=== PATIENT | male | born 1970 | race Caucasian/White ===

== ENCOUNTER 2016-12-02 11:18 | Inpatient (IN) | payer BC, MEDICARE ==
[~2016-12-02] VITALS: Ht 172.7 cm; Wt 114.5 kg
[2016-12-02] VITALS (20 sets, daily range): BP systolic 118–218; BP diastolic 55–100; PULSE 72–95; RESP 1–24; TEMP 98.9–99.3; O2SAT 94–100
[2016-12-02] MEDS ORDERED: SUCCINYLCHOLINE CHLORIDE 200 MG/10 ML VIAL ONE (11:24)
[2016-12-02] MEDS ORDERED: ETOMIDATE 20 MG/10 ML VIAL ONE (11:24)
[2016-12-02] MEDS ORDERED: PROPOFOL 1000 MG/100 ML INJ 100 ML ONE (11:28)
[2016-12-02] MEDS ORDERED: MIDAZOLAM HCL 2 MG/2 ML VIAL IV PUSH ONE (11:45)
[2016-12-02] MEDS ORDERED: SODIUM CHLORIDE 0.9% FLUSH 10 ML FLUSH IVF PRN (11:45)
[2016-12-02] MEDS ORDERED: PROPOFOL 1000 MG/100 ML INJ 100 ML IV SCH (11:45)
[2016-12-02] MEDS ORDERED: MIDAZOLAM HCL 5 MG/ML VIAL (1 ML) ONE (11:47)
--- NOTE | 2016-12-02 11:48 | PD ---
HPI Chief Complaint: Code Blue Time Seen by Provider: 11:31 Travel History International Travel<30 days: No Contact w/Intl Traveler<30days: No History of Present Illness HPI Patient is a 46-year-old male with history of diabetes, neuropathy, Charcot foot to the left, hyperlipidemia, presents to emergency room after he had a witnessed cardiac arrest at home. As per EMS, patient's reports that patient complained of dizziness this morning. Reports that soon after, patient collapsed and went into cardiac arrest. EMS reports that they were at the house within 5 minutes of the call, that he was in asystole upon arrival. Patient was intubated using a combitube. ACLS protocol was initiated in the field. Patient was given 2 rounds of epi and had ROSC. EMS reported that patient was also coughing up blood Blood sugar was 110 upon arrival to ER. [facility] Past Medical History High Cholesterol: Yes Diabetes: Yes Musculoskeletal: Yes (Charcot's foot (left)) Neurologic: Yes ("Brain atrophy") Social History Tobacco Use: No Allergies-Medications (Allergen,Severity, Reaction): Coded Allergies: UNOBTAINABLE (Unverified , 12/02/16) Reported Meds & Prescriptions Reported Meds & Active Scripts Active Reported Aspirin 81 Mg Chew 81 Mg CHEW DAILY Simvastatin 20 Mg Tab 20 Mg PO DAILY Losartan (Losartan Potassium) 25 Mg Tab 25 Mg PO DAILY Prozac (Fluoxetine HCl) 40 Mg Cap 40 Mg PO DAILY Gabapentin 800 Mg Tab 800 Mg PO TID Novolog Inj (Insulin Aspart) 1,000 Unit/10 Ml Vial 0 SQ DIRECTED Sliding Scale as directed. Review of Systems ROS Limitations: Intubated, Altered Mental Status, Unresponsive Physical Exam Narrative GENERAL: moderate distress SKIN: Focused skin assessment warm/dry. HEAD: Atraumatic. Normocephalic. EYES: Pupils equal and round. No scleral icterus. No injection or drainage. ENT: No nasal bleeding or discharge. Mucous membranes pink and moist. comitube in place NECK: Trachea midline. No JVD. CARDIOVASCULAR: Regular rate and rhythm. No murmur appreciated. RESPIRATORY: No accessory muscle use. Clear to auscultation. Breath sounds equal bilaterally. GASTROINTESTINAL: Abdomen soft, non-tender, nondistended. Hepatic and splenic margins not palpable. MUSCULOSKELETAL: No obvious deformities. No clubbing. No cyanosis. No edema. Patient with boot to left ankle NEUROLOGICAL: patient with agonal breathing with combitube in place, unresponsive Data Data Last Documented VS Vital Signs Date Time Temp Pulse Resp B/P Pulse Ox O2 Delivery O2 Flow Rate FiO2 12/02/16 11:50 89 136/63 100 Ventilator 12/02/16 11:26 98.9 12/02/16 11:20 10 Orders Etomidate Inj (Amidate Inj) (12/02/16 11:24) Succinylcholine Inj (Quelicin Inj) (12/02/16 11:24) Propofol 1000 Mg/100 Ml Inj (Diprivan 10 (12/02/16 11:28) Chest, Single Ap (12/02/16 ) Ckmb (Isoenzyme) Profile (12/02/16 11:32) Complete Blood Count With Diff (12/02/16 11:32) Comprehensive Metabolic Panel (12/02/16 11:32) Prothrombin Time / Inr (Pt) (12/02/16 11:32) Act Partial Throm Time (Ptt) (12/02/16 11:32) Lipase (12/02/16 11:32) Ecg Monitoring (12/02/16 11:32) Iv Access Insert/Monitor (12/02/16 11:32) Oximetry (12/02/16 11:32) Sodium Chloride 0.9% Flush (Ns Flush) (12/02/16 11:45) Ct Pulmonary Angiogram (12/02/16 11:32) Ct Brain W/O Iv Contrast(Rout) (12/02/16 11:32) Insert Ng Tube (12/02/16 11:33) Insert Temp Sensing Porter Cath (12/02/16 11:33) Bedside Glucose EMMANUEL.AC&HS (12/02/16 11:33) Drug Screen, Random Urine (12/02/16 11:34) Alcohol (Ethanol) (12/02/16 11:34) Salicylates (Aspirin) (12/02/16 11:34) Tylenol (Acetaminophen) (12/02/16 11:34) Propofol 1000 Mg/100 Ml Inj (Diprivan 10 (12/02/16 11:45) B-Type Natriuretic Peptide (12/02/16 11:39) Magnesium (Mg) (12/02/16 11:39) Troponin I (12/02/16 11:39) Ct Cerv Spine W/O Contrast (12/02/16 11:40) Type And Screen (12/02/16 11:43) Arterial Blood Gas (Abg) (12/02/16 ) Midazolam Inj (Versed Inj) (12/02/16 11:45) Midazolam Inj (Versed Inj) (12/02/16 11:47) Vecuronium 10 Mg Inj (Norcuron 10 Mg Inj (12/02/16 12:00) Vecuronium 10 Mg Inj (Norcuron 10 Mg Inj (12/02/16 11:53) Admit Order (Ed Use Only) (12/02/16 12:10) CKMB (12/02/16 11:40) CKMB% (12/02/16 11:40) Labs Laboratory Tests Test 12/02/16 12/02/16 11:40 11:42 White Blood Count 11.9 TH/MM3 Red Blood Count 4.55 MIL/MM3 Hemoglobin 12.9 GM/DL Hematocrit 41.1 % Mean Corpuscular Volume 90.4 FL Mean Corpuscular Hemoglobin 28.4 PG Mean Corpuscular Hemoglobin 31.4 % Concent Red Cell Distribution Width 13.8 % Platelet Count 252 TH/MM3 Mean Platelet Volume 8.4 FL Neutrophils (%) (Auto) 41.8 % Lymphocytes (%) (Auto) 48.6 % Monocytes (%) (Auto) 8.2 % Eosinophils (%) (Auto) 0.9 % Basophils (%) (Auto) 0.5 % Neutrophils # (Auto) 5.0 TH/MM3 Lymphocytes # (Auto) 5.8 TH/MM3 Monocytes # (Auto) 1.0 TH/MM3 Eosinophils # (Auto) 0.1 TH/MM3 Basophils # (Auto) 0.1 TH/MM3 CBC Comment AUTO DIFF Differential Total Cells 100 Counted Neutrophils % (Manual) 41 % Lymphocytes % 45 % Monocytes % 11 % Eosinophils % 1 % Neutrophils # (Manual) 5.1 TH/MM3 Metamyelocytes 1 % Myelocytes 1 % Differential Comment FINAL DIFF MANUAL Prothrombin Time 10.5 SEC Prothromb Time International 1.0 RATIO Ratio Activated Partial 22.6 SEC Thromboplast Time Sodium Level 145 MEQ/L Potassium Level 4.8 MEQ/L Chloride Level 108 MEQ/L Carbon Dioxide Level 20.7 MEQ/L Anion Gap 16 MEQ/L Blood Urea Nitrogen 21 MG/DL Creatinine 1.49 MG/DL Estimat Glomerular Filtration 50 ML/MIN Rate Random Glucose 116 MG/DL Calcium Level 8.6 MG/DL Magnesium Level 2.5 MG/DL Total Bilirubin 0.5 MG/DL Aspartate Amino Transf 44 U/L (AST/SGOT) Alanine Aminotransferase 40 U/L (ALT/SGPT) Alkaline Phosphatase 114 U/L Total Creatine Kinase 358 U/L Creatine Kinase MB 2.7 NG/ML Creatine Kinase MB % 0.8 % Troponin I 0.02 NG/ML B-Type Natriuretic Peptide 32 PG/ML Total Protein 6.2 GM/DL Albumin 3.3 GM/DL Lipase 136 U/L Salicylates Level LESS THAN 1.7 MG/DL Acetaminophen Level LESS THAN 2.0 MCG/ML Ethyl Alcohol Level LESS THAN 3 MG/DL Urine Opiates Screen NEG Urine Barbiturates Screen NEG Urine Amphetamines Screen NEG Urine Benzodiazepines Screen NEG Urine Cocaine Screen NEG Urine Cannabinoids Screen NEG MDM Medical Decision Making Medical Screen Exam Complete: Yes Emergency Medical Condition: Yes Interpretation(s) EKG at 1124: NSR at 93bpm, qt/qtc: 329/380, no acute st or t wave changes Vital Signs Date Time Temp Pulse Resp B/P Pulse Ox O2 Delivery O2 Flow Rate FiO2 12/02/16 11:26 93 118/56 100 12/02/16 11:26 98.9 12/02/16 11:20 95 10 126/55 Differential Diagnosis Differential includes CVA, intracranial hemorrhage, ACS, PE, DVT, arrhythmia, electrolyte abnormality, aortic dissection, seizure Narrative Course Patient is a 46-year-old male who was brought to the ER s/p cardiac arrest. EMS arrived on scene 5 minutes after call was placed by pt's . Patient was in asystole upon their arrival. ACLS protocol was initiated immediately upon their arrival. Patient had 2 rounds of epi and had ROSC. Patient is brought to the emergency room with a Combitube in place. Combitube was removed, patient was intubated using a 8.0 ETT and using RSI EKG: NSR at 93bpm, qt/qtc: 329/380, no acute st or t wave changes Patient was placed on a propofol drip for sedation. CT of the head ordered to r/o ich, PE study ordered to rule out pe - as per ems , reported that patient was coughing up blood, he does have a boot to his left ankle - there is concern for possible PE. OG tube, Porter catheter placed EMS reports that patient's now reports possible seizure activity Dr. Mitchell at bedside, request emergent EEG - order placed - tech called Critical Care Narrative Aggregate critical care time was 60 minutes. Time to perform other separately billable procedures was not included in the critical care time. My time did not include minutes spent treating any other patients simultaneously or on activities that did not directly contribute to the patient's treatment. The services I provided to this patient were to treat and/or prevent clinically significant deterioration that could result in: , decompensation, deterioration I provided critical care services requiring my management, as noted below: Chart data review, documentation time, medication orders and management, vital sign assessments/reviewing monitor data, ordering and reviewing lab tests, ordering and interpreting/reviewing x-rays and diagnostic studies, care of the patient and discussion of the patient with the admitting physicians. Procedures Procedure Narrative Combitube removed, emergent consent implied INTUBATION: The patient was put in optimal position for the procedure. Rapid sequence intubation was initiated by me using 20 milligrams of etomidate IV and 100 milligrams of succincholine IV. The patient was intubated with a 8.0 cuffed endotracheal tube. Tube placement was confirmed by visualization of the tube and balloon passing through the cords, capnometry and subsequent chest x-ray. Breath sounds were equal and well aerated bilaterally postintubation. No breath sounds over stomach. Patient tolerated procedure well. Physician Communication Physician Communication case reviewed with Dr. Hannah who accepts pt to service Diagnosis Primary Impression: Cardiac arrest Additional Impression: Ventilator dependence Admitting Information Admitting Physician Requests: Admit Gretel Hutchinson DO Dec 02, 2016 11:48 Gretel Hutchinson DO Dec 02, 2016 11:48
[2016-12-02] MEDS ORDERED: VECURONIUM BROMIDE 10 MG VIAL ONE (11:53)
--- NOTE | 2016-12-02 11:59 | RADRPT ---
EXAM DATE/TIME: 12/02/2016 11:27 [facility] COMPARISON: No previous studies available for comparison. INDICATIONS : Post-intubation. MEDICAL HISTORY : Unobtainable. SURGICAL HISTORY : Unobtainable. ENCOUNTER: Initial ACUITY: 1 day PAIN SCORE: Non-responsive. LOCATION: Bilateral chest FINDINGS: Endotracheal tube is noted and well-positioned just above the marquita. The lungs are free of significant congestion or acute airspace disease. Heart and mediastinal structures are unremarkable. CONCLUSION: Satisfactory position of endotracheal tube. No evidence of acute cardiopulmonary process. Stepan Guadalupe MD on December 02, 2016 at 11:57 Board Certified Radiologist. This report was verified electronically.
[2016-12-02] MEDS ORDERED: VECURONIUM BROMIDE 10 MG VIAL IV PUSH ONE (12:00)
[2016-12-02] MEDS ORDERED: SODIUM CHLOR 0.9% 1000 ML INJ 1,000 ML IV SCH (12:06)
[2016-12-02 12:12] LABS: BASOPHIL # 0.1 TH/MM3 (0-0.2); BASOPHIL % 0.5 % (0.0-2.0); EOSINOPHIL # 0.1 TH/MM3 (0-0.4); EOSINOPHIL % 0.9 % (0.0-4.0); HEMATOCRIT 41.1 % (39.0-51.0); LYMPH % 48.6 % (9.0-44.0); LYMPHOCYTE # 5.8 TH/MM3 (1.0-4.8); MEAN CELL VOLUME 90.4 FL (80.0-100.0); MEAN CORPUSCULAR HEMOGLOBIN 28.4 PG (27.0-34.0); MEAN CORPUSCULAR HGB CONC 31.4 % (32.0-36.0); MONO % 8.2 % (0.0-8.0); NEUT % 41.8 % (16.0-70.0); PLATELET COUNT 252 TH/MM3 (150-450); RED BLOOD COUNT 4.55 MIL/MM3 (4.50-5.90); RED CELL DISTRIBUTION WIDTH 13.8 % (11.6-17.2); WHITE BLOOD COUNT 11.9 TH/MM3 (4.0-11.0)
[2016-12-02] MEDS ORDERED: CHLORHEXIDINE GLUCONATE 2 % 1 PACK (2 CLOTHS) TOP PRN (12:15)
[2016-12-02] MEDS ORDERED: MISCELLANEOUS NURSING INFORMATION XX SCH (12:15)
[2016-12-02] MEDS ORDERED: SODIUM CHLORIDE 0.9% FLUSH 10 ML FLUSH IV FLUSH PRN (12:15)
[2016-12-02 12:16] LABS: HEMO FLAGS AUTO DIFF
[2016-12-02 12:21] LABS: APTT (PATIENT) 22.6 SEC (24.3-30.1); PROTHROMBIN TIME - PATIENT 10.5 SEC (9.8-11.6)
[2016-12-02 12:22] LABS: ALT (GPT) 40 U/L (12-78); ANION GAP 16 MEQ/L (5-15); AST (GOT) 44 U/L (15-37); BICARBONATE 20.7 MEQ/L (21.0-32.0); BLOOD UREA NITROGEN 21 MG/DL (7-18); CHLORIDE 108 MEQ/L (98-107); GLOMERULAR FILTRATION RATE 50 ML/MIN (>89); POTASSIUM 4.8 MEQ/L (3.5-5.1); SODIUM (NA) 145 MEQ/L (136-145)
[2016-12-02 12:22] LABS: AMPHETAMINE, URINE NEG (NEG); BARBITURATES, URINE NEG (NEG); COCAINE, URINE NEG (NEG)
[2016-12-02 12:24] LABS: MAGNESIUM 2.5 MG/DL (1.5-2.5)
[2016-12-02 12:25] LABS: ALKALINE PHOSPHATASE 114 U/L (45-117); CREATINE KINASE 358 U/L (39-308); TOTAL BILIRUBIN ADULT 0.5 MG/DL (0.2-1.0)
--- NOTE | 2016-12-02 12:32 | RADRPT ---
EXAM DATE/TIME: 12/02/2016 12:09 [facility] COMPARISON: No previous studies available for comparison. INDICATIONS : Post cardiac arrest. RADIATION DOSE: 34.56 CTDIvol (mGy) MEDICAL HISTORY : Non-responsive. SURGICAL HISTORY : Non-responsive. ENCOUNTER: Initial ACUITY: 1 day PAIN SCALE: Non-responsive LOCATION: cranial TECHNIQUE: Multiple contiguous axial images were obtained of the head. Using automated exposure control and adj ustment of the mA and/or kV according to patient size, radiation dose was kept as low as reasonably a chievable to obtain optimal diagnostic quality images. DICOM format image data is available electro nically for review and comparison. FINDINGS: CEREBRUM: The ventricles are normal for age. No evidence of midline shift, mass lesion, hemorrhage or acute in farction. No extra-axial fluid collections are seen. POSTERIOR FOSSA: The cerebellum and brainstem are intact. The 4th ventricle is midline. The cerebellopontine angle i s unremarkable. EXTRACRANIAL: The visualized portion of the orbits is intact. SKULL: The calvaria is intact. No evidence of skull fracture. CONCLUSION: No acute disease. No evidence of acute infarct, hemorrhage, mass or edema. Stepan Guadalupe MD on December 02, 2016 at 12:28 Board Certified Radiologist. This report was verified electronically.
[2016-12-02] MEDS ORDERED: IOHEXOL 350 MG/ML 10 ML VIAL (for RAD DIAG) IV ONE (12:33)
[2016-12-02 12:38] LABS: ACETAMINOPHEN LESS THAN 2.0 MCG/ML (10.0-30.0)
[2016-12-02 12:40] LABS: EOSINOPHILS 1 % (0-4); METAMYELOCYTES 1 % (0-1); MYELOCYTES 1 % (0-0); NEUTROPHIL # MANUAL DIFF 5.1 TH/MM3 (1.8-7.7); POLYS (SEG NEUTROPHILS) 41 % (16-70); SCAN/DIFF FINAL DIFF MANUAL; WBC DIFF SAMPLE 100
[2016-12-02 12:41] LABS: CKMB 2.7 NG/ML (0.5-3.6)
--- NOTE | 2016-12-02 12:41 | RADRPT ---
EXAM DATE/TIME: 12/02/2016 12:09 [facility] COMPARISON: No previous studies available for comparison. INDICATIONS : Post cardiac arrest. RADIATION DOSE: 23.37 CTDIvol (mGy) MEDICAL HISTORY : Non-responsive. SURGICAL HISTORY : Non-responsive. ENCOUNTER: Initial ACUITY: 1 day PAIN SCALE: Non-responsive LOCATION: neck TECHNIQUE: Volumetric scanning of the cervical spine was performed. Multiplanar reconstructions in the sagittal, coronal and oblique axial planes were performed. Using automated exposure control and adjustment o f the mA and/or kV according to patient size, radiation dose was kept as low as reasonably achievable to obtain optimal diagnostic quality images. DICOM format image data is available electronically f or review and comparison. FINDINGS: VERTEBRAE: Normal vertebral body height. ALIGNMENT: No evidence of subluxation. C2-C3: The bony spinal canal is normal in size. No evidence of disc bulge or herniation. The neural forami na are bilaterally patent. C3-C4: The bony spinal canal is normal in size. No evidence of disc bulge or herniation. The neural forami na are bilaterally patent. C4-C5: The bony spinal canal is normal in size. No evidence of disc bulge or herniation. The neural forami na are bilaterally patent. C5-C6: The bony spinal canal is normal in size. No evidence of disc bulge or herniation. The neural forami na are bilaterally patent. C6-C7: The bony spinal canal is normal in size. No evidence of disc bulge or herniation. The neural forami na are bilaterally patent. C7-T1: The bony spinal canal is normal in size. No evidence of disc bulge or herniation. The neural forami na are bilaterally patent. CONCLUSION: No acute disease. Stepan Guadalupe MD on December 02, 2016 at 12:37 Board Certified Radiologist. This report was verified electronically.
--- NOTE | 2016-12-02 12:44 | RADRPT ---
EXAM DATE/TIME: 12/02/2016 12:09 [facility] COMPARISON: No previous studies available for comparison. INDICATIONS : Post cardiac arrest. IV CONTRAST: 75 cc Omnipaque 350 (iohexol) IV RADIATION DOSE: 6.89 CTDIvol (mGy) MEDICAL HISTORY : Non-responsive. SURGICAL HISTORY : Non-responsive. ENCOUNTER: Initial ACUITY: 1 day PAIN SCALE: Non-responsive LOCATION: chest TECHNIQUE: Volumetric scanning of the chest was performed using a pulmonary embolism protocol MIP images were re constructed. Using automated exposure control and adjustment of the mA and/or kV according to patien t size, radiation dose was kept as low as reasonably achievable to obtain optimal diagnostic quality images. DICOM format image data is available electronically for review and comparison. Follow-up recommendations for incidentally detected pulmonary nodules are based at a minimum on nodul e size and patient risk factors according to Fleischner Society Guidelines. FINDINGS: PULMONARY ARTERIES: No filling defects are seen in the pulmonary arteries through the segmental level. LUNGS: Subsegmental airspace disease is identified in both lower lobes along the posterior pleural margins. There are no suspicious nodular densities. PLEURAE: There is no pleural thickening or pleural effusion. MEDIASTINUM: There is good visualization of the great vessels of the middle mediastinum. No evidence of mediastin al or hilar adenopathy/mass. MUSCULOSKELETAL: Within normal limits for patient age. MISCELLANEOUS: The visualized upper abdominal organs demonstrate no acute abnormality. CONCLUSION: 1. No evidence of acute pulmonary embolism. 2. Posterior bibasilar airspace disease. 3. No evidence of suspicious mass or lymphadenopathy. Stepan Guadalupe MD on December 02, 2016 at 12:39 Board Certified Radiologist. This report was verified electronically.
[2016-12-02] MEDS ORDERED: GABA800T PO (13:07)
[2016-12-02] MEDS ORDERED: NOVOLOGP2 SQ (13:07)
[2016-12-02] MEDS ORDERED: PROZ40CA PO (13:08)
[2016-12-02] MEDS ORDERED: LOSA25TA PO (13:23)
[2016-12-02] MEDS ORDERED: SIMV20TA PO (13:24)
[2016-12-02] MEDS ORDERED: ASPI81CH CHEW (13:24)
[2016-12-02 13:58] LABS: BLOOD GAS BASE EXCESS 0.9 mmol/L (-2-2); BLOOD GAS CARBOXYHEMOGLOBIN 1.3 % (0-4); BLOOD GAS HCO3 25 mmol/L (22-26); BLOOD GAS METHEMOGLOBIN 1.3 % (0-2); BLOOD GAS O2 HGB SATURATION 97 % (90-100); BLOOD GAS OXYGEN CONTENT 18.3 Vol % (12.0-20.0); BLOOD GAS PCO2 42 mmHg (38-42); BLOOD GAS PO2 150 mmHg (61-120); BLOOD GAS TOTAL HGB 13.3 G/DL (12.0-16.0); CRITICAL VALUE NO; OXYGEN DEVICE VENTILATOR; TEMP CORR TO 98.6
[2016-12-02 13:59] LABS: DRAW SITE LT RADIAL; FIO2 50 %; NUMBER OF ARTERIAL PUNCTURES 1; STAT YES; ULNAR PULSE PRESENT
[2016-12-02] MEDS ORDERED: BUPR150T3 PO (14:04)
--- NOTE | 2016-12-02 14:36 | HHI.HP ---
HPI Service Critical Care Medicine Primary Care Physician Admission Diagnosis S/p Cardiac Arrest Diagnosis: (1) Cardiac arrest Diagnosis: Principal (2) Asystole Diagnosis: Principal (3) Acute respiratory failure Diagnosis: Principal (4) Anoxic brain injury Diagnosis: Principal (5) Seizures vs myoclonus Diagnosis: Principal (6) Hypoglycemia Diagnosis: Principal Chief Complaint: Cardiac arrest Travel History International Travel<30 Days: No Contact w/Intl Traveler <30 Da: No Traveled to Known Affected Are: No History of Present Illness Patient is a 46-year-old male with history of diabetes, neuropathy, Charcot foot to the left, hyperlipidemia, presents to emergency room after he had a witnessed cardiac arrest at home. Per patient's he complained of dizziness this morning. He went to the garage to get something and then walked back into the kitchen. Shortly afterwards the was heard a loud thud. She rushed to the kitchen and found the patient collapsed on the floor, with seizure -like activity of the upper extremities. EMS was called immediately and the got to the house within 5-10 minutes of the call, patient was in asystole upon arrival. ACLS protocol was initiated in the field. Patient was intubated using a combitube. Patient was given 2 rounds of epi and had ROSC. EMS reported that patient was also coughing up blood. Blood sugar at the scene was 63, for which he got dextrose. In the emergency department Combitube was removed, patient was intubated using a 8.0 ETT. EKG: No acute changes. Initial neuro exam was very poor per Dr. Hutchinson. No spontaneous movements noted, patient had a gag reflex. Also he was biting on the teeth otherwise no purposeful movements noted. To facilitate imaging studies patient received 10 mg of vecuronium as he was biting down the ET tube. CT of the head and CT pulmonary angiogram was negative for any acute findings. I evaluated the patient in the emergency department approximately 30 minutes after vecuronium was given. Patient still was neuromuscularly paralyzed. The history of probable witnessed seizures was conformed with the . I asked for a stat EEG. Once in the ICU Stat EEG was done which showed severe encephalopathy. Given the EEG findings and for neuro exam by the ER physician, I discussed with regarding induced hypothermia protocol for neuro protection. Patient was still within the window for induced hypothermia and was agreeable. I proceeded with placing the heat exchange catheter in the right groin. Towards completion of the procedure patient started having tonic clonic movements of the bilateral lower extremity. 4 mg IV push of Ativan was given emergently following which he stopped seizure -like activity. Patient will be loaded with Cerebyx, and continued on Dilantin. CT of the head was negative for any acute findings Review of Systems ROS Limitations: Intubated, Unresponsive Past Family Social History Allergies: Coded Allergies: UNOBTAINABLE (Unverified , 12/02/16) Past Medical History Diabetes Neuropathy Charcot foot to the left Hyperlipidemia, Past Surgical History No major surgeries Reported Medications Aspirin 81 Mg Chew 81 Mg CHEW DAILY Simvastatin 20 Mg Tab 20 Mg PO DAILY Losartan (Losartan Potassium) 25 Mg Tab 25 Mg PO DAILY Prozac (Fluoxetine HCl) 40 Mg Cap 40 Mg PO DAILY Gabapentin 800 Mg Tab 800 Mg PO TID Novolog Inj (Insulin Aspart) 1,000 Unit/10 Ml Vial 0 SQ DIRECTED NovoLog insulin pump Active Ordered Medications Reviewed Family History Unable to obtain as the patient is unresponsive Social History Unable to obtain as the patient is unresponsive Physical Exam Vital Signs Vital Signs Date Time Temp Pulse Resp B/P Pulse Ox O2 Delivery O2 Flow Rate FiO2 12/02/16 14:00 90 12/02/16 14:00 99.3 90 24 199/94 100 12/02/16 13:43 99 100 12/02/16 12:59 90 20 173/86 99 Ventilator 12/02/16 12:47 100 50 12/02/16 12:35 100 100 12/02/16 12:31 100 100 12/02/16 11:50 89 136/63 100 Ventilator 12/02/16 11:45 90 140/67 12/02/16 11:30 100 12/02/16 11:26 93 118/56 100 12/02/16 11:26 98.9 12/02/16 11:20 100 12/02/16 11:20 95 10 126/55 Physical Exam GENERAL: Intubated not on any sedation, unresponsive SKIN: Warm and dry HEAD: Atraumatic. Normocephalic. EYES: Pupils equal and round, nonreactive. No scleral icterus. No injection or drainage. ENT: No nasal bleeding or discharge. Endotracheally intubated NECK: Trachea midline. No JVD. CARDIOVASCULAR: Regular rate and rhythm. No murmur appreciated. RESPIRATORY: Clear to auscultation. Breath sounds equal bilaterally. GASTROINTESTINAL: Abdomen soft, non-tender, nondistended. Hepatic and splenic margins not palpable. MUSCULOSKELETAL: Boot to left foot for Charcot foot NEUROLOGICAL: Patient is intubated not on any sedation. No pupillary reaction. Positive gag. Intermittently breathing above the ventilator. No spontaneous movements noted. GCS 3T (While doing the Heat exchange catheter, patient developed tonic clonic sz like activity of LE) Laboratory Laboratory Tests Test 12/02/16 12/02/16 12/02/16 12/02/16 11:40 11:42 12:50 13:48 White Blood Count 11.9 Red Blood Count 4.55 Hemoglobin 12.9 Hematocrit 41.1 Mean Corpuscular Volume 90.4 Mean Corpuscular Hemoglobin 28.4 Mean Corpuscular Hemoglobin 31.4 Concent Red Cell Distribution Width 13.8 Platelet Count 252 Mean Platelet Volume 8.4 Neutrophils (%) (Auto) 41.8 Lymphocytes (%) (Auto) 48.6 Monocytes (%) (Auto) 8.2 Eosinophils (%) (Auto) 0.9 Basophils (%) (Auto) 0.5 Neutrophils # (Auto) 5.0 Lymphocytes # (Auto) 5.8 Monocytes # (Auto) 1.0 Eosinophils # (Auto) 0.1 Basophils # (Auto) 0.1 CBC Comment AUTO DIFF Differential Total Cells 100 Counted Neutrophils % (Manual) 41 Lymphocytes % 45 Monocytes % 11 Eosinophils % 1 Neutrophils # (Manual) 5.1 Metamyelocytes 1 Myelocytes 1 Differential Comment FINAL DIFF MANUAL Prothrombin Time 10.5 Prothromb Time International 1.0 Ratio Activated Partial 22.6 Thromboplast Time Sodium Level 145 Potassium Level 4.8 Chloride Level 108 Carbon Dioxide Level 20.7 Anion Gap 16 Blood Urea Nitrogen 21 Creatinine 1.49 Estimat Glomerular Filtration 50 Rate Random Glucose 116 Calcium Level 8.6 Magnesium Level 2.5 Total Bilirubin 0.5 Aspartate Amino Transf 44 (AST/SGOT) Alanine Aminotransferase 40 (ALT/SGPT) Alkaline Phosphatase 114 Total Creatine Kinase 358 Creatine Kinase MB 2.7 Creatine Kinase MB % 0.8 Troponin I 0.02 B-Type Natriuretic Peptide 32 Total Protein 6.2 Albumin 3.3 Lipase 136 Salicylates Level LESS THAN 1.7 Acetaminophen Level LESS THAN 2.0 Ethyl Alcohol Level LESS THAN 3 Urine Opiates Screen NEG Urine Barbiturates Screen NEG Urine Amphetamines Screen NEG Urine Benzodiazepines Screen NEG Urine Cocaine Screen NEG Urine Cannabinoids Screen NEG Blood Type O POSITIVE Antibody Screen NEGATIVE Blood Bank Comment Blood Gas Puncture Site LT RADIAL Blood Gas Patient Temperature 98.6 Blood Gas HCO3 25 Blood Gas Base Excess 0.9 Blood Gas Oxygen Saturation 97 Arterial Blood pH 7.40 Arterial Blood Partial 42 Pressure CO2 Arterial Blood Partial 150 Pressure O2 Arterial Blood Oxygen Content 18.3 Arterial Blood 1.3 Carboxyhemoglobin Arterial Blood Methemoglobin 1.3 Blood Gas Hemoglobin 13.3 Oxygen Delivery Device VENTILATOR Blood Gas Ventilator Setting AC,16,550,PEEP7,50% Blood Gas Inspired Oxygen 50 Result Diagram: 12/02/16 1140 12/02/[address] of the head negative for acute findings Assessment and Plan Assessment and Plan NEURO: Anoxic brain injury secondary to cardiac arrest Seizure versus myoclonus - Initiate induced hypothermia, per protocol for neuro protection - Propofol and fentanyl for sedation and ventilator synchrony, Nimbex infusion for shivering and ventilator synchrony - Stat EEG report pending - Loaded with Cerebyx and continued dose of Dilantin check level in a.m. RESP: Acute respiratory failure - Assist-control mechanical ventilation - Ventilator bundle, DuoNeb every 6 hours and when necessary - Sputum culture CV: Asystole - Etiology of cardiac arrest remains unclear at this time, check serial cardiac enzymes - 2-D echo is pending at this time, CT pulmonary angiogram was negative for acute PE - Use Levophed if needed to keep map above 65 - No indication for cardiology consult at this time Normal saline IV fluids, await 2d echo, cardiology consult, repeat troponin GI: - Nothing by mouth except meds. IV Protonix for GI prophylaxis : Acute kidney injury - Monitor renal function closely. Porter catheter. - IV hydration as above ID: - Monitor closely for infection, send blood and urine culture and sputum culture ENDO: Hypoglycemia Type 2 diabetes - Discontinue insulin pump. Initiate-hypoglycemia protocol - Defined normal saline at 125 mL per hour PROPH: - Bilateral lower extremity SCDs. Continue Lovenox, Protonix - Continue reports to the left lower extremity LINES: - R femoral heat exchange catheter in place CC time 92 min Code Status Full Discussed Condition With Dr. Hutchinson Problem Qualifiers (1) Acute respiratory failure: Qualified Code: J96.00 - Acute respiratory failure, unspecified whether with hypoxia or hypercapnia Genesis Mitchell MD Dec 02, 2016 14:36
[2016-12-02] MEDS ORDERED: MAGNESIUM SULFATE INJ 2 GM in SODIUM CHLORIDE 0.9% INJ 96 ML IV PRN (14:45)
[2016-12-02] MEDS ORDERED: POTASSIUM CHLOR 20 MEQ PREMIX 100 ML IV PRN (14:45)
[2016-12-02] MEDS ORDERED: MAGNESIUM SULFATE INJ 4 GM in SODIUM CHLORIDE 0.9% INJ 92 ML IV PRN (14:45)
[2016-12-02] MEDS ORDERED: LORazepam 2 MG/ML VIAL IV PRN (14:45)
[2016-12-02] MEDS ORDERED: POTASSIUM PHOSPHATE INJ 30 MMOL in SODIUM CHLOR 0.9% 250 ML INJ 250 ML IV PRN (14:45)
[2016-12-02] MEDS ORDERED: POTASSIUM PHOSPHATE MONOBASIC 500 MG TAB PO/TUBE PRN (14:45)
[2016-12-02] MEDS ORDERED: MAGNESIUM OXIDE 400 MG TAB PO PRN (14:45)
[2016-12-02] MEDS ORDERED: ARTIFICIAL TEARS OPTH OINT 3.5 APPLIC/3.5 GM TUBO EACH EYE PRN (14:45)
[2016-12-02] MEDS ORDERED: POTASSIUM CHLOR 40 MEQ PREMIX 100 ML IV PRN ×2 (14:45)
[2016-12-02] MEDS ORDERED: POTASSIUM PHOSPHATE MONOBASIC 500 MG TAB PO PRN (14:45)
[2016-12-02] MEDS ORDERED: POTASSIUM CHLORIDE 25 MEQ EFFERVESCENT TAB PO PRN (14:45)
[2016-12-02 15:14] LABS: BLOOD, URINE SMALL (NEG); GLUCOSE,URINE NEG (NEG); KETONE, URINE NEG (NEG); MUCUS URINE FEW /lpf (OCC); NITRITE,URINE NEG (NEG); PH, URINE 5.5 (5.0-8.5); URINE COLOR YELLOW (YELLW/STRAW)
[2016-12-02] MEDS ORDERED: ROCURONIUM INJ 50 MG/5 ML VIAL ONE (15:25)
[2016-12-02] MEDS: fentaNYL DRIP 250 ML IV SCH (15:53)
[2016-12-02] MEDS: RESP: ALBUTEROL 2.5 MG/IPRATROPIUM 0.5 MG NEB (SCH) INH ×2 (15:58→19:49)
[2016-12-02] MEDS ORDERED: SODIUM CHLOR 0.9% 1000 ML INJ 1,000 ML IV ONE (16:00)
--- NOTE | 2016-12-02 16:01 | PD.PROCEDR ---
Central Line Procedure REASON FOR PROCEDURE Central venous access PROCEDURE PERFORMED Central line placement: R femoral heat exchange catheter CONSENT Informed consent for procedure was obtained from and time out performed. The risks and benefits of the procedure were discussed to include but limited to bleeding, clot formation, infection, and even . ANESTHESIA Local injection of 1% Lidocaine DESCRIPTION OF THE PROCEDURE The patient was placed in supine, mild Trendelenburg position. The area was exposed and cleansed with ChloraPrep, times two. Large sterile drape was used to cover the patient, with the site exposed, under sterile conditions including cap, face mask, sterile gown, and sterile gloves. On single attempt, the introducer needle was inserted with negative pressure in syringe and venous flash was obtained. The guide wire was then advanced without any restriction and the needle was removed. The dilator was used without any complications. Using Seldinger technique the 45 Heat exchange catheter was advanced over the guide wire to a depth of 41 centimeters. The guide wire was removed. All ports were aspirated with dark venous blood return and flushed easily with sterile saline. All ports were capped. Antibiotic disc was placed around central line at puncture site. The central line was secured to the skin with two interrupted 2.0 silk sutures. The area was bandaged with sterile see- through central line bandage. COMPLICATIONS: No apparent complications ESTIMATED BLOOD LOSS: Less than 1 cc. Genesis Mitchell MD Dec 02, 2016 16:01
[2016-12-02] MEDS: PROPOFOL 1000 MG/100 ML INJ 100 ML IV SCH (16:29)
[2016-12-02] MEDS: D5-NS + KCL 20 MEQ INJ 1,000 ML IV SCH (16:50)
[2016-12-02] MEDS ORDERED: FOSPHENYTOIN INJ 1,000 MGPE in SODIUM CHLORIDE 0.9% INJ 50 ML IV ONE (17:00)
[2016-12-02 17:50] LABS: CKMB 3.8 NG/ML (0.5-3.6)
--- NOTE | 2016-12-02 22:01 | MG ---
cc: JESSICA VANESSA M.D. Lab No: Date: 12/02/2016 Age: Sex: M Race: ELECTROENCEPHALOGRAM NUMBER [id number] INTRODUCTION A 46-year-old man. Intubated. Cardiac arrest. MEDICATIONS Propofol. DESCRIPTION A diffuse low amplitude rhythm is noted. A lot of muscle artifact is seen. I do not see any definite brain activity until towards the end of the recording he had a very high sensitivity recording. A 13 Hz bilateral posterior rhythm is seen. No hemisphere asymmetries are noted. No epileptiform or seizure activity is seen. Photic stimulation was performed without significant posterior driving. IMPRESSION A very low amplitude background but appears to be normal probably medication effect. No focal abnormalities noted. No seizure activity seen. MD JASMINA Corral/KK /9:46 PM /9:56 PM
[2016-12-02] MEDS ORDERED: MISC INFORMATION OTHER ONE (22:15)
[2016-12-02] MEDS ORDERED: DEXTROSE 50% IN WATER 50 ML VIAL(D50) IV PUSH PRN (22:15)
[2016-12-02] MEDS: INSULIN REGULAR 100 UNITS/100 ML NS ALGORITHM 2 IV SCH ×2 (22:27)
[2016-12-03] VITALS (46 sets, daily range): BP systolic 100–161; BP diastolic 58–86; PULSE 51–68; RESP 11–17; TEMP 91.6–91.9; O2SAT 99–100
[2016-12-03] MEDS: PROPOFOL 1000 MG/100 ML INJ 100 ML IV SCH ×3 (00:47→19:47)
[2016-12-03] MEDS: PHENYTOIN INJ 100 MG/2 ML VIAL IV SCH ×4 (00:47→23:49)
[2016-12-03] MEDS: D5-NS + KCL 20 MEQ INJ 1,000 ML IV SCH (00:47)
[2016-12-03 02:04] LABS: CKMB 5.6 NG/ML (0.5-3.6)
[2016-12-03] MEDS: RESP: ALBUTEROL 2.5 MG/IPRATROPIUM 0.5 MG NEB (SCH) INH ×4 (03:32→19:37)
[2016-12-03 05:49] LABS: AUTOMATED NEUTROPHIL # 7.4 TH/MM3 (1.8-7.7); BASOPHIL % 0.1 % (0.0-2.0); EOSINOPHIL % 0.1 % (0.0-4.0); HEMATOCRIT 40.5 % (39.0-51.0); HEMO FLAGS DIFF FINAL; LYMPH % 7.5 % (9.0-44.0); LYMPHOCYTE # 0.7 TH/MM3 (1.0-4.8); MEAN CELL VOLUME 86.4 FL (80.0-100.0); MEAN CORPUSCULAR HEMOGLOBIN 28.4 PG (27.0-34.0); MEAN CORPUSCULAR HGB CONC 32.9 % (32.0-36.0); MONO % 7.3 % (0.0-8.0); PLATELET COUNT 163 TH/MM3 (150-450); RED BLOOD COUNT 4.68 MIL/MM3 (4.50-5.90); RED CELL DISTRIBUTION WIDTH 13.7 % (11.6-17.2); WHITE BLOOD COUNT 8.7 TH/MM3 (4.0-11.0)
--- NOTE | 2016-12-03 06:06 | RADRPT ---
EXAM DATE/TIME: 12/03/2016 04:53 [facility] COMPARISON: CHEST SINGLE AP, December 02, 2016, 11:27. INDICATIONS : Shortness of breath. MEDICAL HISTORY : None. SURGICAL HISTORY : None. ENCOUNTER: Subsequent ACUITY: 2 days PAIN SCORE: 0/10 LOCATION: Bilateral chest FINDINGS: The endotracheal tube and NG tube appear to be in good position. There is a new infiltrate in the lef t lung base. Otherwise, the rest of the lungs are grossly clear. There is no evidence of pneumothorax . The bony structures are stable. CONCLUSION: There is a new infiltrate in the left lower lung. Douglas Walker MD on December 03, 2016 at 6:04 Board Certified Radiologist. This report was verified electronically.
[2016-12-03 06:24] LABS: ALKALINE PHOSPHATASE 112 U/L (45-117); ALT (GPT) 38 U/L (12-78); ANION GAP 7 MEQ/L (5-15); AST (GOT) 35 U/L (15-37); BICARBONATE 25.5 MEQ/L (21.0-32.0); BLOOD UREA NITROGEN 19 MG/DL (7-18); CHLORIDE 108 MEQ/L (98-107); GLOMERULAR FILTRATION RATE 86 ML/MIN (>89); MAGNESIUM 2.3 MG/DL (1.5-2.5); POTASSIUM 4.6 MEQ/L (3.5-5.1); SODIUM (NA) 140 MEQ/L (136-145)
[2016-12-03] MEDS ORDERED: FOSPHENYTOIN SODIUM 500 MG PE/10 ML VIAL IV ONE (08:00)
--- NOTE | 2016-12-03 08:06 | HHI.CCPN ---
Subjective Remarks/Hospital Course Patient is a 46-year-old male with history of diabetes, neuropathy, Charcot foot to the left, hyperlipidemia, presents to emergency room after he had a witnessed cardiac arrest at home. Per patient's he complained of dizziness this morning. He went to the garage to get something and then walked back into the kitchen. Shortly afterwards the was heard a loud thud. She rushed to the kitchen and found the patient collapsed on the floor, with seizure -like activity of the upper extremities. EMS was called immediately and the got to the house within 5-10 minutes of the call, patient was in asystole upon arrival. ACLS protocol was initiated in the field. Patient was intubated using a combitube. Patient was given 2 rounds of epi and had ROSC. EMS reported that patient was also coughing up blood. Blood sugar at the scene was 63, for which he got dextrose. In the emergency department Combitube was removed, patient was intubated using a 8.0 ETT. EKG: No acute changes. Initial neuro exam was very poor per Dr. Hutchinson. No spontaneous movements noted, patient had a gag reflex. Also he was biting on the teeth otherwise no purposeful movements noted. To facilitate imaging studies patient received 10 mg of vecuronium as he was biting down the ET tube. CT of the head and CT pulmonary angiogram was negative for any acute findings. I evaluated the patient in the emergency department approximately 30 minutes after vecuronium was given. Patient still was neuromuscularly paralyzed. The history of probable witnessed seizures was conformed with the . I asked for a stat EEG. Once in the ICU Stat EEG was done which showed severe encephalopathy. Given the EEG findings and for neuro exam by the ER physician, I discussed with regarding induced hypothermia protocol for neuro protection. Patient was still within the window for induced hypothermia and was agreeable. I proceeded with placing the heat exchange catheter in the right groin. Towards completion of the procedure patient started having tonic clonic movements of the bilateral lower extremity. 4 mg IV push of Ativan was given emergently following which he stopped seizure -like activity. Patient will be loaded with Cerebyx, and continued on Dilantin. CT of the head was negative for any acute findings SUBJ 12/03/16: Achieved target temperature 8 PM yesterday. Currently sedated intubated and neuromuscularly paralyzed. EEG yesterday -no seizure activity, very low amplitude background but appears normal per Dr. Christensen Objective Vital Signs Date Time Temp Pulse Resp B/P Pulse Ox O2 Delivery O2 Flow Rate FiO2 12/03/16 07:50 100 35 12/03/16 06:00 91.8 57 16 136/70 12/02/16 12:59 Ventilator Intake and Output 12/02/16 12/02/16 12/02/16 07:59 15:59 23:59 Intake Total 828 ml Output Total 265 ml 1350 ml Balance -265 ml -522 ml Result Diagram: 12/03/16 0530 12/03/16 0530 Other Results Laboratory Tests Test 12/02/16 13:48 Blood Gas Puncture Site LT RADIAL Blood Gas Patient Temperature 98.6 Blood Gas HCO3 25 mmol/L (22-26) Blood Gas Base Excess 0.9 mmol/L (-2-2) Blood Gas Oxygen Saturation 97 % (90-100) Arterial Blood pH 7.40 (7.380-7.420) Arterial Blood Partial 42 mmHg (38-42) Pressure CO2 Arterial Blood Partial 150 mmHg Pressure O2 (61-120) Arterial Blood Oxygen Content 18.3 Vol % (12.0-20.0) Arterial Blood 1.3 % (0-4) Carboxyhemoglobin Arterial Blood Methemoglobin 1.3 % (0-2) Blood Gas Hemoglobin 13.3 G/DL (12.0-16.0) Oxygen Delivery Device VENTILATOR Blood Gas Ventilator Setting AC,16,550,PEEP7,50% Blood Gas Inspired Oxygen 50 % Imaging CT of the head negative for acute findings Objective Remarks GENERAL: Intubated on propofol fentanyl and Nimbex infusion SKIN: Warm and dry HEAD: Atraumatic. Normocephalic. EYES: Pupils equal and round 3 mm, nonreactive. No scleral icterus. No injection or drainage. ENT: No nasal bleeding or discharge. Endotracheally intubated NECK: Trachea midline. No JVD. CARDIOVASCULAR: Regular rate and rhythm. No murmur appreciated. RESPIRATORY: Clear to auscultation. Breath sounds equal bilaterally. GASTROINTESTINAL: Abdomen soft, non-tender, nondistended. Hepatic and splenic margins not palpable. MUSCULOSKELETAL: Boot to left foot for Charcot foot NEUROLOGICAL: Patient is intubated not on any sedation. No pupillary reaction. Neuromuscular blockade limits exam. A/P Assessment and Plan NEURO: Probable Anoxic brain injury secondary to cardiac arrest Seizure versus myoclonus - Initiated induced hypothermia, per protocol for neuro protection, currently at target temp - EEG 12/02 -no seizure activity, very low amplitude background but appears normal per Dr. Christensen - Propofol and fentanyl for sedation and ventilator synchrony, Nimbex infusion - Loaded with Cerebyx and continued dose of Dilantin. Level 6.4 subtherapeutic. Give additional 500 mg Loading dose RESP: Acute respiratory failure - Assist-control mechanical ventilation - Ventilator bundle, DuoNeb every 6 hours and when necessary - F/U Sputum culture CV: Asystole - Etiology of cardiac arrest remains unclear at this time, check serial cardiac enzymes - Very mild troponin elevation secondary to cardiac arrest. I will hold of cardiology consult until hypothermia protocol is completed, and a proper neuro exam can be done - 2-D echo is pending at this time, CT pulmonary angiogram was negative for acute PE - Use Levophed if needed to keep map above 65 - Normal saline IV fluids GI: - Nothing by mouth except meds. IV Protonix for GI prophylaxis : Acute kidney injury - Monitor renal function closely. Porter catheter. - IV hydration as above ID: - Monitor closely for infection, f/u blood and urine culture and sputum culture ENDO: Hypoglycemia Type 2 diabetes - Discontinued insulin pump. Hypoglycemia protocol - D5 normal saline at 125 mL per hour-change to NS - Accucheck with SSI if needed as patient is now hypoglycemic PROPH: - Bilateral lower extremity SCDs. Continue Lovenox, Protonix - Continue reports to the left lower extremity LINES: - R femoral heat exchange catheter in place CC time 40 min Patient remains critically ill currently undergoing hypothermia protocol for neuro protection. Neuro exam and myoclonus indicate poor neurological prognosis. Genesis Mitchell MD Dec 03, 2016 08:06
[2016-12-03] MEDS: SODIUM CHLORIDE 0.9% FLUSH 10 ML FLUSH IV FLUSH SCH ×2 (08:22→19:47)
[2016-12-03] MEDS: CHLORHEXIDINE 0.12% (ORAL KIT) 15 ML CUP MT SCH ×2 (08:22→19:48)
[2016-12-03] MEDS: ASPIRIN 325 MG TAB PO SCH (08:22)
[2016-12-03] MEDS: PANTOPRAZOLE SODIUM 40 MG VIAL IV SCH (08:23)
[2016-12-03] MEDS: SODIUM CHLOR 0.9% 1000 ML INJ 1,000 ML IV SCH ×3 (08:59→23:49)
[2016-12-03] MEDS: INSULIN REGULAR 100 UNITS/100 ML NS ALGORITHM 2 IV SCH ×2 (09:45)
[2016-12-03] MEDS ORDERED: FOSPHENYTOIN INJ 500 MGPE in SODIUM CHLORIDE 0.9% INJ 50 ML IV ONE (10:00)
[2016-12-03] MEDS: CISATRACURIUM INJ 100 MG in SODIUM CHLOR 0.9% 250 ML INJ 240 ML IV SCH ×2 (13:35→21:02)
[2016-12-03] MEDS: fentaNYL DRIP 250 ML IV SCH (13:35)
[2016-12-03] MEDS: ENOXAPARIN SODIUM 40 MG/0.4 ML SYRINGE SQ SCH (13:35)
[2016-12-03] MEDS ORDERED: SODIUM CHLOR 0.9% 1000 ML INJ 1,000 ML IV ONE (14:00)
[2016-12-03 15:34] LABS: CKMB 5.7 NG/ML (0.5-3.6)
--- NOTE | 2016-12-03 19:24 | EKG ---
Date Performed: 12/02/2016 Time Performed: 11:24:18 PTAGE: 46 years EKG: Sinus rhythm NORMAL ECG NO PREVIOUS TRACING DOCTOR: Og Madden Interpretating Date/Time 12/03/2016 19:23:06
[2016-12-03] MEDS: ARTIFICIAL TEARS OPTH SOLN 15 ML BTL EACH EYE SCH (19:47)
--- NOTE | 2016-12-03 22:18 | ECHRPT ---
Indication: cardiac arrest CONCLUSIONS Normal left ventricular size. Mild concentric left ventricular hypertrophy. The left ventricular systolic function is low normal with an estimated ejection fraction in the rang e of 50- 55%. No regional wall motion abnormalities are present. Mild mitral valve regurgitation. No mitral valve stenosis. Anterior mitral valve leaflet prolapse mild Trace aortic valve regurgitation. No aortic valve stenosis. There is mild tricuspid valve regurgitation. Normal estimated pulmonary pressures. BP: 136 / 70 HR: 57 Rhythm: MEASUREMENTS (Male / Female) Normal Values Technical Quality:Good 2D ECHO LV Diastolic Diameter PLAX 4.6 cm 4.2 - 5.9 / 3.9 - 5.3 cm LV Systolic Diameter PLAX 3.5 cm IVS Diastolic Thickness 1.5 cm 0.6 - 1.0 / 0.6 - 0.9 cm LVPW Diastolic Thickness 1.2 cm 0.6 - 1.0 / 0.6 - 0.9 cm LV Relative Wall Thickness 0.6 RV Internal Dim ED PLAX 3.2 cm M-MODE Aortic Root Diameter MM 2.9 cm LA Systolic Diameter MM 3.3 cm LA Ao Ratio MM 1.1 AV Cusp Separation MM 2.5 cm DOPPLER Mitral E Point Velocity 70.6 cm/s Mitral A Point Velocity 54.3 cm/s Mitral E to A Ratio 1.3 LV E' Lateral Velocity 13.9 cm/s Mitral E to LV E' Lateral Ratio 5.1 LV E' Septal Velocity 10.7 cm/s Mitral E to LV E' Septal Ratio 6.6 TR Peak Velocity 227.0 cm/s TR Peak Gradient 20.6 mmHg FINDINGS LEFT VENTRICLE Normal left ventricular size. Mild concentric left ventricular hypertrophy. The left ventricular systolic function is low normal with an estimated ejection fraction in the rang e of 50- 55%. No regional wall motion abnormalities are present. Left ventricular diastolic function parameters are normal. RIGHT VENTRICLE Normal right ventricular size and systolic function. LEFT ATRIUM The left atrial size is normal. RIGHT ATRIUM The right atrial size is normal. ATRIAL SEPTUM Normal atrial septal thickness without atrial level shunting by limited color doppler interrogation. AORTA The aortic root and proximal ascending aorta are normal in size on limited imaging. MITRAL VALVE Structurally normal mitral valve. Mild mitral valve regurgitation. No mitral valve stenosis. Anterior mitral valve leaflet prolapse mild AORTIC VALVE Trileaflet aortic valve. Trace aortic valve regurgitation. No aortic valve stenosis. TRICUSPID VALVE Structurally normal tricuspid valve. There is mild tricuspid valve regurgitation. Normal estimated pulmonary pressures. PULMONARY VALVE The pulmonary valve is not well visualized. VESSELS The inferior vena cava is normal in size. PERICARDIUM No pericardial effusion. Jonatan Cowan MD, FACC (Electronically Signed) Final Date:03 December 2016 22:17
[2016-12-04] VITALS (28 sets, daily range): BP systolic 112–158; BP diastolic 53–79; PULSE 59–100; RESP 5–30; TEMP 92.7–100.9; O2SAT 91–100
[2016-12-04] MEDS: RESP: ALBUTEROL 2.5 MG/IPRATROPIUM 0.5 MG NEB (SCH) INH ×4 (03:23→19:32)
[2016-12-04] MEDS: CHLORHEXIDINE GLUCONATE 2 % 1 PACK (2 CLOTHS) TOP SCH (04:00)
[2016-12-04 05:42] LABS: BASOPHIL % 0.2 % (0.0-2.0); EOSINOPHIL # 0.1 TH/MM3 (0-0.4); EOSINOPHIL % 0.8 % (0.0-4.0); HEMATOCRIT 35.6 % (39.0-51.0); HEMO FLAGS DIFF FINAL; LYMPH % 8.4 % (9.0-44.0); LYMPHOCYTE # 0.6 TH/MM3 (1.0-4.8); MEAN CELL VOLUME 86.1 FL (80.0-100.0); MEAN CORPUSCULAR HEMOGLOBIN 29.2 PG (27.0-34.0); MEAN CORPUSCULAR HGB CONC 33.9 % (32.0-36.0); MONO % 6.4 % (0.0-8.0); NEUT % 84.2 % (16.0-70.0); PLATELET COUNT 128 TH/MM3 (150-450); RED BLOOD COUNT 4.13 MIL/MM3 (4.50-5.90); RED CELL DISTRIBUTION WIDTH 13.9 % (11.6-17.2); WHITE BLOOD COUNT 7.2 TH/MM3 (4.0-11.0)
[2016-12-04] MEDS: CISATRACURIUM INJ 100 MG in SODIUM CHLOR 0.9% 250 ML INJ 240 ML IV SCH (06:03)
[2016-12-04 06:08] LABS: ANION GAP 7 MEQ/L (5-15); BICARBONATE 22.7 MEQ/L (21.0-32.0); BLOOD UREA NITROGEN 15 MG/DL (7-18); CHLORIDE 112 MEQ/L (98-107); GLOMERULAR FILTRATION RATE 138 ML/MIN (>89); POTASSIUM 4.5 MEQ/L (3.5-5.1); SODIUM (NA) 142 MEQ/L (136-145)
[2016-12-04 06:24] LABS: ALKALINE PHOSPHATASE 94 U/L (45-117); ALT (GPT) 28 U/L (12-78); AST (GOT) 20 U/L (15-37); TOTAL BILIRUBIN ADULT 0.7 MG/DL (0.2-1.0)
--- NOTE | 2016-12-04 06:37 | RADRPT ---
EXAM DATE/TIME: 12/04/2016 05:04 [facility] COMPARISON: CHEST SINGLE AP, December 03, 2016, 4:53. INDICATIONS : Respiratory distress. MEDICAL HISTORY : None. SURGICAL HISTORY : None. ENCOUNTER: Subsequent ACUITY: 3 days PAIN SCORE: Non-responsive. LOCATION: Bilateral chest FINDINGS: The support devices remain in place. There continues to be some consolidation in the left lung base. The right lung remains grossly clear. No definite new infiltrates are seen. No evidence of pneumothor ax. Heart size is stable. CONCLUSION: There continues to be consolidation in the left lower lung. The right lung remains grossly clear. Douglas Walker MD on December 04, 2016 at 6:35 Board Certified Radiologist. This report was verified electronically.
[2016-12-04] MEDS: PROPOFOL 1000 MG/100 ML INJ 100 ML IV SCH ×3 (06:48→21:26)
[2016-12-04] MEDS: PANTOPRAZOLE SODIUM 40 MG VIAL IV SCH (07:47)
[2016-12-04] MEDS: PHENYTOIN INJ 100 MG/2 ML VIAL IV SCH ×3 (07:48→23:11)
[2016-12-04] MEDS: ASPIRIN 325 MG TAB PO SCH (07:48)
[2016-12-04] MEDS: SODIUM CHLORIDE 0.9% FLUSH 10 ML FLUSH IV FLUSH SCH ×2 (07:48→20:51)
[2016-12-04] MEDS: ARTIFICIAL TEARS OPTH SOLN 15 ML BTL EACH EYE SCH ×2 (07:49→20:51)
[2016-12-04] MEDS: CHLORHEXIDINE 0.12% (ORAL KIT) 15 ML CUP MT SCH ×2 (07:49→21:26)
[2016-12-04] MEDS: SODIUM CHLOR 0.9% 1000 ML INJ 1,000 ML IV SCH ×2 (07:50→15:44)
[2016-12-04] MEDS: MEPERIDINE HCL 25 MG/ML VIAL IVP PRN ×3 (10:25→23:11)
[2016-12-04] MEDS ORDERED: levETIRAcetam 1000 MG INJ 100 ML IV ONE (10:45)
[2016-12-04] MEDS ORDERED: LORazepam 2 MG/ML VIAL IV PUSH ONE (10:45)
--- NOTE | 2016-12-04 10:51 | HHI.CCPN ---
Subjective Remarks/Hospital Course Patient is a 46-year-old male with history of diabetes, neuropathy, Charcot foot to the left, hyperlipidemia, presents to emergency room after he had a witnessed cardiac arrest at home. Per patient's he complained of dizziness this morning. He went to the garage to get something and then walked back into the kitchen. Shortly afterwards the was heard a loud thud. She rushed to the kitchen and found the patient collapsed on the floor, with seizure -like activity of the upper extremities. EMS was called immediately and the got to the house within 5-10 minutes of the call, patient was in asystole upon arrival. ACLS protocol was initiated in the field. Patient was intubated using a combitube. Patient was given 2 rounds of epi and had ROSC. EMS reported that patient was also coughing up blood. Blood sugar at the scene was 63, for which he got dextrose. In the emergency department Combitube was removed, patient was intubated using a 8.0 ETT. EKG: No acute changes. Initial neuro exam was very poor per Dr. Hutchinson. No spontaneous movements noted, patient had a gag reflex. Also he was biting on the teeth otherwise no purposeful movements noted. To facilitate imaging studies patient received 10 mg of vecuronium as he was biting down the ET tube. CT of the head and CT pulmonary angiogram was negative for any acute findings. I evaluated the patient in the emergency department approximately 30 minutes after vecuronium was given. Patient still was neuromuscularly paralyzed. The history of probable witnessed seizures was conformed with the . I asked for a stat EEG. Once in the ICU Stat EEG was done which showed severe encephalopathy. Given the EEG findings and for neuro exam by the ER physician, I discussed with regarding induced hypothermia protocol for neuro protection. Patient was still within the window for induced hypothermia and was agreeable. I proceeded with placing the heat exchange catheter in the right groin. Towards completion of the procedure patient started having tonic clonic movements of the bilateral lower extremity. 4 mg IV push of Ativan was given emergently following which he stopped seizure -like activity. Patient will be loaded with Cerebyx, and continued on Dilantin. CT of the head was negative for any acute findings SUBJ 12/03/16: Achieved target temperature 8 PM yesterday. Currently sedated intubated and neuromuscularly paralyzed. EEG yesterday -no seizure activity, very low amplitude background but appears normal per Dr. Christensen 12/04: Patient is currently in rewarming phase. Nimbex was DCd at 0900 and while sedation was being weaned off, patient developed tonic-clonic activity probable seizures vs myoclonus. Receiving propofol, get stat EEG, stat MRI and neurology consult. Will give additional 1 g Cerebyx Bolus, also mammogram Keppra bolus and 1 g Every 12 hours will be started Objective Vital Signs Date Time Temp Pulse Resp B/P Pulse Ox O2 Delivery O2 Flow Rate FiO2 12/04/16 10:00 97.5 90 30 140/78 93 12/04/16 08:00 35 12/02/16 12:59 Ventilator Intake and Output 12/03/16 12/03/16 12/03/16 07:59 15:59 23:59 Intake Total 1462 ml 2617 ml 1657 ml Output Total 800 ml 400 ml 215 ml Balance 662 ml 2217 ml 1442 ml Result Diagram: 12/04/16 0454 12/04/[address] of the head negative for acute findings Objective Remarks GENERAL: Intubated on propofol fentanyl SKIN: Warm and dry HEAD: Atraumatic. Normocephalic. EYES: Pupils equal and round 3 mm, nonreactive. No scleral icterus. No injection or drainage. ENT: No nasal bleeding or discharge. Endotracheally intubated NECK: Trachea midline. No JVD. CARDIOVASCULAR: Regular rate and rhythm. No murmur appreciated. RESPIRATORY: Clear to auscultation. Breath sounds equal bilaterally. GASTROINTESTINAL: Abdomen soft, non-tender, nondistended. Hepatic and splenic margins not palpable. MUSCULOSKELETAL: Boot to left foot for Charcot foot NEUROLOGICAL: Patient is intubated sedated with propofol and fentanyl, off Nimbex. No pupillary reaction. No withdrawal to pain A/P Assessment and Plan NEURO: Anoxic brain injury secondary to cardiac arrest Seizure versus myoclonus - At the rewarming phase of induced hypothermia, developed tonic-clonic activity - Stat EEG, stat MRI, neurology consult - Additional 1 g loading dose of Cerebyx, 1 g loading dose of Keppra and continue Keppra 1gm every 12 - EEG 12/02 -no seizure activity, very low amplitude background but appears normal per Dr. Christensen - Propofol and fentanyl for sedation and ventilator synchrony, DC Nimbex infusion - Dilantin. Level 6.4 subtherapeutic 12/03. RESP: Acute respiratory failure - Assist-control mechanical ventilation - Ventilator bundle, DuoNeb every 6 hours and when necessary - F/U Sputum culture - No SBT untile mental status improves CV: Asystole, unclear etiology - Etiology of cardiac arrest remains unclear at this time, serial cardiac enzymes showed only minor elevation - Very mild troponin elevation secondary to cardiac arrest. Hold of cardiology consult due to possibility of severe anoxic brain injury - 2-D echo normal EF, mild anterior MVP, CT pulmonary angiogram was negative for acute PE - Normal saline IV fluids GI: - Start tube feeds today with Glucerna. IV Protonix for GI prophylaxis : Acute kidney injury - Monitor renal function closely. Porter catheter. - IV hydration as above ID: - Monitor closely for infection, f/u blood and urine culture and sputum culture ENDO: Hypoglycemia Type 2 diabetes - Discontinued insulin pump. Hypoglycemia protocol - On NS - Accucheck with SSI if needed as patient is now hypoglycemic PROPH: - Bilateral lower extremity SCDs. Continue Lovenox, Protonix - Continue reports to the left lower extremity LINES: - R femoral heat exchange catheter in place CC time 40 min Patient remains critically ill currently undergoing hypothermia protocol for neuro protection. Neuro exam and myoclonus indicate poor neurological prognosis. Genesis Mitchell MD Dec 04, 2016 10:51
[2016-12-04] MEDS ORDERED: ROCURONIUM INJ 50 MG/5 ML VIAL ONE (11:23)
[2016-12-04] MEDS ORDERED: FOSPHENYTOIN INJ 1,000 MGPE in SODIUM CHLORIDE 0.9% INJ 50 ML IV ONE (12:00)
[2016-12-04] MEDS ORDERED: ROCURONIUM INJ 50 MG/5 ML VIAL IV PUSH ONE (12:15)
[2016-12-04] MEDS: ENOXAPARIN SODIUM 40 MG/0.4 ML SYRINGE SQ SCH (13:08)
[2016-12-04] MEDS: BENEPROTEIN POWDER 1 PACK G-TUBE SCH ×2 (13:09→17:31)
[2016-12-04] MEDS: fentaNYL DRIP 250 ML IV SCH (15:43)
--- NOTE | 2016-12-04 16:27 | MG ---
cc: ATIYA KO MD Lab No: Date: 12/04/2016 Age: Sex: M Race: DATE OF [address] Mitchell Medical condition, status post cardiac arrest that is his story upon arrival. PAST MEDICAL HISTORY 1. History of hypercholesteremia. 2. Hypertension. 3. Charcot's foot. 4. Diabetes. 5. And neuropathy. MEDICATIONS 1. Ativan. 2. Diprivan. 3. Fentanyl. 4. Dilantin. 5. Aspirin. 6. Protonix. 7. Demerol. DESCRIPTION: At the beginning of the recording there was excessive electrode artifact and the EEG tracing was not readable until epoch 40. There is a background slowing of polymorphic delta and theta rhythm generalized throughout the recording. Occasional intermittent sharp activity are mainly seen at the right frontal region. There are intermittent episodes of burst suppression-like pattern lasting 1-2 seconds. No electrographic seizures were noted. Photic stimulation did not elicit a driving response. INTERPRETATION On the readable portion of the EEG, there were intermittent episodes of burst suppression pattern with intermittent sharp wave activity mainly in the right frontal region. There was no ictal activity seen but these findings may indicate epileptogenicity, with associated moderate encephalopathic pattern. Clinical correlation is recommended. Atiya Ko MD RGO/KK /4:09 PM /4:15 PM [facility]
--- NOTE | 2016-12-04 16:55 | PD.CONS ---
History of Present Illness Service Neurology Consult Requested By [facility] Reason for Consult possible seizure Primary Care Physician Xiang Chamorro M.D. History of Present Illness 46-year-old male with history of diabetes, neuropathy, hyperlipidemia, presents to emergency room after he had a witnessed cardiac arrest at home, asystole noted. estimates it was for minutes. she saw him blue and called evac. he was successfully resuscitated and is now in the icu. was given iv ativan for possible sz activity. underwent cooling post-arrest. nimbex titrated off and pt noted to have convulsive type of activity. on sedative gtt's. ct brain naicp. no known hx of sz's. no hx of tia/stroke. hx of dm polyneuropathy. Review of Systems ROS Limitations: Intubated, Unresponsive Past Family Social History Allergies: Coded Allergies: UNOBTAINABLE (Unverified , 12/02/16) Past Medical History Diabetes Neuropathy Charcot foot to the left Hyperlipidemia, Past Surgical History No major surgeries Reported Medications Aspirin 81 Mg Chew 81 Mg CHEW DAILY Simvastatin 20 Mg Tab 20 Mg PO DAILY Losartan (Losartan Potassium) 25 Mg Tab 25 Mg PO DAILY Prozac (Fluoxetine HCl) 40 Mg Cap 40 Mg PO DAILY Gabapentin 800 Mg Tab 800 Mg PO TID Novolog Inj (Insulin Aspart) 1,000 Unit/10 Ml Vial 0 SQ DIRECTED NovoLog insulin pump Active Ordered Medications Reviewed Family History Unable to obtain as the patient is unresponsive Social History 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 spouse; 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; 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 Review of Systems All other ROS: ROS reviewed as documented in chart Past Family Social History Allergies: Coded Allergies: UNOBTAINABLE (Unverified , 12/02/16) Active Ordered Medications Current Medications Medications (Trade) Dose Ordered Sig/Jacklyn Route Start Time Stop Time Status Last Admin (NS Flush) 2 ml UNSCH PRN IV FLUSH 12/02/16 12:15 (NS Flush) 2 ml BID IV FLUSH 12/02/16 21:00 12/04/16 07:48 (Peridex 0.12% Liq) 15 ml BID@08,20 MT 12/02/16 20:00 12/04/16 07:49 (Protonix Inj) 40 mg DAILY IV 12/03/16 09:00 12/04/16 07:47 (Lovenox Inj) 40 mg Q24H SQ 12/02/16 14:00 12/04/16 13:08 Miscellaneous Information 1 Q361D XX 12/02/16 12:15 (Chlorhexidine 2% Cloth) 3 pack Taper DAILY@04 TOP 12/03/16 04:00 11/29/17 03:59 Chlorhexidine Gluconate 3 pack 3 pack UNSCH PRN TOP 12/02/16 12:15 Propofol 100 ml @ 0 mls/hr TITRATE IV 12/02/16 12:15 12/04/16 15:43 (fentaNYL DRIP) 250 ml @ 0 mls/hr TITRATE IV 12/02/16 12:15 12/04/16 15:43 (Ativan Inj) 1 mg Q1H PRN IV 12/02/16 14:45 Meperidine HCl 25 mg 25 mg Q2H PRN IVP 12/02/16 14:45 12/04/16 13:08 (Nimbex Inj/NS 250 ml Inj) 250 ml @ 0 mls/hr TITRATE IV 12/02/16 16:00 12/04/16 06:03 Artificial Tears 1 applic 1 applic Q4H PRN EACH EYE 12/02/16 14:45 Miscellaneous Information 0 ml @ 0 mls/hr UNSCH IV 12/02/16 14:45 Potassium Chloride 100 ml @ 50 mls/hr Q2H PRN IV 12/02/16 14:45 (KCl 20 Meq Premix Inj) 100 ml @ 50 mls/hr Q2H PRN IV 12/02/16 14:45 Potassium Bicarb/ Potassium Chloride 50 meq 50 meq UNSCH PRN PO 12/02/16 14:45 Potassium Chloride 100 ml @ 25 mls/hr UNSCH PRN IV 12/02/16 14:45 Potassium Chloride 100 ml @ 50 mls/hr Q2H PRN IV 12/02/16 14:45 (Magnesium Sulfate Inj/NS Inj) 100 ml @ 50 mls/hr UNSCH PRN IV 12/02/16 14:45 Magnesium Oxide 800 mg 800 mg UNSCH PRN PO 12/02/16 14:45 (Magnesium Sulfate Inj/NS Inj) 100 ml @ 50 mls/hr UNSCH PRN IV 12/02/16 14:45 Potassium Phosphate 2000 mg 2,000 mg Q4H PRN PO 12/02/16 14:45 (Sodium Phosphate Inj/NS 250 ml Inj) 250 ml @ 42 mls/hr UNSCH PRN IV 12/02/16 14:45 Potassium Phosphate 2000 mg 2,000 mg UNSCH PRN PO/TUBE 12/02/16 14:45 (Potassium Phosphate Inj/NS 250 ml Inj) 260 ml @ 42 mls/hr UNSCH PRN IV 12/02/16 14:45 (Dilantin Inj) 100 mg Q8H IV 12/03/16 00:00 12/04/16 15:43 Aspirin 325 mg 325 mg DAILY PO 12/02/16 18:30 12/04/16 07:48 (NovoLIN R (IV INFUSION)/NS Inj) 100 ml @ 0 mls/hr TITRATE IV 12/02/16 22:15 12/03/16 09:45 Dextrose 25 ml 25 ml UNSCH PRN IV PUSH 12/02/16 22:15 (NS 1000 ml Inj) 1,000 ml @ 125 mls/hr Q8H IV 12/03/16 09:00 12/04/16 15:44 Artificial Tears 2 drop 2 drop BID EACH EYE 12/03/16 21:00 12/04/16 07:49 (Keppra 1000 Mg Inj) 100 ml @ 400 mls/hr Q12HR IV 12/04/16 21:00 (Beneprotein Powder) 1 pack TID G-TUBE 12/04/16 13:00 12/04/16 13:09 (Bumex Inj) 1 mg ONCE ONCE IV PUSH 12/04/16 17:00 12/04/16 17:01 Exam I&O / VS 12/03/16 12/03/16 12/04/16 15:00 23:00 07:00 Intake Total 2617 ml 1657 ml 1398 ml Output Total 400 ml 215 ml 235 ml Balance 2217 ml 1442 ml 1163 ml IV Total 2617 ml 1657 ml 1398 ml Output Urine Total 400 ml 215 ml 235 ml Vital Signs Date Time Temp Pulse Resp B/P Pulse Ox O2 Delivery O2 Flow Rate FiO2 12/04/16 15:56 95 50 12/04/16 14:08 28 12/04/16 14:00 89 12/04/16 14:00 97.5 87 22 121/57 94 12/04/16 14:00 97.5 89 23 118/60 95 12/04/16 13:00 97.5 87 22 121/57 94 7/18/17 12:00 91 18/17 12:00 96.9 91 5 120/57 92 718/17 12:00 50 18/17 11:41 92 35 718/17 11:00 97.1 93 28 138/60 91 718/17 10:00 97.5 90 30 140/78 93 718/17 10:00 92 1817 09:00 96.6 79 16 143/67 94 1817 08:00 96.1 79 16 158/75 96 18/17 08:00 79 1817 08:00 35 18/17 07:35 96 35 12/04/16 07:00 95.7 76 16 150/73 100 1817 06:00 95.4 72 16 142/70 100 1817 06:00 72 17 05:00 94.8 69 16 144/70 100 18/17 04:00 35 1817 04:00 94.5 66 16 134/69 100 18/17 04:00 66 18/17 03:20 98 35 18/17 03:00 93.9 63 16 134/72 100 18/17 02:00 93.6 61 16 134/73 100 18/17 02:00 61 18/17 01:26 97 35 18/17 01:00 93.0 59 16 127/70 100 18/17 00:00 92.7 60 16 148/79 100 1817 00:00 60 1817 00:00 35 17 23:00 91.9 57 16 151/79 100 17 22:20 100 35 17/17 22:00 91.8 54 16 144/77 100 17 22:00 55 17 21:00 91.6 55 16 142/82 100 17 20:00 91.8 55 16 151/86 100 17 20:00 35 17/17 20:00 54 1717 19:28 100 35 12/03/17 19:00 91.8 55 16 135/77 100 7/17/17 18:30 91.8 54 11 135/74 100 12/03/16 18:30 54 12/03/16 18:00 55 12/03/16 18:00 91.8 55 16 145/80 100 12/03/16 17:30 55 12/03/16 17:30 91.8 55 15 136/81 100 12/03/16 17:00 91.8 55 16 130/71 100 12/03/16 17:00 55 Exam Comments intubated, on fentanyl/propofol gtt's. coma state, non-verbal, non-responsive. ou mild corectopia, minimally reactive, +mild generalized shivering type tremor , low amplitude, high frequency, no withdrawal to tactile, planterflexor, no clonus Review/Management Diagnosis/Plan: (1) Anoxic brain injury Plan: asystole recs f/u mri brain follow serial exams off sedation prognosis too early to tell d/w pt's spouse/mother, ccm (2) Convulsions/seizures Plan: reviewed recent eeg report which suggests rt hemispheric focus possible cortical hypoxic injury-related seizures; in addition appears to have shivering/tremors that are non-epileptic dilantin level corrected 14.4 based on dil 8.4, alb 2.4 recs continue keppra/dilantin follow levels, exam and serial eeg's as needed (3) Asystole (4) Acute respiratory failure Plan: intubated followed by ccm (5) DM polyneuropathy Problem Qualifiers (1) Convulsions/seizures: Qualified Code: R56.9 - Convulsions, unspecified convulsion type (2) Acute respiratory failure: Qualified Code: J96.00 - Acute respiratory failure, unspecified whether with hypoxia or hypercapnia (3) DM polyneuropathy: Qualified Code: E13.42 - Diabetic polyneuropathy associated with other specified diabetes mellitus Martinez Garland MD Dec 04, 2016 16:55
[2016-12-04] MEDS ORDERED: BUMETANIDE INJ 1 MG/4 ML VIAL IV PUSH ONE (17:00)
--- NOTE | 2016-12-04 18:39 | RADRPT ---
EXAM DATE/TIME: 12/04/2016 18:12 [place] COMPARISON: CT BRAIN W/O CONTRAST, December 02, 2016, 12:09. INDICATIONS : Evaluate anoxic brain injury. MEDICAL HISTORY : Diabetes. Neuropathy. Hyperlipidemia. SURGICAL HISTORY : Insulin pump placement. ENCOUNTER: Subsequent ACUITY: 1 day PAIN SCORE: Nonresponsive. LOCATION: cranial TECHNIQUE: Multiplanar, multisequence MRI of the brain was performed without contrast. FINDINGS: No evidence for acute infarction on diffusion weighted imaging. There are air-fluid levels in the max illary sinuses, sphenoid sinuses and ethmoid air cells. Signal intensity of the brain is normal for a ge. There are no signs of hemorrhage or mass. CONCLUSION: 1. Sinusitis. 2. No evidence for anoxic brain injury. Simba Guan MD on December 04, 2016 at 18:36 Board Certified Radiologist. This report was verified electronically.
--- NOTE | 2016-12-04 20:22 | HHI.CCPN ---
Subjective Remarks/Hospital Course Patient is a 46-year-old male with history of diabetes, neuropathy, Charcot foot to the left, hyperlipidemia, presents to emergency room after he had a witnessed cardiac arrest at home. Per patient's he complained of dizziness this morning. He went to the garage to get something and then walked back into the kitchen. Shortly afterwards the was heard a loud thud. She rushed to the kitchen and found the patient collapsed on the floor, with seizure -like activity of the upper extremities. EMS was called immediately and the got to the house within 5-10 minutes of the call, patient was in asystole upon arrival. ACLS protocol was initiated in the field. Patient was intubated using a combitube. Patient was given 2 rounds of epi and had ROSC. EMS reported that patient was also coughing up blood. Blood sugar at the scene was 63, for which he got dextrose. In the emergency department Combitube was removed, patient was intubated using a 8.0 ETT. EKG: No acute changes. Initial neuro exam was very poor per Dr. Hutchinson. No spontaneous movements noted, patient had a gag reflex. Also he was biting on the teeth otherwise no purposeful movements noted. To facilitate imaging studies patient received 10 mg of vecuronium as he was biting down the ET tube. CT of the head and CT pulmonary angiogram was negative for any acute findings. I evaluated the patient in the emergency department approximately 30 minutes after vecuronium was given. Patient still was neuromuscularly paralyzed. The history of probable witnessed seizures was conformed with the . I asked for a stat EEG. Once in the ICU Stat EEG was done which showed severe encephalopathy. Given the EEG findings and for neuro exam by the ER physician, I discussed with regarding induced hypothermia protocol for neuro protection. Patient was still within the window for induced hypothermia and was agreeable. I proceeded with placing the heat exchange catheter in the right groin. Towards completion of the procedure patient started having tonic clonic movements of the bilateral lower extremity. 4 mg IV push of Ativan was given emergently following which he stopped seizure -like activity. Patient will be loaded with Cerebyx, and continued on Dilantin. CT of the head was negative for any acute findings SUBJ 12/03/16: Achieved target temperature 8 PM yesterday. Currently sedated intubated and neuromuscularly paralyzed. EEG yesterday -no seizure activity, very low amplitude background but appears normal per Dr. Christensen 12/04: Patient is currently in rewarming phase. Nimbex was DCd at 0900 and while sedation was being weaned off, patient developed tonic-clonic activity probable seizures vs myoclonus. Receiving propofol, get stat EEG, stat MRI and neurology consult. Will give additional 1 g Cerebyx Bolus, also mammogram Keppra bolus and 1 g Every 12 hours will be started 12/04 20:12 Called to patient's bedside because family would like to discuss DNR and goals of care. Multiple family members were at bedside when I arrived to the room however patient's Elvia requested that they leave and that she and patient's mother, Debra, be present alone with me. Reviewed patient's living will which allows for withholding or removing life support, life prolonging treatment, artificially administered food and water in the event of terminal condition, end-stage condition, persistent vegetative state. states that patient would not want compressions, shock, or ACLS drugs in the event of cardiac arrest. She is also refusing tube feeding at this time because she says he told her he would never want that. I discussed that tube feeds could be administered as part of supportive care and that they could be withheld later if it appears his condition is terminal/end stage/ vegetative state. However, it is too early for physicians to make that determination at this time. Nonetheless she is adamant that tube feeds be withheld. I am changing code status to "ALTERNATIVE CODE -INTUBATION ONLY". Objective Vital Signs Date Time Temp Pulse Resp B/P Pulse Ox O2 Delivery O2 Flow Rate FiO2 12/04/16 19:32 98 50 12/04/16 18:00 100.9 97 115/58 12/04/16 17:00 16 12/02/16 12:59 Ventilator Intake and Output 12/03/16 12/03/16 12/04/16 08:00 16:00 00:00 Intake Total 1462 ml 2617 ml 1657 ml Output Total 575 ml 400 ml 240 ml Balance 887 ml 2217 ml 1417 ml Result Diagram: 12/04/16 0454 12/04/[address] of the head negative for acute findings Objective Remarks GENERAL: Intubated on propofol fentanyl SKIN: Warm and dry HEAD: Atraumatic. Normocephalic. EYES: Pupils equal and round 3 mm, nonreactive. No scleral icterus. No injection or drainage. ENT: No nasal bleeding or discharge. Endotracheally intubated NECK: Trachea midline. No JVD. CARDIOVASCULAR: Regular rate and rhythm. No murmur appreciated. RESPIRATORY: Clear to auscultation. Breath sounds equal bilaterally. GASTROINTESTINAL: Abdomen soft, non-tender, nondistended. Hepatic and splenic margins not palpable. MUSCULOSKELETAL: Boot to left foot for Charcot foot NEUROLOGICAL: Patient is intubated sedated with propofol and fentanyl, off Nimbex. No pupillary reaction. No withdrawal to pain A/P Assessment and Plan NEURO: Anoxic brain injury secondary to cardiac arrest Seizure versus myoclonus - At the rewarming phase of induced hypothermia, developed tonic-clonic activity - Stat EEG, stat MRI, neurology consult (Dr. Garland). - Additional 1 g loading dose of Cerebyx, 1 g loading dose of Keppra and continue Keppra 1gm every 12 - EEG 12/02 -no seizure activity, very low amplitude background but appears normal per Dr. Christensen - Propofol and fentanyl for sedation and ventilator synchrony, DC Nimbex infusion - Dilantin. Level 6.4 subtherapeutic 12/03. RESP: Acute respiratory failure - Assist-control mechanical ventilation - Ventilator bundle, DuoNeb every 6 hours and when necessary - F/U Sputum culture - No SBT untile mental status improves CV: Asystole, unclear etiology - Etiology of cardiac arrest remains unclear at this time, serial cardiac enzymes showed only minor elevation - Very mild troponin elevation secondary to cardiac arrest. Hold of cardiology consult due to possibility of severe anoxic brain injury - 2-D echo normal EF, mild anterior MVP, CT pulmonary angiogram was negative for acute PE - Normal saline IV fluids GI: - Start tube feeds today with Glucerna. IV Protonix for GI prophylaxis : Acute kidney injury - Monitor renal function closely. Porter catheter. - IV hydration as above ID: - Monitor closely for infection, f/u blood and urine culture and sputum culture ENDO: Hypoglycemia Type 2 diabetes - Discontinued insulin pump. Hypoglycemia protocol - On NS - Accucheck with SSI if needed as patient is now hypoglycemic PROPH: - Bilateral lower extremity SCDs. Continue Lovenox, Protonix LINES: - R femoral heat exchange catheter in place Additional critical care time 15 minutes exclusive of separately billable procedures. Fariha Benoit MD Dec 04, 2016 20:22
[2016-12-04] MEDS: levETIRAcetam 1000 MG INJ 100 ML IV SCH (20:51)
[2016-12-05] VITALS (18 sets, daily range): BP systolic 99–139; BP diastolic 54–64; PULSE 89–111; RESP 16–26; TEMP 99.9–102.2; O2SAT 96–100
[2016-12-05] MEDS: MEPERIDINE HCL 25 MG/ML VIAL IVP PRN ×2 (01:08→03:10)
[2016-12-05] MEDS: SODIUM CHLOR 0.9% 1000 ML INJ 1,000 ML IV SCH ×2 (01:09→09:46)
[2016-12-05] MEDS: RESP: ALBUTEROL 2.5 MG/IPRATROPIUM 0.5 MG NEB (SCH) INH ×4 (03:29→21:49)
[2016-12-05] MEDS: CHLORHEXIDINE GLUCONATE 2 % 1 PACK (2 CLOTHS) TOP SCH (04:00)
[2016-12-05] MEDS: PROPOFOL 1000 MG/100 ML INJ 100 ML IV SCH (04:23)
[2016-12-05] MEDS: ACETAMINOPHEN 650 MG/20.3 ML UDC OG-TUBE PRN ×3 (04:28→18:45)
[2016-12-05] MEDS: LORazepam 2 MG/ML VIAL IV PUSH PRN ×3 (04:37→08:29)
[2016-12-05] MEDS: PANTOPRAZOLE SODIUM 40 MG VIAL IV SCH (08:29)
[2016-12-05] MEDS: PHENYTOIN INJ 100 MG/2 ML VIAL IV SCH ×2 (08:29→16:15)
[2016-12-05] MEDS: levETIRAcetam 1000 MG INJ 100 ML IV SCH ×2 (08:30→20:51)
[2016-12-05] MEDS: ASPIRIN 325 MG TAB PO SCH (08:30)
[2016-12-05] MEDS: SODIUM CHLORIDE 0.9% FLUSH 10 ML FLUSH IV FLUSH SCH ×2 (08:30→20:52)
[2016-12-05] MEDS: ARTIFICIAL TEARS OPTH SOLN 15 ML BTL EACH EYE SCH ×2 (08:30→20:50)
[2016-12-05] MEDS: CHLORHEXIDINE 0.12% (ORAL KIT) 15 ML CUP MT SCH ×2 (08:31→20:51)
[2016-12-05] MEDS: BENEPROTEIN POWDER 1 PACK G-TUBE SCH ×3 (09:00→16:15)
[2016-12-05] MEDS: INSULIN REGULAR 100 UNITS/100 ML NS ALGORITHM 2 IV SCH ×2 (09:46)
[2016-12-05] MEDS ORDERED: cefTRIAXone INJ 2,000 MG in SODIUM CHLORIDE 0.9% INJ 100 ML IV STA (12:23)
--- NOTE | 2016-12-05 12:32 | HHI.CCPN ---
Subjective Remarks/Hospital Course Patient is a 46-year-old male with history of diabetes, neuropathy, Charcot foot to the left, hyperlipidemia, presents to emergency room after he had a witnessed cardiac arrest at home. Per patient's he complained of dizziness this morning. He went to the garage to get something and then walked back into the kitchen. Shortly afterwards the was heard a loud thud. She rushed to the kitchen and found the patient collapsed on the floor, with seizure -like activity of the upper extremities. EMS was called immediately and the got to the house within 5-10 minutes of the call, patient was in asystole upon arrival. ACLS protocol was initiated in the field. Patient was intubated using a combitube. Patient was given 2 rounds of epi and had ROSC. EMS reported that patient was also coughing up blood. Blood sugar at the scene was 63, for which he got dextrose. In the emergency department Combitube was removed, patient was intubated using a 8.0 ETT. EKG: No acute changes. Initial neuro exam was very poor per Dr. Hutchinson. No spontaneous movements noted, patient had a gag reflex. Also he was biting on the teeth otherwise no purposeful movements noted. To facilitate imaging studies patient received 10 mg of vecuronium as he was biting down the ET tube. CT of the head and CT pulmonary angiogram was negative for any acute findings. I evaluated the patient in the emergency department approximately 30 minutes after vecuronium was given. Patient still was neuromuscularly paralyzed. The history of probable witnessed seizures was conformed with the . I asked for a stat EEG. Once in the ICU Stat EEG was done which showed severe encephalopathy. Given the EEG findings and for neuro exam by the ER physician, I discussed with regarding induced hypothermia protocol for neuro protection. Patient was still within the window for induced hypothermia and was agreeable. I proceeded with placing the heat exchange catheter in the right groin. Towards completion of the procedure patient started having tonic clonic movements of the bilateral lower extremity. 4 mg IV push of Ativan was given emergently following which he stopped seizure -like activity. Patient will be loaded with Cerebyx, and continued on Dilantin. CT of the head was negative for any acute findings SUBJ 12/03/16: Achieved target temperature 8 PM yesterday. Currently sedated intubated and neuromuscularly paralyzed. EEG yesterday -no seizure activity, very low amplitude background but appears normal per Dr. Christensen 12/04: Patient is currently in rewarming phase. Nimbex was DCd at 0900 and while sedation was being weaned off, patient developed tonic-clonic activity probable seizures vs myoclonus. Receiving propofol, get stat EEG, stat MRI and neurology consult. Will give additional 1 g Cerebyx Bolus, also mammogram Keppra bolus and 1 g Every 12 hours will be started 12/04 20:12 Called to patient's bedside because family would like to discuss DNR and goals of care. Multiple family members were at bedside when I arrived to the room however patient's Elvia requested that they leave and that she and patient's mother, Debra, be present alone with me. Reviewed patient's living will which allows for withholding or removing life support, life prolonging treatment, artificially administered food and water in the event of terminal condition, end-stage condition, persistent vegetative state. states that patient would not want compressions, shock, or ACLS drugs in the event of cardiac arrest. She is also refusing tube feeding at this time because she says he told her he would never want that. I discussed that tube feeds could be administered as part of supportive care and that they could be withheld later if it appears his condition is terminal/end stage/ vegetative state. However, it is too early for physicians to make that determination at this time. Nonetheless she is adamant that tube feeds be withheld. I am changing code status to "ALTERNATIVE CODE -INTUBATION ONLY". 12/05: Currently off all sedation. MRI of the brain done yesterday was normal without evidence of anoxic injury. Patient showing neurological improvement. Opens eyes to verbal command appears to track. at bedside updated Objective Vital Signs Date Time Temp Pulse Resp B/P Pulse Ox O2 Delivery O2 Flow Rate FiO2 12/05/16 12:05 100 45 12/05/16 06:00 90 12/05/16 04:00 100.2 16 108/54 12/02/16 12:59 Ventilator Intake and Output 12/04/16 12/04/16 12/05/16 08:00 16:00 00:00 Intake Total 1398 ml 1518 ml 359 ml Output Total 247 ml 199 ml 376 ml Balance 1151 ml 1319 ml -17 ml Result Diagram: 12/04/16 0454 12/04/[address] of the head negative for acute findings Objective Remarks GENERAL: Intubated, off all sedation SKIN: Warm and dry HEAD: Atraumatic. Normocephalic. EYES: Pupils equal and round 3 mm, nonreactive. No scleral icterus. No injection or drainage. ENT: No nasal bleeding or discharge. Endotracheally intubated NECK: Trachea midline. No JVD. CARDIOVASCULAR: Regular rate and rhythm. No murmur appreciated. RESPIRATORY: Clear to auscultation. Breath sounds equal bilaterally. GASTROINTESTINAL: Abdomen soft, non-tender, nondistended. Hepatic and splenic margins not palpable. MUSCULOSKELETAL: Boot to left foot for Charcot foot NEUROLOGICAL: Patient is intubated off all sedation. Opens eyes to verbal commands, tracks. Not moving extremities yet A/P Assessment and Plan NEURO: Possible anoxic brain injury Seizure - Compelled induced hypothermia, improving neuro exam. MRI negative for anoxic brain injury - Neurology consult Dr. Garland - Continue Dilantin and Keppra - EEG 12/02 -no seizure activity, very low amplitude background but appears normal per Dr. Christensen - EEG 12/04 -Intermittent episodes of burst suppression pattern with intermittent sharp wave activity mainly in the right frontal region, findings may indicate epileptogenicity, mod encephalopathy - Discontinue all continuos sedation. Dilantin level therapeutic RESP: Acute respiratory failure MSSA pneumonia - Assist-control mechanical ventilation - Ventilator bundle, DuoNeb every 6 hours and when necessary - F/U Sputum culture-MSSA. Placed on Rocephin - Start SBT CV: Asystole, unclear etiology - Etiology of cardiac arrest remains unclear at this time, serial cardiac enzymes showed only minor elevation - Very mild troponin elevation secondary to cardiac arrest. Cardiology consult if good neuro recovery - 2-D echo normal EF, mild anterior MVP, CT pulmonary angiogram was negative for acute PE - Normal saline IV fluids-DC today GI: - refusing tube feeds. IV Protonix for GI prophylaxis : Acute kidney injury - Monitor renal function closely. Porter catheter. - IV Bumex 1mg given 12/04 ID: MSSA pneumonia - Start Rocephin 2 g IV every 24 hours - Monitor closely, f/u blood and urine culture ENDO: Hypoglycemia Type 2 diabetes - Discontinued insulin pump. Hypoglycemia protocol - Accucheck with SSI if needed as patient is now hypoglycemic PROPH: - Bilateral lower extremity SCDs. Continue Lovenox, Protonix LINES: - R femoral heat exchange catheter in place-Remove today 12/05/16 CCT 35 MIN Genesis Mitchell MD Dec 05, 2016 12:32
[2016-12-05] MEDS: ENOXAPARIN SODIUM 40 MG/0.4 ML SYRINGE SQ SCH (13:40)
[2016-12-05 13:48] LABS: ANION GAP 7 MEQ/L (5-15); AST (GOT) 19 U/L (15-37); BICARBONATE 23.4 MEQ/L (21.0-32.0); BLOOD UREA NITROGEN 24 MG/DL (7-18); CHLORIDE 112 MEQ/L (98-107); GLOMERULAR FILTRATION RATE 61 ML/MIN (>89); MAGNESIUM 1.7 MG/DL (1.5-2.5); POTASSIUM 4.3 MEQ/L (3.5-5.1); SODIUM (NA) 142 MEQ/L (136-145)
[2016-12-05 13:51] LABS: ALKALINE PHOSPHATASE 92 U/L (45-117); ALT (GPT) 21 U/L (12-78); TOTAL BILIRUBIN ADULT 0.7 MG/DL (0.2-1.0)
--- NOTE | 2016-12-05 15:39 | MG ---
cc: ATIYA KO MD, SINOJ K. MD Lab No: Date: 12/05/2016 : 1970 Sex: M REFERRING PHYSICIAN Dr. Mitchell MEDICAL HISTORY Hypercholesteremia, hypertension, Charcot-Tooth diabetic neuropathy, comatose, status post cardiac arrest, intubated. MEDICATIONS Ativan, Keppra, Dilantin, incision human, aspirin, Demerol. DESCRIPTION There is generalized diffuse slowing of the EEG with background slowing with polymorphic delta and theta rhythm. Photic stimulation did not elicit a driving response. Hyperventilation was not performed. There were no electrographic seizures or epileptiform discharges noted. INTERPRETATION The generalized slowing and background slowing in the EEG tracing may indicate global encephalopathy that may be secondary to medications or anoxic/hypoxic effect. Absence of electrographic seizures or epileptiform discharges does not rule out the diagnosis of epilepsy. Clinical correlation is recommended. Atiya Ko MD [facility]/BT /3:19 PM /3:33 PM MTDGeoff
[2016-12-05] MEDS ORDERED: DEXMEDETOMIDINE INJ 200 MCG in SODIUM CHLORIDE 0.9% INJ 50 ML IV SCH (22:30)
[2016-12-05] MEDS: DEXMEDETOMIDINE INJ 1,000 MCG in SODIUM CHLOR 0.9% 250 ML INJ 240 ML IV SCH (23:40)
[2016-12-06] VITALS (50 sets, daily range): BP systolic 108–185; BP diastolic 56–87; PULSE 75–121; RESP 1–43; TEMP 97.9–100; O2SAT 88–100
[2016-12-06] MEDS: PHENYTOIN INJ 100 MG/2 ML VIAL IV SCH ×3 (02:42→16:41)
[2016-12-06] MEDS: RESP: ALBUTEROL 2.5 MG/IPRATROPIUM 0.5 MG NEB (SCH) INH ×4 (03:27→21:09)
[2016-12-06] MEDS: CHLORHEXIDINE GLUCONATE 2 % 1 PACK (2 CLOTHS) TOP SCH (04:00)
--- NOTE | 2016-12-06 05:13 | RADRPT ---
EXAM DATE/TIME: 12/06/2016 03:31 [place] COMPARISON: CHEST SINGLE AP, December 04, 2016, 5:04. INDICATIONS : Respiratory distress. MEDICAL HISTORY : Diabetes. Neuropathy. Hyperlipidemia. SURGICAL HISTORY : None. ENCOUNTER: Subsequent ACUITY: 4 - 6 days PAIN SCORE: Non-responsive. LOCATION: Bilateral chest FINDINGS: The support devices remain in place. There is no pneumothorax. There is increasing infiltrate through out the left lung. There is an increasing infiltrate in the right infrahilar area. The heart size is stable. No significant pleural effusions. The bony structures are stable. CONCLUSION: Increasing infiltrate bilaterally, left greater than right. Douglas Walker MD on December 06, 2016 at 5:11 Board Certified Radiologist. This report was verified electronically.
[2016-12-06 06:06] LABS: AUTOMATED NEUTROPHIL # 9.3 TH/MM3 (1.8-7.7); BASOPHIL % 0.2 % (0.0-2.0); EOSINOPHIL # 0.1 TH/MM3 (0-0.4); EOSINOPHIL % 0.5 % (0.0-4.0); HEMATOCRIT 31.4 % (39.0-51.0); MEAN CELL VOLUME 87.7 FL (80.0-100.0); MEAN CORPUSCULAR HEMOGLOBIN 28.5 PG (27.0-34.0); MEAN CORPUSCULAR HGB CONC 32.5 % (32.0-36.0); MONO % 8.6 % (0.0-8.0); NEUT % 81.7 % (16.0-70.0); PLATELET COUNT 149 TH/MM3 (150-450); RED BLOOD COUNT 3.58 MIL/MM3 (4.50-5.90); RED CELL DISTRIBUTION WIDTH 14.5 % (11.6-17.2); WHITE BLOOD COUNT 11.4 TH/MM3 (4.0-11.0)
[2016-12-06 06:20] LABS: HEMO FLAGS AUTO DIFF
[2016-12-06 06:27] LABS: ALT (GPT) 24 U/L (12-78); ANION GAP 8 MEQ/L (5-15); CHLORIDE 111 MEQ/L (98-107); GLOMERULAR FILTRATION RATE 85 ML/MIN (>89); MAGNESIUM 1.9 MG/DL (1.5-2.5); POTASSIUM 5.1 MEQ/L (3.5-5.1); SODIUM (NA) 141 MEQ/L (136-145)
[2016-12-06 06:29] LABS: ALKALINE PHOSPHATASE 110 U/L (45-117); AST (GOT) 22 U/L (15-37); TOTAL BILIRUBIN ADULT 0.5 MG/DL (0.2-1.0)
[2016-12-06 06:45] LABS: BLOOD UREA NITROGEN 19 MG/DL (7-18)
[2016-12-06] MEDS: CHLORHEXIDINE 0.12% (ORAL KIT) 15 ML CUP MT SCH ×2 (08:15→20:40)
[2016-12-06] MEDS: ARTIFICIAL TEARS OPTH SOLN 15 ML BTL EACH EYE SCH ×2 (08:16→20:40)
[2016-12-06] MEDS: levETIRAcetam 1000 MG INJ 100 ML IV SCH ×2 (08:16→20:39)
[2016-12-06] MEDS: BENEPROTEIN POWDER 1 PACK G-TUBE SCH ×3 (08:16→17:26)
[2016-12-06] MEDS: PANTOPRAZOLE SODIUM 40 MG VIAL IV SCH (08:16)
[2016-12-06] MEDS: ASPIRIN 325 MG TAB PO SCH (08:17)
[2016-12-06] MEDS: SODIUM CHLORIDE 0.9% FLUSH 10 ML FLUSH IV FLUSH SCH ×2 (08:17→20:40)
[2016-12-06 08:37] LABS: BANDS 16 % (0-6); NEUTROPHIL # MANUAL DIFF 9.9 TH/MM3 (1.8-7.7); POLYS (SEG NEUTROPHILS) 71 % (16-70); WBC DIFF SAMPLE 100
[2016-12-06 08:38] LABS: PLATELET ESTIMATE SMEAR LOW (NORMAL); PLATELET MORPHOLOGY NORMAL (NORMAL); SCAN/DIFF FINAL DIFF MANUAL
--- NOTE | 2016-12-06 09:06 | HHI.PR ---
Review/Management Diagnosis/Plan: (1) Acute respiratory failure Plan: intubated cxr- increasing infiltrates followed by ccm (2) Anoxic brain injury Plan: asystole more alert yesterday and don repeat eeg- no sz activity mri brain- no acute lesion, no sign of cortical anoxic injury recs may need formal cardio eval once stabilized follow serial exams off sedation could give clonazepam 0.5mg tid for jerks if needed d/w pt's spouse/mother (3) Convulsions/seizures Plan: reviewed recent eeg report which suggests rt hemispheric focus possible cortical hypoxic injury-related seizures; in addition appears to have shivering/tremors that are non-epileptic dilantin level 14 recs continue keppra/dilantin (4) Asystole (5) DM polyneuropathy Subjective Subjective Comments No acute events reported Active Medications Current Medications Medications (Trade) Dose Ordered Sig/Jacklyn Route Start Time Stop Time Status Last Admin (NS Flush) 2 ml UNSCH PRN IV FLUSH 12/02/16 12:15 (NS Flush) 2 ml BID IV FLUSH 12/02/16 21:00 12/06/16 08:17 (Peridex 0.12% Liq) 15 ml BID@08,20 MT 12/02/16 20:00 12/06/16 08:15 (Protonix Inj) 40 mg DAILY IV 12/03/16 09:00 12/06/16 08:16 (Lovenox Inj) 40 mg Q24H SQ 12/02/16 14:00 12/05/16 13:40 Miscellaneous Information 1 Q361D XX 12/02/16 12:15 (Chlorhexidine 2% Cloth) 3 pack Taper DAILY@04 TOP 12/03/16 04:00 11/29/17 03:59 12/06/16 04:00 (Chlorhexidine 2% Cloth) 3 pack UNSCH PRN TOP 12/02/16 12:15 (Ativan Inj) 1 mg Q1H PRN IV 12/02/16 14:45 12/06/16 05:53 (Demerol Inj) 25 mg Q2H PRN IVP 12/02/16 14:45 12/05/16 03:10 Artificial Tears 1 applic 1 applic Q4H PRN EACH EYE 12/02/16 14:45 Miscellaneous Information 0 ml @ 0 mls/hr UNSCH IV 12/02/16 14:45 Potassium Chloride 100 ml @ 50 mls/hr Q2H PRN IV 12/02/16 14:45 (KCl 20 Meq Premix Inj) 100 ml @ 50 mls/hr Q2H PRN IV 12/02/16 14:45 Potassium Bicarb/ Potassium Chloride 50 meq 50 meq UNSCH PRN PO 12/02/16 14:45 Potassium Chloride 100 ml @ 25 mls/hr UNSCH PRN IV 12/02/16 14:45 Potassium Chloride 100 ml @ 50 mls/hr Q2H PRN IV 12/02/16 14:45 (Magnesium Sulfate Inj/NS Inj) 100 ml @ 50 mls/hr UNSCH PRN IV 12/02/16 14:45 Magnesium Oxide 800 mg 800 mg UNSCH PRN PO 12/02/16 14:45 (Magnesium Sulfate Inj/NS Inj) 100 ml @ 50 mls/hr UNSCH PRN IV 12/02/16 14:45 Potassium Phosphate 2000 mg 2,000 mg Q4H PRN PO 12/02/16 14:45 (Sodium Phosphate Inj/NS 250 ml Inj) 250 ml @ 42 mls/hr UNSCH PRN IV 12/02/16 14:45 Potassium Phosphate 2000 mg 2,000 mg UNSCH PRN PO/TUBE 12/02/16 14:45 (Potassium Phosphate Inj/NS 250 ml Inj) 260 ml @ 42 mls/hr UNSCH PRN IV 12/02/16 14:45 (Dilantin Inj) 100 mg Q8H IV 12/03/16 00:00 12/06/16 08:16 Aspirin 325 mg 325 mg DAILY PO 12/02/16 18:30 12/06/16 08:17 (NovoLIN R (IV INFUSION)/NS Inj) 100 ml @ 0 mls/hr TITRATE IV 12/02/16 22:15 12/05/16 09:46 (D50w (Vial) Inj) 25 ml UNSCH PRN IV PUSH 12/02/16 22:15 Artificial Tears 2 drop 2 drop BID EACH EYE 12/03/16 21:00 12/06/16 08:16 (Keppra 1000 Mg Inj) 100 ml @ 400 mls/hr Q12HR IV 12/04/16 21:00 12/06/16 08:16 (Beneprotein Powder) 1 pack TID G-TUBE 12/04/16 13:00 12/04/16 17:31 Acetaminophen 650 mg 650 mg Q4H PRN OG-TUBE 12/05/16 03:45 12/05/16 18:45 Ceftriaxone Sodium 2000 mg/ Sodium Chloride 100 ml @ 200 mls/hr Q24H IV 12/06/16 12:00 (Precedex Inj/NS 250 ml Inj) 250 ml @ 0 mls/hr TITRATE IV 12/05/16 23:00 12/05/16 23:40 Allergies Allergies Coded Allergies UNOBTAINABLE (Unverified12/02/16) Review of Systems All other ROS: ROS reviewed as documented in chart Exam I&O / VS 12/05/16 12/05/16 12/06/16 14:59 22:59 06:59 Intake Total 891 ml 325 ml Output Total 25 ml 320 ml 1100 ml Balance -25 ml 571 ml -775 ml IV Total 876 ml 325 ml Other 15 ml Output Urine Total 25 ml 320 ml 1100 ml Vital Signs Date Time Temp Pulse Resp B/P Pulse Ox O2 Delivery O2 Flow Rate FiO2 12/06/16 07:18 98 40 12/06/16 06:00 93 12/06/16 04:02 99 40 12/06/16 04:00 97.9 76 16 113/72 97 12/06/16 04:00 76 12/06/16 04:00 40 12/06/16 02:00 75 12/06/16 01:01 98 40 12/06/16 00:00 83 12/06/16 00:00 40 12/06/16 00:00 100.0 84 16 113/63 97 12/05/16 22:00 111 12/05/16 21:54 98 40 12/05/16 20:00 102.2 102 19 139/64 96 12/05/16 20:00 40 12/05/16 20:00 102 12/05/16 18:00 102 12/05/16 16:00 45 12/05/16 16:00 101.1 104 21 131/62 97 12/05/16 16:00 104 12/05/16 15:35 100 45 12/05/16 14:00 101 12/05/16 12:05 100 45 12/05/16 12:00 104 12/05/16 12:00 100.4 96 26 122/56 96 12/05/16 12:00 45 12/05/16 10:00 104 Exam Comments intubated, on precedex gtt, coma state, non-verbal, non-responsive. ou mild corectopia, minimally reactive, +no tremor, no withdrawal to tactile, planterflexor, no clonus Objective Micro and Labs Laboratory Tests Test 12/05/16 12/06/16 13:05 05:41 Sodium Level 142 141 Potassium Level 4.3 5.1 Chloride Level 112 111 Carbon Dioxide Level 23.4 22.0 Anion Gap 7 8 Blood Urea Nitrogen 24 19 Creatinine 1.27 0.95 Estimat Glomerular Filtration 61 85 Rate Random Glucose 170 164 Calcium Level 8.0 8.4 Magnesium Level 1.7 1.9 Total Bilirubin 0.7 0.5 Aspartate Amino Transf 19 22 (AST/SGOT) Alanine Aminotransferase 21 24 (ALT/SGPT) Alkaline Phosphatase 92 110 Total Protein 5.1 6.0 Albumin 2.0 2.0 White Blood Count 11.4 Red Blood Count 3.58 Hemoglobin 10.2 Hematocrit 31.4 Mean Corpuscular Volume 87.7 Mean Corpuscular Hemoglobin 28.5 Mean Corpuscular Hemoglobin 32.5 Concent Red Cell Distribution Width 14.5 Platelet Count 149 Mean Platelet Volume 8.2 Neutrophils (%) (Auto) 81.7 Lymphocytes (%) (Auto) 9.0 Monocytes (%) (Auto) 8.6 Eosinophils (%) (Auto) 0.5 Basophils (%) (Auto) 0.2 Neutrophils # (Auto) 9.3 Lymphocytes # (Auto) 1.0 Monocytes # (Auto) 1.0 Eosinophils # (Auto) 0.1 Basophils # (Auto) 0.0 CBC Comment AUTO DIFF Differential Total Cells 100 Counted Neutrophils % (Manual) 71 Band Neutrophils % 16 Lymphocytes % 4 Monocytes % 9 Neutrophils # (Manual) 9.9 Differential Comment FINAL DIFF MANUAL Platelet Estimate LOW Platelet Morphology Comment NORMAL Red Cell Morphology Comment NORMAL Date/Time Procedure Status Source Growth 12/02/16 18:00 Gram Stain - Final Resulted Sputum Endotracheal 12/02/16 18:00 Sputum Culture - Preliminary Resulted Staphylococcus Aureus 12/02/16 16:52 Aerobic Blood Culture - Preliminary Resulted Blood Peripheral NO GROWTH IN 3 DAYS 12/02/16 16:52 Anaerobic Blood Culture - Preliminary Resulted Blood Peripheral NO GROWTH IN 3 DAYS Problem Qualifiers (1) Acute respiratory failure: Qualified Code: J96.00 - Acute respiratory failure, unspecified whether with hypoxia or hypercapnia (2) Convulsions/seizures: Qualified Code: R56.9 - Convulsions, unspecified convulsion type (3) DM polyneuropathy: Qualified Code: E13.42 - Diabetic polyneuropathy associated with other specified diabetes mellitus Martinez Garland MD Dec 06, 2016 09:06
[2016-12-06] MEDS: INSULIN REGULAR 100 UNITS/100 ML NS ALGORITHM 2 IV SCH ×2 (09:31)
[2016-12-06] MEDS ORDERED: BUMETANIDE INJ 1 MG/4 ML VIAL IV PUSH ONE ×2 (10:15→11:00)
--- NOTE | 2016-12-06 10:19 | HHI.CCPN ---
Subjective Remarks/Hospital Course Patient is a 46-year-old male with history of diabetes, neuropathy, Charcot foot to the left, hyperlipidemia, presents to emergency room after he had a witnessed cardiac arrest at home. Per patient's he complained of dizziness this morning. He went to the garage to get something and then walked back into the kitchen. Shortly afterwards the was heard a loud thud. She rushed to the kitchen and found the patient collapsed on the floor, with seizure -like activity of the upper extremities. EMS was called immediately and the got to the house within 5-10 minutes of the call, patient was in asystole upon arrival. ACLS protocol was initiated in the field. Patient was intubated using a combitube. Patient was given 2 rounds of epi and had ROSC. EMS reported that patient was also coughing up blood. Blood sugar at the scene was 63, for which he got dextrose. In the emergency department Combitube was removed, patient was intubated using a 8.0 ETT. EKG: No acute changes. Initial neuro exam was very poor per Dr. Hutchinson. No spontaneous movements noted, patient had a gag reflex. Also he was biting on the teeth otherwise no purposeful movements noted. To facilitate imaging studies patient received 10 mg of vecuronium as he was biting down the ET tube. CT of the head and CT pulmonary angiogram was negative for any acute findings. I evaluated the patient in the emergency department approximately 30 minutes after vecuronium was given. Patient still was neuromuscularly paralyzed. The history of probable witnessed seizures was conformed with the . I asked for a stat EEG. Once in the ICU Stat EEG was done which showed severe encephalopathy. Given the EEG findings and for neuro exam by the ER physician, I discussed with regarding induced hypothermia protocol for neuro protection. Patient was still within the window for induced hypothermia and was agreeable. I proceeded with placing the heat exchange catheter in the right groin. Towards completion of the procedure patient started having tonic clonic movements of the bilateral lower extremity. 4 mg IV push of Ativan was given emergently following which he stopped seizure -like activity. Patient will be loaded with Cerebyx, and continued on Dilantin. CT of the head was negative for any acute findings SUBJ 12/03/16: Achieved target temperature 8 PM yesterday. Currently sedated intubated and neuromuscularly paralyzed. EEG yesterday -no seizure activity, very low amplitude background but appears normal per Dr. Christensen 12/04: Patient is currently in rewarming phase. Nimbex was DCd at 0900 and while sedation was being weaned off, patient developed tonic-clonic activity probable seizures vs myoclonus. Receiving propofol, get stat EEG, stat MRI and neurology consult. Will give additional 1 g Cerebyx Bolus, also mammogram Keppra bolus and 1 g Every 12 hours will be started 12/04 20:12 Called to patient's bedside because family would like to discuss DNR and goals of care. Multiple family members were at bedside when I arrived to the room however patient's Elvia requested that they leave and that she and patient's mother, Debra, be present alone with me. Reviewed patient's living will which allows for withholding or removing life support, life prolonging treatment, artificially administered food and water in the event of terminal condition, end-stage condition, persistent vegetative state. states that patient would not want compressions, shock, or ACLS drugs in the event of cardiac arrest. She is also refusing tube feeding at this time because she says he told her he would never want that. I discussed that tube feeds could be administered as part of supportive care and that they could be withheld later if it appears his condition is terminal/end stage/ vegetative state. However, it is too early for physicians to make that determination at this time. Nonetheless she is adamant that tube feeds be withheld. I am changing code status to "ALTERNATIVE CODE -INTUBATION ONLY". 12/05: Currently off all sedation. MRI of the brain done yesterday was normal without evidence of anoxic injury. Patient showing neurological improvement. Opens eyes to verbal command appears to track. at bedside updated 12/06: Neurological Exam slowly improving. Opens eyes to command tracks. Purposefully moving upper extremities. Chest x-ray shows increasing bilateral infiltrates left more than right. On Rocephin for MSSA pneumonia Objective Vital Signs Date Time Temp Pulse Resp B/P Pulse Ox O2 Delivery O2 Flow Rate FiO2 12/06/16 09:51 99 40 12/06/16 06:00 93 12/06/16 04:00 97.9 16 113/72 12/02/16 12:59 Ventilator Intake and Output 12/05/16 12/05/16 12/05/16 07:59 15:59 23:59 Intake Total 1220 ml 876 ml 15 ml Output Total 245 ml 320 ml Balance 975 ml 556 ml 15 ml Result Diagram: 12/06/1641 12/06/[address] of the head negative for acute findings Objective Remarks GENERAL: Intubated, Precedex held SKIN: Warm and dry HEAD: Atraumatic. Normocephalic. EYES: Pupils equal and round 3 mm, nonreactive. No scleral icterus. No injection or drainage. ENT: No nasal bleeding or discharge. Endotracheally intubated NECK: Trachea midline. No JVD. CARDIOVASCULAR: Regular rate and rhythm. No murmur appreciated. RESPIRATORY: Clear to auscultation. Breath sounds equal bilaterally. GASTROINTESTINAL: Abdomen soft, non-tender, nondistended. Hepatic and splenic margins not palpable. MUSCULOSKELETAL: Boot to left foot for Charcot foot NEUROLOGICAL: Patient is intubated Precedex haven't. Opens eyes to verbal commands, tracks. Not moving extremities yet A/P Assessment and Plan NEURO: Possible anoxic brain injury Seizure - Completed induced hypothermia, improving neuro exam. MRI negative for anoxic brain injury - Neurology consult Dr. Garland - Continue Dilantin and Keppra - EEG 12/02 -no seizure activity, very low amplitude background but appears normal per Dr. Christensen - EEG 12/04 -Intermittent episodes of burst suppression pattern with intermittent sharp wave activity mainly in the right frontal region, may indicate epileptogenicity, mod encephalopathy - Discontinue all continuos sedation. Precedex started overnight for agitation and purposeful movement reaching for the tube - Dilantin level therapeutic RESP: Acute respiratory failure MSSA pneumonia - Assist-control mechanical ventilation - Ventilator bundle, DuoNeb every 6 hours and when necessary - F/U Sputum culture-MSSA. Continue Rocephin - Daily SBT - Chest x-ray appears worse-start diuresis CV: Asystole, unclear etiology Fluid overload/pulmonary edema - Etiology of cardiac arrest remains unclear at this time, serial cardiac enzymes showed only minor elevation - Very mild troponin elevation secondary to cardiac arrest. Cardiology consult if good neuro recovery - 2-D echo normal EF, mild anterior MVP, CT pulmonary angiogram was negative for acute PE - Normal saline IV fluids-DC today - Bumex 2 mg x1 and 1 mg q12 x 3days GI: - refusing tube feeds. IV Protonix for GI prophylaxis : Acute kidney injury-resolved - Monitor renal function closely. Porter catheter. - IV Bumex as above ID: MSSA pneumonia - Start Rocephin 2 g IV every 24 hours - Monitor closely, f/u blood and urine culture ENDO: Hypoglycemia Type 2 diabetes - Discontinued insulin pump. Hypoglycemia protocol - Accucheck with SSI if needed - DC IV Insulin PROPH: - Bilateral lower extremity SCDs. Continue Lovenox, Protonix LINES: - R femoral heat exchange catheter in place-Remove today 12/05/16 CCT 35 MIN Genesis Mitchell MD Dec 06, 2016 10:19
[2016-12-06] MEDS: INSULIN ASPART SUPPLEMENTAL SCALE SQ SCH ×3 (11:00→20:49)
[2016-12-06 11:04] LABS: BLOOD GAS CARBOXYHEMOGLOBIN 1.8 % (0-4); BLOOD GAS HCO3 20 mmol/L (22-26); BLOOD GAS METHEMOGLOBIN 1.1 % (0-2); BLOOD GAS O2 HGB SATURATION 93 % (90-100); BLOOD GAS OXYGEN CONTENT 13.4 Vol % (12.0-20.0); BLOOD GAS PCO2 37 mmHg (38-42); BLOOD GAS PO2 75 mmHg (61-120); BLOOD GAS TOTAL HGB 10.2 G/DL (12.0-16.0); CRITICAL VALUE NO; DRAW SITE RT RADIAL; FIO2 40 %; NUMBER OF ARTERIAL PUNCTURES 2; OXYGEN DEVICE VENTILATOR; STAT NO; TEMP CORR TO 98.6; ULNAR PULSE PRESENT; VENT SETTINGS CPAP+5/PS10
[2016-12-06] MEDS: cefTRIAXone INJ 2,000 MG in SODIUM CHLORIDE 0.9% INJ 100 ML IV SCH (11:06)
[2016-12-06] MEDS: ENOXAPARIN SODIUM 40 MG/0.4 ML SYRINGE SQ SCH (13:26)
[2016-12-06] MEDS: DEXMEDETOMIDINE INJ 1,000 MCG in SODIUM CHLOR 0.9% 250 ML INJ 240 ML IV SCH ×2 (14:06→19:18)
[2016-12-06] MEDS: ACETAMINOPHEN 650 MG/20.3 ML UDC OG-TUBE PRN ×2 (14:53→20:39)
[2016-12-06] MEDS ORDERED: LORazepam 2 MG/ML VIAL IV PUSH ONE (15:15)
[2016-12-06] MEDS: BUMETANIDE INJ 1 MG/4 ML VIAL IV PUSH SCH (17:27)
[2016-12-07] VITALS (23 sets, daily range): BP systolic 138–156; BP diastolic 65–92; PULSE 87–104; RESP 19–33; O2SAT 95–100
[2016-12-07] MEDS: PHENYTOIN INJ 100 MG/2 ML VIAL IV SCH ×4 (00:12→22:56)
[2016-12-07] MEDS: LORazepam 2 MG/ML VIAL IV PRN ×2 (00:49→11:25)
[2016-12-07] MEDS: DEXMEDETOMIDINE INJ 1,000 MCG in SODIUM CHLOR 0.9% 250 ML INJ 240 ML IV SCH ×3 (02:17→22:51)
[2016-12-07] MEDS: RESP: ALBUTEROL 2.5 MG/IPRATROPIUM 0.5 MG NEB (SCH) INH ×4 (03:32→20:55)
[2016-12-07] MEDS: CHLORHEXIDINE GLUCONATE 2 % 1 PACK (2 CLOTHS) TOP SCH (04:00)
[2016-12-07] MEDS: ACETAMINOPHEN 650 MG/20.3 ML UDC OG-TUBE PRN ×3 (04:54→18:18)
[2016-12-07 05:27] LABS: AUTOMATED NEUTROPHIL # 9.4 TH/MM3 (1.8-7.7); BASOPHIL % 0.3 % (0.0-2.0); HEMATOCRIT 32.6 % (39.0-51.0); LYMPH % 10.7 % (9.0-44.0); LYMPHOCYTE # 1.3 TH/MM3 (1.0-4.8); MEAN CELL VOLUME 88.7 FL (80.0-100.0); MEAN CORPUSCULAR HEMOGLOBIN 29.3 PG (27.0-34.0); MEAN CORPUSCULAR HGB CONC 33.1 % (32.0-36.0); MONO % 8.6 % (0.0-8.0); NEUT % 80.4 % (16.0-70.0); PLATELET COUNT 191 TH/MM3 (150-450); RED BLOOD COUNT 3.67 MIL/MM3 (4.50-5.90); RED CELL DISTRIBUTION WIDTH 14.5 % (11.6-17.2); WHITE BLOOD COUNT 11.7 TH/MM3 (4.0-11.0)
[2016-12-07 05:44] LABS: HEMO FLAGS AUTO DIFF
[2016-12-07 05:58] LABS: ALKALINE PHOSPHATASE 132 U/L (45-117); ALT (GPT) 24 U/L (12-78); ANION GAP 18 MEQ/L (5-15); AST (GOT) 21 U/L (15-37); BICARBONATE 17.5 MEQ/L (21.0-32.0); BLOOD UREA NITROGEN 27 MG/DL (7-18); CHLORIDE 104 MEQ/L (98-107); GLOMERULAR FILTRATION RATE 53 ML/MIN (>89); MAGNESIUM 1.8 MG/DL (1.5-2.5); POTASSIUM 4.2 MEQ/L (3.5-5.1); SODIUM (NA) 139 MEQ/L (136-145); TOTAL BILIRUBIN ADULT 0.8 MG/DL (0.2-1.0)
[2016-12-07] MEDS: INSULIN ASPART SUPPLEMENTAL SCALE SQ SCH (06:12)
--- NOTE | 2016-12-07 06:28 | RADRPT ---
EXAM DATE/TIME: 12/07/2016 03:43 [place] COMPARISON: CHEST SINGLE AP, December 06, 2016, 3:31. INDICATIONS : Respiratory failure- post cardiac arrest. MEDICAL HISTORY : Diabetes mellitus type II. Nueropathy SURGICAL HISTORY : None. ENCOUNTER: Subsequent ACUITY: 4 - 6 days PAIN SCORE: Non-responsive. LOCATION: Bilateral chest FINDINGS: The cardiac silhouette is enlarged in transverse diameter. Support lines and tubes are in satisfactor y position. There is patchy alveolar disease bilaterally compatible with edema or pneumonia. There kilpatrick s been no significant change when compared to the prior exam. No pleural effusions are identified. CONCLUSION: 1. Patchy alveolar disease characteristic of edema or pneumonia. There has been no significant krishna e when compared to the prior exam. Simone Pacheco MD on December 07, 2016 at 6:26 Board Certified Radiologist. This report was verified electronically.
[2016-12-07 07:06] LABS: BANDS 16 % (0-6); BASOPHILS 1 % (0-2); NEUTROPHIL # MANUAL DIFF 9.2 TH/MM3 (1.8-7.7); POLYS (SEG NEUTROPHILS) 63 % (16-70); SCAN/DIFF FINAL DIFF MANUAL; WBC DIFF SAMPLE 100
[2016-12-07 07:07] LABS: PLATELET ESTIMATE SMEAR NORMAL (NORMAL); PLATELET MORPHOLOGY NORMAL (NORMAL)
--- NOTE | 2016-12-07 08:00 | HHI.PR ---
Review/Management Diagnosis/Plan: (1) Acute respiratory failure Plan: intubated cxr- infiltrates pneumonia followed by ccm (2) Anoxic brain injury Plan: asystole repeat eeg- no sz activity mri brain- no acute lesion, no sign of cortical anoxic injury recs sedation as needed to control resp synchrony will re-eval next week d/w pt's spouse/mother; d/w potential for trach (3) Convulsions/seizures Plan: reviewed recent eeg report which suggests rt hemispheric focus possible cortical hypoxic injury-related seizures; in addition appears to have shivering/tremors that are non-epileptic dilantin level 11.8 recs continue keppra/dilantin (4) Asystole (5) DM polyneuropathy Subjective Subjective Comments No acute events reported required repeat ativan/fentanyl for agitation/tachypnea Active Medications Current Medications Medications (Trade) Dose Ordered Sig/Jacklyn Route Start Time Stop Time Status Last Admin (NS Flush) 2 ml UNSCH PRN IV FLUSH 12/02/16 12:15 (NS Flush) 2 ml BID IV FLUSH 12/02/16 21:00 12/06/16 20:40 (Peridex 0.12% Liq) 15 ml BID@08,20 MT 12/02/16 20:00 12/06/16 20:40 (Protonix Inj) 40 mg DAILY IV 12/03/16 09:00 12/06/16 08:16 (Lovenox Inj) 40 mg Q24H SQ 12/02/16 14:00 12/06/16 13:26 Miscellaneous Information 1 Q361D XX 12/02/16 12:15 (Chlorhexidine 2% Cloth) 3 pack Taper DAILY@04 TOP 12/03/16 04:00 11/29/17 03:59 12/07/16 04:00 (Chlorhexidine 2% Cloth) 3 pack UNSCH PRN TOP 12/02/16 12:15 Artificial Tears 1 applic 1 applic Q4H PRN EACH EYE 12/02/16 14:45 Miscellaneous Information 0 ml @ 0 mls/hr UNSCH IV 12/02/16 14:45 Potassium Chloride 100 ml @ 50 mls/hr Q2H PRN IV 12/02/16 14:45 (KCl 20 Meq Premix Inj) 100 ml @ 50 mls/hr Q2H PRN IV 12/02/16 14:45 Potassium Bicarb/ Potassium Chloride 50 meq 50 meq UNSCH PRN PO 12/02/16 14:45 Potassium Chloride 100 ml @ 25 mls/hr UNSCH PRN IV 12/02/16 14:45 Potassium Chloride 100 ml @ 50 mls/hr Q2H PRN IV 12/02/16 14:45 (Magnesium Sulfate Inj/NS Inj) 100 ml @ 50 mls/hr UNSCH PRN IV 12/02/16 14:45 Magnesium Oxide 800 mg 800 mg UNSCH PRN PO 12/02/16 14:45 (Magnesium Sulfate Inj/NS Inj) 100 ml @ 50 mls/hr UNSCH PRN IV 12/02/16 14:45 Potassium Phosphate 2000 mg 2,000 mg Q4H PRN PO 12/02/16 14:45 (Sodium Phosphate Inj/NS 250 ml Inj) 250 ml @ 42 mls/hr UNSCH PRN IV 12/02/16 14:45 Potassium Phosphate 2000 mg 2,000 mg UNSCH PRN PO/TUBE 12/02/16 14:45 (Potassium Phosphate Inj/NS 250 ml Inj) 260 ml @ 42 mls/hr UNSCH PRN IV 12/02/16 14:45 (Dilantin Inj) 100 mg Q8H IV 12/03/16 00:00 12/07/16 00:12 (Aspirin) 325 mg DAILY PO 12/02/16 18:30 12/06/16 08:17 Artificial Tears 2 drop 2 drop BID EACH EYE 12/03/16 21:00 12/06/16 20:40 (Keppra 1000 Mg Inj) 100 ml @ 400 mls/hr Q12HR IV 12/04/16 21:00 12/06/16 20:39 (Beneprotein Powder) 1 pack TID G-TUBE 12/04/16 13:00 12/04/16 17:31 Acetaminophen 650 mg 650 mg Q4H PRN OG-TUBE 12/05/16 03:45 12/07/16 04:54 Ceftriaxone Sodium 2000 mg/ Sodium Chloride 100 ml @ 200 mls/hr Q24H IV 12/06/16 12:00 12/06/16 11:06 (Precedex Inj/NS 250 ml Inj) 250 ml @ 0 mls/hr TITRATE IV 12/05/16 23:00 12/07/16 02:17 (Bumex Inj) 1 mg BID@09,18 IV PUSH 12/06/16 18:00 12/09/16 17:59 12/06/16 17:27 (Ativan Inj) 0.5 mg Q4H PRN IV 12/06/16 14:45 12/07/16 00:49 (fentaNYL INJ) 50 mcg ONCE PRN IV PUSH 12/07/16 04:00 12/07/16 12:00 Allergies Allergies Coded Allergies UNOBTAINABLE (Unverified12/02/16) Review of Systems All other ROS: ROS reviewed as documented in chart Exam I&O / VS 12/06/16 12/06/16 12/07/16 15:00 23:00 07:00 Intake Total 2033 ml 410 ml Output Total 3650 ml 950 ml Balance -1617 ml -540 ml IV Total 1973 ml 350 ml Other 60 ml 60 ml Output Urine Total 3650 ml 950 ml Vital Signs Date Time Temp Pulse Resp B/P Pulse Ox O2 Delivery O2 Flow Rate FiO2 12/07/16 07:48 100 40 12/07/16 07:37 99 40 12/07/16 07:37 40 12/07/16 06:00 104 12/07/16 04:00 40 12/07/16 04:00 103 12/07/16 04:00 102.2 103 31 138/92 95 12/07/16 03:33 96 40 12/07/16 02:00 101 12/07/16 00:32 96 40 12/07/16 00:00 100 12/07/16 00:00 102.0 100 31 150/73 99 12/07/16 00:00 40 12/06/16 22:00 97 12/06/16 20:00 96 12/06/16 20:00 101.8 96 20 123/56 98 12/06/16 20:00 40 12/06/16 19:53 98 40 12/06/16 19:53 98 Ventilator 40 12/06/16 18:00 103 12/06/16 17:00 102.9 105 32 141/65 97 12/06/16 16:53 96 40 12/06/16 16:00 40 12/06/16 16:00 103.3 104 26 143/67 95 12/06/16 16:00 104 12/06/16 15:01 103.1 106 36 156/71 97 12/06/16 15:00 103.1 106 31 94 12/06/16 14:00 102.4 121 43 185/87 97 12/06/16 14:00 121 12/06/16 13:00 101.5 107 33 140/73 94 12/06/16 12:51 97 40 12/06/16 12:00 100.6 97 40 137/75 94 12/06/16 12:00 40 12/06/16 12:00 97 12/06/16 11:45 100.2 91 20 130/67 98 12/06/16 11:30 100.2 86 20 124/67 98 12/06/16 11:15 100.2 86 26 121/66 98 12/06/16 11:00 100.0 90 9 129/70 98 12/06/16 10:45 99.9 90 13 137/66 97 12/06/16 10:30 99.7 88 18 135/63 100 12/06/16 10:15 99.5 86 27 108/57 96 12/06/16 10:00 84 12/06/16 10:00 99.5 84 29 113/65 97 12/06/16 09:51 99 40 12/06/16 09:45 99.5 79 18 110/62 99 12/06/16 09:30 99.5 79 16 110/62 99 12/06/16 09:30 40 12/06/16 09:30 99 40 12/06/16 09:15 99.5 80 17 112/63 99 12/06/16 09:00 99.5 80 16 117/62 100 12/06/16 08:15 99.3 83 16 128/66 100 12/06/16 08:00 99.7 84 16 125/67 99 12/06/16 08:00 84 12/06/16 08:00 40 Exam Comments intubated, on precedex gtt, stupor, opens eyes, moves head side to side, tachypnea, not following,. od mild corectopia oblong, minimally reactive, +no tremor, no withdrawal to tactile, planterflexor, no clonus Objective Micro and Labs Laboratory Tests Test 12/06/16 12/07/16 10:55 04:20 Blood Gas Puncture Site RT RADIAL Blood Gas Patient Temperature 98.6 Blood Gas HCO3 20 Blood Gas Base Excess -4.0 Blood Gas Oxygen Saturation 93 Arterial Blood pH 7.37 Arterial Blood Partial 37 Pressure CO2 Arterial Blood Partial 75 Pressure O2 Arterial Blood Oxygen Content 13.4 Arterial Blood 1.8 Carboxyhemoglobin Arterial Blood Methemoglobin 1.1 Blood Gas Hemoglobin 10.2 Oxygen Delivery Device VENTILATOR Blood Gas Ventilator Setting CPAP+5/PS10 Blood Gas Inspired Oxygen 40 White Blood Count 11.7 Red Blood Count 3.67 Hemoglobin 10.8 Hematocrit 32.6 Mean Corpuscular Volume 88.7 Mean Corpuscular Hemoglobin 29.3 Mean Corpuscular Hemoglobin 33.1 Concent Red Cell Distribution Width 14.5 Platelet Count 191 Mean Platelet Volume 8.1 Neutrophils (%) (Auto) 80.4 Lymphocytes (%) (Auto) 10.7 Monocytes (%) (Auto) 8.6 Eosinophils (%) (Auto) 0.0 Basophils (%) (Auto) 0.3 Neutrophils # (Auto) 9.4 Lymphocytes # (Auto) 1.3 Monocytes # (Auto) 1.0 Eosinophils # (Auto) 0.0 Basophils # (Auto) 0.0 CBC Comment AUTO DIFF Differential Total Cells 100 Counted Neutrophils % (Manual) 63 Band Neutrophils % 16 Lymphocytes % 11 Monocytes % 9 Basophils % 1 Neutrophils # (Manual) 9.2 Differential Comment FINAL DIFF MANUAL Platelet Estimate NORMAL Platelet Morphology Comment NORMAL Red Cell Morphology Comment NORMAL Sodium Level 139 Potassium Level 4.2 Chloride Level 104 Carbon Dioxide Level 17.5 Anion Gap 18 Blood Urea Nitrogen 27 Creatinine 1.42 Estimat Glomerular Filtration 53 Rate Random Glucose 393 Calcium Level 9.0 Magnesium Level 1.8 Total Bilirubin 0.8 Aspartate Amino Transf 21 (AST/SGOT) Alanine Aminotransferase 24 (ALT/SGPT) Alkaline Phosphatase 132 Total Protein 6.3 Albumin 2.1 Phenytoin (Dilantin) Level 11.8 Date/Time Procedure Status Source Growth 12/02/16 18:00 Gram Stain - Final Complete Sputum Endotracheal 12/02/16 18:00 Sputum Culture - Final Complete Staphylococcus Aureus 12/02/16 16:52 Aerobic Blood Culture - Preliminary Resulted Blood Peripheral NO GROWTH IN 4 DAYS 12/02/16 16:52 Anaerobic Blood Culture - Preliminary Resulted Blood Peripheral NO GROWTH IN 4 DAYS Problem Qualifiers (1) Acute respiratory failure: Qualified Code: J96.00 - Acute respiratory failure, unspecified whether with hypoxia or hypercapnia (2) Convulsions/seizures: Qualified Code: R56.9 - Convulsions, unspecified convulsion type (3) DM polyneuropathy: Qualified Code: E13.42 - Diabetic polyneuropathy associated with other specified diabetes mellitus Martinez Garland MD Dec 07, 2016 08:00
[2016-12-07] MEDS: PANTOPRAZOLE SODIUM 40 MG VIAL IV SCH (08:56)
[2016-12-07] MEDS: BUMETANIDE INJ 1 MG/4 ML VIAL IV PUSH SCH (08:56)
[2016-12-07] MEDS: levETIRAcetam 1000 MG INJ 100 ML IV SCH ×2 (08:56→20:35)
[2016-12-07] MEDS: ASPIRIN 325 MG TAB PO SCH (08:57)
[2016-12-07] MEDS: SODIUM CHLORIDE 0.9% FLUSH 10 ML FLUSH IV FLUSH SCH ×2 (09:02→20:35)
[2016-12-07] MEDS: ARTIFICIAL TEARS OPTH SOLN 15 ML BTL EACH EYE SCH ×2 (09:03→20:36)
[2016-12-07] MEDS: CHLORHEXIDINE 0.12% (ORAL KIT) 15 ML CUP MT SCH ×2 (09:03→20:35)
--- NOTE | 2016-12-07 09:07 | HHI.CCPN ---
Subjective Remarks/Hospital Course Patient is a 46-year-old male with history of diabetes, neuropathy, Charcot foot to the left, hyperlipidemia, presents to emergency room after he had a witnessed cardiac arrest at home. Per patient's he complained of dizziness this morning. He went to the garage to get something and then walked back into the kitchen. Shortly afterwards the was heard a loud thud. She rushed to the kitchen and found the patient collapsed on the floor, with seizure -like activity of the upper extremities. EMS was called immediately and the got to the house within 5-10 minutes of the call, patient was in asystole upon arrival. ACLS protocol was initiated in the field. Patient was intubated using a combitube. Patient was given 2 rounds of epi and had ROSC. EMS reported that patient was also coughing up blood. Blood sugar at the scene was 63, for which he got dextrose. In the emergency department Combitube was removed, patient was intubated using a 8.0 ETT. EKG: No acute changes. Initial neuro exam was very poor per Dr. Hutchinson. No spontaneous movements noted, patient had a gag reflex. Also he was biting on the teeth otherwise no purposeful movements noted. To facilitate imaging studies patient received 10 mg of vecuronium as he was biting down the ET tube. CT of the head and CT pulmonary angiogram was negative for any acute findings. I evaluated the patient in the emergency department approximately 30 minutes after vecuronium was given. Patient still was neuromuscularly paralyzed. The history of probable witnessed seizures was conformed with the . I asked for a stat EEG. Once in the ICU Stat EEG was done which showed severe encephalopathy. Given the EEG findings and for neuro exam by the ER physician, I discussed with regarding induced hypothermia protocol for neuro protection. Patient was still within the window for induced hypothermia and was agreeable. I proceeded with placing the heat exchange catheter in the right groin. Towards completion of the procedure patient started having tonic clonic movements of the bilateral lower extremity. 4 mg IV push of Ativan was given emergently following which he stopped seizure -like activity. Patient will be loaded with Cerebyx, and continued on Dilantin. CT of the head was negative for any acute findings SUBJ 12/03/16: Achieved target temperature 8 PM yesterday. Currently sedated intubated and neuromuscularly paralyzed. EEG yesterday -no seizure activity, very low amplitude background but appears normal per Dr. Christensen 12/04: Patient is currently in rewarming phase. Nimbex was DCd at 0900 and while sedation was being weaned off, patient developed tonic-clonic activity probable seizures vs myoclonus. Receiving propofol, get stat EEG, stat MRI and neurology consult. Will give additional 1 g Cerebyx Bolus, also mammogram Keppra bolus and 1 g Every 12 hours will be started 12/04 20:12 Called to patient's bedside because family would like to discuss DNR and goals of care. Multiple family members were at bedside when I arrived to the room however patient's Elvia requested that they leave and that she and patient's mother, Debra, be present alone with me. Reviewed patient's living will which allows for withholding or removing life support, life prolonging treatment, artificially administered food and water in the event of terminal condition, end-stage condition, persistent vegetative state. states that patient would not want compressions, shock, or ACLS drugs in the event of cardiac arrest. She is also refusing tube feeding at this time because she says he told her he would never want that. I discussed that tube feeds could be administered as part of supportive care and that they could be withheld later if it appears his condition is terminal/end stage/ vegetative state. However, it is too early for physicians to make that determination at this time. Nonetheless she is adamant that tube feeds be withheld. I am changing code status to "ALTERNATIVE CODE -INTUBATION ONLY". 12/05: Currently off all sedation. MRI of the brain done yesterday was normal without evidence of anoxic injury. Patient showing neurological improvement. Opens eyes to verbal command appears to track. at bedside updated 12/06: Neurological Exam slowly improving. Opens eyes to command tracks. Purposefully moving upper extremities. Chest x-ray shows increasing bilateral infiltrates left more than right. On Rocephin for MSSA pneumonia 12/07 Patient remains intubated and on Precedex drip for sedation. T;102.2 Objective Vital Signs Date Time Temp Pulse Resp B/P Pulse Ox O2 Delivery O2 Flow Rate FiO2 12/07/16 07:48 100 40 12/07/16 06:00 104 12/07/16 04:00 102.2 31 138/92 12/06/16 19:53 Ventilator Intake and Output 12/06/16 12/06/16 12/07/16 08:00 16:00 00:00 Intake Total 325 ml 1538 ml 495 ml Output Total 1100 ml 1550 ml 2100 ml Balance -775 ml -12 ml -1605 ml Result Diagram: 12/07/16 0420 12/07/16 0420 Other Results Laboratory Tests Test 12/06/16 12/07/16 10:55 04:20 Blood Gas Puncture Site RT RADIAL Blood Gas Patient Temperature 98.6 Blood Gas HCO3 20 mmol/L Blood Gas Base Excess -4.0 mmol/L Blood Gas Oxygen Saturation 93 % Arterial Blood pH 7.37 Arterial Blood Partial 37 mmHg Pressure CO2 Arterial Blood Partial 75 mmHg Pressure O2 Arterial Blood Oxygen Content 13.4 Vol % Arterial Blood 1.8 % Carboxyhemoglobin Arterial Blood Methemoglobin 1.1 % Blood Gas Hemoglobin 10.2 G/DL Oxygen Delivery Device VENTILATOR Blood Gas Ventilator Setting CPAP+5/PS10 Blood Gas Inspired Oxygen 40 % White Blood Count 11.7 TH/MM3 Red Blood Count 3.67 MIL/MM3 Hemoglobin 10.8 GM/DL Hematocrit 32.6 % Mean Corpuscular Volume 88.7 FL Mean Corpuscular Hemoglobin 29.3 PG Mean Corpuscular Hemoglobin 33.1 % Concent Red Cell Distribution Width 14.5 % Platelet Count 191 TH/MM3 Mean Platelet Volume 8.1 FL Neutrophils (%) (Auto) 80.4 % Lymphocytes (%) (Auto) 10.7 % Monocytes (%) (Auto) 8.6 % Eosinophils (%) (Auto) 0.0 % Basophils (%) (Auto) 0.3 % Neutrophils # (Auto) 9.4 TH/MM3 Lymphocytes # (Auto) 1.3 TH/MM3 Monocytes # (Auto) 1.0 TH/MM3 Eosinophils # (Auto) 0.0 TH/MM3 Basophils # (Auto) 0.0 TH/MM3 CBC Comment AUTO DIFF Differential Total Cells 100 Counted Neutrophils % (Manual) 63 % Band Neutrophils % 16 % Lymphocytes % 11 % Monocytes % 9 % Basophils % 1 % Neutrophils # (Manual) 9.2 TH/MM3 Differential Comment FINAL DIFF MANUAL Platelet Estimate NORMAL Platelet Morphology Comment NORMAL Red Cell Morphology Comment NORMAL Sodium Level 139 MEQ/L Potassium Level 4.2 MEQ/L Chloride Level 104 MEQ/L Carbon Dioxide Level 17.5 MEQ/L Anion Gap 18 MEQ/L Blood Urea Nitrogen 27 MG/DL Creatinine 1.42 MG/DL Estimat Glomerular Filtration 53 ML/MIN Rate Random Glucose 393 MG/DL Calcium Level 9.0 MG/DL Magnesium Level 1.8 MG/DL Total Bilirubin 0.8 MG/DL Aspartate Amino Transf 21 U/L (AST/SGOT) Alanine Aminotransferase 24 U/L (ALT/SGPT) Alkaline Phosphatase 132 U/L Total Protein 6.3 GM/DL Albumin 2.1 GM/DL Phenytoin (Dilantin) Level 11.8 MCG/ML Imaging Last Impressions Chest X-Ray 12/07/16 0600 Signed Impressions: Service Date/Time: Wednesday, December 07, 2016 03:43 - CONCLUSION: 1. Patchy alveolar disease characteristic of edema or pneumonia. There has been no significant change when compared to the prior exam. Simone Pacheco MD Brain MRI 12/04/16 0000 Signed Impressions: Service Date/Time: Sunday, December 04, 2016 18:12 - CONCLUSION: 1. Sinusitis. 2. No evidence for anoxic brain injury. Simba Guan MD Cervical Spine CT 12/02/16 1140 Signed Impressions: Service Date/Time: Friday, December 02, 2016 12:09 - CONCLUSION: No acute disease. Stepan Guadalupe MD Head CT 12/02/16 1132 Signed Impressions: Service Date/Time: Friday, December 02, 2016 12:09 - CONCLUSION: No acute disease. No evidence of acute infarct, hemorrhage, mass or edema. Stepan Guadalupe MD CT Angiography 12/02/16 1132 Signed Impressions: Service Date/Time: Friday, December 02, 2016 12:09 - CONCLUSION: 1. No evidence of acute pulmonary embolism. 2. Posterior bibasilar airspace disease. 3. No evidence of suspicious mass or lymphadenopathy. Stepan Guadalupe MD Objective Remarks GENERAL: Intubated, SKIN: Warm and dry HEAD: Atraumatic. Normocephalic. EYES: Pupils equal and round 3 mm, nonreactive. No scleral icterus. No injection or drainage. ENT: No nasal bleeding or discharge. Endotracheally intubated NECK: Trachea midline. No JVD. CARDIOVASCULAR: Regular rate and rhythm. No murmur appreciated. RESPIRATORY: Clear to auscultation. Breath sounds equal bilaterally. GASTROINTESTINAL: Abdomen soft, non-tender, nondistended. Hepatic and splenic margins not palpable. MUSCULOSKELETAL: Boot to left foot for Charcot foot NEUROLOGICAL: Patient is intubated. Not moving extremities A/P Assessment and Plan NEURO: Encephalopathy ? Hypoxic injury related Seizure -On Precedex drip- wean off and monitor neuro status - Completed induced hypothermia,. MRI negative for anoxic brain injury - Neurology is following Dr. Garland - Continue Keppra, Dilantin 100mg Q8, Dilantin level 11.8 - EEG 12/02 -no seizure activity, very low amplitude background but appears normal per Dr. Christensen - EEG 12/04 -Intermittent episodes of burst suppression pattern with intermittent sharp wave activity mainly in the right frontal region, may indicate epileptogenicity, mod encephalopathy RESP: Acute respiratory failure MSSA pneumonia - Continue with vent support keep sat >92% - Ventilator bundle, DuoNeb every 6 hours and when necessary - F/U Sputum culture-MSSA. Continue Rocephin - Daily SBT CV: Asystole, unclear etiology Fluid overload/pulmonary edema _Monitor HR and BP keep MAP>65mmHg, place on Lopressor 25mg Q12 - Etiology of cardiac arrest remains unclear at this time, serial cardiac enzymes showed only minor elevation - Very mild troponin elevation secondary to cardiac arrest. - 2-D echo normal EF, mild anterior MVP, CT pulmonary angiogram was negative for acute PE GI: - refusing tube feeds. IV Protonix for GI prophylaxis : Acute kidney injury-resolved - Monitor renal function, I/O's, Cr increased 1.42 from 0.95, UOP: 4600ml in 24 hrs -D/c Bumex ID: MSSA pneumonia -Continue abx- Rocephin 2 g IV every 24 hours - Monitor for signs of infections ( Fever, WBC) will panculture today ( Blood, sputum, UA) Sputum cx 12/02 staph Aures sensitive to Rocephin ENDO: Hypoglycemia Type 2 diabetes - Accucheck with SSI PROPH: - Bilateral lower extremity SCDs. Continue Lovenox, Protonix Level 3 Pippa Jerez MD Dec 07, 2016 09:07 Pippa Jerez MD Dec 07, 2016 09:07
[2016-12-07] MEDS ORDERED: DEXTROSE 50% IN WATER 50 ML VIAL(D50) IV PRN (09:30)
[2016-12-07] MEDS ORDERED: GLUCAGON 1 MG/ML VIAL OTHER PRN (09:30)
[2016-12-07] MEDS: INSULIN NovoLIN REGULAR SUPPLEMENTAL SCALE SQ SCH ×3 (10:00→20:39)
[2016-12-07] MEDS: cefTRIAXone INJ 2,000 MG in SODIUM CHLORIDE 0.9% INJ 100 ML IV SCH (11:24)
[2016-12-07] MEDS: METOPROLOL TARTRATE 25 MG TAB PO SCH ×2 (11:37→20:35)
[2016-12-07] MEDS ORDERED: INSULIN ASPART SUPPLEMENTAL SCALE SQ SCH (13:00)
[2016-12-07 13:11] LABS: BACTERIA, URINE RARE /hpf; BLOOD, URINE SMALL (NEG); GLUCOSE,URINE 1000 mg/dL (NEG); HYALINE CAST, URINE 5 /lpf (RARE); KETONE, URINE 80 mg/dL (NEG); MUCUS URINE FEW /lpf (OCC); NITRITE,URINE NEG (NEG); URINE COLOR LIGHT-YELLOW (YELLW/STRAW)
[2016-12-07 13:14] LABS: COMMENT (UR) CATH-CULTURE IND; CULTURE IF INDICATED CATH CULTURE IND
[2016-12-07] MEDS: ENOXAPARIN SODIUM 40 MG/0.4 ML SYRINGE SQ SCH (14:00)
[2016-12-07] MEDS: BENEPROTEIN POWDER 1 PACK G-TUBE SCH (18:00)
[2016-12-08] VITALS (20 sets, daily range): BP systolic 126–153; BP diastolic 63–74; PULSE 96–113; RESP 16–32; TEMP 98.1–103.7; O2SAT 96–100
[2016-12-08] MEDS: ACETAMINOPHEN 650 MG/20.3 ML UDC OG-TUBE PRN ×2 (00:32→05:03)
[2016-12-08] MEDS: LORazepam 2 MG/ML VIAL IV PRN ×2 (00:32→05:03)
[2016-12-08] MEDS: RESP: ALBUTEROL 2.5 MG/IPRATROPIUM 0.5 MG NEB (SCH) INH ×4 (03:03→20:36)
[2016-12-08] MEDS: CHLORHEXIDINE GLUCONATE 2 % 1 PACK (2 CLOTHS) TOP SCH (05:03)
[2016-12-08] MEDS: INSULIN NovoLIN REGULAR SUPPLEMENTAL SCALE SQ SCH ×4 (05:03→22:00)
--- NOTE | 2016-12-08 07:12 | HHI.CCPN ---
Subjective Remarks/Hospital Course Patient is a 46-year-old male with history of diabetes, neuropathy, Charcot foot to the left, hyperlipidemia, presents to emergency room after he had a witnessed cardiac arrest at home. Per patient's he complained of dizziness this morning. He went to the garage to get something and then walked back into the kitchen. Shortly afterwards the was heard a loud thud. She rushed to the kitchen and found the patient collapsed on the floor, with seizure -like activity of the upper extremities. EMS was called immediately and the got to the house within 5-10 minutes of the call, patient was in asystole upon arrival. ACLS protocol was initiated in the field. Patient was intubated using a combitube. Patient was given 2 rounds of epi and had ROSC. EMS reported that patient was also coughing up blood. Blood sugar at the scene was 63, for which he got dextrose. In the emergency department Combitube was removed, patient was intubated using a 8.0 ETT. EKG: No acute changes. Initial neuro exam was very poor per Dr. Hutchinson. No spontaneous movements noted, patient had a gag reflex. Also he was biting on the teeth otherwise no purposeful movements noted. To facilitate imaging studies patient received 10 mg of vecuronium as he was biting down the ET tube. CT of the head and CT pulmonary angiogram was negative for any acute findings. I evaluated the patient in the emergency department approximately 30 minutes after vecuronium was given. Patient still was neuromuscularly paralyzed. The history of probable witnessed seizures was conformed with the . I asked for a stat EEG. Once in the ICU Stat EEG was done which showed severe encephalopathy. Given the EEG findings and for neuro exam by the ER physician, I discussed with regarding induced hypothermia protocol for neuro protection. Patient was still within the window for induced hypothermia and was agreeable. I proceeded with placing the heat exchange catheter in the right groin. Towards completion of the procedure patient started having tonic clonic movements of the bilateral lower extremity. 4 mg IV push of Ativan was given emergently following which he stopped seizure -like activity. Patient will be loaded with Cerebyx, and continued on Dilantin. CT of the head was negative for any acute findings SUBJ 12/03/16: Achieved target temperature 8 PM yesterday. Currently sedated intubated and neuromuscularly paralyzed. EEG yesterday -no seizure activity, very low amplitude background but appears normal per Dr. Christensen 12/04: Patient is currently in rewarming phase. Nimbex was DCd at 0900 and while sedation was being weaned off, patient developed tonic-clonic activity probable seizures vs myoclonus. Receiving propofol, get stat EEG, stat MRI and neurology consult. Will give additional 1 g Cerebyx Bolus, also mammogram Keppra bolus and 1 g Every 12 hours will be started 12/04 20:12 Called to patient's bedside because family would like to discuss DNR and goals of care. Multiple family members were at bedside when I arrived to the room however patient's Elvia requested that they leave and that she and patient's mother, Debra, be present alone with me. Reviewed patient's living will which allows for withholding or removing life support, life prolonging treatment, artificially administered food and water in the event of terminal condition, end-stage condition, persistent vegetative state. states that patient would not want compressions, shock, or ACLS drugs in the event of cardiac arrest. She is also refusing tube feeding at this time because she says he told her he would never want that. I discussed that tube feeds could be administered as part of supportive care and that they could be withheld later if it appears his condition is terminal/end stage/ vegetative state. However, it is too early for physicians to make that determination at this time. Nonetheless she is adamant that tube feeds be withheld. I am changing code status to "ALTERNATIVE CODE -INTUBATION ONLY". 12/05: Currently off all sedation. MRI of the brain done yesterday was normal without evidence of anoxic injury. Patient showing neurological improvement. Opens eyes to verbal command appears to track. at bedside updated 12/06: Neurological Exam slowly improving. Opens eyes to command tracks. Purposefully moving upper extremities. Chest x-ray shows increasing bilateral infiltrates left more than right. On Rocephin for MSSA pneumonia 12/07 Patient remains intubated and on Precedex drip for sedation. T;102.2 12/08 No events overnight. Remains intubated and on Precedex drip. Did not tolerate CPAP trials yesterday. T:101.8 Objective Vital Signs Date Time Temp Pulse Resp B/P Pulse Ox O2 Delivery O2 Flow Rate FiO2 12/08/16 06:00 113 12/08/16 04:11 100 40 12/08/16 04:00 101.8 25 134/63 12/06/16 19:53 Ventilator Intake and Output 12/07/16 12/07/16 12/08/16 08:00 16:00 00:00 Intake Total 410 ml 735 ml 675 ml Output Total 950 ml 1600 ml 1550 ml Balance -540 ml -865 ml -875 ml Result Diagram: 12/07/16 0420 12/07/16 0420 Other Results Laboratory Tests Test 12/07/16 11:30 Urine Color LIGHT-YELLOW Urine Turbidity CLEAR Urine pH 5.0 Urine Specific [place] 1.016 Urine Protein TRACE mg/dL Urine Glucose (UA) 1000 mg/dL Urine Ketones 80 mg/dL Urine Occult Blood SMALL Urine Nitrite NEG Urine Bilirubin NEG Urine Urobilinogen LESS THAN 2.0 MG/DL Urine Leukocyte Esterase NEG Urine RBC LESS THAN 1 /hpf Urine Bacteria RARE /hpf Urine Hyaline Casts 5 /lpf Urine Mucus FEW /lpf Microscopic Urinalysis Comment CATH-CULTURE IND Imaging Last Impressions Chest X-Ray 12/07/16 0600 Signed Impressions: Service Date/Time: Wednesday, December 07, 2016 03:43 - CONCLUSION: 1. Patchy alveolar disease characteristic of edema or pneumonia. There has been no significant change when compared to the prior exam. Simone Pacheco MD Brain MRI 12/04/16 0000 Signed Impressions: Service Date/Time: Sunday, December 04, 2016 18:12 - CONCLUSION: 1. Sinusitis. 2. No evidence for anoxic brain injury. Simba Guan MD Cervical Spine CT 12/02/16 1140 Signed Impressions: Service Date/Time: Friday, December 02, 2016 12:09 - CONCLUSION: No acute disease. Stepan Guadalupe MD Head CT 12/02/16 1132 Signed Impressions: Service Date/Time: Friday, December 02, 2016 12:09 - CONCLUSION: No acute disease. No evidence of acute infarct, hemorrhage, mass or edema. Stepan Guadalupe MD CT Angiography 12/02/16 1132 Signed Impressions: Service Date/Time: Friday, December 02, 2016 12:09 - CONCLUSION: 1. No evidence of acute pulmonary embolism. 2. Posterior bibasilar airspace disease. 3. No evidence of suspicious mass or lymphadenopathy. Stepan Guadalupe MD Objective Remarks GENERAL: Intubated, SKIN: Warm and dry HEAD: Atraumatic. Normocephalic. EYES: Pupils equal and round 3 mm, nonreactive. No scleral icterus. No injection or drainage. ENT: No nasal bleeding or discharge. Endotracheally intubated NECK: Trachea midline. No JVD. CARDIOVASCULAR: Regular rate and rhythm. No murmur appreciated. RESPIRATORY: Clear to auscultation. Breath sounds equal bilaterally. GASTROINTESTINAL: Abdomen soft, non-tender, nondistended. Hepatic and splenic margins not palpable. MUSCULOSKELETAL: Boot to left foot for Charcot foot NEUROLOGICAL: Patient is intubated. Not moving extremities A/P Assessment and Plan NEURO: Encephalopathy ? Hypoxic injury related Seizure -On Precedex drip- wean off and monitor neuro status - Completed induced hypothermia,. MRI negative for anoxic brain injury - Neurology is following Dr. Garland. Repeat EEG today - Continue Keppra, Dilantin 100mg Q8, Dilantin level 11.8 on 12/07. Will check with neuro for possible d/c Dilantin as could be cause for fevers. - EEG 12/02 -no seizure activity, very low amplitude background but appears normal per Dr. Christensen - EEG 12/04 -Intermittent episodes of burst suppression pattern with intermittent sharp wave activity mainly in the right frontal region, may indicate epileptogenicity, mod encephalopathy RESP: Acute respiratory failure MSSA pneumonia - Continue with vent support keep sat >92% - Ventilator bundle, DuoNeb every 6 hours and when necessary - F/U Sputum culture-MSSA. Continue Rocephin - Daily SBT CV: Asystole, unclear etiology Fluid overload/pulmonary edema _Monitor HR and BP keep MAP>65mmHg, Increase Lopressor 50 mg Q12 - Etiology of cardiac arrest remains unclear at this time, serial cardiac enzymes showed only minor elevation - Very mild troponin elevation secondary to cardiac arrest. - 2-D echo normal EF, mild anterior MVP, CT pulmonary angiogram was negative for acute PE GI: - IV Protonix for GI prophylaxis -Continue with tube feeds On Glucerna 1.5 currently @30ml/hr : Acute kidney injury-resolved - Monitor renal function, I/O's, follow up BMP today -UOP: 3600ml in 24 hrs ID: MSSA pneumonia Persistent fevers..infectious vs meds vs Neuro -Continue abx- Rocephin 2 g IV every 24 hours, Add Zyvox 600mg Q12 - Monitor for signs of infections ( Fever, WBC) Pancultured 12/07 ( Blood, sputum , UA) ID eval. Sputum cx 12/02 staph Aures sensitive to Rocephin ENDO: Hypoglycemia Type 2 diabetes - Accucheck with SSI( medium scale) add Levemir 10units BID for glycemic control PROPH: - Bilateral lower extremity SCDs. Continue Lovenox, Protonix Level 3 Pippa Jerez MD Dec 08, 2016 07:12 Pippa Jerez MD Dec 08, 2016 07:12
[2016-12-08] MEDS: ASPIRIN 325 MG TAB PO SCH (08:12)
[2016-12-08] MEDS: LINEZOLID 600 MG TAB PO SCH ×2 (08:12→20:26)
[2016-12-08] MEDS: levETIRAcetam 1000 MG INJ 100 ML IV SCH ×2 (08:13→20:25)
[2016-12-08] MEDS: METOPROLOL TARTRATE 25 MG TAB PO SCH ×2 (08:15→20:26)
[2016-12-08] MEDS: PANTOPRAZOLE SODIUM 40 MG VIAL IV SCH (08:15)
[2016-12-08] MEDS: PHENYTOIN INJ 100 MG/2 ML VIAL IV SCH ×2 (08:15→15:49)
[2016-12-08] MEDS: SODIUM CHLORIDE 0.9% FLUSH 10 ML FLUSH IV FLUSH SCH ×2 (08:16→20:25)
[2016-12-08] MEDS: CHLORHEXIDINE 0.12% (ORAL KIT) 15 ML CUP MT SCH ×2 (08:18→20:00)
[2016-12-08] MEDS: BENEPROTEIN POWDER 1 PACK G-TUBE SCH ×3 (08:18→18:00)
[2016-12-08] MEDS: ARTIFICIAL TEARS OPTH SOLN 15 ML BTL EACH EYE SCH ×2 (08:18→20:24)
[2016-12-08 08:47] LABS: AUTOMATED NEUTROPHIL # 10.2 TH/MM3 (1.8-7.7); BASOPHIL % 0.2 % (0.0-2.0); EOSINOPHIL % 0.1 % (0.0-4.0); HEMATOCRIT 31.8 % (39.0-51.0); LYMPH % 6.4 % (9.0-44.0); LYMPHOCYTE # 0.8 TH/MM3 (1.0-4.8); MEAN CELL VOLUME 88.7 FL (80.0-100.0); MEAN CORPUSCULAR HEMOGLOBIN 27.9 PG (27.0-34.0); MEAN CORPUSCULAR HGB CONC 31.5 % (32.0-36.0); MONO % 9.2 % (0.0-8.0); NEUT % 84.1 % (16.0-70.0); PLATELET COUNT 197 TH/MM3 (150-450); RED BLOOD COUNT 3.58 MIL/MM3 (4.50-5.90); RED CELL DISTRIBUTION WIDTH 14.8 % (11.6-17.2); WHITE BLOOD COUNT 12.2 TH/MM3 (4.0-11.0)
[2016-12-08 08:49] LABS: HEMO FLAGS AUTO DIFF
[2016-12-08 09:06] LABS: BICARBONATE 15.5 MEQ/L (21.0-32.0); POTASSIUM 3.9 MEQ/L (3.5-5.1)
[2016-12-08 09:40] LABS: BANDS 16 % (0-6); MYELOCYTES 2 % (0-0); NEUTROPHIL # MANUAL DIFF 10.1 TH/MM3 (1.8-7.7); PLATELET ESTIMATE SMEAR NORMAL (NORMAL); PLATELET MORPHOLOGY NORMAL (NORMAL); POLYS (SEG NEUTROPHILS) 65 % (16-70); SCAN/DIFF FINAL DIFF MANUAL; WBC DIFF SAMPLE 100
--- NOTE | 2016-12-08 09:50 | PD.CONS ---
History of Present Illness Service Infectious disease Consult Requested By Dr Farhad Jerez Reason for Consult Evaluate patient with persistent fevers Primary Care Physician Xiang Chamorro M.D. Diagnoses: History of Present Illness Patient seen and examined. Records reviewed. Patient is a 46-year-old male, admitted to the hospital after he had a witnessed cardiac arrest at home. The patient was in his usual state of health the day prior to admission, as well as when he woke up this the morning of admission. He apparently went to a [employer] early that morning. He was not complaining of any problem. When he was at home he apparently went to the garage to get something and then walked back into the kitchen. Shortly afterwards the was heard a loud thud. She rushed to the kitchen and found the patient collapsed on the floor, with seizure-like activity of the upper extremities. EMS was called immediately and the got to the house within 5-10 minutes of the call, patient was in asystole upon arrival. ACLS protocol was initiated in the field. Patient was intubated. He was successfully resuscitated , and was brought into the hospital. Patient was put on hypothermic protocol. He has had some other episodes of generalized seizure. Neurology evaluated the patient. A shunt is on anticonvulsant agents. MRI of the brain did not show any abnormality. Patient has had some fever since December 04. It got better on December 06, but it started up again late December 06, and patient has had fever since. His hemodynamics are okay. Patient had MSSA in his sputum, and has been on appropriate antibiotics. He does not have any central line. He has a Porter catheter in place. He remains sedated on the respirator. No cultures were obtained. There is been no report of any diarrhea. Patient is on Rocephin, and Zyvox. Infectious disease consultation has been requested to evaluate the patient with persistent fevers Review of Systems ROS Limitations: Clinical Condition Past Family Social History Allergies: Coded Allergies: UNOBTAINABLE (Unverified , 12/02/16) Past Medical History Diabetes Neuropathy Charcot foot to the left Hyperlipidemia, Past Surgical History None Active Ordered Medications Tylenol Albuterol ASA Rocephin Precedex Lovenox Fentanyl INsulin Levetiracetam Zyvox Ativan Magnesium Lopressor Protonix Dilantin Potassium Family History Not known Social History Lives with spouse No smoking No ETOH abuse No known illicit drus 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 Exam Vital Signs Vital Signs Date Time Temp Pulse Resp B/P Pulse Ox O2 Delivery O2 Flow Rate FiO2 12/08/16 08:50 100 40 12/08/16 06:00 113 12/08/16 04:11 100 40 12/08/16 04:00 100 12/08/16 04:00 101.8 100 25 134/63 99 12/08/16 04:00 40 12/08/16 02:00 97 12/08/16 01:23 100 40 12/08/16 00:00 101.5 102 21 145/66 98 12/08/16 00:00 102 12/08/16 00:00 40 12/07/16 22:00 95 12/07/16 20:56 99 40 12/07/16 20:00 87 12/07/16 20:00 40 12/07/16 20:00 100.9 87 21 145/69 98 12/07/16 16:08 99 40 12/07/16 16:00 40 12/07/16 16:00 101.1 87 24 144/69 98 12/07/16 15:00 101.1 87 19 150/74 98 12/07/16 14:00 101.3 90 22 148/69 98 12/07/16 13:00 101.5 93 24 153/70 98 12/07/16 12:36 101.7 96 32 156/82 100 12/07/16 12:00 40 12/07/16 12:00 101.5 97 25 147/68 97 12/07/16 11:10 40 12/07/16 11:10 98 40 12/07/16 11:00 101.5 98 30 150/72 98 12/07/16 10:00 101.7 95 23 144/68 97 Physical Exam GENERAL: Patient is a well-nourished, well-developed CM, sedated, on the vent , not in respiratory distress. SKIN: Warm and dry. No generalized rash, no ecchymoses and no evidence of embolic lesions. HEAD: Atraumatic. Normocephalic. No temporal wasting, or tenderness. EYES: [place] conjunctiva. No petechia or hemorrhage. Pupils equal, round and reactive to light. No scleral icterus. No injection or drainage. EARS, NOSE AND THROAT: Nose without bleeding or purulent nasal discharge. He is orally intubated. NECK: Trachea midline. Supple and not tender, no meningeal signs CARDIOVASCULAR: Regular rate and rhythm. No murmurs, rubs or gallops heard RESPIRATORY: Coarse breath sounds. Breath sounds equal bilaterally. No rales , wheezing or rhonchi ABDOMEN: Soft, no reaction to palpation, no guarding, nondistended. Bowel sounds present and normoactive. No organomegaly. EXTREMITIES: No clubbing, cyanosis, or edema. No joint effusion, has good ROM. Cool feet, no mottling. He has Charcot deformity on his L foot and has a callus at mid foot on plantar aspect of that foot. NEUROLOGICAL: Sedated, no Babinski, no ankle clonus PSYCHIATRIC: Unable to asses LINE: PIV with no evidence of infection : Porter in place, urine looks clear Laboratory Laboratory Tests Test 12/07/16 12/08/16 11:30 08:15 Urine Color LIGHT-YELLOW Urine Turbidity CLEAR Urine pH 5.0 Urine Specific [place] 1.016 Urine Protein TRACE Urine Glucose (UA) 1000 Urine Ketones 80 Urine Occult Blood SMALL Urine Nitrite NEG Urine Bilirubin NEG Urine Urobilinogen LESS THAN 2.0 Urine Leukocyte Esterase NEG Urine RBC LESS THAN 1 Urine Bacteria RARE Urine Hyaline Casts 5 Urine Mucus FEW Microscopic Urinalysis Comment CATH-CULTURE IND White Blood Count 12.2 Red Blood Count 3.58 Hemoglobin 10.0 Hematocrit 31.8 Mean Corpuscular Volume 88.7 Mean Corpuscular Hemoglobin 27.9 Mean Corpuscular Hemoglobin 31.5 Concent Red Cell Distribution Width 14.8 Platelet Count 197 Mean Platelet Volume 7.6 Neutrophils (%) (Auto) 84.1 Lymphocytes (%) (Auto) 6.4 Monocytes (%) (Auto) 9.2 Eosinophils (%) (Auto) 0.1 Basophils (%) (Auto) 0.2 Neutrophils # (Auto) 10.2 Lymphocytes # (Auto) 0.8 Monocytes # (Auto) 1.1 Eosinophils # (Auto) 0.0 Basophils # (Auto) 0.0 CBC Comment AUTO DIFF Differential Total Cells 100 Counted Neutrophils % (Manual) 65 Band Neutrophils % 16 Lymphocytes % 10 Monocytes % 7 Neutrophils # (Manual) 10.1 Myelocytes 2 Differential Comment FINAL DIFF MANUAL Platelet Estimate NORMAL Platelet Morphology Comment NORMAL Sodium Level 144 Potassium Level 3.9 Chloride Level 109 Carbon Dioxide Level 15.5 Anion Gap 20 Blood Urea Nitrogen 25 Creatinine 1.30 Estimat Glomerular Filtration 59 Rate Random Glucose 383 Calcium Level 9.3 Phosphorus Level 2.4 Magnesium Level 2.0 Date/Time Procedure Status Source Growth 12/07/16 11:30 Urine Culture Received Urine Catheterized Urine Pending 12/07/16 11:30 Gram Stain - Final Resulted Sputum Endotracheal 12/07/16 11:30 Sputum Culture Resulted Sputum Endotracheal Pending 12/07/16 10:22 Aerobic Blood Culture Received Blood Peripheral Pending 12/07/16 10:22 Anaerobic Blood Culture Received Blood Peripheral Pending Result Diagram: 12/08/16 0815 12/08/16 0815 Imaging RADIOLOGY STUDIES/FILMS REVIEWED Chest X-Ray 12/07/16 0600 Signed Impressions: Service Date/Time: Wednesday, December 07, 2016 03:43 - CONCLUSION: 1. Patchy alveolar disease characteristic of edema or pneumonia. There has been no significant change when compared to the prior exam. Simone Pacheco MD Brain MRI 12/04/16 0000 Signed Impressions: Service Date/Time: Sunday, December 04, 2016 18:12 - CONCLUSION: 1. Sinusitis. 2. No evidence for anoxic brain injury. Simba Guan MD Cervical Spine CT 12/02/16 1140 Signed Impressions: Service Date/Time: Friday, December 02, 2016 12:09 - CONCLUSION: No acute disease. Stepan Guadalupe MD Head CT 12/02/16 1132 Signed Impressions: Service Date/Time: Friday, December 02, 2016 12:09 - CONCLUSION: No acute disease. No evidence of acute infarct, hemorrhage, mass or edema. Stepan Guadalupe MD CT Angiography 12/02/16 1132 Signed Impressions: Service Date/Time: Friday, December 02, 2016 12:09 - CONCLUSION: 1. No evidence of acute pulmonary embolism. 2. Posterior bibasilar airspace disease. 3. No evidence of suspicious mass or lymphadenopathy. Stepan Guadalupe MD Assessment and Plan Assessment and Plan IMPRESSION Persistent fevers, S/P witnessed carrdiac arrest - has MSSA PNA, on appropriate Abx - ?New VAP - UA ok, no lines, LFT only with elevated alk phos - ?central fever - ?drug fever (anti-seizure, B-lactam) S/P cardiac arrest Seizure possibly due to anoxic encephalopathy Known DM RECOMMENDATION Continue Zyvox Change Rocephin to Azactam Repeat LFT, if still elev alk phos, check liver US Follow C/S If no new (+) C/S, will consuder drug fever (anti-SZ meds) or central fever Monitor progress I will follow along with you Thank you for this consultation Discussed Condition With D/W Aye Salcedo MD Dec 08, 2016 09:50
[2016-12-08] MEDS: INSULIN DETEMIR 100 UNITS/ML VIAL SQ SCH ×2 (10:00→20:26)
[2016-12-08] MEDS ORDERED: ACETAMINOPHEN 1000 MG/100 ML VIAL IV ONE (10:00)
[2016-12-08] MEDS: AZTREONAM INJ 2,000 MG in SODIUM CHLORIDE 0.9% INJ 100 ML IV SCH ×2 (12:19→18:11)
[2016-12-08] MEDS: DEXMEDETOMIDINE INJ 1,000 MCG in SODIUM CHLOR 0.9% 250 ML INJ 240 ML IV SCH (12:19)
[2016-12-08] MEDS: fentaNYL DRIP 250 ML IV SCH (12:19)
[2016-12-08] MEDS: ENOXAPARIN SODIUM 40 MG/0.4 ML SYRINGE SQ SCH (14:15)
[2016-12-08] MEDS: SODIUM PHOSPHATE INJ 30 MMOL in SODIUM CHLOR 0.9% 250 ML INJ 240 ML IV PRN (14:15)
[2016-12-09] VITALS (16 sets, daily range): BP systolic 143–162; BP diastolic 69–88; PULSE 101–116; RESP 16–28; TEMP 99.3–101.2; O2SAT 94–100
[2016-12-09] MEDS: PHENYTOIN INJ 100 MG/2 ML VIAL IV SCH ×2 (00:01→07:44)
[2016-12-09] MEDS: DEXMEDETOMIDINE INJ 1,000 MCG in SODIUM CHLOR 0.9% 250 ML INJ 240 ML IV SCH ×2 (01:27→17:27)
[2016-12-09] MEDS: RESP: ALBUTEROL 2.5 MG/IPRATROPIUM 0.5 MG NEB (SCH) INH ×4 (02:42→21:59)
[2016-12-09] MEDS: CHLORHEXIDINE GLUCONATE 2 % 1 PACK (2 CLOTHS) TOP SCH (03:27)
[2016-12-09] MEDS: INSULIN NovoLIN REGULAR SUPPLEMENTAL SCALE SQ SCH ×4 (03:36→20:00)
[2016-12-09] MEDS: AZTREONAM INJ 2,000 MG in SODIUM CHLORIDE 0.9% INJ 100 ML IV SCH ×3 (03:38→19:09)
[2016-12-09] MEDS: fentaNYL DRIP 250 ML IV SCH ×2 (03:59→17:28)
[2016-12-09 04:34] LABS: AUTOMATED NEUTROPHIL # 11.7 TH/MM3 (1.8-7.7); BASOPHIL % 0.1 % (0.0-2.0); EOSINOPHIL # 0.2 TH/MM3 (0-0.4); EOSINOPHIL % 1.1 % (0.0-4.0); HEMATOCRIT 33.4 % (39.0-51.0); HEMO FLAGS DIFF FINAL; LYMPH % 6.9 % (9.0-44.0); MEAN CELL VOLUME 88.2 FL (80.0-100.0); MEAN CORPUSCULAR HEMOGLOBIN 28.7 PG (27.0-34.0); MEAN CORPUSCULAR HGB CONC 32.5 % (32.0-36.0); MONO % 9.3 % (0.0-8.0); NEUT % 82.6 % (16.0-70.0); PLATELET COUNT 202 TH/MM3 (150-450); RED BLOOD COUNT 3.79 MIL/MM3 (4.50-5.90); RED CELL DISTRIBUTION WIDTH 15.4 % (11.6-17.2); WHITE BLOOD COUNT 14.1 TH/MM3 (4.0-11.0)
[2016-12-09 05:08] LABS: BICARBONATE 23.6 MEQ/L (21.0-32.0); INDIRECT BILIRUBIN 0.3 MG/DL (0.0-0.8); MAGNESIUM 2.2 MG/DL (1.5-2.5); POTASSIUM 4.5 MEQ/L (3.5-5.1); TOTAL BILIRUBIN ADULT 0.4 MG/DL (0.2-1.0)
--- NOTE | 2016-12-09 05:40 | MG ---
cc: ATIYA KO MD Sex: M DATE OF : [address] Jerez MEDICAL CONDITION: History of hypercholesteremia, hypertension, Charcot foot, diabetic neuropathy, status post cardiac arrest, down time 10 minutes, collapse, asystole. MEDICATIONS 1. Acetaminophen 2. Albuterol 3. Lopressor 4. Linezolid 5. Insulin. 6. Ativan. 7. Tylenol. 8. Keppra. 9. Protonix 10. Dilantin 11. Aspirin 12. Lovenox. DESCRIPTION There is background and generalized slowing of the EEG recording in the delta rhythm with low voltage. The EEG recording is contaminated by excessive artifact. Photic stimulation did not elicit driving response. Hyperventilation was not performed. There were no electrographic seizures or epileptiform discharges noted during the recording. INTERPRETATION Generalized slowing low voltage delta may indicate moderate to severe global encephalopathy that may be secondary to medication, anoxic/hypoxic effect or medication effect. No ictal activity, no electrographic seizures or epileptiform discharges are noted. Clinical correlation is recommended. Atiya Ko MD RGO/ALLY /12:05 AM /5:34 AM [email or web address]
[2016-12-09] MEDS: CHLORHEXIDINE 0.12% (ORAL KIT) 15 ML CUP MT SCH ×2 (07:44→20:02)
[2016-12-09] MEDS ORDERED: GLUCAGON 1 MG/ML VIAL OTHER PRN (08:00)
[2016-12-09] MEDS ORDERED: DEXTROSE 50% IN WATER 50 ML VIAL(D50) IV PRN (08:00)
--- NOTE | 2016-12-09 08:04 | HHI.CCPN ---
Subjective Remarks/Hospital Course Patient is a 46-year-old male with history of diabetes, neuropathy, Charcot foot to the left, hyperlipidemia, presents to emergency room after he had a witnessed cardiac arrest at home. Per patient's he complained of dizziness this morning. He went to the garage to get something and then walked back into the kitchen. Shortly afterwards the was heard a loud thud. She rushed to the kitchen and found the patient collapsed on the floor, with seizure -like activity of the upper extremities. EMS was called immediately and the got to the house within 5-10 minutes of the call, patient was in asystole upon arrival. ACLS protocol was initiated in the field. Patient was intubated using a combitube. Patient was given 2 rounds of epi and had ROSC. EMS reported that patient was also coughing up blood. Blood sugar at the scene was 63, for which he got dextrose. In the emergency department Combitube was removed, patient was intubated using a 8.0 ETT. EKG: No acute changes. Initial neuro exam was very poor per Dr. Hutchinson. No spontaneous movements noted, patient had a gag reflex. Also he was biting on the teeth otherwise no purposeful movements noted. To facilitate imaging studies patient received 10 mg of vecuronium as he was biting down the ET tube. CT of the head and CT pulmonary angiogram was negative for any acute findings. I evaluated the patient in the emergency department approximately 30 minutes after vecuronium was given. Patient still was neuromuscularly paralyzed. The history of probable witnessed seizures was conformed with the . I asked for a stat EEG. Once in the ICU Stat EEG was done which showed severe encephalopathy. Given the EEG findings and for neuro exam by the ER physician, I discussed with regarding induced hypothermia protocol for neuro protection. Patient was still within the window for induced hypothermia and was agreeable. I proceeded with placing the heat exchange catheter in the right groin. Towards completion of the procedure patient started having tonic clonic movements of the bilateral lower extremity. 4 mg IV push of Ativan was given emergently following which he stopped seizure -like activity. Patient will be loaded with Cerebyx, and continued on Dilantin. CT of the head was negative for any acute findings SUBJ 12/03/16: Achieved target temperature 8 PM yesterday. Currently sedated intubated and neuromuscularly paralyzed. EEG yesterday -no seizure activity, very low amplitude background but appears normal per Dr. Christensen 12/04: Patient is currently in rewarming phase. Nimbex was DCd at 0900 and while sedation was being weaned off, patient developed tonic-clonic activity probable seizures vs myoclonus. Receiving propofol, get stat EEG, stat MRI and neurology consult. Will give additional 1 g Cerebyx Bolus, also mammogram Keppra bolus and 1 g Every 12 hours will be started 12/04 20:12 Called to patient's bedside because family would like to discuss DNR and goals of care. Multiple family members were at bedside when I arrived to the room however patient's Elvia requested that they leave and that she and patient's mother, Debra, be present alone with me. Reviewed patient's living will which allows for withholding or removing life support, life prolonging treatment, artificially administered food and water in the event of terminal condition, end-stage condition, persistent vegetative state. states that patient would not want compressions, shock, or ACLS drugs in the event of cardiac arrest. She is also refusing tube feeding at this time because she says he told her he would never want that. I discussed that tube feeds could be administered as part of supportive care and that they could be withheld later if it appears his condition is terminal/end stage/ vegetative state. However, it is too early for physicians to make that determination at this time. Nonetheless she is adamant that tube feeds be withheld. I am changing code status to "ALTERNATIVE CODE -INTUBATION ONLY". 12/05: Currently off all sedation. MRI of the brain done yesterday was normal without evidence of anoxic injury. Patient showing neurological improvement. Opens eyes to verbal command appears to track. at bedside updated 12/06: Neurological Exam slowly improving. Opens eyes to command tracks. Purposefully moving upper extremities. Chest x-ray shows increasing bilateral infiltrates left more than right. On Rocephin for MSSA pneumonia 12/07 Patient remains intubated and on Precedex drip for sedation. T;102.2 12/08 No events overnight. Remains intubated and on Precedex drip. Did not tolerate CPAP trials yesterday. T:101.8 12/09 Patient remains intubated and on Precedex and Fentanyl drip for sedation. Still with persistent fevers with Tmax 103.7. Repeat EEG yesterday showed encephalopathy, no ictal activity. Objective Vital Signs Date Time Temp Pulse Resp B/P Pulse Ox O2 Delivery O2 Flow Rate FiO2 12/09/16 07:35 94 40 12/09/16 06:00 112 12/09/16 04:00 99.5 16 162/74 12/06/16 19:53 Ventilator Intake and Output 12/08/16 12/08/16 12/09/16 08:00 16:00 00:00 Intake Total 535 ml 675 ml 897 ml Output Total 450 ml 875 ml 675 ml Balance 85 ml -200 ml 222 ml Result Diagram: 12/09/16 0412 12/09/16 0412 Other Results Laboratory Tests Test 12/08/16 12/09/16 08:15 04:12 White Blood Count 12.2 TH/MM3 14.1 TH/MM3 Red Blood Count 3.58 MIL/MM3 3.79 MIL/MM3 Hemoglobin 10.0 GM/DL 10.9 GM/DL Hematocrit 31.8 % 33.4 % Mean Corpuscular Volume 88.7 FL 88.2 FL Mean Corpuscular Hemoglobin 27.9 PG 28.7 PG Mean Corpuscular Hemoglobin 31.5 % 32.5 % Concent Red Cell Distribution Width 14.8 % 15.4 % Platelet Count 197 TH/MM3 202 TH/MM3 Mean Platelet Volume 7.6 FL 8.1 FL Neutrophils (%) (Auto) 84.1 % 82.6 % Lymphocytes (%) (Auto) 6.4 % 6.9 % Monocytes (%) (Auto) 9.2 % 9.3 % Eosinophils (%) (Auto) 0.1 % 1.1 % Basophils (%) (Auto) 0.2 % 0.1 % Neutrophils # (Auto) 10.2 TH/MM3 11.7 TH/MM3 Lymphocytes # (Auto) 0.8 TH/MM3 1.0 TH/MM3 Monocytes # (Auto) 1.1 TH/MM3 1.3 TH/MM3 Eosinophils # (Auto) 0.0 TH/MM3 0.2 TH/MM3 Basophils # (Auto) 0.0 TH/MM3 0.0 TH/MM3 CBC Comment AUTO DIFF DIFF FINAL Differential Total Cells 100 Counted Neutrophils % (Manual) 65 % Band Neutrophils % 16 % Lymphocytes % 10 % Monocytes % 7 % Neutrophils # (Manual) 10.1 TH/MM3 Myelocytes 2 % Differential Comment FINAL DIFF MANUAL Platelet Estimate NORMAL Platelet Morphology Comment NORMAL Sodium Level 144 MEQ/L 148 MEQ/L Potassium Level 3.9 MEQ/L 4.5 MEQ/L Chloride Level 109 MEQ/L 113 MEQ/L Carbon Dioxide Level 15.5 MEQ/L 23.6 MEQ/L Anion Gap 20 MEQ/L 11 MEQ/L Blood Urea Nitrogen 25 MG/DL 29 MG/DL Creatinine 1.30 MG/DL 1.34 MG/DL Estimat Glomerular Filtration 59 ML/MIN 57 ML/MIN Rate Random Glucose 383 MG/DL 366 MG/DL Calcium Level 9.3 MG/DL 9.4 MG/DL Phosphorus Level 2.4 MG/DL 3.1 MG/DL Magnesium Level 2.0 MG/DL 2.2 MG/DL Total Bilirubin 0.4 MG/DL Direct Bilirubin 0.1 MG/DL Indirect Bilirubin 0.3 MG/DL Aspartate Amino Transf 13 U/L (AST/SGOT) Alanine Aminotransferase 25 U/L (ALT/SGPT) Alkaline Phosphatase 122 U/L Total Protein 6.5 GM/DL Albumin 1.8 GM/DL Phenytoin (Dilantin) Level 9.4 MCG/ML Imaging Last Impressions Chest X-Ray 12/07/16 0600 Signed Impressions: Service Date/Time: Wednesday, December 07, 2016 03:43 - CONCLUSION: 1. Patchy alveolar disease characteristic of edema or pneumonia. There has been no significant change when compared to the prior exam. Simone Pacheco MD Brain MRI 12/04/16 0000 Signed Impressions: Service Date/Time: Sunday, December 04, 2016 18:12 - CONCLUSION: 1. Sinusitis. 2. No evidence for anoxic brain injury. Simba Guan MD Cervical Spine CT 12/02/16 1140 Signed Impressions: Service Date/Time: Friday, December 02, 2016 12:09 - CONCLUSION: No acute disease. Stepan Guadalupe MD Head CT 12/02/16 1132 Signed Impressions: Service Date/Time: Friday, December 02, 2016 12:09 - CONCLUSION: No acute disease. No evidence of acute infarct, hemorrhage, mass or edema. Stepan Guadalupe MD CT Angiography 12/02/16 1132 Signed Impressions: Service Date/Time: Friday, December 02, 2016 12:09 - CONCLUSION: 1. No evidence of acute pulmonary embolism. 2. Posterior bibasilar airspace disease. 3. No evidence of suspicious mass or lymphadenopathy. Stepan Guadalupe MD Objective Remarks GENERAL: Intubated, SKIN: Warm and dry HEAD: Atraumatic. Normocephalic. EYES: Pupils equal and round 3 mm, nonreactive. No scleral icterus. No injection or drainage. ENT: No nasal bleeding or discharge. Endotracheally intubated NECK: Trachea midline. No JVD. CARDIOVASCULAR: Regular rate and rhythm. No murmur appreciated. RESPIRATORY: Clear to auscultation. Breath sounds equal bilaterally. GASTROINTESTINAL: Abdomen soft, non-tender, nondistended. Hepatic and splenic margins not palpable. MUSCULOSKELETAL: Boot to left foot for Charcot foot NEUROLOGICAL: Patient is intubated. Not moving extremities A/P Assessment and Plan NEURO: Encephalopathy ? Hypoxic injury related Seizure -On Fentanyl and Precedex drip for sedation and vent synchrony- Daily sedation vacation, monitor neuro status - Completed induced hypothermia,. MRI negative for anoxic brain injury - Neurology is following Dr. Garland. Repeat EEG 12/09: Slowing with no ictal activity. - Continue Keppra, Dilantin 100mg Q8, Dilantin level 11.8 on 12/07. Hold Dilantin - EEG 12/02 -no seizure activity, very low amplitude background but appears normal per Dr. Christensen - EEG 12/04 -Intermittent episodes of burst suppression pattern with intermittent sharp wave activity mainly in the right frontal region, may indicate epileptogenicity, mod encephalopathy RESP: Acute respiratory failure MSSA pneumonia - Continue with vent support keep sat >92% - Ventilator bundle, DuoNeb every 6 hours and when necessary - F/U Sputum culture-MSSA. Continue Rocephin - Daily SBT CV: Asystole, unclear etiology Fluid overload/pulmonary edema _Monitor HR and BP keep MAP>65mmHg, Change Lopressor 50 mg Q8 - Etiology of cardiac arrest remains unclear at this time, serial cardiac enzymes showed only minor elevation - Very mild troponin elevation secondary to cardiac arrest. - 2-D echo normal EF, mild anterior MVP, CT pulmonary angiogram was negative for acute PE GI: - IV Protonix for GI prophylaxis -Continue with tube feeds On Glucerna 1.5 currently @40ml/hr : Acute kidney injury-resolved - Monitor renal function, I/O's, electrolytes replacement per protocol. -Cr: 1.34,UOP: 2100ml in 24 hrs -Place on 1/2NS@84ml/hr, Free water 250ml Q12 monitor sodium level. ID: MSSA pneumonia Persistent fevers..infectious vs meds vs Neuro -Continue abx per ID- Aztreonam, Zyvox, - Monitor for signs of infections ( Fever, WBC) Pancultured 12/07 ( Blood, sputum , UA)- NGTD Sputum cx 12/02 staph Aures sensitive to Rocephin ENDO: Hyperglycemia Type 2 diabetes - Change SSI(High scale) increase Levemir 14units BID for glycemic control PROPH: - Bilateral lower extremity SCDs. Continue Lovenox, Protonix Level 3 Pippa Jerez MD Dec 09, 2016 08:04
[2016-12-09] MEDS: SODIUM CHLOR 0.45% 1000 ML INJ 1,000 ML IV SCH ×2 (08:17→19:55)
[2016-12-09] MEDS: levETIRAcetam 1000 MG INJ 100 ML IV SCH ×2 (08:18→20:54)
[2016-12-09] MEDS: INSULIN DETEMIR 100 UNITS/ML VIAL SQ SCH ×2 (08:18→20:51)
[2016-12-09] MEDS: PANTOPRAZOLE SODIUM 40 MG VIAL IV SCH (08:18)
[2016-12-09] MEDS: SODIUM CHLORIDE 0.9% FLUSH 10 ML FLUSH IV FLUSH SCH ×2 (08:19→20:54)
[2016-12-09] MEDS: ASPIRIN 325 MG TAB PO SCH (08:19)
[2016-12-09] MEDS: ARTIFICIAL TEARS OPTH SOLN 15 ML BTL EACH EYE SCH ×2 (08:19→20:53)
[2016-12-09] MEDS: BENEPROTEIN POWDER 1 PACK G-TUBE SCH ×3 (08:19→17:27)
[2016-12-09] MEDS: LINEZOLID 600 MG TAB PO SCH ×2 (08:19→20:54)
[2016-12-09] MEDS: METOPROLOL TARTRATE 25 MG TAB PO SCH ×2 (08:19→20:54)
[2016-12-09] MEDS: FREE WATER G-TUBE SCH ×2 (08:19→20:54)
[2016-12-09] MEDS: ENOXAPARIN SODIUM 40 MG/0.4 ML SYRINGE SQ SCH (13:17)
[2016-12-09] MEDS: ACETAMINOPHEN 650 MG/20.3 ML UDC OG-TUBE PRN (13:18)
--- NOTE | 2016-12-09 13:23 | HHI.IDPN ---
Subjective Subjective Remarks Patient is a 46-year-old male, admitted to the hospital after he had a witnessed cardiac arrest at home. The patient was in his usual state of health the day prior to admission, as well as when he woke up this the morning of admission. He apparently went to a [employer] early that morning. He was not complaining of any problem. When he was at home he apparently went to the garage to get something and then walked back into the kitchen. Shortly afterwards the was heard a loud thud. She rushed to the kitchen and found the patient collapsed on the floor, with seizure-like activity of the upper extremities. EMS was called immediately and the got to the house within 5-10 minutes of the call, patient was in asystole upon arrival. ACLS protocol was initiated in the field. Patient was intubated. He was successfully resuscitated , and was brought into the hospital. Patient was put on hypothermic protocol. He has had some other episodes of generalized seizure. Neurology evaluated the patient. A shunt is on anticonvulsant agents. MRI of the brain did not show any abnormality. Patient has had some fever since December 04. It got better on December 06, but it started up again late December 06, and patient has had fever since. His hemodynamics are okay. Patient had MSSA in his sputum, and has been on appropriate antibiotics. He does not have any central line. He has a Porter catheter in place. He remains sedated on the respirator. Notes reviewed D/W RN Continues to have fevers, though had some breaks of lower temperature yesterday Nothing new on C/S WBC slightly higher Alk phosphatase elevated Off sedation, opens eyes Has been on CPAP most of the day MICH ok, not on pressors Antibiotics Azactam Zyvox Past Medical History Diabetes Neuropathy Charcot foot to the left Hyperlipidemia, Allergies: Coded Allergies: UNOBTAINABLE (Unverified , 12/02/16) Objective . Vital Signs Date Time Temp Pulse Resp B/P Pulse Ox O2 Delivery O2 Flow Rate FiO2 12/09/16 12:00 108 12/09/16 12:00 101.0 108 24 153/73 98 12/09/16 12:00 40 12/09/16 11:24 98 40 12/09/16 10:00 108 12/09/16 08:00 40 12/09/16 08:00 108 12/09/16 08:00 101.2 108 21 158/72 96 12/09/16 07:35 94 40 12/09/16 06:00 112 12/09/16 04:00 99.5 111 16 162/74 98 12/09/16 04:00 111 12/09/16 04:00 40 12/09/16 02:45 97 40 12/09/16 02:00 106 12/09/16 00:00 99.9 101 16 146/69 98 12/09/16 00:00 40 12/09/16 00:00 101 12/08/16 23:47 99 40 12/08/16 22:00 104 12/08/16 20:36 100 40 12/08/16 20:00 102 12/08/16 20:00 98.1 102 16 138/74 99 12/08/16 20:00 40 12/08/16 18:00 101 12/08/16 17:00 99.1 100 16 126/71 99 12/08/16 16:00 40 12/08/16 16:00 100 12/08/16 16:00 101.3 100 16 127/65 99 12/08/16 15:21 100 40 12/08/16 14:00 99 12/08/16 12/08/16 12/09/16 15:00 23:00 07:00 Intake Total 675 ml 897 ml 752 ml Output Total 875 ml 675 ml 550 ml Balance -200 ml 222 ml 202 ml IV Total 344 ml 647 ml 530 ml Tube Feeding 231 ml 250 ml 222 ml Tube Irrigant 100 ml Output Urine Total 875 ml 675 ml 550 ml # Bowel Movements 0 0 0 . Laboratory Tests Test 12/08/16 12/09/16 08:15 04:12 White Blood Count 12.2 TH/MM3 14.1 TH/MM3 Red Blood Count 3.58 MIL/MM3 3.79 MIL/MM3 Hemoglobin 10.0 GM/DL 10.9 GM/DL Hematocrit 31.8 % 33.4 % Mean Corpuscular Volume 88.7 FL 88.2 FL Mean Corpuscular Hemoglobin 27.9 PG 28.7 PG Mean Corpuscular Hemoglobin 31.5 % 32.5 % Concent Red Cell Distribution Width 14.8 % 15.4 % Platelet Count 197 TH/MM3 202 TH/MM3 Mean Platelet Volume 7.6 FL 8.1 FL Neutrophils (%) (Auto) 84.1 % 82.6 % Lymphocytes (%) (Auto) 6.4 % 6.9 % Monocytes (%) (Auto) 9.2 % 9.3 % Eosinophils (%) (Auto) 0.1 % 1.1 % Basophils (%) (Auto) 0.2 % 0.1 % Neutrophils # (Auto) 10.2 TH/MM3 11.7 TH/MM3 Lymphocytes # (Auto) 0.8 TH/MM3 1.0 TH/MM3 Monocytes # (Auto) 1.1 TH/MM3 1.3 TH/MM3 Eosinophils # (Auto) 0.0 TH/MM3 0.2 TH/MM3 Basophils # (Auto) 0.0 TH/MM3 0.0 TH/MM3 CBC Comment AUTO DIFF DIFF FINAL Differential Total Cells 100 Counted Neutrophils % (Manual) 65 % Band Neutrophils % 16 % Lymphocytes % 10 % Monocytes % 7 % Neutrophils # (Manual) 10.1 TH/MM3 Myelocytes 2 % Differential Comment FINAL DIFF MANUAL Platelet Estimate NORMAL Platelet Morphology Comment NORMAL Laboratory Tests Test 12/08/16 12/09/16 08:15 04:12 Sodium Level 144 MEQ/L 148 MEQ/L Potassium Level 3.9 MEQ/L 4.5 MEQ/L Chloride Level 109 MEQ/L 113 MEQ/L Carbon Dioxide Level 15.5 MEQ/L 23.6 MEQ/L Anion Gap 20 MEQ/L 11 MEQ/L Blood Urea Nitrogen 25 MG/DL 29 MG/DL Creatinine 1.30 MG/DL 1.34 MG/DL Estimat Glomerular Filtration 59 ML/MIN 57 ML/MIN Rate Random Glucose 383 MG/DL 366 MG/DL Calcium Level 9.3 MG/DL 9.4 MG/DL Phosphorus Level 2.4 MG/DL 3.1 MG/DL Magnesium Level 2.0 MG/DL 2.2 MG/DL Total Bilirubin 0.4 MG/DL Direct Bilirubin 0.1 MG/DL Indirect Bilirubin 0.3 MG/DL Aspartate Amino Transf 13 U/L (AST/SGOT) Alanine Aminotransferase 25 U/L (ALT/SGPT) Alkaline Phosphatase 122 U/L Total Protein 6.5 GM/DL Albumin 1.8 GM/DL Microbiology Date/Time Procedure Status Source Growth 12/07/16 10:15 Aerobic Blood Culture - Preliminary Resulted Blood Peripheral NO GROWTH IN 2 DAYS 12/07/16 10:15 Anaerobic Blood Culture - Preliminary Resulted Blood Peripheral NO GROWTH IN 2 DAYS 12/07/16 10:22 Aerobic Blood Culture - Preliminary Resulted Blood Peripheral NO GROWTH IN 2 DAYS 12/07/16 10:22 Anaerobic Blood Culture - Preliminary Resulted Blood Peripheral NO GROWTH IN 2 DAYS 12/07/16 11:30 Gram Stain - Final Complete Sputum Endotracheal 12/07/16 11:30 Sputum Culture - Final Complete Sputum Endotracheal HEAVY GROWTH NORMAL RESPIRATORY SATNAM... 12/07/16 11:30 Urine Culture - Final Complete Urine Catheterized Urine NO GROWTH IN 48 HOURS. Imaging Chest X-Ray 12/07/16 0600 Signed Impressions: Service Date/Time: Wednesday, December 07, 2016 03:43 - CONCLUSION: 1. Patchy alveolar disease characteristic of edema or pneumonia. There has been no significant change when compared to the prior exam. Simone Pacheco MD Brain MRI 12/04/16 0000 Signed Impressions: Service Date/Time: Sunday, December 04, 2016 18:12 - CONCLUSION: 1. Sinusitis. 2. No evidence for anoxic brain injury. Simba Guan MD Cervical Spine CT 12/02/16 1140 Signed Impressions: Service Date/Time: Friday, December 02, 2016 12:09 - CONCLUSION: No acute disease. Stepan Guadalupe MD Head CT 12/02/16 1132 Signed Impressions: Service Date/Time: Friday, December 02, 2016 12:09 - CONCLUSION: No acute disease. No evidence of acute infarct, hemorrhage, mass or edema. Stepan Guadalupe MD CT Angiography 12/02/16 1132 Signed Impressions: Service Date/Time: Friday, December 02, 2016 12:09 - CONCLUSION: 1. No evidence of acute pulmonary embolism. 2. Posterior bibasilar airspace disease. 3. No evidence of suspicious mass or lymphadenopathy. Stepan Guadalupe MD Physical Exam GENERAL: Patient is a well-nourished, well-developed CM, awake, not following, on CPAP, not in respiratory distress. SKIN: Warm and dry. No generalized rash, no ecchymoses and no evidence of embolic lesions. HEAD: Atraumatic. Normocephalic. No temporal wasting, or tenderness. EYES: [place] conjunctiva. No petechia or hemorrhage. Pupils equal, round and reactive to light. No scleral icterus. No injection or drainage. EARS, NOSE AND THROAT: Nose without bleeding or purulent nasal discharge. He is orally intubated. NECK: Trachea midline. Supple and not tender, no meningeal signs CARDIOVASCULAR: Regular rate and rhythm. No murmurs, rubs or gallops heard RESPIRATORY: Has diffuse rhonchi ABDOMEN: Soft, not tender, no guarding, nondistended. Bowel sounds present and normoactive. No organomegaly. EXTREMITIES: No clubbing, cyanosis, or edema. No joint effusion, has good ROM. Cool feet, no mottling. He has Charcot deformity on his L foot and has a callus at mid foot on plantar aspect of that foot. NEUROLOGICAL: Awake, not following PSYCHIATRIC: Unable to asses LINE: PIV with no evidence of infection : Porter in place, urine looks clear Assessment & Plan Remarks IMPRESSION Persistent fevers, S/P witnessed carrdiac arrest - has MSSA PNA, on appropriate Abx - ?New VAP - UA ok, no lines, LFT only with elevated alk phos - ?central fever - ?drug fever (anti-seizure, B-lactam) S/P cardiac arrest Seizure possibly due to anoxic encephalopathy Known DM RECOMMENDATION Continue Zyvox Continue Azactam Repeat LFT Follow C/S and adjust Abx If no new (+) C/S, will consider drug fever (anti-SZ meds) or central fever Monitor progress may need change in SZ meds, if temps continues and nothing new shows up on C/S D/W RN Spoke with family Aye Houser MD Dec 09, 2016 13:22
[2016-12-10] VITALS (29 sets, daily range): BP systolic 102–161; BP diastolic 65–87; PULSE 97–181; RESP 3–38; TEMP 99.5–100.9; O2SAT 87–100
[2016-12-10] MEDS: INSULIN NovoLIN REGULAR SUPPLEMENTAL SCALE SQ SCH ×4 (01:55→20:00)
[2016-12-10] MEDS: AZTREONAM INJ 2,000 MG in SODIUM CHLORIDE 0.9% INJ 100 ML IV SCH ×3 (03:14→19:42)
[2016-12-10] MEDS: CHLORHEXIDINE GLUCONATE 2 % 1 PACK (2 CLOTHS) TOP SCH (03:14)
[2016-12-10] MEDS: RESP: ALBUTEROL 2.5 MG/IPRATROPIUM 0.5 MG NEB (SCH) INH ×2 (04:48→09:17)
[2016-12-10 05:13] LABS: BICARBONATE 21.5 MEQ/L (21.0-32.0); MAGNESIUM 2.2 MG/DL (1.5-2.5); POTASSIUM 5.5 MEQ/L (3.5-5.1)
[2016-12-10] MEDS: DEXMEDETOMIDINE INJ 1,000 MCG in SODIUM CHLOR 0.9% 250 ML INJ 240 ML IV SCH ×2 (05:49→17:33)
[2016-12-10] MEDS: fentaNYL DRIP 250 ML IV SCH ×2 (05:49→16:20)
--- NOTE | 2016-12-10 06:13 | RADRPT ---
EXAM DATE/TIME: 12/10/2016 05:14 [facility] COMPARISON: CHEST SINGLE AP, December 07, 2016, 3:43. INDICATIONS : Shortness of breath. MEDICAL HISTORY : Diabetes mellitus type II. Nueropathy SURGICAL HISTORY : None. ENCOUNTER: Subsequent ACUITY: 1 week PAIN SCORE: 0/10 LOCATION: Bilateral chest FINDINGS: Portable AP view of the chest demonstrates a normal-sized cardiac silhouette. ETT and NG tube remain present. A there is diffuse left lung air space consolidation with patchy consolidation in the right lower lung zone. No pneumothorax or pleural effusion is visualized. Multiple lines overlie the patien t. CONCLUSION: Stable bilateral airspace consolidation, left greater than right. Stephen Andersen MD on December 10, 2016 at 6:10 Board Certified Radiologist. This report was verified electronically.
[2016-12-10] MEDS: SODIUM CHLOR 0.45% 1000 ML INJ 1,000 ML IV SCH (06:27)
[2016-12-10] MEDS: PANTOPRAZOLE SODIUM 40 MG VIAL IV SCH (08:50)
[2016-12-10] MEDS: LINEZOLID 600 MG TAB PO SCH (08:50)
[2016-12-10] MEDS: levETIRAcetam 1000 MG INJ 100 ML IV SCH ×2 (08:51→23:19)
[2016-12-10] MEDS: ASPIRIN 325 MG TAB PO SCH (08:51)
[2016-12-10] MEDS: METOPROLOL TARTRATE 25 MG TAB PO SCH (08:51)
[2016-12-10] MEDS: CHLORHEXIDINE 0.12% (ORAL KIT) 15 ML CUP MT SCH ×2 (08:52→23:17)
[2016-12-10] MEDS: BENEPROTEIN POWDER 1 PACK G-TUBE SCH ×3 (09:00→17:13)
[2016-12-10] MEDS: INSULIN DETEMIR 100 UNITS/ML VIAL SQ SCH ×2 (09:00→21:00)
[2016-12-10] MEDS: SODIUM CHLORIDE 0.9% FLUSH 10 ML FLUSH IV FLUSH SCH ×2 (09:00→23:26)
--- NOTE | 2016-12-10 09:23 | HHI.PR ---
Review/Management Diagnosis/Plan: (1) Anoxic brain injury Plan: asystole repeat eeg- no sz activity 12/04 mri brain- no acute lesion, no sign of cortical anoxic injury recs repeat mri brain/cspine dilantin on hold 2/2 fevers seroquel being considered for agitation d/w pt's spouse/mother/rn/ccm; d/w potential for trach (2) Acute respiratory failure Plan: intubated cxr- infiltrates pneumonia followed by ccm (3) Convulsions/seizures Plan: reviewed recent eeg report which suggests rt hemispheric focus possible cortical hypoxic injury-related seizures; in addition appears to have shivering/tremors that are non-epileptic recs continue keppra (4) Asystole (5) DM polyneuropathy Subjective Subjective Comments No acute events reported Active Medications Current Medications Medications (Trade) Dose Ordered Sig/Jacklyn Route Start Time Stop Time Status Last Admin (NS Flush) 2 ml UNSCH PRN IV FLUSH 12/02/16 12:15 (NS Flush) 2 ml BID IV FLUSH 12/02/16 21:00 12/10/16 09:00 (Peridex 0.12% Liq) 15 ml BID@08,20 MT 12/02/16 20:00 12/10/16 08:52 (Protonix Inj) 40 mg DAILY IV 12/03/16 09:00 12/10/16 08:50 (Lovenox Inj) 40 mg Q24H SQ 12/02/16 14:00 12/09/16 13:17 Miscellaneous Information 1 Q361D XX 12/02/16 12:15 (Chlorhexidine 2% Cloth) Taper DAILY@04 TOP 12/03/16 04:00 11/29/17 03:59 12/08/16 05:03 (Chlorhexidine 2% Cloth) 3 pack UNSCH PRN TOP 12/02/16 12:15 Artificial Tears 1 applic 1 applic Q4H PRN EACH EYE 12/02/16 14:45 Miscellaneous Information 0 ml @ 0 mls/hr UNSCH IV 12/02/16 14:45 Potassium Chloride 100 ml @ 50 mls/hr Q2H PRN IV 12/02/16 14:45 (KCl 20 Meq Premix Inj) 100 ml @ 50 mls/hr Q2H PRN IV 12/02/16 14:45 Potassium Bicarb/ Potassium Chloride 50 meq 50 meq UNSCH PRN PO 12/02/16 14:45 Potassium Chloride 100 ml @ 25 mls/hr UNSCH PRN IV 12/02/16 14:45 Potassium Chloride 100 ml @ 50 mls/hr Q2H PRN IV 12/02/16 14:45 (Magnesium Sulfate Inj/NS Inj) 100 ml @ 50 mls/hr UNSCH PRN IV 12/02/16 14:45 Magnesium Oxide 800 mg 800 mg UNSCH PRN PO 12/02/16 14:45 (Magnesium Sulfate Inj/NS Inj) 100 ml @ 50 mls/hr UNSCH PRN IV 12/02/16 14:45 Potassium Phosphate 2000 mg 2,000 mg Q4H PRN PO 12/02/16 14:45 (Sodium Phosphate Inj/NS 250 ml Inj) 250 ml @ 42 mls/hr UNSCH PRN IV 12/02/16 14:45 12/08/16 14:15 Potassium Phosphate 2000 mg 2,000 mg UNSCH PRN PO/TUBE 12/02/16 14:45 (Potassium Phosphate Inj/NS 250 ml Inj) 260 ml @ 42 mls/hr UNSCH PRN IV 12/02/16 14:45 (Dilantin Inj) 100 mg Q8H IV 12/03/16 00:00 Hold 12/09/16 07:44 (Aspirin) 325 mg DAILY PO 12/02/16 18:30 12/10/16 08:51 Artificial Tears 2 drop 2 drop BID EACH EYE 12/03/16 21:00 12/09/16 20:53 (Keppra 1000 Mg Inj) 100 ml @ 400 mls/hr Q12HR IV 12/04/16 21:00 12/10/16 08:51 (Beneprotein Powder) 1 pack TID G-TUBE 12/04/16 13:00 12/09/16 17:27 Acetaminophen 650 mg 650 mg Q4H PRN OG-TUBE 12/05/16 03:45 12/09/16 13:18 (Precedex Inj/NS 250 ml Inj) 250 ml @ 0 mls/hr TITRATE IV 12/05/16 23:00 12/10/16 05:49 (Ativan Inj) 0.5 mg Q4H PRN IV 12/06/16 14:45 12/08/16 05:03 (D50w (Vial) Inj) 50 ml UNSCH PRN IV 12/07/16 09:30 (Glucagon Inj) 1 mg UNSCH PRN OTHER 12/07/16 09:30 (Lopressor) 50 mg Q12HR PO 12/08/16 09:00 12/10/16 08:51 Linezolid 600 mg 600 mg Q12HR PO 12/08/16 09:00 12/10/16 08:50 Fentanyl Citrate 250 ml @ 0 mls/hr TITRATE IV 12/08/16 07:15 12/10/16 05:49 (Azactam Inj/NS Inj) 100 ml @ 200 mls/hr Q8H IV 12/08/16 11:00 12/10/16 03:14 Insulin Detemir 14 units 14 units Q12HR SQ 12/09/16 09:00 12/10/16 09:00 (1/2 NS 1000 ml Inj) 1,000 ml @ 84 mls/hr [id number] IV 12/09/16 08:00 12/10/16 06:27 (Free Water) 250 ml Q12HR G-TUBE 12/09/16 09:00 12/09/16 20:54 (D50w (Vial) Inj) 50 ml UNSCH PRN IV 12/09/16 08:00 (Glucagon Inj) 1 mg UNSCH PRN OTHER 12/09/16 08:00 (NovoLIN R SUPPLEMENTAL SCALE) 1 Q6H SQ 12/09/16 08:00 12/10/16 01:55 Allergies Allergies Coded Allergies UNOBTAINABLE (Unverified12/02/16) Review of Systems All other ROS: ROS reviewed as documented in chart Exam I&O / VS 12/09/16 12/09/16 12/10/16 15:00 23:00 07:00 Intake Total 1421 ml 1608 ml 1308 ml Output Total 400 ml 400 ml 400 ml Balance 1021 ml 1208 ml 908 ml IV Total 774 ml 1003 ml 1086 ml Tube Feeding 337 ml 355 ml 222 ml Tube Irrigant 60 ml Other 250 ml 250 ml Output Urine Total 400 ml 400 ml 400 ml # Bowel Movements 0 1 0 Vital Signs Date Time Temp Pulse Resp B/P Pulse Ox O2 Delivery O2 Flow Rate FiO2 12/10/16 06:00 121 12/10/16 04:49 93 40 12/10/16 04:00 99.8 113 16 130/75 98 12/10/16 04:00 113 12/10/16 04:00 40 12/10/16 02:00 114 12/10/16 01:45 100 40 12/10/16 00:00 99.5 110 16 126/81 95 12/10/16 00:00 110 12/10/16 00:00 40 12/09/16 22:00 110 12/09/16 22:00 97 40 12/09/16 20:00 40 12/09/16 20:00 100.3 113 16 143/84 100 12/09/16 20:00 113 12/09/16 18:00 113 12/09/16 16:00 40 12/09/16 16:00 116 12/09/16 16:00 99.3 116 28 148/88 98 12/09/16 14:27 100 40 12/09/16 14:00 114 12/09/16 12:00 108 12/09/16 12:00 101.0 108 24 153/73 98 12/09/16 12:00 40 12/09/16 11:24 98 40 12/09/16 10:00 108 Exam Comments intubated, on precedex,fentanyl gtt, more alert, no blink to threat, moves head side to side, tachypnea, not following, ou 2.5mm sluggish, minimally reactive, no withdrawal to tactile, extension on tactile, planterflexor, no clonus Objective Micro and Labs Laboratory Tests Test 12/10/16 03:52 Sodium Level 147 Potassium Level 5.5 Chloride Level 117 Carbon Dioxide Level 21.5 Anion Gap 9 Blood Urea Nitrogen 29 Creatinine 0.80 Estimat Glomerular Filtration 103 Rate Random Glucose 167 Calcium Level 9.0 Phosphorus Level 2.0 Magnesium Level 2.2 Date/Time Procedure Status Source Growth 12/07/16 11:30 Urine Culture - Final Complete Urine Catheterized Urine NO GROWTH IN 48 HOURS. 12/07/16 11:30 Gram Stain - Final Complete Sputum Endotracheal 12/07/16 11:30 Sputum Culture - Final Complete Sputum Endotracheal HEAVY GROWTH NORMAL RESPIRATORY SATNAM... 12/07/16 10:22 Aerobic Blood Culture - Preliminary Resulted Blood Peripheral NO GROWTH IN 2 DAYS 12/07/16 10:22 Anaerobic Blood Culture - Preliminary Resulted Blood Peripheral NO GROWTH IN 2 DAYS Problem Qualifiers (1) Acute respiratory failure: Qualified Code: J96.00 - Acute respiratory failure, unspecified whether with hypoxia or hypercapnia (2) Convulsions/seizures: Qualified Code: R56.9 - Convulsions, unspecified convulsion type (3) DM polyneuropathy: Qualified Code: E13.42 - Diabetic polyneuropathy associated with other specified diabetes mellitus Martinez Garland MD Dec 10, 2016 09:23
--- NOTE | 2016-12-10 09:29 | HHI.CCPN ---
Subjective Remarks/Hospital Course Patient is a 46-year-old male with history of diabetes, neuropathy, Charcot foot to the left, hyperlipidemia, presents to emergency room after he had a witnessed cardiac arrest at home. Per patient's he complained of dizziness this morning. He went to the garage to get something and then walked back into the kitchen. Shortly afterwards the was heard a loud thud. She rushed to the kitchen and found the patient collapsed on the floor, with seizure -like activity of the upper extremities. EMS was called immediately and the got to the house within 5-10 minutes of the call, patient was in asystole upon arrival. ACLS protocol was initiated in the field. Patient was intubated using a combitube. Patient was given 2 rounds of epi and had ROSC. EMS reported that patient was also coughing up blood. Blood sugar at the scene was 63, for which he got dextrose. In the emergency department Combitube was removed, patient was intubated using a 8.0 ETT. EKG: No acute changes. Initial neuro exam was very poor per Dr. Hutchinson. No spontaneous movements noted, patient had a gag reflex. Also he was biting on the teeth otherwise no purposeful movements noted. To facilitate imaging studies patient received 10 mg of vecuronium as he was biting down the ET tube. CT of the head and CT pulmonary angiogram was negative for any acute findings. I evaluated the patient in the emergency department approximately 30 minutes after vecuronium was given. Patient still was neuromuscularly paralyzed. The history of probable witnessed seizures was conformed with the . I asked for a stat EEG. Once in the ICU Stat EEG was done which showed severe encephalopathy. Given the EEG findings and for neuro exam by the ER physician, I discussed with regarding induced hypothermia protocol for neuro protection. Patient was still within the window for induced hypothermia and was agreeable. I proceeded with placing the heat exchange catheter in the right groin. Towards completion of the procedure patient started having tonic clonic movements of the bilateral lower extremity. 4 mg IV push of Ativan was given emergently following which he stopped seizure -like activity. Patient will be loaded with Cerebyx, and continued on Dilantin. CT of the head was negative for any acute findings SUBJ 12/03/16: Achieved target temperature 8 PM yesterday. Currently sedated intubated and neuromuscularly paralyzed. EEG yesterday -no seizure activity, very low amplitude background but appears normal per Dr. Christensen 12/04: Patient is currently in rewarming phase. Nimbex was DCd at 0900 and while sedation was being weaned off, patient developed tonic-clonic activity probable seizures vs myoclonus. Receiving propofol, get stat EEG, stat MRI and neurology consult. Will give additional 1 g Cerebyx Bolus, also mammogram Keppra bolus and 1 g Every 12 hours will be started 12/04 20:12 Called to patient's bedside because family would like to discuss DNR and goals of care. Multiple family members were at bedside when I arrived to the room however patient's Elvia requested that they leave and that she and patient's mother, Debra, be present alone with me. Reviewed patient's living will which allows for withholding or removing life support, life prolonging treatment, artificially administered food and water in the event of terminal condition, end-stage condition, persistent vegetative state. states that patient would not want compressions, shock, or ACLS drugs in the event of cardiac arrest. She is also refusing tube feeding at this time because she says he told her he would never want that. I discussed that tube feeds could be administered as part of supportive care and that they could be withheld later if it appears his condition is terminal/end stage/ vegetative state. However, it is too early for physicians to make that determination at this time. Nonetheless she is adamant that tube feeds be withheld. I am changing code status to "ALTERNATIVE CODE -INTUBATION ONLY". 12/05: Currently off all sedation. MRI of the brain done yesterday was normal without evidence of anoxic injury. Patient showing neurological improvement. Opens eyes to verbal command appears to track. at bedside updated 12/06: Neurological Exam slowly improving. Opens eyes to command tracks. Purposefully moving upper extremities. Chest x-ray shows increasing bilateral infiltrates left more than right. On Rocephin for MSSA pneumonia 12/07 Patient remains intubated and on Precedex drip for sedation. T;102.2 12/08 No events overnight. Remains intubated and on Precedex drip. Did not tolerate CPAP trials yesterday. T:101.8 12/09 Patient remains intubated and on Precedex and Fentanyl drip for sedation. Still with persistent fevers with Tmax 103.7. Repeat EEG yesterday showed encephalopathy, no ictal activity. 12/10 Patient is sedated with Fentanyl and Precedex , intubated. T:99.8. Did not tolerate CPAP trials yesterday. In Afib with RVR Objective Vital Signs Date Time Temp Pulse Resp B/P Pulse Ox O2 Delivery O2 Flow Rate FiO2 12/10/16 06:00 121 12/10/16 04:49 93 40 12/10/16 04:00 99.8 16 130/75 12/06/16 19:53 Ventilator Intake and Output 12/09/16 12/09/16 12/10/16 08:00 16:00 00:00 Intake Total 752 ml 1421 ml 1608 ml Output Total 550 ml 400 ml 400 ml Balance 202 ml 1021 ml 1208 ml Result Diagram: 12/09/16 0412 12/10/16 0352 Other Results Laboratory Tests Test 12/10/16 03:52 Sodium Level 147 MEQ/L Potassium Level 5.5 MEQ/L Chloride Level 117 MEQ/L Carbon Dioxide Level 21.5 MEQ/L Anion Gap 9 MEQ/L Blood Urea Nitrogen 29 MG/DL Creatinine 0.80 MG/DL Estimat Glomerular Filtration 103 ML/MIN Rate Random Glucose 167 MG/DL Calcium Level 9.0 MG/DL Phosphorus Level 2.0 MG/DL Magnesium Level 2.2 MG/DL Imaging Last Impressions Chest X-Ray 12/10/16 0600 Signed Impressions: Service Date/Time: Saturday, December 10, 2016 05:14 - CONCLUSION: Stable bilateral airspace consolidation, left greater than right. Stephen Andersen MD Brain MRI 12/04/16 0000 Signed Impressions: Service Date/Time: Sunday, December 04, 2016 18:12 - CONCLUSION: 1. Sinusitis. 2. No evidence for anoxic brain injury. Simba Guan MD Cervical Spine CT 12/02/16 1140 Signed Impressions: Service Date/Time: Friday, December 02, 2016 12:09 - CONCLUSION: No acute disease. Stepan Guadalupe MD Head CT 12/02/16 1132 Signed Impressions: Service Date/Time: Friday, December 02, 2016 12:09 - CONCLUSION: No acute disease. No evidence of acute infarct, hemorrhage, mass or edema. Stepan Guadalupe MD CT Angiography 12/02/16 1132 Signed Impressions: Service Date/Time: Friday, December 02, 2016 12:09 - CONCLUSION: 1. No evidence of acute pulmonary embolism. 2. Posterior bibasilar airspace disease. 3. No evidence of suspicious mass or lymphadenopathy. Stepan Guadalupe MD Objective Remarks GENERAL: Intubated, SKIN: Warm and dry HEAD: Atraumatic. Normocephalic. EYES: Pupils equal and round 3 mm, nonreactive. No scleral icterus. No injection or drainage. ENT: No nasal bleeding or discharge. Endotracheally intubated NECK: Trachea midline. No JVD. CARDIOVASCULAR: Regular rate and rhythm. No murmur appreciated. RESPIRATORY: Clear to auscultation. Breath sounds equal bilaterally. GASTROINTESTINAL: Abdomen soft, non-tender, nondistended. Hepatic and splenic margins not palpable. MUSCULOSKELETAL: Boot to left foot for Charcot foot NEUROLOGICAL: Patient is intubated. Not moving extremities A/P Assessment and Plan NEURO: Encephalopathy ? Hypoxic injury related Seizure -On Fentanyl and Precedex drip for sedation and vent synchrony- Daily sedation vacation, monitor neuro status - Completed induced hypothermia,. MRI negative for anoxic brain injury - Neurology is following Dr. Garland. Repeat EEG 12/09: Slowing with no ictal activity. - Continue Keppra,discussed with Dr. Engle will repeat MRI brain -Place on Seroquel 25mg BID - EEG 12/02 -no seizure activity, very low amplitude background but appears normal per Dr. Christensen - EEG 12/04 -Intermittent episodes of burst suppression pattern with intermittent sharp wave activity mainly in the right frontal region, may indicate epileptogenicity, mod encephalopathy RESP: Acute respiratory failure MSSA pneumonia - Continue with vent support keep sat >92% - Ventilator bundle, DuoNeb every 6 hours and when necessary - F/U Sputum culture-MSSA. Continue Rocephin - Daily SBT CV: Asystole, unclear etiology Fluid overload/pulmonary edema Afib with RVR _Monitor HR and BP keep MAP>65mmHg, Increase Lopressor 100 mg Q12 -Start Heparin drip for Afib if repeat MRI brain is negative - Etiology of cardiac arrest remains unclear at this time, serial cardiac enzymes showed only minor elevation - Very mild troponin elevation secondary to cardiac arrest. - 2-D echo normal EF, mild anterior MVP, CT pulmonary angiogram was negative for acute PE GI: - IV Protonix for GI prophylaxis -Continue with tube feeds On Glucerna 1.5 currently @40ml/hr : Acute kidney injury-resolved - Monitor renal function, I/O's, electrolytes replacement per protocol. -,Change Free water 250ml Q8, monitor sodium level. d/c IVF ID: MSSA pneumonia Persistent fevers..infectious vs meds vs Neuro -Continue abx per ID- Aztreonam, Zyvox, - Monitor for signs of infections ( Fever, WBC) Pancultured 12/07 ( Blood, sputum , UA)- NGTD Sputum cx 12/02 staph Aures sensitive to Rocephin ENDO: Hyperglycemia Type 2 diabetes - Change SSI(High scale) increase Levemir 14units BID for glycemic control PROPH: - Bilateral lower extremity SCDs. Continue Lovenox, Protonix Level 3 Pippa Jerez MD Dec 10, 2016 09:29
[2016-12-10] MEDS: ARTIFICIAL TEARS OPTH SOLN 15 ML BTL EACH EYE SCH ×2 (09:31→23:18)
[2016-12-10] MEDS ORDERED: BUMETANIDE INJ 1 MG/4 ML VIAL IV PUSH ONE (10:00)
[2016-12-10] MEDS ORDERED: SODIUM POLYSTYRENE SULFONATE SUSP 15 GM/60 ML CUP PO ONE (10:00)
--- NOTE | 2016-12-10 10:16 | EKG ---
Date Performed: 12/10/2016 Time Performed: 09:51:21 PTAGE: 46 years EKG: ATRIAL FIBRILLATION WITH RAPID VENTRICULAR RESPONSE POSSIBLE RIGHT VENTRICULAR CONDUCTION D ELAY ABNORMAL RHYTHM ECG PREVIOUS TRACING : 12/02/2016 11.24 Compared to previous tracing, atrial fibrillation has repla magali Sinus rhythm . DOCTOR: Oneil Reynolds Interpretating Date/Time 12/10/2016 10:14:42
[2016-12-10] MEDS: QUEtiapine FUMARATE 25 MG TAB PO SCH ×2 (10:32→23:18)
--- NOTE | 2016-12-10 13:18 | HHI.IDPN ---
Subjective Subjective Remarks Patient is a 46-year-old male, admitted to the hospital after he had a witnessed cardiac arrest at home. The patient was in his usual state of health the day prior to admission, as well as when he woke up this the morning of admission. He apparently went to a [employer] early that morning. He was not complaining of any problem. When he was at home he apparently went to the garage to get something and then walked back into the kitchen. Shortly afterwards the was heard a loud thud. She rushed to the kitchen and found the patient collapsed on the floor, with seizure-like activity of the upper extremities. EMS was called immediately and the got to the house within 5-10 minutes of the call, patient was in asystole upon arrival. ACLS protocol was initiated in the field. Patient was intubated. He was successfully resuscitated , and was brought into the hospital. Patient was put on hypothermic protocol. He has had some other episodes of generalized seizure. Neurology evaluated the patient. A shunt is on anticonvulsant agents. MRI of the brain did not show any abnormality. Patient has had some fever since December 04. It got better on December 06, but it started up again late December 06, and patient has had fever since. His hemodynamics are okay. Patient had MSSA in his sputum, and has been on appropriate antibiotics. He does not have any central line. He has a Porter catheter in place. He remains sedated on the respirator. Notes reviewed D/W RN Temps not as frequent, but he is on cooling blanket Sputum with normal resp austyn BC negative Alk phosphatase same BP ok, not on pressors Dilantin on hold Antibiotics Azactam Zyvox Past Medical History Diabetes Neuropathy Charcot foot to the left Hyperlipidemia, Allergies: Coded Allergies: UNOBTAINABLE (Unverified , 12/02/16) Objective . Vital Signs Date Time Temp Pulse Resp B/P Pulse Ox O2 Delivery O2 Flow Rate FiO2 12/10/16 12:08 97 40 12/10/16 12:00 99.9 103 3 120/75 96 12/10/16 11:00 99.1 97 17 123/78 95 12/10/16 10:00 100.2 100 19 115/65 97 12/10/16 09:18 93 40 12/10/16 09:00 100.2 129 26 161/86 93 12/10/16 08:00 99.6 12/10/16 08:00 100.2 121 25 141/82 97 12/10/16 08:00 40 12/10/16 06:00 121 12/10/16 04:49 93 40 12/10/16 04:00 99.8 113 16 130/75 98 12/10/16 04:00 113 12/10/16 04:00 40 12/10/16 02:00 114 12/10/16 01:45 100 40 12/10/16 00:00 99.5 110 16 126/81 95 12/10/16 00:00 110 12/10/16 00:00 40 12/09/16 22:00 110 12/09/16 22:00 97 40 12/09/16 20:00 40 12/09/16 20:00 100.3 113 16 143/84 100 12/09/16 20:00 113 12/09/16 18:00 113 12/09/16 16:00 40 12/09/16 16:00 116 12/09/16 16:00 99.3 116 28 148/88 98 12/09/16 14:27 100 40 12/09/16 14:00 114 12/09/16 12/09/16 12/10/16 15:00 23:00 07:00 Intake Total 1421 ml 1608 ml 1308 ml Output Total 400 ml 400 ml 400 ml Balance 1021 ml 1208 ml 908 ml IV Total 774 ml 1003 ml 1086 ml Tube Feeding 337 ml 355 ml 222 ml Tube Irrigant 60 ml Other 250 ml 250 ml Output Urine Total 400 ml 400 ml 400 ml # Bowel Movements 0 1 0 . Laboratory Tests Test 12/09/16 04:12 White Blood Count 14.1 TH/MM3 Red Blood Count 3.79 MIL/MM3 Hemoglobin 10.9 GM/DL Hematocrit 33.4 % Mean Corpuscular Volume 88.2 FL Mean Corpuscular Hemoglobin 28.7 PG Mean Corpuscular Hemoglobin 32.5 % Concent Red Cell Distribution Width 15.4 % Platelet Count 202 TH/MM3 Mean Platelet Volume 8.1 FL Neutrophils (%) (Auto) 82.6 % Lymphocytes (%) (Auto) 6.9 % Monocytes (%) (Auto) 9.3 % Eosinophils (%) (Auto) 1.1 % Basophils (%) (Auto) 0.1 % Neutrophils # (Auto) 11.7 TH/MM3 Lymphocytes # (Auto) 1.0 TH/MM3 Monocytes # (Auto) 1.3 TH/MM3 Eosinophils # (Auto) 0.2 TH/MM3 Basophils # (Auto) 0.0 TH/MM3 CBC Comment DIFF FINAL Differential Comment Laboratory Tests Test 12/09/16 12/10/16 04:12 03:52 Sodium Level 148 MEQ/L 147 MEQ/L Potassium Level 4.5 MEQ/L 5.5 MEQ/L Chloride Level 113 MEQ/L 117 MEQ/L Carbon Dioxide Level 23.6 MEQ/L 21.5 MEQ/L Anion Gap 11 MEQ/L 9 MEQ/L Blood Urea Nitrogen 29 MG/DL 29 MG/DL Creatinine 1.34 MG/DL 0.80 MG/DL Estimat Glomerular Filtration 57 ML/MIN 103 ML/MIN Rate Random Glucose 366 MG/DL 167 MG/DL Calcium Level 9.4 MG/DL 9.0 MG/DL Phosphorus Level 3.1 MG/DL 2.0 MG/DL Magnesium Level 2.2 MG/DL 2.2 MG/DL Total Bilirubin 0.4 MG/DL Direct Bilirubin 0.1 MG/DL Indirect Bilirubin 0.3 MG/DL Aspartate Amino Transf 13 U/L (AST/SGOT) Alanine Aminotransferase 25 U/L (ALT/SGPT) Alkaline Phosphatase 122 U/L Total Protein 6.5 GM/DL Albumin 1.8 GM/DL Imaging Chest X-Ray 12/07/16 0600 Signed Impressions: Service Date/Time: Wednesday, December 07, 2016 03:43 - CONCLUSION: 1. Patchy alveolar disease characteristic of edema or pneumonia. There has been no significant change when compared to the prior exam. Simone Pacheco MD Brain MRI 12/04/16 0000 Signed Impressions: Service Date/Time: Sunday, December 04, 2016 18:12 - CONCLUSION: 1. Sinusitis. 2. No evidence for anoxic brain injury. Simba Guan MD Cervical Spine CT 12/02/16 1140 Signed Impressions: Service Date/Time: Friday, December 02, 2016 12:09 - CONCLUSION: No acute disease. Stepan Guadalupe MD Head CT 12/02/16 1132 Signed Impressions: Service Date/Time: Friday, December 02, 2016 12:09 - CONCLUSION: No acute disease. No evidence of acute infarct, hemorrhage, mass or edema. Stepan Guadalupe MD CT Angiography 12/02/16 1132 Signed Impressions: Service Date/Time: Friday, December 02, 2016 12:09 - CONCLUSION: 1. No evidence of acute pulmonary embolism. 2. Posterior bibasilar airspace disease. 3. No evidence of suspicious mass or lymphadenopathy. Stepan Guadalupe MD Physical Exam GENERAL: On the vent, not in respiratory distress. SKIN: Warm and dry. No generalized rash, no ecchymoses and no evidence of embolic lesions. HEAD: Atraumatic. Normocephalic. No temporal wasting, or tenderness. EYES: [place] conjunctiva. No petechia or hemorrhage. Pupils equal, round and reactive to light. No scleral icterus. No injection or drainage. EARS, NOSE AND THROAT: Nose without bleeding or purulent nasal discharge. He is orally intubated. NECK: Trachea midline. Supple and not tender, no meningeal signs CARDIOVASCULAR: Regular rate and rhythm. No murmurs, rubs or gallops heard RESPIRATORY: Has diffuse rhonchi ABDOMEN: Soft, not tender, no guarding, nondistended. Bowel sounds present and normoactive. No organomegaly. EXTREMITIES: No clubbing, cyanosis, or edema. No joint effusion, has good ROM. He has Charcot deformity on his L foot and has a callus at mid foot on plantar aspect of that foot. NEUROLOGICAL: Awake, not following PSYCHIATRIC: Unable to asses LINE: PIV with no evidence of infection : Porter in place, urine looks clear Assessment & Plan Remarks IMPRESSION Persistent fevers, S/P witnessed carrdiac arrest - has MSSA PNA, on appropriate Abx - ?New VAP - UA ok, no lines, LFT only with elevated alk phos - ?central fever - ?drug fever (anti-seizure, B-lactam) S/P cardiac arrest Seizure possibly due to anoxic encephalopathy Known DM RECOMMENDATION Change Zyvox to Clindamycin Continue Azactam Repeat LFT Monitor temps Monitor progress D/W Aye Salcedo MD Dec 10, 2016 13:18
[2016-12-10] MEDS: ENOXAPARIN SODIUM 40 MG/0.4 ML SYRINGE SQ SCH (13:34)
[2016-12-10] MEDS ORDERED: METOPROLOL TARTRATE 5 MG/5 ML VIAL IV PUSH ONE (14:00)
[2016-12-10] MEDS: FREE WATER G-TUBE SCH ×2 (14:00→22:00)
[2016-12-10] MEDS: CLINDAMYCIN 150 MG CAP PO SCH ×2 (14:32→23:17)
[2016-12-10] MEDS: SODIUM PHOSPHATE INJ 30 MMOL in SODIUM CHLOR 0.9% 250 ML INJ 240 ML IV PRN (16:20)
[2016-12-10 17:51] LABS: BASOPHIL % 0.2 % (0.0-2.0); EOSINOPHIL # 0.2 TH/MM3 (0-0.4); EOSINOPHIL % 1.1 % (0.0-4.0); HEMATOCRIT 37.8 % (39.0-51.0); HEMO FLAGS DIFF FINAL; LYMPH % 7.2 % (9.0-44.0); LYMPHOCYTE # 1.4 TH/MM3 (1.0-4.8); MEAN CELL VOLUME 88.5 FL (80.0-100.0); MEAN CORPUSCULAR HEMOGLOBIN 28.8 PG (27.0-34.0); MEAN CORPUSCULAR HGB CONC 32.6 % (32.0-36.0); MONO % 3.6 % (0.0-8.0); NEUT % 87.9 % (16.0-70.0); PLATELET COUNT 272 TH/MM3 (150-450); RED BLOOD COUNT 4.27 MIL/MM3 (4.50-5.90); RED CELL DISTRIBUTION WIDTH 15.6 % (11.6-17.2); WHITE BLOOD COUNT 19.3 TH/MM3 (4.0-11.0)
--- NOTE | 2016-12-10 18:39 | RADRPT ---
EXAM DATE/TIME: 12/10/2016 18:11 [facility] COMPARISON: MRI BRAIN W/O CONTRAST, December 04, 2016, 18:12. INDICATIONS : Anoxic brain injury from cardiac arrest. MEDICAL HISTORY : Diabetes mellitus type 2. Hypercholesterolemia. SURGICAL HISTORY : Insulin pump placement. ENCOUNTER: Subsequent ACUITY: 1 week PAIN SCORE: Nonresponsive. LOCATION: cranial TECHNIQUE: Multiplanar, multisequence MRI of the brain was performed without contrast. FINDINGS: CEREBRUM: The ventricles are normal for age. Cerebral atrophy. No evidence of midline shift, mass lesion, hemor rhage or acute infarction. No extraaxial fluid collections are seen. The pituitary gland and supras ellar cistern are normal in configuration. WHITE MATTER: No significant signal abnormalities are seen in the white matter. POSTERIOR FOSSA: The cerebellum and brainstem are intact. The 4th ventricle is midline. The cerebellopontine angle is unremarkable. The cerebellar tonsils are normal in position. DIFFUSION IMAGING: No focal areas of restricted diffusion are seen. No evidence of acute infarction. EXTRACRANIAL: The visualized portions of the orbits and paranasal sinuses are unremarkable. CONCLUSION: 1. Cerebral atrophy and chronic ischemic small vessel vasculopathy. 2. No ischemic changes. Hesham Lemus MD on December 10, 2016 at 18:36 Board Certified Radiologist. This report was verified electronically.
--- NOTE | 2016-12-10 19:28 | RADRPT ---
EXAM DATE/TIME: 12/10/2016 18:11 [facility] COMPARISON: No previous studies available for comparison. INDICATIONS : Anoxic brain injury post cardiac arrest. MEDICAL HISTORY : Diabetes mellitus type 2. Hypercholesterolemia. SURGICAL HISTORY : Insulin pump placement. ENCOUNTER: Subsequent ACUITY: 1 week PAIN SCORE: Nonresponsive. LOCATION: neck TECHNIQUE: Multiplanar, multisequence MRI examination of the cervical spine was performed. FINDINGS: VERTEBRAE: Normal vertebral body height. Homogeneous marrow signal. ALIGNMENT: No evidence of subluxation. CORD: Normal configuration and signal. POST FOSSA: The cerebellar tonsils are normal in position. C2-C3: The thecal sac has a normal configuration. There is no evidence of disc herniation or spinal canal s tenosis. The neural foramina are patent bilaterally. C3-C4: Tiny central protrusion without spinal canal stenosis. The neural foramina are patent bilaterally. C4-C5: Minimal broad-based protrusion without spinal canal stenosis. The neural foramina are patent bilater ally. C5-C6: The thecal sac has a normal configuration. There is no evidence of disc herniation or spinal canal s tenosis. The neural foramina are patent bilaterally. C6-C7: The thecal sac has a normal configuration. There is no evidence of disc herniation or spinal canal s tenosis. The neural foramina are patent bilaterally. C7-T1: The thecal sac has a normal configuration. There is no evidence of disc herniation or spinal canal s tenosis. The neural foramina are patent bilaterally. CONCLUSION: 1. Tiny central protrusion at C3-4 and minimal broad-based protrusion at C4-5 without canal stenosis. 2. MR cervical spine is otherwise unremarkable. Hesham Lemus MD on December 10, 2016 at 19:25 Board Certified Radiologist. This report was verified electronically.
[2016-12-10] MEDS: METOPROLOL TARTRATE 100 MG TAB PO SCH (23:18)
[2016-12-10] MEDS: ACETAMINOPHEN 650 MG/20.3 ML UDC OG-TUBE PRN (23:33)
[2016-12-11] VITALS (27 sets, daily range): BP systolic 105–137; BP diastolic 57–83; PULSE 106–118; RESP 0–35; TEMP 99.4–101.6; O2SAT 88–100
[2016-12-11] MEDS: INSULIN NovoLIN REGULAR SUPPLEMENTAL SCALE SQ SCH ×4 (02:00→20:00)
[2016-12-11] MEDS: fentaNYL DRIP 250 ML IV SCH ×2 (02:07→11:28)
[2016-12-11] MEDS: CHLORHEXIDINE GLUCONATE 2 % 1 PACK (2 CLOTHS) TOP SCH (04:00)
[2016-12-11] MEDS: CLINDAMYCIN 150 MG CAP PO SCH ×4 (04:04→20:00)
[2016-12-11] MEDS: AZTREONAM INJ 2,000 MG in SODIUM CHLORIDE 0.9% INJ 100 ML IV SCH ×3 (04:04→18:24)
[2016-12-11] MEDS: DEXMEDETOMIDINE INJ 1,000 MCG in SODIUM CHLOR 0.9% 250 ML INJ 240 ML IV SCH ×3 (04:06→22:26)
[2016-12-11] MEDS: FREE WATER G-TUBE SCH ×4 (04:45→22:18)
[2016-12-11 07:36] LABS: BICARBONATE 25.1 MEQ/L (21.0-32.0); MAGNESIUM 2.1 MG/DL (1.5-2.5); POTASSIUM 5.9 MEQ/L (3.5-5.1)
--- NOTE | 2016-12-11 07:45 | HHI.CCPN ---
Subjective Remarks/Hospital Course Patient is a 46-year-old male with history of diabetes, neuropathy, Charcot foot to the left, hyperlipidemia, presents to emergency room after he had a witnessed cardiac arrest at home. Per patient's he complained of dizziness this morning. He went to the garage to get something and then walked back into the kitchen. Shortly afterwards the was heard a loud thud. She rushed to the kitchen and found the patient collapsed on the floor, with seizure -like activity of the upper extremities. EMS was called immediately and the got to the house within 5-10 minutes of the call, patient was in asystole upon arrival. ACLS protocol was initiated in the field. Patient was intubated using a combitube. Patient was given 2 rounds of epi and had ROSC. EMS reported that patient was also coughing up blood. Blood sugar at the scene was 63, for which he got dextrose. In the emergency department Combitube was removed, patient was intubated using a 8.0 ETT. EKG: No acute changes. Initial neuro exam was very poor per Dr. Hutchinson. No spontaneous movements noted, patient had a gag reflex. Also he was biting on the teeth otherwise no purposeful movements noted. To facilitate imaging studies patient received 10 mg of vecuronium as he was biting down the ET tube. CT of the head and CT pulmonary angiogram was negative for any acute findings. I evaluated the patient in the emergency department approximately 30 minutes after vecuronium was given. Patient still was neuromuscularly paralyzed. The history of probable witnessed seizures was conformed with the . I asked for a stat EEG. Once in the ICU Stat EEG was done which showed severe encephalopathy. Given the EEG findings and for neuro exam by the ER physician, I discussed with regarding induced hypothermia protocol for neuro protection. Patient was still within the window for induced hypothermia and was agreeable. I proceeded with placing the heat exchange catheter in the right groin. Towards completion of the procedure patient started having tonic clonic movements of the bilateral lower extremity. 4 mg IV push of Ativan was given emergently following which he stopped seizure -like activity. Patient will be loaded with Cerebyx, and continued on Dilantin. CT of the head was negative for any acute findings SUBJ 12/03/16: Achieved target temperature 8 PM yesterday. Currently sedated intubated and neuromuscularly paralyzed. EEG yesterday -no seizure activity, very low amplitude background but appears normal per Dr. Christensen 12/04: Patient is currently in rewarming phase. Nimbex was DCd at 0900 and while sedation was being weaned off, patient developed tonic-clonic activity probable seizures vs myoclonus. Receiving propofol, get stat EEG, stat MRI and neurology consult. Will give additional 1 g Cerebyx Bolus, also mammogram Keppra bolus and 1 g Every 12 hours will be started 12/04 20:12 Called to patient's bedside because family would like to discuss DNR and goals of care. Multiple family members were at bedside when I arrived to the room however patient's Elvia requested that they leave and that she and patient's mother, Debra, be present alone with me. Reviewed patient's living will which allows for withholding or removing life support, life prolonging treatment, artificially administered food and water in the event of terminal condition, end-stage condition, persistent vegetative state. states that patient would not want compressions, shock, or ACLS drugs in the event of cardiac arrest. She is also refusing tube feeding at this time because she says he told her he would never want that. I discussed that tube feeds could be administered as part of supportive care and that they could be withheld later if it appears his condition is terminal/end stage/ vegetative state. However, it is too early for physicians to make that determination at this time. Nonetheless she is adamant that tube feeds be withheld. I am changing code status to "ALTERNATIVE CODE -INTUBATION ONLY". 12/05: Currently off all sedation. MRI of the brain done yesterday was normal without evidence of anoxic injury. Patient showing neurological improvement. Opens eyes to verbal command appears to track. at bedside updated 12/06: Neurological Exam slowly improving. Opens eyes to command tracks. Purposefully moving upper extremities. Chest x-ray shows increasing bilateral infiltrates left more than right. On Rocephin for MSSA pneumonia 12/07 Patient remains intubated and on Precedex drip for sedation. T;102.2 12/08 No events overnight. Remains intubated and on Precedex drip. Did not tolerate CPAP trials yesterday. T:101.8 12/09 Patient remains intubated and on Precedex and Fentanyl drip for sedation. Still with persistent fevers with Tmax 103.7. Repeat EEG yesterday showed encephalopathy, no ictal activity. 12/10 Patient is sedated with Fentanyl and Precedex , intubated. T:99.8. Did not tolerate CPAP trials yesterday. In Afib with RVR 12/11 No events overnight. On Fentanyl and Precedex drip. T:100.0 at 6 am. MRI brain yesterday showed no ischemic changes. Objective Vital Signs Date Time Temp Pulse Resp B/P Pulse Ox O2 Delivery O2 Flow Rate FiO2 12/11/16 06:00 106 12/11/16 06:00 100.0 17 125/75 96 12/11/16 05:11 40 Intake and Output 12/10/16 12/10/16 12/11/16 08:00 16:00 00:00 Intake Total 1308 ml 419 ml 1165 ml Output Total 600.0 ml 750 ml 480 ml Balance 708.0 ml -331 ml 685 ml Result Diagram: 12/10/16 1657 12/10/16 1657 Other Results Laboratory Tests Test 12/10/16 16:57 White Blood Count 19.3 TH/MM3 Red Blood Count 4.27 MIL/MM3 Hemoglobin 12.3 GM/DL Hematocrit 37.8 % Mean Corpuscular Volume 88.5 FL Mean Corpuscular Hemoglobin 28.8 PG Mean Corpuscular Hemoglobin 32.6 % Concent Red Cell Distribution Width 15.6 % Platelet Count 272 TH/MM3 Mean Platelet Volume 7.7 FL Neutrophils (%) (Auto) 87.9 % Lymphocytes (%) (Auto) 7.2 % Monocytes (%) (Auto) 3.6 % Eosinophils (%) (Auto) 1.1 % Basophils (%) (Auto) 0.2 % Neutrophils # (Auto) 17.0 TH/MM3 Lymphocytes # (Auto) 1.4 TH/MM3 Monocytes # (Auto) 0.7 TH/MM3 Eosinophils # (Auto) 0.2 TH/MM3 Basophils # (Auto) 0.0 TH/MM3 CBC Comment DIFF FINAL Differential Comment Potassium Level 4.4 MEQ/L Imaging Last Impressions Chest X-Ray 12/10/16 0600 Signed Impressions: Service Date/Time: Saturday, December 10, 2016 05:14 - CONCLUSION: Stable bilateral airspace consolidation, left greater than right. Stephen Andersen MD Cervical Spine MRI 12/10/16 0000 Signed Impressions: Service Date/Time: Saturday, December 10, 2016 18:11 - CONCLUSION: 1. Tiny central protrusion at C3-4 and minimal broad-based protrusion at C4-5 without canal stenosis. 2. MR cervical spine is otherwise unremarkable. Hesham Lemus MD Brain MRI 12/10/16 0000 Signed Impressions: Service Date/Time: Saturday, December 10, 2016 18:11 - CONCLUSION: 1. Cerebral atrophy and chronic ischemic small vessel vasculopathy. 2. No ischemic changes. Hesham Lemus MD Cervical Spine CT 12/02/16 1140 Signed Impressions: Service Date/Time: Friday, December 02, 2016 12:09 - CONCLUSION: No acute disease. Stepan Guadalupe MD Head CT 12/02/16 1132 Signed Impressions: Service Date/Time: Friday, December 02, 2016 12:09 - CONCLUSION: No acute disease. No evidence of acute infarct, hemorrhage, mass or edema. Stepan Guadalupe MD CT Angiography 12/02/16 1132 Signed Impressions: Service Date/Time: Friday, December 02, 2016 12:09 - CONCLUSION: 1. No evidence of acute pulmonary embolism. 2. Posterior bibasilar airspace disease. 3. No evidence of suspicious mass or lymphadenopathy. Stepan Guadalupe MD Objective Remarks GENERAL: Intubated, SKIN: Warm and dry HEAD: Atraumatic. Normocephalic. EYES: Pupils equal and round 3 mm, nonreactive. No scleral icterus. No injection or drainage. ENT: No nasal bleeding or discharge. Endotracheally intubated NECK: Trachea midline. No JVD. CARDIOVASCULAR: Regular rate and rhythm. No murmur appreciated. RESPIRATORY: Clear to auscultation. Breath sounds equal bilaterally. GASTROINTESTINAL: Abdomen soft, non-tender, nondistended. Hepatic and splenic margins not palpable. MUSCULOSKELETAL: Boot to left foot for Charcot foot NEUROLOGICAL: Patient is intubated. Not moving extremities A/P Assessment and Plan NEURO: Encephalopathy ? Hypoxic injury related Seizure -On Fentanyl and Precedex drip for sedation and vent synchrony- Daily sedation vacation, monitor neuro status. On Seroquel 25mg BID - Completed induced hypothermia,. MRI negative for anoxic brain injury -MRI brain 12/10- No ischemic changes - Neurology is following Dr. Garland. Repeat EEG 12/09: Slowing with no ictal activity. - Continue Keppra,discussed with Dr. Engle will repeat MRI brain -Place on Seroquel 25mg BID - EEG 12/02 -no seizure activity, very low amplitude background but appears normal per Dr. Christensen - EEG 12/04 -Intermittent episodes of burst suppression pattern with intermittent sharp wave activity mainly in the right frontal region, may indicate epileptogenicity, mod encephalopathy RESP: Acute respiratory failure MSSA pneumonia - Continue with vent support keep sat >92% - Ventilator bundle, DuoNeb every 6 hours and when necessary - Daily SBT, discussed with patient's and his mother and possibility of trach and they are agreeable to that. CV: Asystole, unclear etiology Fluid overload/pulmonary edema Afib with RVR _Monitor HR and BP keep MAP>65mmHg,on Lopressor 100 mg Q12, add Cardizem 30mg QID -Start Heparin drip for Afib, MRI brain yesterday- no hemorrhage or ischemic changes - Etiology of cardiac arrest remains unclear at this time, serial cardiac enzymes showed only minor elevation - Very mild troponin elevation secondary to cardiac arrest. - 2-D echo normal EF, mild anterior MVP, CT pulmonary angiogram was negative for acute PE GI: - IV Protonix for GI prophylaxis -Continue with tube feeds On Glucerna 1.5 currently @40ml/hr : Acute kidney injury-resolved - Monitor renal function, I/O's, electrolytes replacement per protocol. -On Free water 250ml Q8, monitor sodium level. Follow up on [facility] ID: MSSA pneumonia Persistent fevers..infectious vs meds vs Neuro -Continue abx per ID- Aztreonam, Clindamycin. - Monitor for signs of infections ( Fever, WBC) Pancultured 12/07 ( Blood, sputum , UA)- NGTD, sputum cx 12/11- pending Sputum cx 12/02 staph Aures sensitive to Rocephin Check stool for C-diff ENDO: Hyperglycemia Type 2 diabetes - Change SSI(High scale) Levemir 14units BID for glycemic control PROPH: - Bilateral lower extremity SCDs. start heparin drip, Protonix Spoke to patient's family ( , Mother) and updated them on his condition. I also discussed possible need for trach and they are agreeable to that. Level 3 Solitario,Alaa MD Dec 11, 2016 07:44
[2016-12-11 07:47] LABS: BACTERIA, URINE RARE /hpf; BLOOD, URINE MOD (NEG); GLUCOSE,URINE TRACE mg/dL (NEG); HYALINE CAST, URINE 4 /lpf (RARE); KETONE, URINE TRACE mg/dL (NEG); MUCUS URINE FEW /lpf (OCC); NITRITE,URINE NEG (NEG); SQUAMOUS EPITHELIAL CELL URINE <1 /hpf (0-5); URINE COLOR YELLOW (YELLW/STRAW)
[2016-12-11 07:51] LABS: COMMENT (UR) CATH-CULTURE IND; CULTURE IF INDICATED CATH CULTURE IND
[2016-12-11] MEDS: RESP: ALBUTEROL 2.5 MG/IPRATROPIUM 0.5 MG NEB (PRN) INH (08:07)
[2016-12-11] MEDS: DILTIAZEM HCL 30 MG TAB PO SCH ×4 (08:28→22:16)
[2016-12-11] MEDS: METOPROLOL TARTRATE 100 MG TAB PO SCH ×2 (08:28→22:16)
[2016-12-11] MEDS: ASPIRIN 325 MG TAB PO SCH (08:29)
[2016-12-11] MEDS: levETIRAcetam 1000 MG INJ 100 ML IV SCH ×2 (08:29→22:16)
[2016-12-11] MEDS: BENEPROTEIN POWDER 1 PACK G-TUBE SCH ×3 (08:30→18:24)
[2016-12-11] MEDS: ARTIFICIAL TEARS OPTH SOLN 15 ML BTL EACH EYE SCH ×2 (08:30→22:15)
[2016-12-11] MEDS: CHLORHEXIDINE 0.12% (ORAL KIT) 15 ML CUP MT SCH (08:31)
[2016-12-11] MEDS: QUEtiapine FUMARATE 25 MG TAB PO SCH ×2 (08:31→22:16)
[2016-12-11] MEDS: PANTOPRAZOLE SODIUM 40 MG VIAL IV SCH (08:31)
[2016-12-11] MEDS: SODIUM CHLORIDE 0.9% FLUSH 10 ML FLUSH IV FLUSH SCH ×2 (08:35→21:00)
[2016-12-11] MEDS: INSULIN DETEMIR 100 UNITS/ML VIAL SQ SCH ×2 (08:39→21:00)
[2016-12-11] MEDS ORDERED: LACTULOSE SYRUP 20 GM/30 ML CUP PO ONE (09:00)
[2016-12-11] MEDS ORDERED: BUMETANIDE INJ 1 MG/4 ML VIAL IV PUSH ONE (09:00)
[2016-12-11 10:47] LABS: HEMATOCRIT 31.2 % (39.0-51.0); MEAN CELL VOLUME 88.1 FL (80.0-100.0); MEAN CORPUSCULAR HEMOGLOBIN 28.9 PG (27.0-34.0); MEAN CORPUSCULAR HGB CONC 32.8 % (32.0-36.0); PLATELET COUNT 284 TH/MM3 (150-450); RED BLOOD COUNT 3.54 MIL/MM3 (4.50-5.90); RED CELL DISTRIBUTION WIDTH 15.4 % (11.6-17.2); REVIEW FLAG FINAL; WHITE BLOOD COUNT 24.3 TH/MM3 (4.0-11.0)
[2016-12-11 10:51] LABS: APTT (PATIENT) 24.3 SEC (24.3-30.1); INTERNATIONAL NORMALIZED RATIO 1.1 RATIO; PROTHROMBIN TIME - PATIENT 11.9 SEC (9.8-11.6)
[2016-12-11] MEDS: HEPARIN-D5W INJ 250 ML IV SCH (11:45)
[2016-12-11 11:59] LABS: C. DIFF EPI 027 PRESUMPTIVE NEGATIVE (NEGATIVE); C. DIFF TOXIN PCR NEGATIVE (NEGATIVE)
--- NOTE | 2016-12-11 13:26 | HHI.IDPN ---
Subjective Subjective Remarks Patient is a 46-year-old male, admitted to the hospital after he had a witnessed cardiac arrest at home. The patient was in his usual state of health the day prior to admission, as well as when he woke up this the morning of admission. He apparently went to a [employer] early that morning. He was not complaining of any problem. When he was at home he apparently went to the garage to get something and then walked back into the kitchen. Shortly afterwards the was heard a loud thud. She rushed to the kitchen and found the patient collapsed on the floor, with seizure-like activity of the upper extremities. EMS was called immediately and the got to the house within 5-10 minutes of the call, patient was in asystole upon arrival. ACLS protocol was initiated in the field. Patient was intubated. He was successfully resuscitated , and was brought into the hospital. Patient was put on hypothermic protocol. He has had some other episodes of generalized seizure. Neurology evaluated the patient. A shunt is on anticonvulsant agents. MRI of the brain did not show any abnormality. Patient has had some fever since December 04. It got better on December 06, but it started up again late December 06, and patient has had fever since. His hemodynamics are okay. Patient had MSSA in his sputum, and has been on appropriate antibiotics. He does not have any central line. He has a Porter catheter in place. He remains sedated on the respirator. Notes reviewed D/W RN Temps not as frequent Sputum with normal resp austyn BC negative Alk phosphatase same BP ok, not on pressors Dilantin on hold Antibiotics Azactam Clindamycin Past Medical History Diabetes Neuropathy Charcot foot to the left Hyperlipidemia, Allergies: Coded Allergies: UNOBTAINABLE (Unverified , 12/02/16) Objective . Vital Signs Date Time Temp Pulse Resp B/P Pulse Ox O2 Delivery O2 Flow Rate FiO2 12/11/16 12:00 40 12/11/16 12:00 114 12/11/16 11:08 92 40 12/11/16 10:00 118 12/11/16 08:00 40 12/11/16 08:00 117 12/11/16 08:00 99.4 117 23 131/77 96 12/11/16 07:53 100 40 12/11/16 06:00 106 12/11/16 06:00 100.0 110 17 125/75 96 12/11/16 05:11 100 40 12/11/16 05:00 100.0 114 31 123/76 88 12/11/16 04:32 99.9 112 35 113/77 95 12/11/16 04:00 109 12/11/16 04:00 40 12/11/16 04:00 99.8 109 17 118/72 96 12/11/16 03:12 17 12/11/16 03:00 99.7 112 17 120/83 95 12/11/16 02:40 97 40 12/11/16 02:00 99.9 111 16 112/72 97 12/11/16 02:00 111 12/11/16 01:00 100.6 112 16 105/71 96 12/11/16 00:00 40 12/11/16 00:00 116 12/11/16 00:00 101.6 116 16 107/61 95 12/10/16 23:36 93 40 12/10/16 23:00 101.8 139 20 122/80 93 12/10/16 22:00 128 12/10/16 22:00 101.7 128 24 127/71 91 12/10/16 21:00 101.3 134 21 147/68 91 12/10/16 20:38 101.3 132 24 143/79 88 12/10/16 20:00 40 12/10/16 20:00 127 12/10/16 20:00 100.9 127 24 90 12/10/16 19:11 121 12/10/16 19:11 100.4 121 29 138/87 87 12/10/16 19:00 121 23 100 12/10/16 17:45 99.9 117 38 151/80 94 12/10/16 17:35 95 60 12/10/16 17:33 99.7 181 25 121/74 99 12/10/16 17:05 94 40 12/10/16 17:00 99.5 127 24 112/69 94 12/10/16 16:00 128 12/10/16 16:00 99.3 128 21 102/70 98 12/10/16 16:00 40 12/10/16 14:00 97 12/10/16 12/10/16 12/11/16 15:00 23:00 07:00 Intake Total 419 ml 2060 ml Output Total 950.0 ml 830 ml Balance -531.0 ml 1230 ml IV Total 300 ml 1345 ml Tube Feeding 119 ml 215 ml Other 500 ml Output Urine Total 750 ml 830 ml Tube Feeding Residual Discard 200.0 ml # Bowel Movements 1 3 . Laboratory Tests Test 12/10/16 12/11/16 16:57 09:50 White Blood Count 19.3 TH/MM3 24.3 TH/MM3 Red Blood Count 4.27 MIL/MM3 3.54 MIL/MM3 Hemoglobin 12.3 GM/DL 10.2 GM/DL Hematocrit 37.8 % 31.2 % Mean Corpuscular Volume 88.5 FL 88.1 FL Mean Corpuscular Hemoglobin 28.8 PG 28.9 PG Mean Corpuscular Hemoglobin 32.6 % 32.8 % Concent Red Cell Distribution Width 15.6 % 15.4 % Platelet Count 272 TH/MM3 284 TH/MM3 Mean Platelet Volume 7.7 FL 7.8 FL Neutrophils (%) (Auto) 87.9 % Lymphocytes (%) (Auto) 7.2 % Monocytes (%) (Auto) 3.6 % Eosinophils (%) (Auto) 1.1 % Basophils (%) (Auto) 0.2 % Neutrophils # (Auto) 17.0 TH/MM3 Lymphocytes # (Auto) 1.4 TH/MM3 Monocytes # (Auto) 0.7 TH/MM3 Eosinophils # (Auto) 0.2 TH/MM3 Basophils # (Auto) 0.0 TH/MM3 CBC Comment DIFF FINAL Differential Comment Laboratory Tests Test 12/10/16 12/10/16 12/11/16 03:52 16:57 05:12 Sodium Level 147 MEQ/L 148 MEQ/L Potassium Level 5.5 MEQ/L 4.4 MEQ/L 5.9 MEQ/L Chloride Level 117 MEQ/L 114 MEQ/L Carbon Dioxide Level 21.5 MEQ/L 25.1 MEQ/L Anion Gap 9 MEQ/L 9 MEQ/L Blood Urea Nitrogen 29 MG/DL 40 MG/DL Creatinine 0.80 MG/DL 0.86 MG/DL Estimat Glomerular Filtration 103 ML/MIN 95 ML/MIN Rate Random Glucose 167 MG/DL 203 MG/DL Calcium Level 9.0 MG/DL 7.6 MG/DL Phosphorus Level 2.0 MG/DL 4.1 MG/DL Magnesium Level 2.2 MG/DL 2.1 MG/DL Microbiology Date/Time Procedure Status Source Growth 12/11/16 01:30 Gram Stain - Final Resulted Sputum Endotracheal 12/11/16 01:30 Sputum Culture Resulted Sputum Endotracheal Pending 12/11/16 04:50 Urine Culture Received Urine Catheterized Urine Pending 12/11/16 09:30 Stool Occult Blood (KAYLEEN) - Final Complete Stool Stool HEMOCCULT NEGATIVE 12/11/16 09:50 Aerobic Blood Culture Received Blood Peripheral Pending 12/11/16 09:50 Anaerobic Blood Culture Received Blood Peripheral Pending 12/11/16 10:05 Aerobic Blood Culture Received Blood Peripheral Pending 12/11/16 10:05 Anaerobic Blood Culture Received Blood Peripheral Pending Imaging Chest X-Ray 12/07/16 0600 Signed Impressions: Service Date/Time: Wednesday, December 07, 2016 03:43 - CONCLUSION: 1. Patchy alveolar disease characteristic of edema or pneumonia. There has been no significant change when compared to the prior exam. Simone Pacheco MD Brain MRI 12/04/16 0000 Signed Impressions: Service Date/Time: Sunday, December 04, 2016 18:12 - CONCLUSION: 1. Sinusitis. 2. No evidence for anoxic brain injury. Simba Guan MD Cervical Spine CT 12/02/16 1140 Signed Impressions: Service Date/Time: Friday, December 02, 2016 12:09 - CONCLUSION: No acute disease. Stepan Guadalupe MD Head CT 12/02/16 1132 Signed Impressions: Service Date/Time: Friday, December 02, 2016 12:09 - CONCLUSION: No acute disease. No evidence of acute infarct, hemorrhage, mass or edema. Stepan Guadalupe MD CT Angiography 12/02/16 1132 Signed Impressions: Service Date/Time: Friday, December 02, 2016 12:09 - CONCLUSION: 1. No evidence of acute pulmonary embolism. 2. Posterior bibasilar airspace disease. 3. No evidence of suspicious mass or lymphadenopathy. Stepan Guadalupe MD Physical Exam GENERAL: On the vent, not in respiratory distress. SKIN: Warm and dry. No generalized rash, no ecchymoses and no evidence of embolic lesions. HEAD: Atraumatic. Normocephalic. No temporal wasting, or tenderness. EYES: [place] conjunctiva. No petechia or hemorrhage. Pupils equal, round and reactive to light. No scleral icterus. No injection or drainage. EARS, NOSE AND THROAT: Nose without bleeding or purulent nasal discharge. He is orally intubated. NECK: Trachea midline. Supple and not tender, no meningeal signs CARDIOVASCULAR: Regular rate and rhythm. No murmurs, rubs or gallops heard RESPIRATORY: Has diffuse rhonchi ABDOMEN: Soft, not tender, no guarding, nondistended. Bowel sounds present and normoactive. No organomegaly. EXTREMITIES: No clubbing, cyanosis, or edema. No joint effusion, has good ROM. He has Charcot deformity on his L foot and has a callus at mid foot on plantar aspect of that foot. NEUROLOGICAL: Awake, not following PSYCHIATRIC: Unable to asses LINE: PIV with no evidence of infection : Porter in place, urine looks clear Assessment & Plan Remarks IMPRESSION Persistent fevers, S/P witnessed carrdiac arrest - has MSSA PNA, on appropriate Abx - ?New VAP, C/S normal austyn - UA ok, no lines, LFT only with elevated alk phos - ?central fever - ?drug fever (anti-seizure, B-lactam) S/P cardiac arrest Seizure possibly due to anoxic encephalopathy Known DM RECOMMENDATION Continue Clindamycin Continue Azactam - if stable, will stop Monitor temps Monitor progress Weaning per CCM - but trach being discussed Aye Houser MD Dec 11, 2016 13:26
[2016-12-11] MEDS: ENOXAPARIN SODIUM 40 MG/0.4 ML SYRINGE SQ SCH (13:34)
[2016-12-11] MEDS: ACETAMINOPHEN 650 MG/20.3 ML UDC OG-TUBE PRN ×2 (14:05→22:15)
[2016-12-11 17:41] LABS: APTT (PATIENT) 33.3 SEC (24.3-30.1)
[2016-12-11 18:51] LABS: APTT (PATIENT) 25.4 SEC (24.3-30.1)
[2016-12-12] VITALS (27 sets, daily range): BP systolic 105–167; BP diastolic 66–86; PULSE 101–121; RESP 0–31; TEMP 99.8–101.1; O2SAT 85–100
[2016-12-12] MEDS: INSULIN NovoLIN REGULAR SUPPLEMENTAL SCALE SQ SCH ×4 (02:00→20:00)
[2016-12-12] MEDS: AZTREONAM INJ 2,000 MG in SODIUM CHLORIDE 0.9% INJ 100 ML IV SCH ×3 (02:45→18:22)
[2016-12-12] MEDS: CLINDAMYCIN 150 MG CAP PO SCH ×4 (02:45→21:01)
[2016-12-12] MEDS: FREE WATER G-TUBE SCH ×3 (02:45→18:23)
[2016-12-12] MEDS: CHLORHEXIDINE GLUCONATE 2 % 1 PACK (2 CLOTHS) TOP SCH (02:45)
[2016-12-12] MEDS: CHLORHEXIDINE 0.12% (ORAL KIT) 15 ML CUP MT SCH ×3 (02:51→21:07)
[2016-12-12 03:01] LABS: AUTOMATED NEUTROPHIL # 19.2 TH/MM3 (1.8-7.7); BASOPHIL # 0.1 TH/MM3 (0-0.2); BASOPHIL % 0.5 % (0.0-2.0); EOSINOPHIL # 0.2 TH/MM3 (0-0.4); EOSINOPHIL % 1.1 % (0.0-4.0); HEMATOCRIT 29.8 % (39.0-51.0); HEMO FLAGS DIFF FINAL; LYMPH % 6.3 % (9.0-44.0); LYMPHOCYTE # 1.4 TH/MM3 (1.0-4.8); MEAN CELL VOLUME 87.3 FL (80.0-100.0); MEAN CORPUSCULAR HEMOGLOBIN 29.2 PG (27.0-34.0); MEAN CORPUSCULAR HGB CONC 33.5 % (32.0-36.0); MONO % 3.5 % (0.0-8.0); NEUT % 88.6 % (16.0-70.0); PLATELET COUNT 287 TH/MM3 (150-450); RED BLOOD COUNT 3.42 MIL/MM3 (4.50-5.90); RED CELL DISTRIBUTION WIDTH 15.4 % (11.6-17.2); WHITE BLOOD COUNT 21.7 TH/MM3 (4.0-11.0)
[2016-12-12 03:11] LABS: APTT (PATIENT) 25.6 SEC (24.3-30.1)
[2016-12-12 03:44] LABS: BICARBONATE 30.7 MEQ/L (21.0-32.0); MAGNESIUM 2.5 MG/DL (1.5-2.5); POTASSIUM 3.9 MEQ/L (3.5-5.1)
[2016-12-12] MEDS: DEXMEDETOMIDINE INJ 1,000 MCG in SODIUM CHLOR 0.9% 250 ML INJ 240 ML IV SCH ×3 (05:27→18:22)
[2016-12-12] MEDS: METOPROLOL TARTRATE 100 MG TAB PO SCH ×2 (08:10→21:02)
[2016-12-12] MEDS: DILTIAZEM HCL 30 MG TAB PO SCH ×4 (08:10→21:02)
[2016-12-12] MEDS: QUEtiapine FUMARATE 25 MG TAB PO SCH ×2 (08:10→21:02)
[2016-12-12] MEDS: ASPIRIN 325 MG TAB PO SCH (08:10)
[2016-12-12] MEDS: levETIRAcetam 1000 MG INJ 100 ML IV SCH ×2 (08:11→21:02)
[2016-12-12] MEDS: PANTOPRAZOLE SODIUM 40 MG VIAL IV SCH (08:11)
[2016-12-12] MEDS: SODIUM CHLORIDE 0.9% FLUSH 10 ML FLUSH IV FLUSH SCH ×2 (08:11→21:02)
[2016-12-12] MEDS: ARTIFICIAL TEARS OPTH SOLN 15 ML BTL EACH EYE SCH ×2 (08:12→21:08)
[2016-12-12] MEDS: BENEPROTEIN POWDER 1 PACK G-TUBE SCH ×3 (08:12→18:23)
[2016-12-12] MEDS: INSULIN DETEMIR 100 UNITS/ML VIAL SQ SCH ×2 (08:13→21:00)
--- NOTE | 2016-12-12 10:51 | HHI.IDPN ---
Subjective Subjective Remarks Patient is a 46-year-old male, admitted to the hospital after he had a witnessed cardiac arrest at home. The patient was in his usual state of health the day prior to admission, as well as when he woke up this the morning of admission. He apparently went to a [employer] early that morning. He was not complaining of any problem. When he was at home he apparently went to the garage to get something and then walked back into the kitchen. Shortly afterwards the was heard a loud thud. She rushed to the kitchen and found the patient collapsed on the floor, with seizure-like activity of the upper extremities. EMS was called immediately and the got to the house within 5-10 minutes of the call, patient was in asystole upon arrival. ACLS protocol was initiated in the field. Patient was intubated. He was successfully resuscitated , and was brought into the hospital. Patient was put on hypothermic protocol. He has had some other episodes of generalized seizure. Neurology evaluated the patient. A shunt is on anticonvulsant agents. MRI of the brain did not show any abnormality. Patient has had some fever since December 04. It got better on December 06, but it started up again late December 06, and patient has had fever since. His hemodynamics are okay. Patient had MSSA in his sputum, and has been on appropriate antibiotics. He does not have any central line. He has a Porter catheter in place. He remains sedated on the respirator. Notes reviewed No change, has fevers On the vent New C/S done yesterday Previous C/S reviewed Last CXR 12/10, stable BP ok, not on pressors Dilantin on hold Antibiotics Azactam Clindamycin Lines PIV Past Medical History Diabetes Neuropathy Charcot foot to the left Hyperlipidemia, Allergies: Coded Allergies: UNOBTAINABLE (Unverified , 12/02/16) Objective . Vital Signs Date Time Temp Pulse Resp B/P Pulse Ox O2 Delivery O2 Flow Rate FiO2 12/12/16 08:33 100 40 12/12/16 06:00 113 11 146/80 95 12/12/16 06:00 113 12/12/16 05:00 115 20 143/80 89 12/12/16 04:00 109 12/12/16 04:00 99.9 109 20 162/82 100 12/12/16 04:00 40 12/12/16 03:44 93 40 12/12/16 03:00 104 16 112/71 94 12/12/16 02:00 101 0 105/69 96 12/12/16 02:00 101 12/12/16 01:00 103 0 106/70 96 12/12/16 00:14 93 40 12/12/16 00:06 11 12/12/16 00:00 100.2 105 6 106/66 94 12/12/16 00:00 105 12/12/16 00:00 40 12/11/16 23:00 107 3 106/57 94 12/11/16 22:00 115 0 137/80 94 12/11/16 22:00 115 12/11/16 21:00 112 17 134/75 95 12/11/16 20:00 113 12/11/16 20:00 40 12/11/16 20:00 100.8 113 12 127/80 93 12/11/16 19:41 94 40 12/11/16 19:00 108 8 123/69 93 12/11/16 18:00 110 12/11/16 18:00 110 12 113/68 96 12/11/16 17:00 109 13 105/60 96 12/11/16 16:21 95 40 12/11/16 16:00 100.2 108 17 106/59 95 12/11/16 16:00 40 12/11/16 16:00 108 12/11/16 14:04 92 40 12/11/16 14:00 112 12/11/16 12:00 40 12/11/16 12:00 114 12/11/16 12:00 101.2 114 17 107/60 92 12/11/16 11:08 92 40 12/11/16 12/11/16 12/12/16 14:59 22:59 06:59 Intake Total 2503 ml 1053 ml 1312 ml Output Total 950 ml 545 ml 600 ml Balance 1553 ml 508 ml 712 ml IV Total 1212 ml 443 ml 646 ml Tube Feeding 541 ml 360 ml 416 ml Other 750 ml 250 ml 250 ml Output Urine Total 950 ml 545 ml 600 ml # Bowel Movements 4 0 0 . Laboratory Tests Test 12/10/16 12/11/16 12/12/16 16:57 09:50 02:45 White Blood Count 19.3 TH/MM3 24.3 TH/MM3 21.7 TH/MM3 Red Blood Count 4.27 MIL/MM3 3.54 MIL/MM3 3.42 MIL/MM3 Hemoglobin 12.3 GM/DL 10.2 GM/DL 10.0 GM/DL Hematocrit 37.8 % 31.2 % 29.8 % Mean Corpuscular Volume 88.5 FL 88.1 FL 87.3 FL Mean Corpuscular Hemoglobin 28.8 PG 28.9 PG 29.2 PG Mean Corpuscular Hemoglobin 32.6 % 32.8 % 33.5 % Concent Red Cell Distribution Width 15.6 % 15.4 % 15.4 % Platelet Count 272 TH/MM3 284 TH/MM3 287 TH/MM3 Mean Platelet Volume 7.7 FL 7.8 FL 7.7 FL Neutrophils (%) (Auto) 87.9 % 88.6 % Lymphocytes (%) (Auto) 7.2 % 6.3 % Monocytes (%) (Auto) 3.6 % 3.5 % Eosinophils (%) (Auto) 1.1 % 1.1 % Basophils (%) (Auto) 0.2 % 0.5 % Neutrophils # (Auto) 17.0 TH/MM3 19.2 TH/MM3 Lymphocytes # (Auto) 1.4 TH/MM3 1.4 TH/MM3 Monocytes # (Auto) 0.7 TH/MM3 0.8 TH/MM3 Eosinophils # (Auto) 0.2 TH/MM3 0.2 TH/MM3 Basophils # (Auto) 0.0 TH/MM3 0.1 TH/MM3 CBC Comment DIFF FINAL DIFF FINAL Differential Comment Laboratory Tests Test 12/10/16 12/11/16 12/11/16 12/12/16 16:57 05:12 12:45 02:45 Potassium Level 4.4 MEQ/L 5.9 MEQ/L 3.6 MEQ/L 3.9 MEQ/L Sodium Level 148 MEQ/L 146 MEQ/L Chloride Level 114 MEQ/L 109 MEQ/L Carbon Dioxide Level 25.1 MEQ/L 30.7 MEQ/L Anion Gap 9 MEQ/L 6 MEQ/L Blood Urea Nitrogen 40 MG/DL 44 MG/DL Creatinine 0.86 MG/DL 0.97 MG/DL Estimat Glomerular Filtration 95 ML/MIN 83 ML/MIN Rate Random Glucose 203 MG/DL 271 MG/DL Calcium Level 7.6 MG/DL 8.8 MG/DL Phosphorus Level 4.1 MG/DL 3.1 MG/DL Magnesium Level 2.1 MG/DL 2.5 MG/DL Microbiology Date/Time Procedure Status Source Growth 12/11/16 01:30 Gram Stain - Final Resulted Sputum Endotracheal 12/11/16 01:30 Sputum Culture Resulted Sputum Endotracheal Pending 12/11/16 04:50 Urine Culture Received Urine Catheterized Urine Pending 12/11/16 09:30 Stool Occult Blood (KAYLEEN) - Final Complete Stool Stool HEMOCCULT NEGATIVE 12/11/16 09:50 Aerobic Blood Culture Resulted Blood Peripheral Pending 12/11/16 09:50 Anaerobic Blood Culture - Final Resulted Blood Peripheral QNS - SEE AEROBE REPORT 12/11/16 10:05 Aerobic Blood Culture Resulted Blood Peripheral Pending 12/11/16 10:05 Anaerobic Blood Culture - Final Resulted Blood Peripheral QNS - SEE AEROBE REPORT Imaging Chest X-Ray 12/10/16 0600 Signed Impressions: Service Date/Time: Saturday, December 10, 2016 05:14 - CONCLUSION: Stable bilateral airspace consolidation, left greater than right. Stephen Andersen MD Cervical Spine MRI 12/10/16 0000 Signed Impressions: Service Date/Time: Saturday, December 10, 2016 18:11 - CONCLUSION: 1. Tiny central protrusion at C3-4 and minimal broad-based protrusion at C4-5 without canal stenosis. 2. MR cervical spine is otherwise unremarkable. Hesham Lemus MD Brain MRI 12/10/16 0000 Signed Impressions: Service Date/Time: Saturday, December 10, 2016 18:11 - CONCLUSION: 1. Cerebral atrophy and chronic ischemic small vessel vasculopathy. 2. No ischemic changes. Hesham Lemus MD Chest X-Ray 12/07/16 0600 Signed Impressions: Service Date/Time: Wednesday, December 07, 2016 03:43 - CONCLUSION: 1. Patchy alveolar disease characteristic of edema or pneumonia. There has been no significant change when compared to the prior exam. Simone Pacheco MD Brain MRI 12/04/16 0000 Signed Impressions: Service Date/Time: Sunday, December 04, 2016 18:12 - CONCLUSION: 1. Sinusitis. 2. No evidence for anoxic brain injury. Simba Guan MD Cervical Spine CT 12/02/16 1140 Signed Impressions: Service Date/Time: Friday, December 02, 2016 12:09 - CONCLUSION: No acute disease. Stepan Guadalupe MD Head CT 12/02/16 1132 Signed Impressions: Service Date/Time: Friday, December 02, 2016 12:09 - CONCLUSION: No acute disease. No evidence of acute infarct, hemorrhage, mass or edema. Stepan Guadalupe MD CT Angiography 12/02/16 1132 Signed Impressions: Service Date/Time: Friday, December 02, 2016 12:09 - CONCLUSION: 1. No evidence of acute pulmonary embolism. 2. Posterior bibasilar airspace disease. 3. No evidence of suspicious mass or lymphadenopathy. Stepan Guadalupe MD Physical Exam GENERAL: On the vent, not in respiratory distress. SKIN: Warm and dry. No generalized rash, no ecchymoses and no evidence of embolic lesions. HEAD: Atraumatic. Normocephalic. No temporal wasting, or tenderness. EYES: [place] conjunctiva. No petechia or hemorrhage. Pupils equal, round and reactive to light. No scleral icterus. No injection or drainage. EARS, NOSE AND THROAT: Nose without bleeding or purulent nasal discharge. He is orally intubated. NECK: Trachea midline. Supple and not tender, no meningeal signs CARDIOVASCULAR: Regular rate and rhythm. No murmurs, rubs or gallops heard RESPIRATORY: Has diffuse rhonchi ABDOMEN: Soft, not tender, no guarding, nondistended. Bowel sounds present and normoactive. No organomegaly. EXTREMITIES: No clubbing, cyanosis, or edema. No joint effusion, has good ROM. He has Charcot deformity on his L foot and has a callus at mid foot on plantar aspect of that foot. No cellulitis NEUROLOGICAL: Sedated PSYCHIATRIC: Unable to asses LINE: PIV with no evidence of infection : Porter in place, urine looks clear Assessment & Plan Remarks IMPRESSION Persistent fevers, S/P witnessed carrdiac arrest - has MSSA PNA, on appropriate Abx - ?New VAP, C/S normal austyn - UA ok, no lines, LFT only with elevated alk phos - ?central fever - ?drug fever (anti-seizure, B-lactam) S/P cardiac arrest Seizure possibly due to anoxic encephalopathy Known DM RECOMMENDATION Continue Clindamycin Continue Azactam - if stable and no GNR on new C/S, will stop Monitor temps Monitor progress Weaning per CCM - but trach being discussed Spoke with family at bedside Aye Houser MD Dec 12, 2016 10:51
[2016-12-12 12:30] LABS: APTT (PATIENT) 21.2 SEC (24.3-30.1)
[2016-12-12] MEDS: fentaNYL DRIP 250 ML IV SCH (12:43)
[2016-12-12] MEDS: ENOXAPARIN SODIUM 40 MG/0.4 ML SYRINGE SQ SCH (12:44)
[2016-12-12] MEDS: HEPARIN-D5W INJ 250 ML IV SCH (12:55)
[2016-12-12] MEDS: RESP: ALBUTEROL 2.5 MG/IPRATROPIUM 0.5 MG NEB (PRN) INH (14:24)
--- NOTE | 2016-12-12 19:35 | HHI.CCPN ---
Subjective Remarks/Hospital Course Patient is a 46-year-old male with history of diabetes, neuropathy, Charcot foot to the left, hyperlipidemia, presents to emergency room after he had a witnessed cardiac arrest at home. Per patient's he complained of dizziness this morning. He went to the garage to get something and then walked back into the kitchen. Shortly afterwards the was heard a loud thud. She rushed to the kitchen and found the patient collapsed on the floor, with seizure -like activity of the upper extremities. EMS was called immediately and the got to the house within 5-10 minutes of the call, patient was in asystole upon arrival. ACLS protocol was initiated in the field. Patient was intubated using a combitube. Patient was given 2 rounds of epi and had ROSC. EMS reported that patient was also coughing up blood. Blood sugar at the scene was 63, for which he got dextrose. In the emergency department Combitube was removed, patient was intubated using a 8.0 ETT. EKG: No acute changes. Initial neuro exam was very poor per Dr. Hutchinson. No spontaneous movements noted, patient had a gag reflex. Also he was biting on the teeth otherwise no purposeful movements noted. To facilitate imaging studies patient received 10 mg of vecuronium as he was biting down the ET tube. CT of the head and CT pulmonary angiogram was negative for any acute findings. I evaluated the patient in the emergency department approximately 30 minutes after vecuronium was given. Patient still was neuromuscularly paralyzed. The history of probable witnessed seizures was conformed with the . I asked for a stat EEG. Once in the ICU Stat EEG was done which showed severe encephalopathy. Given the EEG findings and for neuro exam by the ER physician, I discussed with regarding induced hypothermia protocol for neuro protection. Patient was still within the window for induced hypothermia and was agreeable. I proceeded with placing the heat exchange catheter in the right groin. Towards completion of the procedure patient started having tonic clonic movements of the bilateral lower extremity. 4 mg IV push of Ativan was given emergently following which he stopped seizure -like activity. Patient will be loaded with Cerebyx, and continued on Dilantin. CT of the head was negative for any acute findings SUBJ 12/03/16: Achieved target temperature 8 PM yesterday. Currently sedated intubated and neuromuscularly paralyzed. EEG yesterday -no seizure activity, very low amplitude background but appears normal per Dr. Christensen 12/04: Patient is currently in rewarming phase. Nimbex was DCd at 0900 and while sedation was being weaned off, patient developed tonic-clonic activity probable seizures vs myoclonus. Receiving propofol, get stat EEG, stat MRI and neurology consult. Will give additional 1 g Cerebyx Bolus, also mammogram Keppra bolus and 1 g Every 12 hours will be started 12/04 20:12 Called to patient's bedside because family would like to discuss DNR and goals of care. Multiple family members were at bedside when I arrived to the room however patient's Elvia requested that they leave and that she and patient's mother, Debra, be present alone with me. Reviewed patient's living will which allows for withholding or removing life support, life prolonging treatment, artificially administered food and water in the event of terminal condition, end-stage condition, persistent vegetative state. states that patient would not want compressions, shock, or ACLS drugs in the event of cardiac arrest. She is also refusing tube feeding at this time because she says he told her he would never want that. I discussed that tube feeds could be administered as part of supportive care and that they could be withheld later if it appears his condition is terminal/end stage/ vegetative state. However, it is too early for physicians to make that determination at this time. Nonetheless she is adamant that tube feeds be withheld. I am changing code status to "ALTERNATIVE CODE -INTUBATION ONLY". 12/05: Currently off all sedation. MRI of the brain done yesterday was normal without evidence of anoxic injury. Patient showing neurological improvement. Opens eyes to verbal command appears to track. at bedside updated 12/06: Neurological Exam slowly improving. Opens eyes to command tracks. Purposefully moving upper extremities. Chest x-ray shows increasing bilateral infiltrates left more than right. On Rocephin for MSSA pneumonia 12/07 Patient remains intubated and on Precedex drip for sedation. T;102.2 12/08 No events overnight. Remains intubated and on Precedex drip. Did not tolerate CPAP trials yesterday. T:101.8 12/09 Patient remains intubated and on Precedex and Fentanyl drip for sedation. Still with persistent fevers with Tmax 103.7. Repeat EEG yesterday showed encephalopathy, no ictal activity. 12/10 Patient is sedated with Fentanyl and Precedex , intubated. T:99.8. Did not tolerate CPAP trials yesterday. In Afib with RVR 12/11 No events overnight. On Fentanyl and Precedex drip. T:100.0 at 6 am. MRI brain yesterday showed no ischemic changes. 12/12: continues to fail SBT for mental status and fatigue. no other changes. remains encephalopathic. discussed with plan for possible trach, and she is agreeable. Objective Vital Signs Date Time Temp Pulse Resp B/P Pulse Ox O2 Delivery O2 Flow Rate FiO2 12/12/16 18:00 112 12/12/16 16:00 40 12/12/16 16:00 99.8 20 135/79 90 Intake and Output 12/11/16 12/11/16 12/11/16 07:59 15:59 23:59 Intake Total 895 ml 1608 ml 1053 ml Output Total 350 ml 600 ml 545 ml Balance 545 ml 1008 ml 508 ml Result Diagram: 12/12/16 0245 12/12/16 0245 Other Results Microbiology Date/Time Procedure Status Source Growth 12/11/16 09:30 Stool Occult Blood (KAYLEEN) - Final Complete Stool Stool HEMOCCULT NEGATIVE Imaging Last Impressions Chest X-Ray 12/10/16 0600 Signed Impressions: Service Date/Time: Saturday, December 10, 2016 05:14 - CONCLUSION: Stable bilateral airspace consolidation, left greater than right. Stephen Andersen MD Cervical Spine MRI 12/10/16 0000 Signed Impressions: Service Date/Time: Saturday, December 10, 2016 18:11 - CONCLUSION: 1. Tiny central protrusion at C3-4 and minimal broad-based protrusion at C4-5 without canal stenosis. 2. MR cervical spine is otherwise unremarkable. Hesham Lemus MD Brain MRI 12/10/16 0000 Signed Impressions: Service Date/Time: Saturday, December 10, 2016 18:11 - CONCLUSION: 1. Cerebral atrophy and chronic ischemic small vessel vasculopathy. 2. No ischemic changes. Hesham Lemus MD Cervical Spine CT 12/02/16 1140 Signed Impressions: Service Date/Time: Friday, December 02, 2016 12:09 - CONCLUSION: No acute disease. Stepan Guadalupe MD Head CT 12/02/16 1132 Signed Impressions: Service Date/Time: Friday, December 02, 2016 12:09 - CONCLUSION: No acute disease. No evidence of acute infarct, hemorrhage, mass or edema. Stepan Guadalupe MD CT Angiography 12/02/16 1132 Signed Impressions: Service Date/Time: Friday, December 02, 2016 12:09 - CONCLUSION: 1. No evidence of acute pulmonary embolism. 2. Posterior bibasilar airspace disease. 3. No evidence of suspicious mass or lymphadenopathy. Stepan Guadalupe MD Objective Remarks GENERAL: Intubated, SKIN: Warm and dry HEAD: Atraumatic. Normocephalic. EYES: Pupils equal and round 3 mm, nonreactive. No scleral icterus. No injection or drainage. ENT: No nasal bleeding or discharge. Endotracheally intubated NECK: Trachea midline. No JVD. CARDIOVASCULAR: Regular rate and rhythm. RESPIRATORY: PRVC, 80% fio2, peep 5. GASTROINTESTINAL: Abdomen soft, non-tender, nondistended. MUSCULOSKELETAL: Boot to left foot for Charcot foot NEUROLOGICAL: Patient is intubated. intermittently moves extremities, does not follow commands. A/P Assessment and Plan Assessment: 46yM s/p cardiac arrest with severe encephalopathy. not improving on pathway. will need tracheostomy and LTAC for further improvements. NEURO: Encephalopathy ? Hypoxic injury related Seizure -On Fentanyl and Precedex drip for sedation and vent synchrony- Daily sedation vacation, monitor neuro status. On Seroquel 25mg BID - Completed induced hypothermia,. MRI negative for anoxic brain injury -MRI brain 12/10- No ischemic changes - Neurology is following Dr. Garland. Repeat EEG 12/09: Slowing with no ictal activity. - Continue Keppra,discussed with Dr. Engle will repeat MRI brain -Place on Seroquel 25mg BID - EEG 12/02 -no seizure activity, very low amplitude background but appears normal per Dr. Christensen - EEG 12/04 -Intermittent episodes of burst suppression pattern with intermittent sharp wave activity mainly in the right frontal region, may indicate epileptogenicity, mod encephalopathy RESP: Acute respiratory failure MSSA pneumonia - Continue with vent support keep sat >92% - Ventilator bundle, DuoNeb every 6 hours and when necessary - Daily SBT, discussed with patient's and his mother and possibility of trach and they are agreeable to that. CV: Asystole, unclear etiology Fluid overload/pulmonary edema- acute, worsening, 17kg up from admission Afib with RVR _Monitor HR and BP keep MAP>65mmHg,on Lopressor 100 mg Q12, add Cardizem 30mg QID -Heparin drip for Afib, MRI brain - no hemorrhage or ischemic changes - Etiology of cardiac arrest remains unclear at this time, serial cardiac enzymes showed only minor elevation - Very mild troponin elevation secondary to cardiac arrest. - 2-D echo normal EF, mild anterior MVP, CT pulmonary angiogram was negative for acute PE - start lasix 20mg iv q6h. goal -2L/24h. GI: - IV Protonix for GI prophylaxis -Continue with tube feeds On Glucerna 1.5 currently @40ml/hr : Acute kidney injury-resolved - Monitor renal function, I/O's, electrolytes replacement per protocol. -On Free water 250ml Q8, monitor sodium level. Follow up on BMP ID: MSSA pneumonia Persistent fevers..infectious vs meds vs Neuro -Continue abx per ID- Aztreonam, Clindamycin. - Monitor for signs of infections ( Fever, WBC) Pancultured 12/07 ( Blood, sputum , UA)- NGTD, sputum cx 12/11- pending Sputum cx 12/02 staph Aures sensitive to Rocephin Check stool for C-diff ENDO: Hyperglycemia Type 2 diabetes - SSI(High scale) Levemir 14units BID for glycemic control PROPH: - Bilateral lower extremity SCDs. start heparin drip, Protonix Spoke to patient's family ( , Mother) and updated them on his condition. I also discussed possible need for trach and they are agreeable to that. Uli Lee MD Dec 12, 2016 19:35
[2016-12-12] MEDS: FUROSEMIDE 40 MG/4 ML VIAL IV PUSH SCH (21:02)
[2016-12-13] VITALS (27 sets, daily range): BP systolic 97–140; BP diastolic 54–86; PULSE 99–117; RESP 1–24; TEMP 98.3–100.9; O2SAT 94–100
[2016-12-13] MEDS: DEXMEDETOMIDINE INJ 1,000 MCG in SODIUM CHLOR 0.9% 250 ML INJ 240 ML IV SCH ×3 (00:07→15:55)
[2016-12-13] MEDS: FUROSEMIDE 40 MG/4 ML VIAL IV PUSH SCH ×4 (00:08→21:05)
[2016-12-13] MEDS: CLINDAMYCIN 150 MG CAP PO SCH ×4 (00:08→22:04)
[2016-12-13] MEDS: INSULIN NovoLIN REGULAR SUPPLEMENTAL SCALE SQ SCH ×4 (02:00→21:07)
[2016-12-13] MEDS: FREE WATER G-TUBE SCH ×5 (02:23→23:15)
[2016-12-13] MEDS: CHLORHEXIDINE GLUCONATE 2 % 1 PACK (2 CLOTHS) TOP SCH (02:23)
[2016-12-13 02:30] LABS: APTT (PATIENT) 20.6 SEC (24.3-30.1)
[2016-12-13] MEDS: AZTREONAM INJ 2,000 MG in SODIUM CHLORIDE 0.9% INJ 100 ML IV SCH ×2 (03:00→12:36)
[2016-12-13 04:18] LABS: HEMATOCRIT 27.2 % (39.0-51.0); MEAN CELL VOLUME 87.7 FL (80.0-100.0); MEAN CORPUSCULAR HEMOGLOBIN 28.7 PG (27.0-34.0); MEAN CORPUSCULAR HGB CONC 32.7 % (32.0-36.0); PLATELET COUNT 321 TH/MM3 (150-450); RED CELL DISTRIBUTION WIDTH 15.1 % (11.6-17.2); WHITE BLOOD COUNT 21.7 TH/MM3 (4.0-11.0)
[2016-12-13 04:31] LABS: REVIEW FLAG FINAL
[2016-12-13 04:34] LABS: BICARBONATE 30.6 MEQ/L (21.0-32.0); POTASSIUM 3.7 MEQ/L (3.5-5.1)
[2016-12-13] MEDS: fentaNYL DRIP 250 ML IV SCH ×2 (05:48→18:46)
[2016-12-13] MEDS: HEPARIN-D5W INJ 250 ML IV SCH (05:50)
[2016-12-13] MEDS: CHLORHEXIDINE 0.12% (ORAL KIT) 15 ML CUP MT SCH ×2 (09:04→21:05)
[2016-12-13] MEDS: DILTIAZEM HCL 30 MG TAB PO SCH ×4 (09:05→21:04)
[2016-12-13] MEDS: ASPIRIN 325 MG TAB PO SCH (09:05)
[2016-12-13] MEDS: SODIUM CHLORIDE 0.9% FLUSH 10 ML FLUSH IV FLUSH SCH ×2 (09:05→21:04)
[2016-12-13] MEDS: PANTOPRAZOLE SODIUM 40 MG VIAL IV SCH (09:05)
[2016-12-13] MEDS: BENEPROTEIN POWDER 1 PACK G-TUBE SCH ×3 (09:05→18:00)
[2016-12-13] MEDS: ARTIFICIAL TEARS OPTH SOLN 15 ML BTL EACH EYE SCH ×2 (09:05→21:04)
[2016-12-13] MEDS: levETIRAcetam 1000 MG INJ 100 ML IV SCH ×2 (09:05→21:02)
[2016-12-13] MEDS: METOPROLOL TARTRATE 100 MG TAB PO SCH (09:06)
[2016-12-13] MEDS: QUEtiapine FUMARATE 25 MG TAB PO SCH ×2 (09:06→22:04)
[2016-12-13] MEDS: INSULIN DETEMIR 100 UNITS/ML VIAL SQ SCH ×2 (09:06→21:07)
[2016-12-13 09:40] LABS: APTT (PATIENT) 27.5 SEC (24.3-30.1)
[2016-12-13] MEDS ORDERED: ROCURONIUM INJ 50 MG/5 ML VIAL IV ONE (11:15)
[2016-12-13] MEDS ORDERED: MIDAZOLAM HCL 2 MG/2 ML VIAL IV PUSH ONE (11:15)
[2016-12-13] MEDS ORDERED: fentaNYL CITRATE 250 MCG/5 ML AMP IV PUSH ONE (11:15)
--- NOTE | 2016-12-13 13:12 | RADRPT ---
EXAM DATE/TIME: 12/13/2016 12:09 [facility] COMPARISON: CHEST SINGLE AP, December 10, 2016, 5:14. INDICATIONS : Post bronchscopy. MEDICAL HISTORY : Diabetes mellitus type 2. Hypercholesterolemia. SURGICAL HISTORY : Insulin pump placement. ENCOUNTER: Subsequent ACUITY: 1 week PAIN SCORE: Non-responsive. LOCATION: Bilateral chest FINDINGS: A single view of the chest demonstrates bilateral airspace disease, left greater than right. There ma y be slight improved aeration in the left upper lung. No associated effusion. Interval removal of the endotracheal and nasogastric tubes with placement of a tracheostomy tube. The tip is at the clavicul ar heads. No pneumothorax. Osseous structures are intact. CONCLUSION: 1. Persistent bilateral airspace disease, left greater than right. There may be slight interval impro marlo aeration in the left upper lung, however. 2. Interval removal of the endotracheal and nasogastric tubes with placement of a tracheostomy as abo ve. Anand Ni MD on December 13, 2016 at 13:06 Board Certified Radiologist. This report was verified electronically.
--- NOTE | 2016-12-13 13:17 | PD.PROCEDR ---
Procedure Note Procedure DX: Respiratory Failure (J96.00) OP: Therapeutic Bronchoscopy (35178) Procedure: Time out performed. Usual ICU monitoring in place. Mechanical ventilation, rate 16. Through an elbow in the vent circuit the bronchoscope was passed. The tracheobronchial tree was inspected. Copious inspissated secretions were suction from left and right basilar bronchial segments. Mucosa was normal. Anatomy normal. The orotracheal tube and scope were withdrawn together to the cricoid level. Insertion of the percutaneous tracheostomy tube was visualized and dictated separately. After insertion, position of the tracheostomy tube was confirmed by repeat bronchoscopy through the new tube. Conversion to trach tube ventilation ensued with full return volumes. Sats were maintained > 90% throughout the procedure. Jesus Dunbar MD Dec 13, 2016 13:17
--- NOTE | 2016-12-13 13:48 | RADRPT ---
EXAM DATE/TIME: 12/13/2016 13:01 [facility] COMPARISON: No previous studies available for comparison. INDICATIONS : Evaluate Dobbhoff placement MEDICAL HISTORY : Diabetes mellitus type 2. Hypercholesterolemia. SURGICAL HISTORY : Insulin pump placement. ENCOUNTER: Initial ACUITY: 1 week PAIN SCORE: Non-responsive. LOCATION: Abdomen FINDINGS: The Dobbhoff tube has its tip in the distal stomach. CONCLUSION: Dobbhoff tube has its tip in the distal stomach. Jose De Jesus Macdonald MD on December 13, 2016 at 13:42 Board Certified Radiologist. This report was verified electronically.
[2016-12-13] MEDS: ENOXAPARIN SODIUM 40 MG/0.4 ML SYRINGE SQ SCH (14:00)
--- NOTE | 2016-12-13 15:24 | HHI.IDPN ---
Subjective Subjective Remarks Patient is a 46-year-old male, admitted to the hospital after he had a witnessed cardiac arrest at home. The patient was in his usual state of health the day prior to admission, as well as when he woke up this the morning of admission. He apparently went to a [employer] early that morning. He was not complaining of any problem. When he was at home he apparently went to the garage to get something and then walked back into the kitchen. Shortly afterwards the was heard a loud thud. She rushed to the kitchen and found the patient collapsed on the floor, with seizure-like activity of the upper extremities. EMS was called immediately and the got to the house within 5-10 minutes of the call, patient was in asystole upon arrival. ACLS protocol was initiated in the field. Patient was intubated. He was successfully resuscitated , and was brought into the hospital. Patient was put on hypothermic protocol. He has had some other episodes of generalized seizure. Neurology evaluated the patient. A shunt is on anticonvulsant agents. MRI of the brain did not show any abnormality. Patient has had some fever since December 04. It got better on December 06, but it started up again late December 06, and patient has had fever since. His hemodynamics are okay. Patient had MSSA in his sputum, and has been on appropriate antibiotics. He does not have any central line. He has a Porter catheter in place. He remains sedated on the respirator. Notes reviewed D/W RN Had trach done today On the vent currently Did well on CPAP yesterday Noted to have rash yesterday BC negative Sputum with MSSA Antibiotics Azactam Clindamycin Lines PIV Past Medical History Diabetes Neuropathy Charcot foot to the left Hyperlipidemia, Allergies: Coded Allergies: UNOBTAINABLE (Unverified , 12/02/16) Objective . Vital Signs Date Time Temp Pulse Resp B/P Pulse Ox O2 Delivery O2 Flow Rate FiO2 12/13/16 13:00 107 23 126/69 95 12/13/16 12:16 100 100 12/13/16 12:14 100 50 12/13/16 12:00 55 12/13/16 12:00 100 12/13/16 12:00 98.3 103 17 101/57 100 12/13/16 11:00 101 16 108/70 97 12/13/16 10:06 98 55 12/13/16 10:00 104 12 105/63 96 12/13/16 10:00 100 12/13/16 09:00 107 18 123/86 99 12/13/16 08:00 55 12/13/16 08:00 100 12/13/16 08:00 98.5 102 12 109/75 94 12/13/16 07:00 103 16 120/79 96 12/13/16 06:00 101 16 120/81 95 12/13/16 06:00 101 12/13/16 05:00 100 16 114/76 96 12/13/16 04:36 99 55 12/13/16 04:00 55 12/13/16 04:00 98.8 102 16 110/68 95 12/13/16 04:00 102 12/13/16 03:00 107 16 107/59 95 12/13/16 02:00 107 12/13/16 02:00 107 16 114/72 96 12/13/16 02:00 94 55 12/13/16 01:00 103 18 124/75 98 12/13/16 00:00 55 12/13/16 00:00 99.4 102 16 113/73 95 12/13/16 00:00 102 12/12/16 23:15 100 55 12/12/16 23:00 101 14 118/76 98 12/12/16 22:00 102 16 124/82 99 12/12/16 22:00 102 12/12/16 21:24 99 65 12/12/16 21:00 105 16 125/86 99 12/12/16 20:00 65 12/12/16 20:00 100.5 110 7 138/70 97 12/12/16 20:00 110 12/12/16 19:00 110 24 163/85 97 12/12/16 18:14 118 28 167/80 86 12/12/16 18:00 121 31 85 12/12/16 18:00 112 12/12/16 17:00 114 25 148/83 90 12/12/16 16:00 40 12/12/16 16:00 108 12/12/16 16:00 99.8 108 20 135/79 90 12/12/16 12/12/16 12/13/16 15:00 23:00 07:00 Intake Total 1194 ml 1069 ml 1556 ml Output Total 600 ml 580 ml 2230 ml Balance 594 ml 489 ml -674 ml IV Total 604 ml 552 ml 888 ml Tube Feeding 340 ml 267 ml 418 ml Other 250 ml 250 ml 250 ml Output Urine Total 600 ml 580 ml 2230 ml # Bowel Movements 0 0 0 . Laboratory Tests Test 12/12/16 12/13/16 02:45 03:45 White Blood Count 21.7 TH/MM3 21.7 TH/MM3 Red Blood Count 3.42 MIL/MM3 3.10 MIL/MM3 Hemoglobin 10.0 GM/DL 8.9 GM/DL Hematocrit 29.8 % 27.2 % Mean Corpuscular Volume 87.3 FL 87.7 FL Mean Corpuscular Hemoglobin 29.2 PG 28.7 PG Mean Corpuscular Hemoglobin 33.5 % 32.7 % Concent Red Cell Distribution Width 15.4 % 15.1 % Platelet Count 287 TH/MM3 321 TH/MM3 Mean Platelet Volume 7.7 FL 8.0 FL Neutrophils (%) (Auto) 88.6 % Lymphocytes (%) (Auto) 6.3 % Monocytes (%) (Auto) 3.5 % Eosinophils (%) (Auto) 1.1 % Basophils (%) (Auto) 0.5 % Neutrophils # (Auto) 19.2 TH/MM3 Lymphocytes # (Auto) 1.4 TH/MM3 Monocytes # (Auto) 0.8 TH/MM3 Eosinophils # (Auto) 0.2 TH/MM3 Basophils # (Auto) 0.1 TH/MM3 CBC Comment DIFF FINAL Differential Comment Laboratory Tests Test 12/12/16 12/13/16 02:45 03:45 Sodium Level 146 MEQ/L 146 MEQ/L Potassium Level 3.9 MEQ/L 3.7 MEQ/L Chloride Level 109 MEQ/L 109 MEQ/L Carbon Dioxide Level 30.7 MEQ/L 30.6 MEQ/L Anion Gap 6 MEQ/L 6 MEQ/L Blood Urea Nitrogen 44 MG/DL 36 MG/DL Creatinine 0.97 MG/DL 0.81 MG/DL Estimat Glomerular Filtration 83 ML/MIN 102 ML/MIN Rate Random Glucose 271 MG/DL 199 MG/DL Calcium Level 8.8 MG/DL 8.6 MG/DL Phosphorus Level 3.1 MG/DL Magnesium Level 2.5 MG/DL Microbiology Date/Time Procedure Status Source Growth 12/11/16 01:30 Gram Stain - Final Resulted Sputum Endotracheal 12/11/16 01:30 Sputum Culture - Preliminary Resulted Staphylococcus Aureus 12/11/16 04:50 Urine Culture - Final Complete Urine Catheterized Urine NO GROWTH IN 48 HOURS. 12/11/16 09:30 Stool Occult Blood (KAYLEEN) - Final Complete Stool Stool HEMOCCULT NEGATIVE 12/11/16 09:50 Aerobic Blood Culture - Preliminary Resulted Blood Peripheral NO GROWTH IN 2 DAYS 12/11/16 09:50 Anaerobic Blood Culture - Final Resulted Blood Peripheral QNS - SEE AEROBE REPORT 12/11/16 10:05 Aerobic Blood Culture - Preliminary Resulted Blood Peripheral NO GROWTH IN 2 DAYS 12/11/16 10:05 Anaerobic Blood Culture - Final Resulted Blood Peripheral QNS - SEE AEROBE REPORT Imaging Chest X-Ray 12/13/16 0000 Signed Impressions: Service Date/Time: November 12:09 - CONCLUSION: 1. Persistent bilateral airspace disease, left greater than right. There may be slight interval improved aeration in the left upper lung, however. 2. Interval removal of the endotracheal and nasogastric tubes with placement of a tracheostomy as above. Anand Ni MD Chest X-Ray 12/10/16 0600 Signed Impressions: Service Date/Time: Saturday, December 10, 2016 05:14 - CONCLUSION: Stable bilateral airspace consolidation, left greater than right. Stephen Andersen MD Cervical Spine MRI 12/10/16 0000 Signed Impressions: Service Date/Time: Saturday, December 10, 2016 18:11 - CONCLUSION: 1. Tiny central protrusion at C3-4 and minimal broad-based protrusion at C4-5 without canal stenosis. 2. MR cervical spine is otherwise unremarkable. Hesham Lemus MD Brain MRI 12/10/16 0000 Signed Impressions: Service Date/Time: Saturday, December 10, 2016 18:11 - CONCLUSION: 1. Cerebral atrophy and chronic ischemic small vessel vasculopathy. 2. No ischemic changes. Hesham Lemus MD Chest X-Ray 12/07/16 0600 Signed Impressions: Service Date/Time: Wednesday, December 07, 2016 03:43 - CONCLUSION: 1. Patchy alveolar disease characteristic of edema or pneumonia. There has been no significant change when compared to the prior exam. Simone Pacheco MD Brain MRI 12/04/16 0000 Signed Impressions: Service Date/Time: Sunday, December 04, 2016 18:12 - CONCLUSION: 1. Sinusitis. 2. No evidence for anoxic brain injury. Simba Guan MD Cervical Spine CT 12/02/16 1140 Signed Impressions: Service Date/Time: Friday, December 02, 2016 12:09 - CONCLUSION: No acute disease. Stepan Guadalupe MD Head CT 12/02/16 1132 Signed Impressions: Service Date/Time: Friday, December 02, 2016 12:09 - CONCLUSION: No acute disease. No evidence of acute infarct, hemorrhage, mass or edema. Stepan Guadalupe MD CT Angiography 12/02/16 1132 Signed Impressions: Service Date/Time: Friday, December 02, 2016 12:09 - CONCLUSION: 1. No evidence of acute pulmonary embolism. 2. Posterior bibasilar airspace disease. 3. No evidence of suspicious mass or lymphadenopathy. Stepan Guadalupe MD Physical Exam GENERAL: On the vent, not in respiratory distress. Opens eyes when stimulated , ?tracking at time, not following SKIN: Warm and dry. Has red papules scattered on trunk, to upper thigh and upper arms HEAD: Atraumatic. Normocephalic. No temporal wasting, or tenderness. EYES: [place] conjunctiva. No petechia or hemorrhage. Pupils equal, round and reactive to light. No scleral icterus. No injection or drainage. EARS, NOSE AND THROAT: Nose without bleeding or purulent nasal discharge. He is orally intubated. NECK: Trachea midline. Supple and not tender, no meningeal signs CARDIOVASCULAR: Regular rate and rhythm. No murmurs, rubs or gallops heard RESPIRATORY: ABDOMEN: Soft, not tender, no guarding, nondistended. Bowel sounds present and normoactive. No organomegaly. EXTREMITIES: No clubbing, cyanosis, or edema. NEUROLOGICAL: Opens eyes when stimulated PSYCHIATRIC: Unable to asses LINE: PIV with no evidence of infection : Porter in place, urine looks clear Assessment & Plan Remarks IMPRESSION Persistent fevers, S/P witnessed carrdiac arrest - has MSSA PNA, on appropriate Abx - ?New VAP, C/S normal austyn - UA ok, no lines, LFT only with elevated alk phos - ?central fever - ?drug fever (anti-seizure, B-lactam) S/P cardiac arrest Seizure possibly due to anoxic encephalopathy Known DM Rash, likely drug eruption, ?azactam RECOMMENDATION Continue Clindamycin Stop Azactam - since no GNR on new C/S Monitor temps Monitor progress Monitor rash Weaning per CCM D/W Aye Salcedo MD Dec 13, 2016 15:24
[2016-12-13] MEDS: ACETAMINOPHEN 650 MG/20.3 ML UDC OG-TUBE PRN (15:55)
[2016-12-13] MEDS ORDERED: MEPERIDINE HCL 25 MG/ML VIAL IV PUSH PRN (19:30)
--- NOTE | 2016-12-13 19:32 | HHI.CCPN ---
Subjective Remarks/Hospital Course Patient is a 46-year-old male with history of diabetes, neuropathy, Charcot foot to the left, hyperlipidemia, presents to emergency room after he had a witnessed cardiac arrest at home. Per patient's he complained of dizziness this morning. He went to the garage to get something and then walked back into the kitchen. Shortly afterwards the was heard a loud thud. She rushed to the kitchen and found the patient collapsed on the floor, with seizure -like activity of the upper extremities. EMS was called immediately and the got to the house within 5-10 minutes of the call, patient was in asystole upon arrival. ACLS protocol was initiated in the field. Patient was intubated using a combitube. Patient was given 2 rounds of epi and had ROSC. EMS reported that patient was also coughing up blood. Blood sugar at the scene was 63, for which he got dextrose. In the emergency department Combitube was removed, patient was intubated using a 8.0 ETT. EKG: No acute changes. Initial neuro exam was very poor per Dr. Hutchinson. No spontaneous movements noted, patient had a gag reflex. Also he was biting on the teeth otherwise no purposeful movements noted. To facilitate imaging studies patient received 10 mg of vecuronium as he was biting down the ET tube. CT of the head and CT pulmonary angiogram was negative for any acute findings. I evaluated the patient in the emergency department approximately 30 minutes after vecuronium was given. Patient still was neuromuscularly paralyzed. The history of probable witnessed seizures was conformed with the . I asked for a stat EEG. Once in the ICU Stat EEG was done which showed severe encephalopathy. Given the EEG findings and for neuro exam by the ER physician, I discussed with regarding induced hypothermia protocol for neuro protection. Patient was still within the window for induced hypothermia and was agreeable. I proceeded with placing the heat exchange catheter in the right groin. Towards completion of the procedure patient started having tonic clonic movements of the bilateral lower extremity. 4 mg IV push of Ativan was given emergently following which he stopped seizure -like activity. Patient will be loaded with Cerebyx, and continued on Dilantin. CT of the head was negative for any acute findings SUBJ 12/03/16: Achieved target temperature 8 PM yesterday. Currently sedated intubated and neuromuscularly paralyzed. EEG yesterday -no seizure activity, very low amplitude background but appears normal per Dr. Christensen 12/04: Patient is currently in rewarming phase. Nimbex was DCd at 0900 and while sedation was being weaned off, patient developed tonic-clonic activity probable seizures vs myoclonus. Receiving propofol, get stat EEG, stat MRI and neurology consult. Will give additional 1 g Cerebyx Bolus, also mammogram Keppra bolus and 1 g Every 12 hours will be started 12/04 20:12 Called to patient's bedside because family would like to discuss DNR and goals of care. Multiple family members were at bedside when I arrived to the room however patient's Elvia requested that they leave and that she and patient's mother, Debra, be present alone with me. Reviewed patient's living will which allows for withholding or removing life support, life prolonging treatment, artificially administered food and water in the event of terminal condition, end-stage condition, persistent vegetative state. states that patient would not want compressions, shock, or ACLS drugs in the event of cardiac arrest. She is also refusing tube feeding at this time because she says he told her he would never want that. I discussed that tube feeds could be administered as part of supportive care and that they could be withheld later if it appears his condition is terminal/end stage/ vegetative state. However, it is too early for physicians to make that determination at this time. Nonetheless she is adamant that tube feeds be withheld. I am changing code status to "ALTERNATIVE CODE -INTUBATION ONLY". 12/05: Currently off all sedation. MRI of the brain done yesterday was normal without evidence of anoxic injury. Patient showing neurological improvement. Opens eyes to verbal command appears to track. at bedside updated 12/06: Neurological Exam slowly improving. Opens eyes to command tracks. Purposefully moving upper extremities. Chest x-ray shows increasing bilateral infiltrates left more than right. On Rocephin for MSSA pneumonia 12/07 Patient remains intubated and on Precedex drip for sedation. T;102.2 12/08 No events overnight. Remains intubated and on Precedex drip. Did not tolerate CPAP trials yesterday. T:101.8 12/09 Patient remains intubated and on Precedex and Fentanyl drip for sedation. Still with persistent fevers with Tmax 103.7. Repeat EEG yesterday showed encephalopathy, no ictal activity. 12/10 Patient is sedated with Fentanyl and Precedex , intubated. T:99.8. Did not tolerate CPAP trials yesterday. In Afib with RVR 12/11 No events overnight. On Fentanyl and Precedex drip. T:100.0 at 6 am. MRI brain yesterday showed no ischemic changes. 12/12: continues to fail SBT for mental status and fatigue. no other changes. remains encephalopathic. discussed with plan for possible trach, and she is agreeable. 12/13: encephalopathy persists. Agitation is a large component of his encephalopathy. Endotracheal tube is contributing to this. Plan for tracheostomy today to help aggressively wean him. Objective Vital Signs Date Time Temp Pulse Resp B/P Pulse Ox O2 Delivery O2 Flow Rate FiO2 12/13/16 18:00 101 12/13/16 18:00 3 97/54 97 12/13/16 16:13 55 12/13/16 16:00 100.9 Intake and Output 12/12/16 12/12/16 12/12/16 07:59 15:59 23:59 Intake Total 1312 ml 1194 ml 1069 ml Output Total 600 ml 600 ml 580 ml Balance 712 ml 594 ml 489 ml Result Diagram: 12/13/16 0345 12/13/16 0345 Other Results Microbiology Date/Time Procedure Status Source Growth 12/11/16 04:50 Urine Culture - Final Complete Urine Catheterized Urine NO GROWTH IN 48 HOURS. 12/11/16 09:30 Stool Occult Blood (KAYLEEN) - Final Complete Stool Stool HEMOCCULT NEGATIVE Imaging Last Impressions Chest X-Ray 12/10/16 0600 Signed Impressions: Service Date/Time: Saturday, December 10, 2016 05:14 - CONCLUSION: Stable bilateral airspace consolidation, left greater than right. Stephen Andersen MD Cervical Spine MRI 12/10/16 0000 Signed Impressions: Service Date/Time: Saturday, December 10, 2016 18:11 - CONCLUSION: 1. Tiny central protrusion at C3-4 and minimal broad-based protrusion at C4-5 without canal stenosis. 2. MR cervical spine is otherwise unremarkable. Hesham Lemus MD Brain MRI 12/10/16 0000 Signed Impressions: Service Date/Time: Saturday, December 10, 2016 18:11 - CONCLUSION: 1. Cerebral atrophy and chronic ischemic small vessel vasculopathy. 2. No ischemic changes. Hesham Lemus MD Cervical Spine CT 12/02/16 1140 Signed Impressions: Service Date/Time: Friday, December 02, 2016 12:09 - CONCLUSION: No acute disease. Stepan Guadalupe MD Head CT 12/02/16 1132 Signed Impressions: Service Date/Time: Friday, December 02, 2016 12:09 - CONCLUSION: No acute disease. No evidence of acute infarct, hemorrhage, mass or edema. Stepan Guadalupe MD CT Angiography 12/02/16 1132 Signed Impressions: Service Date/Time: Friday, December 02, 2016 12:09 - CONCLUSION: 1. No evidence of acute pulmonary embolism. 2. Posterior bibasilar airspace disease. 3. No evidence of suspicious mass or lymphadenopathy. Stepan Guadalupe MD Objective Remarks GENERAL: Intubated, SKIN: Warm and dry HEAD: Atraumatic. Normocephalic. EYES: Pupils equal and round 3 mm, nonreactive. No scleral icterus. No injection or drainage. ENT: No nasal bleeding or discharge. Endotracheally intubated NECK: Trachea midline. No JVD. CARDIOVASCULAR: Regular rate and rhythm. RESPIRATORY: PRVC, 50% fio2, peep 10. GASTROINTESTINAL: Abdomen soft, non-tender, nondistended. MUSCULOSKELETAL: Boot to left foot for Charcot foot NEUROLOGICAL: Patient is intubated. intermittently moves extremities, does not follow commands. A/P Assessment and Plan Assessment: 46yM s/p cardiac arrest with severe encephalopathy. not improving on pathway. will need tracheostomy and LTAC for further improvements. NEURO: Encephalopathy ? Hypoxic injury related Seizure Agitated Delirium -d/c fentanyl and precedex. increase Seroquel to 50mg q8h - change metoprolol to propranolol for increased DYE RANGE FEEDER effect - meperidine 25mg iv prn for shivering - haldol 5mg iv q4h prn for breakthrough agitation. - Completed induced hypothermia,. MRI negative for anoxic brain injury -MRI brain 12/10- No ischemic changes - Neurology is following Dr. Garland. Repeat EEG 12/09: Slowing with no ictal activity. - Continue Keppra,discussed with Dr. Engle will repeat MRI brain -Place on Seroquel 25mg BID - EEG 12/02 -no seizure activity, very low amplitude background but appears normal per Dr. Christensen - EEG 12/04 -Intermittent episodes of burst suppression pattern with intermittent sharp wave activity mainly in the right frontal region, may indicate epileptogenicity, mod encephalopathy RESP: Chronic respiratory failure MSSA pneumonia - Continue with vent support keep sat >92% - Ventilator bundle, DuoNeb every 6 hours and when necessary - trach today. - Daily SBT CV: Asystole, unclear etiology Fluid overload/pulmonary edema- acute, worsening, 17kg up from admission Afib with RVR _Monitor HR and BP keep MAP>65mmHg,on, add Cardizem 30mg QID, change lopressor to propranolol 40mg po q6h -Heparin drip for Afib, MRI brain - no hemorrhage or ischemic changes - Etiology of cardiac arrest remains unclear at this time, serial cardiac enzymes showed only minor elevation - Very mild troponin elevation secondary to cardiac arrest. - 2-D echo normal EF, mild anterior MVP, CT pulmonary angiogram was negative for acute PE - increase lasix 40mg iv q6h. goal -2L/24h. one dose of metolazone. GI: - IV Protonix for GI prophylaxis -Continue with tube feeds On Glucerna 1.5 currently @40ml/hr : Acute kidney injury-resolved - Monitor renal function, I/O's, electrolytes replacement per protocol. -On Free water 250ml Q8, monitor sodium level. Follow up on [facility] ID: MSSA pneumonia Persistent fevers..infectious vs meds vs Neuro -Continue abx per ID- Aztreonam, Clindamycin. - Monitor for signs of infections ( Fever, WBC) Pancultured 12/07 ( Blood, sputum , UA)- NGTD, sputum cx 12/11- pending Sputum cx 12/02 staph Aures sensitive to Rocephin Cdiff negative. ENDO: Hyperglycemia Type 2 diabetes - SSI(High scale) Levemir 14units BID for glycemic control PROPH: - Bilateral lower extremity SCDs. heparin drip, Protonix Uli Lee MD Dec 13, 2016 19:32
--- NOTE | 2016-12-13 19:33 | PD.PROCEDR ---
Procedure Note Procedure Percutaneous Dilation Tracheostomy Tube Placement Diagnosis: Hypoxic ischemic encephalopathy Indications: Acute on chronic respiratory failure with hypoxic encephalopathy Anesthesia: Versed 10 mg IV, fentanyl 250 g IV Neuromuscular Blockade: Rocuronium 100 mg IV Anesthesia was provided by the bedside RN Description of the Procedure: The patient was sedated and paralyzed. The patient was positioned in the supine position with a chest roll. The patient's neck was slightly extended. Landmarks were palpated and the anatomy of the anterior neck was deemed normal. A time out procedure was performed. The patient was placed on a volume control mode of ventilation, on 100% FiO2. The patient was prepped and draped sterilely. A bronchoscope was inserted into the endotracheal tube for endoscopic guidance (see separate bronchoscopy procedure note). After negative aspiration, 1% lidocaine with 1:100k epinephrine was injected subcutaneously in the midline neck using a 21g needle for local anesthesia. An approximately 2cm skin incision was made using a #15 blade. The cricoid cartilage, thyroid tissue , and tracheal rings were palpated in the midline. Under direct bronchoscopic guidance, the cuff of the endotracheal tube was deflated and the endotracheal tube was retracted to a level above the level of the skin incision. At this point, a 15g introducer needle/catheter was advanced midline under negative aspiration with saline filled syringe until bubbles were seen and the needle and catheter were visualized in the lumen of the trachea. The needle was withdrawn leaving the catheter in place. A 0.052 in diameter J-shaped guidewire was advanced through the catheter into the lumen of the trachea, under direct bronchoscopic visualization. Using a modified Seldinger technique , a 14 Fr, 4.5 cm introducer dilator was used, followed by a [place] Percutaneous Tracheostomy Dilator, and finally a 28 Fr tracheostomy loading catheter with 8.0 Cuffed Shiley tracheostomy tube. The loading catheter and guidewire were removed and the tracheostomy tube was confirmed in the lumen of the trachea with bronchoscopy, end-tidal CO2, and returning volumes on the ventilator. The tracheostomy was sewn to the skin with interrupted 2.0 Prolene sutures, and a tracheostomy tie was applied to the skin. There were no immediate complications. There was minimal EBL. A chest x-ray has been ordered. Motor Bike Mechanic: Dr. Montrell Dunbar I personally performed the procedure. Uli Lee MD Dec 13, 2016 19:33
[2016-12-13] MEDS ORDERED: METOLAZONE 5 MG TAB PO ONE (19:45)
[2016-12-13] MEDS: RESP: ALBUTEROL 2.5 MG/IPRATROPIUM 0.5 MG NEB (PRN) INH (22:01)
[2016-12-13] MEDS: PROPRANOLOL HCL 40 MG TAB PO SCH (23:15)
[2016-12-14] VITALS (25 sets, daily range): BP systolic 104–161; BP diastolic 55–78; PULSE 75–109; RESP 0–46; TEMP 99.1–100.7; O2SAT 90–99
[2016-12-14] MEDS: RESP: ALBUTEROL 2.5 MG/IPRATROPIUM 0.5 MG NEB (PRN) INH ×3 (00:25→07:25)
[2016-12-14] MEDS: CLINDAMYCIN 150 MG CAP PO SCH ×4 (02:44→20:11)
[2016-12-14] MEDS: FUROSEMIDE 40 MG/4 ML VIAL IV PUSH SCH ×2 (02:44→13:09)
[2016-12-14] MEDS: PROPRANOLOL HCL 40 MG TAB PO SCH ×4 (02:44→20:11)
[2016-12-14] MEDS: HEPARIN-D5W INJ 250 ML IV SCH ×2 (02:55→17:58)
[2016-12-14] MEDS: INSULIN NovoLIN REGULAR SUPPLEMENTAL SCALE SQ SCH ×4 (03:06→20:00)
[2016-12-14] MEDS: ACETAMINOPHEN 650 MG/20.3 ML UDC OG-TUBE PRN ×3 (03:09→16:29)
[2016-12-14 03:43] LABS: APTT (PATIENT) 26.1 SEC (24.3-30.1)
[2016-12-14] MEDS: CHLORHEXIDINE GLUCONATE 2 % 1 PACK (2 CLOTHS) TOP SCH (04:00)
[2016-12-14] MEDS: FREE WATER G-TUBE SCH ×3 (05:11→20:13)
[2016-12-14] MEDS: QUEtiapine FUMARATE 25 MG TAB PO SCH ×3 (05:11→22:41)
[2016-12-14 05:13] LABS: HEMATOCRIT 29.6 % (39.0-51.0); MEAN CELL VOLUME 86.8 FL (80.0-100.0); MEAN CORPUSCULAR HEMOGLOBIN 28.8 PG (27.0-34.0); MEAN CORPUSCULAR HGB CONC 33.2 % (32.0-36.0); PLATELET COUNT 537 TH/MM3 (150-450); RED BLOOD COUNT 3.42 MIL/MM3 (4.50-5.90); RED CELL DISTRIBUTION WIDTH 15.2 % (11.6-17.2); REVIEW FLAG FINAL; WHITE BLOOD COUNT 15.1 TH/MM3 (4.0-11.0)
--- NOTE | 2016-12-14 05:15 | MG ---
cc: CAMILLE DUNCAN MD Lab No: [id number] Date: 12/13/2016 Age: 46 Sex: M Race: DATE OF 1970 INDICATIONS FOR PROCEDURE A 46-year-old with history of cardiac arrest. FINDINGS On eye movement blink artifact noted with underlying 1-4 Hz activity, 20-50 microvolts, bursts of 1-2 second suppression occurring at times, followed by 4-5 Hz activity occurring in an alternating pattern, quite synchronous. Mild electrical artifact in frontal channels. No driving with photic stimulation. Mild EEG variability reactivity. INTERPRETATION Moderate to severe encephalopathy. Clinical correlation. Camille Duncan MD MG/SSB /9:42 PM /5:07 AM
[2016-12-14 05:49] LABS: BICARBONATE 33.3 MEQ/L (21.0-32.0); POTASSIUM 3.6 MEQ/L (3.5-5.1)
--- NOTE | 2016-12-14 07:27 | HHI.CCPN ---
Subjective Remarks/Hospital Course Patient is a 46-year-old male with history of diabetes, neuropathy, Charcot foot to the left, hyperlipidemia, presents to emergency room after he had a witnessed cardiac arrest at home. Per patient's he complained of dizziness this morning. He went to the garage to get something and then walked back into the kitchen. Shortly afterwards the was heard a loud thud. She rushed to the kitchen and found the patient collapsed on the floor, with seizure -like activity of the upper extremities. EMS was called immediately and the got to the house within 5-10 minutes of the call, patient was in asystole upon arrival. ACLS protocol was initiated in the field. Patient was intubated using a combitube. Patient was given 2 rounds of epi and had ROSC. EMS reported that patient was also coughing up blood. Blood sugar at the scene was 63, for which he got dextrose. In the emergency department Combitube was removed, patient was intubated using a 8.0 ETT. EKG: No acute changes. Initial neuro exam was very poor per Dr. Hutchinson. No spontaneous movements noted, patient had a gag reflex. Also he was biting on the teeth otherwise no purposeful movements noted. To facilitate imaging studies patient received 10 mg of vecuronium as he was biting down the ET tube. CT of the head and CT pulmonary angiogram was negative for any acute findings. I evaluated the patient in the emergency department approximately 30 minutes after vecuronium was given. Patient still was neuromuscularly paralyzed. The history of probable witnessed seizures was conformed with the . I asked for a stat EEG. Once in the ICU Stat EEG was done which showed severe encephalopathy. Given the EEG findings and for neuro exam by the ER physician, I discussed with regarding induced hypothermia protocol for neuro protection. Patient was still within the window for induced hypothermia and was agreeable. I proceeded with placing the heat exchange catheter in the right groin. Towards completion of the procedure patient started having tonic clonic movements of the bilateral lower extremity. 4 mg IV push of Ativan was given emergently following which he stopped seizure -like activity. Patient will be loaded with Cerebyx, and continued on Dilantin. CT of the head was negative for any acute findings SUBJ 12/03/16: Achieved target temperature 8 PM yesterday. Currently sedated intubated and neuromuscularly paralyzed. EEG yesterday -no seizure activity, very low amplitude background but appears normal per Dr. Chirstensen 12/04: Patient is currently in rewarming phase. Nimbex was DCd at 0900 and while sedation was being weaned off, patient developed tonic-clonic activity probable seizures vs myoclonus. Receiving propofol, get stat EEG, stat MRI and neurology consult. Will give additional 1 g Cerebyx Bolus, also mammogram Keppra bolus and 1 g Every 12 hours will be started 12/04 20:12 Called to patient's bedside because family would like to discuss DNR and goals of care. Multiple family members were at bedside when I arrived to the room however patient's Elvia requested that they leave and that she and patient's mother, Debra, be present alone with me. Reviewed patient's living will which allows for withholding or removing life support, life prolonging treatment, artificially administered food and water in the event of terminal condition, end-stage condition, persistent vegetative state. states that patient would not want compressions, shock, or ACLS drugs in the event of cardiac arrest. She is also refusing tube feeding at this time because she says he told her he would never want that. I discussed that tube feeds could be administered as part of supportive care and that they could be withheld later if it appears his condition is terminal/end stage/ vegetative state. However, it is too early for physicians to make that determination at this time. Nonetheless she is adamant that tube feeds be withheld. I am changing code status to "ALTERNATIVE CODE -INTUBATION ONLY". 12/05: Currently off all sedation. MRI of the brain done yesterday was normal without evidence of anoxic injury. Patient showing neurological improvement. Opens eyes to verbal command appears to track. at bedside updated 12/06: Neurological Exam slowly improving. Opens eyes to command tracks. Purposefully moving upper extremities. Chest x-ray shows increasing bilateral infiltrates left more than right. On Rocephin for MSSA pneumonia 12/07 Patient remains intubated and on Precedex drip for sedation. T;102.2 12/08 No events overnight. Remains intubated and on Precedex drip. Did not tolerate CPAP trials yesterday. T:101.8 12/09 Patient remains intubated and on Precedex and Fentanyl drip for sedation. Still with persistent fevers with Tmax 103.7. Repeat EEG yesterday showed encephalopathy, no ictal activity. 12/10 Patient is sedated with Fentanyl and Precedex , intubated. T:99.8. Did not tolerate CPAP trials yesterday. In Afib with RVR 12/11 No events overnight. On Fentanyl and Precedex drip. T:100.0 at 6 am. MRI brain yesterday showed no ischemic changes. 12/12: continues to fail SBT for mental status and fatigue. no other changes. remains encephalopathic. discussed with plan for possible trach, and she is agreeable. 12/13: encephalopathy persists. Agitation is a large component of his encephalopathy. Endotracheal tube is contributing to this. Plan for tracheostomy today to help aggressively wean him. 12/14 Patient s/p trach yesterday. Tmax 100.9. Sedated with Fentnayl. On Heparin drip. Objective Vital Signs Date Time Temp Pulse Resp B/P Pulse Ox O2 Delivery O2 Flow Rate FiO2 12/14/16 06:00 87 12/14/16 04:09 93 50 12/14/16 04:00 99.6 22 117/62 Intake and Output 12/13/16 12/13/16 12/14/16 08:00 16:00 00:00 Intake Total 1556 ml 1137 ml 807 ml Output Total 2230 ml 1475 ml 1350 ml Balance -674 ml -338 ml -543 ml Result Diagram: 12/14/16 0445 12/14/16 0445 Other Results Laboratory Tests Test 12/13/16 12/14/16 12/14/16 08:40 02:34 04:45 Activated Partial 27.5 SEC 26.1 SEC Thromboplast Time White Blood Count 15.1 TH/MM3 Red Blood Count 3.42 MIL/MM3 Hemoglobin 9.8 GM/DL Hematocrit 29.6 % Mean Corpuscular Volume 86.8 FL Mean Corpuscular Hemoglobin 28.8 PG Mean Corpuscular Hemoglobin 33.2 % Concent Red Cell Distribution Width 15.2 % Platelet Count 537 TH/MM3 Mean Platelet Volume 7.4 FL Sodium Level 142 MEQ/L Potassium Level 3.6 MEQ/L Chloride Level 100 MEQ/L Carbon Dioxide Level 33.3 MEQ/L Anion Gap 9 MEQ/L Blood Urea Nitrogen 32 MG/DL Creatinine 1.01 MG/DL Estimat Glomerular Filtration 79 ML/MIN Rate Random Glucose 240 MG/DL Calcium Level 8.8 MG/DL Imaging Last Impressions Chest X-Ray 12/13/16 0000 Signed Impressions: Service Date/Time: November 12:09 - CONCLUSION: 1. Persistent bilateral airspace disease, left greater than right. There may be slight interval improved aeration in the left upper lung, however. 2. Interval removal of the endotracheal and nasogastric tubes with placement of a tracheostomy as above. Anand Ni MD Abdomen X-Ray 12/13/16 0000 Signed Impressions: Service Date/Time: , December 13, 2016 13:01 - CONCLUSION: Dobbhoff tube has its tip in the distal stomach. Jose De Jesus Macdonald MD Cervical Spine MRI 12/10/16 0000 Signed Impressions: Service Date/Time: Saturday, December 10, 2016 18:11 - CONCLUSION: 1. Tiny central protrusion at C3-4 and minimal broad-based protrusion at C4-5 without canal stenosis. 2. MR cervical spine is otherwise unremarkable. Hesham Lemus MD Brain MRI 12/10/16 0000 Signed Impressions: Service Date/Time: Saturday, December 10, 2016 18:11 - CONCLUSION: 1. Cerebral atrophy and chronic ischemic small vessel vasculopathy. 2. No ischemic changes. Hesham Lemus MD Cervical Spine CT 12/02/16 1140 Signed Impressions: Service Date/Time: Friday, December 02, 2016 12:09 - CONCLUSION: No acute disease. Stepan Guadalupe MD Head CT 12/02/16 1132 Signed Impressions: Service Date/Time: Friday, December 02, 2016 12:09 - CONCLUSION: No acute disease. No evidence of acute infarct, hemorrhage, mass or edema. Stepan Guadalupe MD CT Angiography 12/02/16 1132 Signed Impressions: Service Date/Time: Friday, December 02, 2016 12:09 - CONCLUSION: 1. No evidence of acute pulmonary embolism. 2. Posterior bibasilar airspace disease. 3. No evidence of suspicious mass or lymphadenopathy. Stepan Guadalupe MD Objective Remarks GENERAL: Intubated, SKIN: Warm and dry HEAD: Atraumatic. Normocephalic. EYES: Pupils equal and round 3 mm, nonreactive. No scleral icterus. No injection or drainage. ENT: No nasal bleeding or discharge. Trach in place NECK: Trachea midline. No JVD. CARDIOVASCULAR: Regular rate and rhythm. RESPIRATORY: B/L equal air entry with few coarse BS GASTROINTESTINAL: Abdomen soft, non-tender, nondistended. MUSCULOSKELETAL: Boot to left foot for Charcot foot NEUROLOGICAL:Sedated. A/P Assessment and Plan Assessment: 46yM s/p cardiac arrest with severe encephalopathy. not improving on pathway. will need tracheostomy and LTAC for further improvements. NEURO: Encephalopathy ? Hypoxic injury related Seizure Agitated Delirium On Fentanyl drip for sedation. Daily sedation vacation. Monitor neuro status. On Seroquel to 50mg q8h meperidine 25mg iv prn for shivering - haldol 5mg iv q4h prn for breakthrough agitation. - Completed induced hypothermia,. MRI negative for anoxic brain injury -MRI brain 12/10- No ischemic changes - Neurology is following Dr. Garland. Repeat EEG 12/09: Slowing with no ictal activity. - Continue Keppra - EEG 12/02 -no seizure activity, very low amplitude background but appears normal per Dr. Christensen - EEG 12/04 -Intermittent episodes of burst suppression pattern with intermittent sharp wave activity mainly in the right frontal region, may indicate epileptogenicity, mod encephalopathy RESP: Chronic respiratory failure- s/p trach 12/13 MSSA pneumonia - Continue with vent support keep sat >92% - Ventilator bundle, DuoNeb every 6 hours and when necessary - Pulm toilet, trach care - Daily SBT CV: Asystole, unclear etiology Fluid overload/pulmonary edema- acute, worsening, 17kg up from admission Afib with RVR _Monitor HR and BP keep MAP>65mmHg,on, Cardizem 30mg QID, Propranolol 40mg po q6h -Heparin drip for Afib, MRI brain - no hemorrhage or ischemic changes - Etiology of cardiac arrest remains unclear at this time, serial cardiac enzymes showed only minor elevation - Very mild troponin elevation secondary to cardiac arrest. - 2-D echo normal EF, mild anterior MVP, CT pulmonary angiogram was negative for acute PE - Decrease Lasix 40mg iv q12h. GI: - IV Protonix for GI prophylaxis -Continue with tube feeds On Glucerna 1.5 @50ml/hr GI consult for PEG tube placement : Acute kidney injury-resolved - Monitor renal function, I/O's, electrolytes replacement per protocol. -Change Free water 250ml Q12, monitor sodium level. ID: MSSA pneumonia Persistent fevers..infectious vs meds vs Neuro -Continue abx per ID- Clindamycin.. Monitor for signs of infections ( Fever, WBC ) WBC trending down Sputum cx 12/02, 12/11 staph Aures sensitive to Rocephin Cdiff negative. ENDO: Hyperglycemia Type 2 diabetes - SSI(High scale) Levemir 14units BID for glycemic control PROPH: - Bilateral lower extremity SCDs. heparin drip, Protonix Level 3 Pippa Jerez MD Dec 14, 2016 07:27
[2016-12-14] MEDS: ARTIFICIAL TEARS OPTH SOLN 15 ML BTL EACH EYE SCH ×2 (09:01→20:14)
[2016-12-14] MEDS: CHLORHEXIDINE 0.12% (ORAL KIT) 15 ML CUP MT SCH ×2 (09:01→20:14)
[2016-12-14] MEDS: levETIRAcetam 1000 MG INJ 100 ML IV SCH ×2 (09:03→20:13)
[2016-12-14] MEDS: ASPIRIN 325 MG TAB PO SCH (09:03)
[2016-12-14] MEDS: PANTOPRAZOLE SODIUM 40 MG VIAL IV SCH (09:03)
[2016-12-14] MEDS: SODIUM CHLORIDE 0.9% FLUSH 10 ML FLUSH IV FLUSH SCH ×2 (09:03→20:13)
[2016-12-14] MEDS: DILTIAZEM HCL 30 MG TAB PO SCH ×4 (09:03→20:11)
[2016-12-14] MEDS: INSULIN DETEMIR 100 UNITS/ML VIAL SQ SCH ×2 (09:04→20:16)
[2016-12-14] MEDS: BENEPROTEIN POWDER 1 PACK G-TUBE SCH ×3 (09:11→18:00)
[2016-12-14 09:14] LABS: APTT (PATIENT) 26.1 SEC (24.3-30.1)
--- NOTE | 2016-12-14 10:11 | HHI.IDPN ---
Subjective Subjective Remarks Patient is a 46-year-old male, admitted to the hospital after he had a witnessed cardiac arrest at home. The patient was in his usual state of health the day prior to admission, as well as when he woke up this the morning of admission. He apparently went to a [employer] early that morning. He was not complaining of any problem. When he was at home he apparently went to the garage to get something and then walked back into the kitchen. Shortly afterwards the was heard a loud thud. She rushed to the kitchen and found the patient collapsed on the floor, with seizure-like activity of the upper extremities. EMS was called immediately and the got to the house within 5-10 minutes of the call, patient was in asystole upon arrival. ACLS protocol was initiated in the field. Patient was intubated. He was successfully resuscitated , and was brought into the hospital. Patient was put on hypothermic protocol. He has had some other episodes of generalized seizure. Neurology evaluated the patient. A shunt is on anticonvulsant agents. MRI of the brain did not show any abnormality. Patient has had some fever since December 04. It got better on December 06, but it started up again late December 06, and patient has had fever since. His hemodynamics are okay. Patient had MSSA in his sputum, and has been on appropriate antibiotics. He does not have any central line. He has a Porter catheter in place. He remains sedated on the respirator. Notes reviewed D/W RN Had trach done 12/13 A lot of secretions today Tolerating TF Had some desats this morning, better after suctioning Seems to be focusing, not following commands BC negative UA ok Sputum MSSA WBC decreased to 15K Rash about the same Antibiotics Clindamycin Lines PIV Past Medical History Reviewed Allergies: Coded Allergies: UNOBTAINABLE (Unverified , 12/02/16) Objective . Vital Signs Date Time Temp Pulse Resp B/P Pulse Ox O2 Delivery O2 Flow Rate FiO2 12/14/16 07:24 92 50 12/14/16 06:00 87 12/14/16 04:09 93 50 12/14/16 04:00 86 12/14/16 04:00 65 12/14/16 04:00 99.6 86 22 117/62 98 12/14/16 02:00 100 12/14/16 01:10 97 50 12/14/16 00:00 109 12/14/16 00:00 65 12/14/16 00:00 100.6 109 24 117/62 98 12/13/16 22:00 103 12/13/16 21:51 98 50 12/13/16 20:00 65 12/13/16 20:00 100 12/13/16 20:00 99.7 101 24 98/54 96 12/13/16 18:00 101 12/13/16 18:00 101 3 97/54 97 12/13/16 17:00 99 21 110/69 98 12/13/16 16:13 98 55 12/13/16 16:00 65 12/13/16 16:00 106 12/13/16 16:00 100.9 106 18 140/83 98 12/13/16 15:00 117 10 134/70 97 12/13/16 14:00 105 12/13/16 14:00 105 1 110/64 100 12/13/16 13:00 107 23 126/69 95 12/13/16 12:16 100 100 12/13/16 12:14 100 50 12/13/16 12:00 55 12/13/16 12:00 100 12/13/16 12:00 98.3 103 17 101/57 100 12/13/16 11:00 101 16 108/70 97 12/13/16 12/13/16 12/14/16 15:00 23:00 07:00 Intake Total 1137 ml 807 ml 241 ml Output Total 1475 ml 1350 ml 2150 ml Balance -338 ml -543 ml -1909 ml IV Total 637 ml 557 ml 241 ml Tube Feeding 200 ml Other 300 ml 250 ml Output Urine Total 1475 ml 1100 ml 2150 ml Stool Total 0 ml Peritoneal Fluid 250 ml # Bowel Movements 0 0 0 . Laboratory Tests Test 12/13/16 12/14/16 03:45 04:45 White Blood Count 21.7 TH/MM3 15.1 TH/MM3 Red Blood Count 3.10 MIL/MM3 3.42 MIL/MM3 Hemoglobin 8.9 GM/DL 9.8 GM/DL Hematocrit 27.2 % 29.6 % Mean Corpuscular Volume 87.7 FL 86.8 FL Mean Corpuscular Hemoglobin 28.7 PG 28.8 PG Mean Corpuscular Hemoglobin 32.7 % 33.2 % Concent Red Cell Distribution Width 15.1 % 15.2 % Platelet Count 321 TH/MM3 537 TH/MM3 Mean Platelet Volume 8.0 FL 7.4 FL Laboratory Tests Test 12/13/16 12/14/16 03:45 04:45 Sodium Level 146 MEQ/L 142 MEQ/L Potassium Level 3.7 MEQ/L 3.6 MEQ/L Chloride Level 109 MEQ/L 100 MEQ/L Carbon Dioxide Level 30.6 MEQ/L 33.3 MEQ/L Anion Gap 6 MEQ/L 9 MEQ/L Blood Urea Nitrogen 36 MG/DL 32 MG/DL Creatinine 0.81 MG/DL 1.01 MG/DL Estimat Glomerular Filtration 102 ML/MIN 79 ML/MIN Rate Random Glucose 199 MG/DL 240 MG/DL Calcium Level 8.6 MG/DL 8.8 MG/DL Imaging Chest X-Ray 12/13/16 0000 Signed Impressions: Service Date/Time: November 12:09 - CONCLUSION: 1. Persistent bilateral airspace disease, left greater than right. There may be slight interval improved aeration in the left upper lung, however. 2. Interval removal of the endotracheal and nasogastric tubes with placement of a tracheostomy as above. Anand Ni MD Chest X-Ray 12/10/16 0600 Signed Impressions: Service Date/Time: Saturday, December 10, 2016 05:14 - CONCLUSION: Stable bilateral airspace consolidation, left greater than right. Stephen Andersen MD Cervical Spine MRI 12/10/16 0000 Signed Impressions: Service Date/Time: Saturday, December 10, 2016 18:11 - CONCLUSION: 1. Tiny central protrusion at C3-4 and minimal broad-based protrusion at C4-5 without canal stenosis. 2. MR cervical spine is otherwise unremarkable. Hesham Lemus MD Brain MRI 12/10/16 0000 Signed Impressions: Service Date/Time: Saturday, December 10, 2016 18:11 - CONCLUSION: 1. Cerebral atrophy and chronic ischemic small vessel vasculopathy. 2. No ischemic changes. Hesham Lemus MD Chest X-Ray 12/07/16 0600 Signed Impressions: Service Date/Time: Wednesday, December 07, 2016 03:43 - CONCLUSION: 1. Patchy alveolar disease characteristic of edema or pneumonia. There has been no significant change when compared to the prior exam. Simone Pacheco MD Brain MRI 12/04/16 0000 Signed Impressions: Service Date/Time: Sunday, December 04, 2016 18:12 - CONCLUSION: 1. Sinusitis. 2. No evidence for anoxic brain injury. Simba Guan MD Cervical Spine CT 12/02/16 1140 Signed Impressions: Service Date/Time: Friday, December 02, 2016 12:09 - CONCLUSION: No acute disease. Stepan Guadalupe MD Head CT 12/02/16 1132 Signed Impressions: Service Date/Time: Friday, December 02, 2016 12:09 - CONCLUSION: No acute disease. No evidence of acute infarct, hemorrhage, mass or edema. Stepan Guadalupe MD CT Angiography 12/02/16 1132 Signed Impressions: Service Date/Time: Friday, December 02, 2016 12:09 - CONCLUSION: 1. No evidence of acute pulmonary embolism. 2. Posterior bibasilar airspace disease. 3. No evidence of suspicious mass or lymphadenopathy. Stepan Guadalupe MD Physical Exam GENERAL: On the vent, not in respiratory distress. Opens eyes and focuses to where stimulus coming from, not following SKIN: Warm and dry. Has red papules scattered on trunk, to upper thigh and upper arms, stable, not worse HEAD: Atraumatic. Normocephalic. No temporal wasting, or tenderness. EYES: [place] conjunctiva. No petechia or hemorrhage. Pupils equal, round and reactive to light. No scleral icterus. No injection or drainage. EARS, NOSE AND THROAT: Nose without bleeding or purulent nasal discharge. He is orally intubated. NECK: Trachea midline. Supple and not tender, no meningeal signs CARDIOVASCULAR: Regular rate and rhythm. No murmurs, rubs or gallops heard RESPIRATORY: Coarse BS bilaterally ABDOMEN: Soft, not tender, no guarding, nondistended. Bowel sounds present and normoactive. No organomegaly. EXTREMITIES: No clubbing, cyanosis, or edema. NEUROLOGICAL: Kooks at me when I stimulated him PSYCHIATRIC: Unable to asses LINE: PIV with no evidence of infection : Porter in place, urine looks clear Assessment & Plan Remarks IMPRESSION Persistent fevers, S/P witnessed carrdiac arrest, low grade temps - has MSSA PNA, on appropriate Abx - ?New VAP, C/S normal [place] - UA ok, no lines, LFT only with elevated alk phos - ?central fever - ?drug fever (anti-seizure, B-lactam) S/P cardiac arrest Seizure possibly due to anoxic encephalopathy Known DM Rash, likely drug eruption, ?azactam Leukocytosis, improving RECOMMENDATION Continue Clindamycin - to finish 12/17 Pulmonary toilet Needs PEG Monitor temps Monitor progress Monitor rash Weaning per CCM D/W RN Dr Parth Chapman covering this weekend if needed, if there are any urgent ID issues that needs to be addressed Aye Houser MD Dec 14, 2016 10:11
[2016-12-14] MEDS: RESP: ALBUTEROL 2.5 MG/IPRATROPIUM 0.5 MG NEB (SCH) NEB ×4 (11:56→23:08)
--- NOTE | 2016-12-14 12:01 | HHI.PR ---
Review/Management Diagnosis/Plan: (1) Anoxic brain injury Plan: asystole repeat eeg- no sz activity 12/04 mri brain- no acute lesion, no sign of cortical anoxic injury recs ? peg probable LTC d/w pt's mother at bedside prognosis guarded (2) Convulsions/seizures Plan: possible cortical hypoxic injury-related seizures; in addition appears to have shivering/tremors that are non-epileptic- no further events 12/13 eeg repeat- no sz; moderate encephalopathy (3) Asystole (4) DM polyneuropathy Subjective Subjective Comments No acute events reported Active Medications Current Medications Medications (Trade) Dose Ordered Sig/Jacklyn Route Start Time Stop Time Status Last Admin (NS Flush) 2 ml UNSCH PRN IV FLUSH 12/02/16 12:15 (NS Flush) 2 ml BID IV FLUSH 12/02/16 21:00 12/14/16 09:03 (Peridex 0.12% Liq) 15 ml BID@08,20 MT 12/02/16 20:00 12/14/16 09:01 (Protonix Inj) 40 mg DAILY IV 12/03/16 09:00 12/14/16 09:03 (Lovenox Inj) 40 mg Q24H SQ 12/02/16 14:00 12/10/16 13:34 Miscellaneous Information 1 Q361D XX 12/02/16 12:15 (Chlorhexidine 2% Cloth) Taper DAILY@04 TOP 12/03/16 04:00 11/29/17 03:59 12/14/16 04:00 (Chlorhexidine 2% Cloth) 3 pack UNSCH PRN TOP 12/02/16 12:15 Artificial Tears 1 applic 1 applic Q4H PRN EACH EYE 12/02/16 14:45 Miscellaneous Information 0 ml @ 0 mls/hr UNSCH IV 12/02/16 14:45 Potassium Chloride 100 ml @ 50 mls/hr Q2H PRN IV 12/02/16 14:45 (KCl 20 Meq Premix Inj) 100 ml @ 50 mls/hr Q2H PRN IV 12/02/16 14:45 Potassium Bicarb/ Potassium Chloride 50 meq 50 meq UNSCH PRN PO 12/02/16 14:45 Potassium Chloride 100 ml @ 25 mls/hr UNSCH PRN IV 12/02/16 14:45 Potassium Chloride 100 ml @ 50 mls/hr Q2H PRN IV 12/02/16 14:45 (Magnesium Sulfate Inj/NS Inj) 100 ml @ 50 mls/hr UNSCH PRN IV 12/02/16 14:45 Magnesium Oxide 800 mg 800 mg UNSCH PRN PO 12/02/16 14:45 (Magnesium Sulfate Inj/NS Inj) 100 ml @ 50 mls/hr UNSCH PRN IV 12/02/16 14:45 Potassium Phosphate 2000 mg 2,000 mg Q4H PRN PO 12/02/16 14:45 (Sodium Phosphate Inj/NS 250 ml Inj) 250 ml @ 42 mls/hr UNSCH PRN IV 12/02/16 14:45 12/10/16 16:20 Potassium Phosphate 2000 mg 2,000 mg UNSCH PRN PO/TUBE 12/02/16 14:45 (Potassium Phosphate Inj/NS 250 ml Inj) 260 ml @ 42 mls/hr UNSCH PRN IV 12/02/16 14:45 (Dilantin Inj) 100 mg Q8H IV 12/03/16 00:00 Hold 12/09/16 07:44 (Aspirin) 325 mg DAILY PO 12/02/16 18:30 12/14/16 09:03 Artificial Tears 2 drop 2 drop BID EACH EYE 12/03/16 21:00 12/14/16 09:01 (Keppra 1000 Mg Inj) 100 ml @ 400 mls/hr Q12HR IV 12/04/16 21:00 12/14/16 09:03 (Beneprotein Powder) 1 pack TID G-TUBE 12/04/16 13:00 12/14/16 09:11 (Tylenol 650 Mg/ 20 ml Liq) 650 mg Q4H PRN OG-TUBE 12/05/16 03:45 12/14/16 09:22 (Levemir Inj) 14 units Q12HR SQ 12/09/16 09:00 12/14/16 09:04 (D50w (Vial) Inj) 50 ml UNSCH PRN IV 12/09/16 08:00 (Glucagon Inj) 1 mg UNSCH PRN OTHER 12/09/16 08:00 (NovoLIN R SUPPLEMENTAL SCALE) 1 Q6H SQ 12/09/16 08:00 12/14/16 09:04 (Cleocin) 300 mg Q6H PO 12/10/16 14:00 12/17/16 13:59 12/14/16 09:01 Diltiazem HCl 30 mg 30 mg QID PO 12/11/16 09:00 12/14/16 09:03 (Heparin-D5W Inj) 250 ml @ 0 mls/hr TITRATE IV 12/11/16 07:45 12/14/16 02:55 (SEROquel) 50 mg Q8HR PO 12/13/16 22:00 12/14/16 05:11 (Inderal) 40 mg Q6H PO 12/13/16 20:00 12/14/16 09:01 (Demerol Inj) 25 mg Q3H PRN IV PUSH 12/13/16 19:30 (Haldol Inj) 5 mg Q4H PRN IV PUSH 12/13/16 19:30 (Free Water) 250 ml Q12HR G-TUBE 12/14/16 09:00 12/14/16 09:01 (Lasix Inj) 40 mg Q12H IV PUSH 12/14/16 14:00 Allergies Allergies Coded Allergies UNOBTAINABLE (Unverified12/02/16) Review of Systems All other ROS: ROS reviewed as documented in chart Exam I&O / VS 12/13/16 12/13/16 12/14/16 15:00 23:00 07:00 Intake Total 1137 ml 807 ml 241 ml Output Total 1475 ml 1350 ml 2150 ml Balance -338 ml -543 ml -1909 ml IV Total 637 ml 557 ml 241 ml Tube Feeding 200 ml Other 300 ml 250 ml Output Urine Total 1475 ml 1100 ml 2150 ml Stool Total 0 ml Peritoneal Fluid 250 ml # Bowel Movements 0 0 0 Vital Signs Date Time Temp Pulse Resp B/P Pulse Ox O2 Delivery O2 Flow Rate FiO2 12/14/16 11:00 75 8 106/64 98 12/14/16 10:00 78 14 107/55 97 12/14/16 10:00 78 12/14/16 09:00 100 6 161/78 91 12/14/16 08:00 100.2 93 17 131/64 90 12/14/16 08:00 65 12/14/16 08:00 79 12/14/16 07:24 92 50 12/14/16 07:00 87 7 122/62 94 12/14/16 06:00 87 12/14/16 04:09 93 50 12/14/16 04:00 86 12/14/16 04:00 65 12/14/16 04:00 99.6 86 22 117/62 98 12/14/16 02:00 100 12/14/16 01:10 97 50 12/14/16 00:00 109 12/14/16 00:00 65 12/14/16 00:00 100.6 109 24 117/62 98 12/13/16 22:00 103 12/13/16 21:51 98 50 12/13/16 20:00 65 12/13/16 20:00 100 12/13/16 20:00 99.7 101 24 98/54 96 12/13/16 18:00 101 12/13/16 18:00 101 3 97/54 97 12/13/16 17:00 99 21 110/69 98 12/13/16 16:13 98 55 12/13/16 16:00 65 12/13/16 16:00 106 12/13/16 16:00 100.9 106 18 140/83 98 12/13/16 15:00 117 10 134/70 97 12/13/16 14:00 105 12/13/16 14:00 105 1 110/64 100 12/13/16 13:00 107 23 126/69 95 12/13/16 12:16 100 100 12/13/16 12:14 100 50 12/13/16 12:00 55 12/13/16 12:00 100 12/13/16 12:00 98.3 103 17 101/57 100 Exam Comments alert, trach in place, no blink to threat, not following, non-verbal, turns head side to side, ou 2.5mm sluggish, minimally reactive, no withdrawal to tactile, extension on tactile, planterflexor, no clonus Objective Micro and Labs Laboratory Tests Test 12/14/16 12/14/16 12/14/16 02:34 04:45 08:29 Activated Partial 26.1 26.1 Thromboplast Time White Blood Count 15.1 Red Blood Count 3.42 Hemoglobin 9.8 Hematocrit 29.6 Mean Corpuscular Volume 86.8 Mean Corpuscular Hemoglobin 28.8 Mean Corpuscular Hemoglobin 33.2 Concent Red Cell Distribution Width 15.2 Platelet Count 537 Mean Platelet Volume 7.4 Sodium Level 142 Potassium Level 3.6 Chloride Level 100 Carbon Dioxide Level 33.3 Anion Gap 9 Blood Urea Nitrogen 32 Creatinine 1.01 Estimat Glomerular Filtration 79 Rate Random Glucose 240 Calcium Level 8.8 Date/Time Procedure Status Source Growth 12/11/16 10:05 Aerobic Blood Culture - Preliminary Resulted Blood Peripheral NO GROWTH IN 3 DAYS 12/11/16 10:05 Anaerobic Blood Culture - Final Resulted Blood Peripheral QNS - SEE AEROBE REPORT 12/11/16 09:30 Stool Occult Blood (KAYLEEN) - Final Complete Stool Stool HEMOCCULT NEGATIVE 12/11/16 04:50 Urine Culture - Final Complete Urine Catheterized Urine NO GROWTH IN 48 HOURS. 12/11/16 01:30 Gram Stain - Final Complete Sputum Endotracheal 12/11/16 01:30 Sputum Culture - Final Complete Staphylococcus Aureus Problem Qualifiers (1) Convulsions/seizures: Qualified Code: R56.9 - Convulsions, unspecified convulsion type (2) DM polyneuropathy: Qualified Code: E13.42 - Diabetic polyneuropathy associated with other specified diabetes mellitus Martinez Garland MD Dec 14, 2016 12:01
--- NOTE | 2016-12-14 14:40 | PD.CONS ---
HPI History of Present Illness This is a 46 year old male with hx DM, brought by EMS after witnessed cardiac arrest along with seizure. He developed encephalopathy. Has failed CPAP trials. GI has been consulted for PEG tube placement. Per pt's mother who is at bedside, no hx GI issues, never had EGD or colonoscopy. Formerly was a heavy drinker. Hx obtained from pt's mother, EMR. (Erin Saab) PFSH Past Medical History DM Past Surgical History knee surgery (Erin Saab) Coded Allergies: UNOBTAINABLE (Unverified , 12/02/16) Family History CVD, DM, lung ca Social History formerly heavy drinker no tobacco or illicit drug use (Erin Saab) Review of Systems ROS noncontributory on vent (Erin Saab) GI Exam Vitals I&O Vital Signs Date Time Temp Pulse Resp B/P Pulse Ox O2 Delivery O2 Flow Rate FiO2 12/14/16 12:00 80 12/14/16 12:00 75 12/14/16 12:00 99.1 80 18 117/63 97 12/14/16 11:57 98 75 12/14/16 11:00 75 8 106/64 98 12/14/16 10:00 78 14 107/55 97 12/14/16 10:00 78 12/14/16 09:00 100 6 161/78 91 12/14/16 08:00 100.2 93 17 131/64 90 12/14/16 08:00 65 12/14/16 08:00 79 12/14/16 07:24 92 50 12/14/16 07:00 87 7 122/62 94 12/14/16 06:00 87 12/14/16 04:09 93 50 12/14/16 04:00 86 12/14/16 04:00 65 12/14/16 04:00 99.6 86 22 117/62 98 12/14/16 02:00 100 12/14/16 01:10 97 50 12/14/16 00:00 109 12/14/16 00:00 65 12/14/16 00:00 100.6 109 24 117/62 98 12/13/16 22:00 103 12/13/16 21:51 98 50 12/13/16 20:00 65 12/13/16 20:00 100 12/13/16 20:00 99.7 101 24 98/54 96 12/13/16 18:00 101 12/13/16 18:00 101 3 97/54 97 12/13/16 17:00 99 21 110/69 98 12/13/16 16:13 98 55 12/13/16 16:00 65 12/13/16 16:00 106 12/13/16 16:00 100.9 106 18 140/83 98 12/13/16 15:00 117 10 134/70 97 I/O 12/13/16 12/13/16 12/13/16 12/14/16 12/14/16 12/14/16 07:00 15:00 23:00 07:00 15:00 23:00 Intake Total 1556 ml 1137 ml 807 ml 241 ml Output Total 2230 ml 1475 ml 1350 ml 2150 ml Balance -674 ml -338 ml -543 ml -1909 ml IV Total 888 ml 637 ml 557 ml 241 ml Tube Feeding 418 ml 200 ml Other 250 ml 300 ml 250 ml Output Urine Total 2230 ml 1475 ml 1100 ml 2150 ml Stool Total 0 ml Peritoneal Fluid 250 ml # Bowel Movements 0 0 0 0 Imaging Last Impressions Chest X-Ray 12/13/16 0000 Signed Impressions: Service Date/Time: November 12:09 - CONCLUSION: 1. Persistent bilateral airspace disease, left greater than right. There may be slight interval improved aeration in the left upper lung, however. 2. Interval removal of the endotracheal and nasogastric tubes with placement of a tracheostomy as above. Anand Ni MD Abdomen X-Ray 12/13/16 0000 Signed Impressions: Service Date/Time: November 13:01 - CONCLUSION: Dobbhoff tube has its tip in the distal stomach. Jose De Jesus Macdonald MD Cervical Spine MRI 12/10/16 0000 Signed Impressions: Service Date/Time: Saturday, December 10, 2016 18:11 - CONCLUSION: 1. Tiny central protrusion at C3-4 and minimal broad-based protrusion at C4-5 without canal stenosis. 2. MR cervical spine is otherwise unremarkable. Hesham Lemus MD Brain MRI 12/10/16 0000 Signed Impressions: Service Date/Time: Saturday, December 10, 2016 18:11 - CONCLUSION: 1. Cerebral atrophy and chronic ischemic small vessel vasculopathy. 2. No ischemic changes. Hesham Lemus MD Cervical Spine CT 12/02/16 1140 Signed Impressions: Service Date/Time: Friday, December 02, 2016 12:09 - CONCLUSION: No acute disease. Stepan Guadalupe MD Head CT 12/02/16 1132 Signed Impressions: Service Date/Time: Friday, December 02, 2016 12:09 - CONCLUSION: No acute disease. No evidence of acute infarct, hemorrhage, mass or edema. Stepan Guadalupe MD CT Angiography 12/02/16 1132 Signed Impressions: Service Date/Time: Friday, December 02, 2016 12:09 - CONCLUSION: 1. No evidence of acute pulmonary embolism. 2. Posterior bibasilar airspace disease. 3. No evidence of suspicious mass or lymphadenopathy. Stepan Guadalupe MD Laboratory Test 12/14/16 12/14/16 12/14/16 02:34 04:45 08:29 Activated Partial 26.1 SEC 26.1 SEC Thromboplast Time White Blood Count 15.1 TH/MM3 Red Blood Count 3.42 MIL/MM3 Hemoglobin 9.8 GM/DL Hematocrit 29.6 % Mean Corpuscular Volume 86.8 FL Mean Corpuscular Hemoglobin 28.8 PG Mean Corpuscular Hemoglobin 33.2 % Concent Red Cell Distribution Width 15.2 % Platelet Count 537 TH/MM3 Mean Platelet Volume 7.4 FL Sodium Level 142 MEQ/L Potassium Level 3.6 MEQ/L Chloride Level 100 MEQ/L Carbon Dioxide Level 33.3 MEQ/L Anion Gap 9 MEQ/L Blood Urea Nitrogen 32 MG/DL Creatinine 1.01 MG/DL Estimat Glomerular Filtration 79 ML/MIN Rate Random Glucose 240 MG/DL Calcium Level 8.8 MG/DL Date/Time Procedure Status Source Growth 12/11/16 10:05 Aerobic Blood Culture - Preliminary Resulted Blood Peripheral NO GROWTH IN 3 DAYS 12/11/16 10:05 Anaerobic Blood Culture - Final Resulted Blood Peripheral QNS - SEE AEROBE REPORT 12/11/16 09:30 Stool Occult Blood (KAYLEEN) - Final Complete Stool Stool HEMOCCULT NEGATIVE 12/11/16 04:50 Urine Culture - Final Complete Urine Catheterized Urine NO GROWTH IN 48 HOURS. 12/11/16 01:30 Gram Stain - Final Complete Sputum Endotracheal 12/11/16 01:30 Sputum Culture - Final Complete Staphylococcus Aureus Physical Examination HEENT: normocephalic; atraumatic; no jaundice. trach to vent CHEST: CTA CARDIAC: RRR ABDOMEN: Soft, nondistended; no hepatosplenomegaly; bowel sounds faint. EXTREMITIES: generalized edema SKIN: Normal; no rash; no jaundice. CERTIFIED FAMILY MEDIATOR: on vent (Erin Saab) Assessment and Plan Plan ASSESSMENT - dysphagia - prison mech ventilation. pt suffered cardiac arrest. currently receiving TF via NGT. discussed PEG tube placement with and she is not sure at this time and would like to think about it over the weekend. Elvia Gomes [phone] PLAN - await 's decision - supportive care - will continue to follow This pt seen by myself and Dr Saravia and this note is written on his behalf ( Erin Saab) Physician Comments Patient seen and examined Agree with above Continue with current supportive care Monitor labs Await decision for PEG placement (Dane Saravia MD) Erin Saab Dec 14, 2016 14:40 Dane Saravia MD Dec 14, 2016 19:50
[2016-12-14] MEDS: HALOPERIDOL LACTATE 5 MG/ML AMP IV PUSH PRN (14:58)
[2016-12-14 18:31] LABS: APTT (PATIENT) 25.7 SEC (24.3-30.1)
[2016-12-15] VITALS (30 sets, daily range): BP systolic 91–125; BP diastolic 50–68; PULSE 79–92; RESP 5–29; TEMP 100.2–101; O2SAT 89–99
[2016-12-15] MEDS: INSULIN NovoLIN REGULAR SUPPLEMENTAL SCALE SQ SCH ×4 (02:00→20:00)
[2016-12-15] MEDS: CLINDAMYCIN 150 MG CAP PO SCH ×4 (03:16→21:01)
[2016-12-15] MEDS: FUROSEMIDE 40 MG/4 ML VIAL IV PUSH SCH ×2 (03:16→13:13)
[2016-12-15] MEDS: PROPRANOLOL HCL 40 MG TAB PO SCH ×4 (03:16→21:01)
[2016-12-15] MEDS: CHLORHEXIDINE GLUCONATE 2 % 1 PACK (2 CLOTHS) TOP SCH (03:17)
[2016-12-15] MEDS: HALOPERIDOL LACTATE 5 MG/ML AMP IV PUSH PRN (03:19)
[2016-12-15] MEDS: RESP: ALBUTEROL 2.5 MG/IPRATROPIUM 0.5 MG NEB (SCH) NEB ×6 (03:28→23:40)
[2016-12-15 04:02] LABS: BICARBONATE 37.1 MEQ/L (21.0-32.0); MAGNESIUM 2.3 MG/DL (1.5-2.5); POTASSIUM 3.6 MEQ/L (3.5-5.1)
[2016-12-15 04:03] LABS: APTT (PATIENT) 29.9 SEC (24.3-30.1)
[2016-12-15 04:08] LABS: BASOPHIL # 0.2 TH/MM3 (0-0.2); BASOPHIL % 0.8 % (0.0-2.0); EOSINOPHIL # 0.1 TH/MM3 (0-0.4); EOSINOPHIL % 0.6 % (0.0-4.0); HEMATOCRIT 27.6 % (39.0-51.0); HEMO FLAGS DIFF FINAL; LYMPH % 6.1 % (9.0-44.0); LYMPHOCYTE # 1.1 TH/MM3 (1.0-4.8); MEAN CELL VOLUME 84.5 FL (80.0-100.0); MEAN CORPUSCULAR HEMOGLOBIN 28.9 PG (27.0-34.0); MEAN CORPUSCULAR HGB CONC 34.2 % (32.0-36.0); MONO % 7.5 % (0.0-8.0); PLATELET COUNT 605 TH/MM3 (150-450); RED BLOOD COUNT 3.26 MIL/MM3 (4.50-5.90); RED CELL DISTRIBUTION WIDTH 14.5 % (11.6-17.2); WHITE BLOOD COUNT 18.8 TH/MM3 (4.0-11.0)
[2016-12-15] MEDS: QUEtiapine FUMARATE 25 MG TAB PO SCH ×3 (06:19→21:27)
[2016-12-15] MEDS: HEPARIN-D5W INJ 250 ML IV SCH ×2 (06:20→19:05)
--- NOTE | 2016-12-15 08:08 | HHI.CCPN ---
Subjective Remarks/Hospital Course Patient is a 46-year-old male with history of diabetes, neuropathy, Charcot foot to the left, hyperlipidemia, presents to emergency room after he had a witnessed cardiac arrest at home. Per patient's he complained of dizziness this morning. He went to the garage to get something and then walked back into the kitchen. Shortly afterwards the was heard a loud thud. She rushed to the kitchen and found the patient collapsed on the floor, with seizure -like activity of the upper extremities. EMS was called immediately and the got to the house within 5-10 minutes of the call, patient was in asystole upon arrival. ACLS protocol was initiated in the field. Patient was intubated using a combitube. Patient was given 2 rounds of epi and had ROSC. EMS reported that patient was also coughing up blood. Blood sugar at the scene was 63, for which he got dextrose. In the emergency department Combitube was removed, patient was intubated using a 8.0 ETT. EKG: No acute changes. Initial neuro exam was very poor per Dr. Hutchinson. No spontaneous movements noted, patient had a gag reflex. Also he was biting on the teeth otherwise no purposeful movements noted. To facilitate imaging studies patient received 10 mg of vecuronium as he was biting down the ET tube. CT of the head and CT pulmonary angiogram was negative for any acute findings. I evaluated the patient in the emergency department approximately 30 minutes after vecuronium was given. Patient still was neuromuscularly paralyzed. The history of probable witnessed seizures was conformed with the . I asked for a stat EEG. Once in the ICU Stat EEG was done which showed severe encephalopathy. Given the EEG findings and for neuro exam by the ER physician, I discussed with regarding induced hypothermia protocol for neuro protection. Patient was still within the window for induced hypothermia and was agreeable. I proceeded with placing the heat exchange catheter in the right groin. Towards completion of the procedure patient started having tonic clonic movements of the bilateral lower extremity. 4 mg IV push of Ativan was given emergently following which he stopped seizure -like activity. Patient will be loaded with Cerebyx, and continued on Dilantin. CT of the head was negative for any acute findings SUBJ 12/03/16: Achieved target temperature 8 PM yesterday. Currently sedated intubated and neuromuscularly paralyzed. EEG yesterday -no seizure activity, very low amplitude background but appears normal per Dr. Christensen 12/04: Patient is currently in rewarming phase. Nimbex was DCd at 0900 and while sedation was being weaned off, patient developed tonic-clonic activity probable seizures vs myoclonus. Receiving propofol, get stat EEG, stat MRI and neurology consult. Will give additional 1 g Cerebyx Bolus, also mammogram Keppra bolus and 1 g Every 12 hours will be started 12/04 20:12 Called to patient's bedside because family would like to discuss DNR and goals of care. Multiple family members were at bedside when I arrived to the room however patient's Elvia requested that they leave and that she and patient's mother, Debra, be present alone with me. Reviewed patient's living will which allows for withholding or removing life support, life prolonging treatment, artificially administered food and water in the event of terminal condition, end-stage condition, persistent vegetative state. states that patient would not want compressions, shock, or ACLS drugs in the event of cardiac arrest. She is also refusing tube feeding at this time because she says he told her he would never want that. I discussed that tube feeds could be administered as part of supportive care and that they could be withheld later if it appears his condition is terminal/end stage/ vegetative state. However, it is too early for physicians to make that determination at this time. Nonetheless she is adamant that tube feeds be withheld. I am changing code status to "ALTERNATIVE CODE -INTUBATION ONLY". 12/05: Currently off all sedation. MRI of the brain done yesterday was normal without evidence of anoxic injury. Patient showing neurological improvement. Opens eyes to verbal command appears to track. at bedside updated 12/06: Neurological Exam slowly improving. Opens eyes to command tracks. Purposefully moving upper extremities. Chest x-ray shows increasing bilateral infiltrates left more than right. On Rocephin for MSSA pneumonia 12/07 Patient remains intubated and on Precedex drip for sedation. T;102.2 12/08 No events overnight. Remains intubated and on Precedex drip. Did not tolerate CPAP trials yesterday. T:101.8 12/09 Patient remains intubated and on Precedex and Fentanyl drip for sedation. Still with persistent fevers with Tmax 103.7. Repeat EEG yesterday showed encephalopathy, no ictal activity. 12/10 Patient is sedated with Fentanyl and Precedex , intubated. T:99.8. Did not tolerate CPAP trials yesterday. In Afib with RVR 12/11 No events overnight. On Fentanyl and Precedex drip. T:100.0 at 6 am. MRI brain yesterday showed no ischemic changes. 12/12: continues to fail SBT for mental status and fatigue. no other changes. remains encephalopathic. discussed with plan for possible trach, and she is agreeable. 12/13: encephalopathy persists. Agitation is a large component of his encephalopathy. Endotracheal tube is contributing to this. Plan for tracheostomy today to help aggressively wean him. 12/14 Patient s/p trach yesterday. Tmax 100.9. Sedated with Fentanyl. On Heparin drip. 12/15 Patient is on ventilator via trach. T: 100.4. Off sedation. Objective Vital Signs Date Time Temp Pulse Resp B/P Pulse Ox O2 Delivery O2 Flow Rate FiO2 12/15/16 07:32 98 50 12/15/16 06:00 86 12/15/16 04:01 100.4 26 125/59 Intake and Output 12/14/16 12/14/16 12/15/16 08:00 16:00 00:00 Intake Total 241 ml 1069 ml 921 ml Output Total 2150 ml 1475 ml 1300 ml Balance -1909 ml -406 ml -379 ml Result Diagram: 12/15/16 0322 12/15/16 0322 Other Results Laboratory Tests Test 12/14/16 12/14/16 12/15/16 08:29 16:51 03:22 Activated Partial 26.1 SEC 25.7 SEC 29.9 SEC Thromboplast Time White Blood Count 18.8 TH/MM3 Red Blood Count 3.26 MIL/MM3 Hemoglobin 9.4 GM/DL Hematocrit 27.6 % Mean Corpuscular Volume 84.5 FL Mean Corpuscular Hemoglobin 28.9 PG Mean Corpuscular Hemoglobin 34.2 % Concent Red Cell Distribution Width 14.5 % Platelet Count 605 TH/MM3 Mean Platelet Volume 7.9 FL Neutrophils (%) (Auto) 85.0 % Lymphocytes (%) (Auto) 6.1 % Monocytes (%) (Auto) 7.5 % Eosinophils (%) (Auto) 0.6 % Basophils (%) (Auto) 0.8 % Neutrophils # (Auto) 16.0 TH/MM3 Lymphocytes # (Auto) 1.1 TH/MM3 Monocytes # (Auto) 1.4 TH/MM3 Eosinophils # (Auto) 0.1 TH/MM3 Basophils # (Auto) 0.2 TH/MM3 CBC Comment DIFF FINAL Differential Comment Sodium Level 139 MEQ/L Potassium Level 3.6 MEQ/L Chloride Level 95 MEQ/L Carbon Dioxide Level 37.1 MEQ/L Anion Gap 7 MEQ/L Blood Urea Nitrogen 31 MG/DL Creatinine 0.85 MG/DL Estimat Glomerular Filtration 96 ML/MIN Rate Random Glucose 214 MG/DL Calcium Level 8.6 MG/DL Phosphorus Level 3.0 MG/DL Magnesium Level 2.3 MG/DL Imaging Last Impressions Chest X-Ray 12/13/16 0000 Signed Impressions: Service Date/Time: , December 13, 2016 12:09 - CONCLUSION: 1. Persistent bilateral airspace disease, left greater than right. There may be slight interval improved aeration in the left upper lung, however. 2. Interval removal of the endotracheal and nasogastric tubes with placement of a tracheostomy as above. Anand Ni MD Abdomen X-Ray 12/13/16 0000 Signed Impressions: Service Date/Time: , December 13, 2016 13:01 - CONCLUSION: Dobbhoff tube has its tip in the distal stomach. Jose De Jesus Macdonald MD Cervical Spine MRI 12/10/16 0000 Signed Impressions: Service Date/Time: Saturday, December 10, 2016 18:11 - CONCLUSION: 1. Tiny central protrusion at C3-4 and minimal broad-based protrusion at C4-5 without canal stenosis. 2. MR cervical spine is otherwise unremarkable. Hesham Lemus MD Brain MRI 12/10/16 0000 Signed Impressions: Service Date/Time: Saturday, December 10, 2016 18:11 - CONCLUSION: 1. Cerebral atrophy and chronic ischemic small vessel vasculopathy. 2. No ischemic changes. Hesham Lemus MD Cervical Spine CT 12/02/16 1140 Signed Impressions: Service Date/Time: Friday, December 02, 2016 12:09 - CONCLUSION: No acute disease. Stepan Guadalupe MD Head CT 12/02/16 1132 Signed Impressions: Service Date/Time: Friday, December 02, 2016 12:09 - CONCLUSION: No acute disease. No evidence of acute infarct, hemorrhage, mass or edema. Stepan Guadalupe MD CT Angiography 12/02/16 1132 Signed Impressions: Service Date/Time: Friday, December 02, 2016 12:09 - CONCLUSION: 1. No evidence of acute pulmonary embolism. 2. Posterior bibasilar airspace disease. 3. No evidence of suspicious mass or lymphadenopathy. Stepan Guadalupe MD Objective Remarks GENERAL: Intubated, SKIN: Warm and dry HEAD: Atraumatic. Normocephalic. EYES: Pupils equal and round 3 mm, nonreactive. No scleral icterus. No injection or drainage. ENT: No nasal bleeding or discharge. Trach in place NECK: Trachea midline. No JVD. CARDIOVASCULAR: Regular rate and rhythm. RESPIRATORY: B/L equal air entry with few coarse BS GASTROINTESTINAL: Abdomen soft, non-tender, nondistended. MUSCULOSKELETAL: Boot to left foot for Charcot foot NEUROLOGICAL:Sedated. A/P Assessment and Plan Assessment: 46yM s/p cardiac arrest with severe encephalopathy. not improving on pathway. will need tracheostomy and LTAC for further improvements. NEURO: Encephalopathy ? Hypoxic injury related Seizure Agitated Delirium Fentanyl drip if needed for sedation. Daily sedation vacation. Monitor neuro status. On Seroquel to 50mg q8h meperidine 25mg iv prn for shivering - Haldol 5mg iv q4h prn for breakthrough agitation. - Completed induced hypothermia,. MRI negative for anoxic brain injury -MRI brain 12/10- No ischemic changes - Neurology is following Dr. Garland. Repeat EEG 12/09: Slowing with no ictal activity. - Continue Keppra - EEG 12/02 -no seizure activity, very low amplitude background but appears normal per Dr. Christensen - EEG 12/04 -Intermittent episodes of burst suppression pattern with intermittent sharp wave activity mainly in the right frontal region, may indicate epileptogenicity, mod encephalopathy RESP: Chronic respiratory failure- s/p trach 12/13 MSSA pneumonia - Continue with vent support keep sat >92% - Ventilator bundle, DuoNeb every 6 hours and when necessary - Pulm toilet, trach care, check CXR - Daily SBT CV: Asystole, unclear etiology Fluid overload/pulmonary edema- acute, worsening, 17kg up from admission Afib with RVR _Monitor HR and BP keep MAP>65mmHg,on, Cardizem 30mg QID, Propranolol 40mg po q6h -Heparin drip for Afib, MRI brain - no hemorrhage or ischemic changes - Etiology of cardiac arrest remains unclear at this time, serial cardiac enzymes showed only minor elevation - Very mild troponin elevation secondary to cardiac arrest. - 2-D echo normal EF, mild anterior MVP, CT pulmonary angiogram was negative for acute PE - Lasix 40mg iv q12h. GI: - IV Protonix for GI prophylaxis -Continue with tube feeds On Glucerna 1.5 @50ml/hr GI consulted for PEG tube placement : Acute kidney injury-resolved - Monitor renal function, I/O's, electrolytes replacement per protocol. -d/c Free water ID: MSSA pneumonia Persistent fevers.. -Continue abx per ID- Clindamycin till 12/17. Monitor for signs of infections ( Fever, WBC) Sputum cx 12/02, 12/11 staph Aures sensitive to Rocephin recheck sputum cx Cdiff negative. ENDO: Hyperglycemia Type 2 diabetes - SSI(High scale) Levemir 14units BID for glycemic control PROPH: - Bilateral lower extremity SCDs. heparin drip, Protonix Level 3 Pippa Jerez MD Dec 15, 2016 08:08
--- NOTE | 2016-12-15 08:46 | RADRPT ---
EXAM DATE/TIME: 12/15/2016 08:10 [facility] COMPARISON: CHEST SINGLE AP, December 13, 2016, 12:09. INDICATIONS : Shortness of breath. MEDICAL HISTORY : Diabetes mellitus type 2. Hypercholesterolemia. SURGICAL HISTORY : Insulin pump placement. ENCOUNTER: Subsequent ACUITY: 1 week PAIN SCORE: Non-responsive. LOCATION: Bilateral chest FINDINGS: Trach tube is in good position. The right lung is clearing. Patchy airspace disease is present on t he left. This is slowly improving as well. The heart and pulmonary vascularity are normal. CONCLUSION: Minimal improvement as described above. Miguel San MD FACR on December 15, 2016 at 8:43 Board Certified Radiologist. This report was verified electronically.
[2016-12-15] MEDS: DILTIAZEM HCL 30 MG TAB PO SCH ×4 (08:50→21:01)
[2016-12-15] MEDS: BENEPROTEIN POWDER 1 PACK G-TUBE SCH ×3 (08:50→17:35)
[2016-12-15] MEDS: CHLORHEXIDINE 0.12% (ORAL KIT) 15 ML CUP MT SCH ×2 (08:50→21:02)
[2016-12-15] MEDS: levETIRAcetam 1000 MG INJ 100 ML IV SCH ×2 (08:50→21:01)
[2016-12-15] MEDS: ASPIRIN 325 MG TAB PO SCH (08:51)
[2016-12-15] MEDS: SODIUM CHLORIDE 0.9% FLUSH 10 ML FLUSH IV FLUSH SCH ×2 (08:51→21:23)
[2016-12-15] MEDS: PANTOPRAZOLE SODIUM 40 MG VIAL IV SCH (08:51)
[2016-12-15] MEDS: ARTIFICIAL TEARS OPTH SOLN 15 ML BTL EACH EYE SCH ×2 (08:51→21:01)
[2016-12-15] MEDS: INSULIN DETEMIR 100 UNITS/ML VIAL SQ SCH ×2 (08:53→20:59)
--- NOTE | 2016-12-15 13:11 | HHI.GIFU ---
Subjective Remarks patient is in bed, vented through trach, awake. by bed side, still not sure about having PEG, still thinking about it. (Maya Thapa) Objective Vitals I&O Vital Signs Date Time Temp Pulse Resp B/P Pulse Ox O2 Delivery O2 Flow Rate FiO2 12/15/16 12:00 100.4 83 9 94/55 98 12/15/16 12:00 50 12/15/16 12:00 85 12/15/16 11:35 99 50 12/15/16 11:01 80 8 91/54 91 12/15/16 11:00 80 21 95 12/15/16 10:00 79 17 98/58 97 12/15/16 10:00 79 12/15/16 09:00 90 21 112/55 92 12/15/16 08:00 55 12/15/16 08:00 90 12/15/16 08:00 100.2 90 24 108/64 90 12/15/16 07:56 88 28 102/61 89 12/15/16 07:32 98 50 12/15/16 07:00 86 18 109/51 93 12/15/16 06:31 85 16 106/53 95 12/15/16 06:00 86 12/15/16 06:00 86 21 116/54 96 12/15/16 05:30 86 9 118/58 96 12/15/16 05:04 90 28 116/55 95 12/15/16 05:00 90 25 89 12/15/16 04:01 100.4 86 26 125/59 94 12/15/16 04:00 85 12/15/16 04:00 70 12/15/16 03:30 96 70 12/15/16 02:00 92 12/15/16 00:00 100.4 87 29 123/68 95 12/15/16 00:00 87 12/15/16 00:00 70 12/14/16 23:12 97 70 12/14/16 22:00 83 12/14/16 20:00 88 12/14/16 20:00 99.3 88 24 118/70 94 12/14/16 20:00 70 12/14/16 19:24 96 70 12/14/16 18:00 84 12/14/16 18:00 84 5 117/62 97 12/14/16 17:00 82 0 104/56 98 12/14/16 16:00 100.7 89 3 117/59 94 12/14/16 16:00 89 12/14/16 16:00 75 12/14/16 15:36 96 70 12/14/16 15:00 84 46 123/56 99 12/14/16 14:00 79 22 118/65 95 12/14/16 14:00 79 I/O 12/14/16 12/14/16 12/14/16 12/15/16 12/15/16 12/15/16 06:59 14:59 22:59 06:59 14:59 22:59 Intake Total 241 ml 1069 ml 921 ml 591 ml Output Total 2150 ml 1475 ml 1300 ml 1900 ml Balance -1909 ml -406 ml -379 ml -1309 ml IV Total 241 ml 236 ml 255 ml 139 ml Tube Feeding 383 ml 416 ml 332 ml Other 450 ml 250 ml 120 ml Output Urine Total 2150 ml 1475 ml 1300 ml 1900 ml Stool Total 0 ml 0 ml # Bowel Movements 0 0 1 Laboratory Laboratory Tests Test 12/14/16 12/15/16 16:51 03:22 Activated Partial 25.7 29.9 Thromboplast Time White Blood Count 18.8 Red Blood Count 3.26 Hemoglobin 9.4 Hematocrit 27.6 Mean Corpuscular Volume 84.5 Mean Corpuscular Hemoglobin 28.9 Mean Corpuscular Hemoglobin 34.2 Concent Red Cell Distribution Width 14.5 Platelet Count 605 Mean Platelet Volume 7.9 Neutrophils (%) (Auto) 85.0 Lymphocytes (%) (Auto) 6.1 Monocytes (%) (Auto) 7.5 Eosinophils (%) (Auto) 0.6 Basophils (%) (Auto) 0.8 Neutrophils # (Auto) 16.0 Lymphocytes # (Auto) 1.1 Monocytes # (Auto) 1.4 Eosinophils # (Auto) 0.1 Basophils # (Auto) 0.2 CBC Comment DIFF FINAL Differential Comment Sodium Level 139 Potassium Level 3.6 Chloride Level 95 Carbon Dioxide Level 37.1 Anion Gap 7 Blood Urea Nitrogen 31 Creatinine 0.85 Estimat Glomerular Filtration 96 Rate Random Glucose 214 Calcium Level 8.6 Phosphorus Level 3.0 Magnesium Level 2.3 Date/Time Procedure Status Source Growth 12/11/16 10:05 Aerobic Blood Culture - Preliminary Resulted Blood Peripheral NO GROWTH IN 4 DAYS 12/11/16 10:05 Anaerobic Blood Culture - Final Resulted Blood Peripheral QNS - SEE AEROBE REPORT 12/11/16 09:30 Stool Occult Blood (KAYLEEN) - Final Complete Stool Stool HEMOCCULT NEGATIVE 12/11/16 04:50 Urine Culture - Final Complete Urine Catheterized Urine NO GROWTH IN 48 HOURS. 12/11/16 01:30 Gram Stain - Final Complete Sputum Endotracheal 12/11/16 01:30 Sputum Culture - Final Complete Staphylococcus Aureus Imaging Last Impressions Chest X-Ray 12/15/16 0000 Signed Impressions: Service Date/Time: Thursday, December 15, 2016 08:10 - CONCLUSION: Minimal improvement as described above. Miguel San MD FACR Abdomen X-Ray 12/13/16 0000 Signed Impressions: Service Date/Time: , December 13, 2016 13:01 - CONCLUSION: Dobbhoff tube has its tip in the distal stomach. Jose De Jesus Macdonald MD Cervical Spine MRI 12/10/16 0000 Signed Impressions: Service Date/Time: Saturday, December 10, 2016 18:11 - CONCLUSION: 1. Tiny central protrusion at C3-4 and minimal broad-based protrusion at C4-5 without canal stenosis. 2. MR cervical spine is otherwise unremarkable. Hesham Lemus MD Brain MRI 12/10/16 0000 Signed Impressions: Service Date/Time: Saturday, December 10, 2016 18:11 - CONCLUSION: 1. Cerebral atrophy and chronic ischemic small vessel vasculopathy. 2. No ischemic changes. Hesham Lemus MD Cervical Spine CT 12/02/16 1140 Signed Impressions: Service Date/Time: Friday, December 02, 2016 12:09 - CONCLUSION: No acute disease. Stepan Guadalupe MD Head CT 12/02/16 1132 Signed Impressions: Service Date/Time: Friday, December 02, 2016 12:09 - CONCLUSION: No acute disease. No evidence of acute infarct, hemorrhage, mass or edema. Stepan Guadalupe MD CT Angiography 12/02/16 1132 Signed Impressions: Service Date/Time: Friday, December 02, 2016 12:09 - CONCLUSION: 1. No evidence of acute pulmonary embolism. 2. Posterior bibasilar airspace disease. 3. No evidence of suspicious mass or lymphadenopathy. Stepan Guadalupe MD Physical Exam HEENT: normocephalic; atraumatic; no jaundice. trach NECK: trach CHEST: Chest is clear to auscultation and percussion. CARDIAC: Regular rate and rhythm with no murmur gallop or rubs. ABDOMEN: Soft, nondistended, nontender; no hepatosplenomegaly; bowel sounds are present in all four quadrants. EXTREMITIES: Gen. edema. SKIN: Normal; no rash; no jaundice. FORESTRY PATROLMAN: awake, vented (Maya Thapa) Assessment and Plan Plan ASSESSMENT - dysphagia - detention [facility] ventilation. pt suffered cardiac arrest. currently receiving TF via NGT. at bed side, still not sure about having PEG placed, and would like more time to think about it PLAN - await 's decision - Possible EGD/PEG on Saturday if ok with - supportive care - will continue to follow This pt seen by myself and Dr Saravia and this note is written on his behalf ( Maya Thapa) Physician Comments Patient seen and examined Agree with above Continue with current supportive care Monitor labs Await decision by family for PEG placement (Dane Saravia MD) Maya Thapa Dec 15, 2016 13:11 Dane Saravia MD Dec 15, 2016 18:12
[2016-12-15 13:52] LABS: APTT (PATIENT) 33.4 SEC (24.3-30.1)
[2016-12-15 21:44] LABS: APTT (PATIENT) 30.1 SEC (24.3-30.1)
[2016-12-16] VITALS (29 sets, daily range): BP systolic 97–124; BP diastolic 53–65; PULSE 68–82; RESP 0–32; TEMP 99.1–100.8; O2SAT 89–99
[2016-12-16] MEDS: INSULIN NovoLIN REGULAR SUPPLEMENTAL SCALE SQ SCH ×5 (02:00→22:00)
[2016-12-16] MEDS: FUROSEMIDE 40 MG/4 ML VIAL IV PUSH SCH ×2 (02:57→14:35)
[2016-12-16] MEDS: CHLORHEXIDINE GLUCONATE 2 % 1 PACK (2 CLOTHS) TOP SCH (02:57)
[2016-12-16] MEDS: CLINDAMYCIN 150 MG CAP PO SCH ×4 (02:57→22:17)
[2016-12-16] MEDS: PROPRANOLOL HCL 40 MG TAB PO SCH ×4 (03:00→22:17)
[2016-12-16] MEDS: RESP: ALBUTEROL 2.5 MG/IPRATROPIUM 0.5 MG NEB (SCH) NEB ×6 (03:10→23:44)
[2016-12-16 03:49] LABS: AUTOMATED NEUTROPHIL # 10.8 TH/MM3 (1.8-7.7); BASOPHIL # 0.1 TH/MM3 (0-0.2); BASOPHIL % 0.5 % (0.0-2.0); EOSINOPHIL # 0.1 TH/MM3 (0-0.4); HEMATOCRIT 24.6 % (39.0-51.0); LYMPH % 11.8 % (9.0-44.0); LYMPHOCYTE # 1.6 TH/MM3 (1.0-4.8); MEAN CELL VOLUME 84.7 FL (80.0-100.0); MEAN CORPUSCULAR HEMOGLOBIN 29.4 PG (27.0-34.0); MEAN CORPUSCULAR HGB CONC 34.7 % (32.0-36.0); MONO % 8.6 % (0.0-8.0); NEUT % 78.1 % (16.0-70.0); PLATELET COUNT 581 TH/MM3 (150-450); RED BLOOD COUNT 2.91 MIL/MM3 (4.50-5.90); RED CELL DISTRIBUTION WIDTH 14.3 % (11.6-17.2); WHITE BLOOD COUNT 13.8 TH/MM3 (4.0-11.0)
[2016-12-16 03:50] LABS: HEMO FLAGS AUTO DIFF
[2016-12-16 03:57] LABS: APTT (PATIENT) 37.1 SEC (24.3-30.1)
[2016-12-16 04:12] LABS: PLATELET ESTIMATE SMEAR HIGH (NORMAL); PLATELET MORPHOLOGY NORMAL (NORMAL); SCAN/DIFF AUTO DIFF CONFIRMED; TARGET CELLS 1+ (NORMAL)
[2016-12-16 04:17] LABS: BICARBONATE 39.4 MEQ/L (21.0-32.0); POTASSIUM 3.3 MEQ/L (3.5-5.1)
[2016-12-16] MEDS: QUEtiapine FUMARATE 25 MG TAB PO SCH ×3 (05:19→22:16)
[2016-12-16] MEDS: POTASSIUM CHLOR 20 MEQ PREMIX 100 ML IV PRN ×3 (05:19→07:14)
[2016-12-16] MEDS: HEPARIN-D5W INJ 250 ML IV SCH (05:50)
--- NOTE | 2016-12-16 07:58 | HHI.CCPN ---
Subjective Remarks/Hospital Course Patient is a 46-year-old male with history of diabetes, neuropathy, Charcot foot to the left, hyperlipidemia, presents to emergency room after he had a witnessed cardiac arrest at home. Per patient's he complained of dizziness this morning. He went to the garage to get something and then walked back into the kitchen. Shortly afterwards the was heard a loud thud. She rushed to the kitchen and found the patient collapsed on the floor, with seizure -like activity of the upper extremities. EMS was called immediately and the got to the house within 5-10 minutes of the call, patient was in asystole upon arrival. ACLS protocol was initiated in the field. Patient was intubated using a combitube. Patient was given 2 rounds of epi and had ROSC. EMS reported that patient was also coughing up blood. Blood sugar at the scene was 63, for which he got dextrose. In the emergency department Combitube was removed, patient was intubated using a 8.0 ETT. EKG: No acute changes. Initial neuro exam was very poor per Dr. Hutchinson. No spontaneous movements noted, patient had a gag reflex. Also he was biting on the teeth otherwise no purposeful movements noted. To facilitate imaging studies patient received 10 mg of vecuronium as he was biting down the ET tube. CT of the head and CT pulmonary angiogram was negative for any acute findings. I evaluated the patient in the emergency department approximately 30 minutes after vecuronium was given. Patient still was neuromuscularly paralyzed. The history of probable witnessed seizures was conformed with the . I asked for a stat EEG. Once in the ICU Stat EEG was done which showed severe encephalopathy. Given the EEG findings and for neuro exam by the ER physician, I discussed with regarding induced hypothermia protocol for neuro protection. Patient was still within the window for induced hypothermia and was agreeable. I proceeded with placing the heat exchange catheter in the right groin. Towards completion of the procedure patient started having tonic clonic movements of the bilateral lower extremity. 4 mg IV push of Ativan was given emergently following which he stopped seizure -like activity. Patient will be loaded with Cerebyx, and continued on Dilantin. CT of the head was negative for any acute findings SUBJ 12/03/16: Achieved target temperature 8 PM yesterday. Currently sedated intubated and neuromuscularly paralyzed. EEG yesterday -no seizure activity, very low amplitude background but appears normal per Dr. Christensen 12/04: Patient is currently in rewarming phase. Nimbex was DCd at 0900 and while sedation was being weaned off, patient developed tonic-clonic activity probable seizures vs myoclonus. Receiving propofol, get stat EEG, stat MRI and neurology consult. Will give additional 1 g Cerebyx Bolus, also mammogram Keppra bolus and 1 g Every 12 hours will be started 12/04 20:12 Called to patient's bedside because family would like to discuss DNR and goals of care. Multiple family members were at bedside when I arrived to the room however patient's Elvia requested that they leave and that she and patient's mother, Debra, be present alone with me. Reviewed patient's living will which allows for withholding or removing life support, life prolonging treatment, artificially administered food and water in the event of terminal condition, end-stage condition, persistent vegetative state. states that patient would not want compressions, shock, or ACLS drugs in the event of cardiac arrest. She is also refusing tube feeding at this time because she says he told her he would never want that. I discussed that tube feeds could be administered as part of supportive care and that they could be withheld later if it appears his condition is terminal/end stage/ vegetative state. However, it is too early for physicians to make that determination at this time. Nonetheless she is adamant that tube feeds be withheld. I am changing code status to "ALTERNATIVE CODE -INTUBATION ONLY". 12/05: Currently off all sedation. MRI of the brain done yesterday was normal without evidence of anoxic injury. Patient showing neurological improvement. Opens eyes to verbal command appears to track. at bedside updated 12/06: Neurological Exam slowly improving. Opens eyes to command tracks. Purposefully moving upper extremities. Chest x-ray shows increasing bilateral infiltrates left more than right. On Rocephin for MSSA pneumonia 12/07 Patient remains intubated and on Precedex drip for sedation. T;102.2 12/08 No events overnight. Remains intubated and on Precedex drip. Did not tolerate CPAP trials yesterday. T:101.8 12/09 Patient remains intubated and on Precedex and Fentanyl drip for sedation. Still with persistent fevers with Tmax 103.7. Repeat EEG yesterday showed encephalopathy, no ictal activity. 12/10 Patient is sedated with Fentanyl and Precedex , intubated. T:99.8. Did not tolerate CPAP trials yesterday. In Afib with RVR 12/11 No events overnight. On Fentanyl and Precedex drip. T:100.0 at 6 am. MRI brain yesterday showed no ischemic changes. 12/12: continues to fail SBT for mental status and fatigue. no other changes. remains encephalopathic. discussed with plan for possible trach, and she is agreeable. 12/13: encephalopathy persists. Agitation is a large component of his encephalopathy. Endotracheal tube is contributing to this. Plan for tracheostomy today to help aggressively wean him. 12/14 Patient s/p trach yesterday. Tmax 100.9. Sedated with Fentanyl. On Heparin drip. 12/15 Patient is on ventilator via trach. T: 100.4. Off sedation. 12/16 No events overnight. On ACV PEEP:8 and FIO2 50%. Tmax 101 Objective Vital Signs Date Time Temp Pulse Resp B/P Pulse Ox O2 Delivery O2 Flow Rate FiO2 12/16/16 06:00 74 12/16/16 05:13 95 50 12/16/16 04:00 100.7 1 114/55 Intake and Output 12/15/16 12/15/16 12/16/16 08:00 16:00 00:00 Intake Total 591 ml 744 ml 706 ml Output Total 1900 ml 525 ml 1150 ml Balance -1309 ml 219 ml -444 ml Result Diagram: 12/16/16 0336 12/16/16 0336 Other Results Laboratory Tests Test 12/15/16 12/15/16 12/16/16 13:17 19:49 03:36 Activated Partial 33.4 SEC 30.1 SEC 37.1 SEC Thromboplast Time White Blood Count 13.8 TH/MM3 Red Blood Count 2.91 MIL/MM3 Hemoglobin 8.5 GM/DL Hematocrit 24.6 % Mean Corpuscular Volume 84.7 FL Mean Corpuscular Hemoglobin 29.4 PG Mean Corpuscular Hemoglobin 34.7 % Concent Red Cell Distribution Width 14.3 % Platelet Count 581 TH/MM3 Mean Platelet Volume 7.4 FL Neutrophils (%) (Auto) 78.1 % Lymphocytes (%) (Auto) 11.8 % Monocytes (%) (Auto) 8.6 % Eosinophils (%) (Auto) 1.0 % Basophils (%) (Auto) 0.5 % Neutrophils # (Auto) 10.8 TH/MM3 Lymphocytes # (Auto) 1.6 TH/MM3 Monocytes # (Auto) 1.2 TH/MM3 Eosinophils # (Auto) 0.1 TH/MM3 Basophils # (Auto) 0.1 TH/MM3 CBC Comment AUTO DIFF Differential Comment AUTO DIFF CONFIRMED Platelet Estimate HIGH Platelet Morphology Comment NORMAL Target Cells 1+ Sodium Level 137 MEQ/L Potassium Level 3.3 MEQ/L Chloride Level 90 MEQ/L Carbon Dioxide Level 39.4 MEQ/L Anion Gap 8 MEQ/L Blood Urea Nitrogen 34 MG/DL Creatinine 1.04 MG/DL Estimat Glomerular Filtration 76 ML/MIN Rate Random Glucose 321 MG/DL Calcium Level 8.6 MG/DL Imaging Last Impressions Chest X-Ray 12/15/16 0000 Signed Impressions: Service Date/Time: Thursday, December 15, 2016 08:10 - CONCLUSION: Minimal improvement as described above. Miguel San MD FACR Abdomen X-Ray 12/13/16 0000 Signed Impressions: Service Date/Time: , December 13, 2016 13:01 - CONCLUSION: Dobbhoff tube has its tip in the distal stomach. Jose De Jesus Macdonald MD Cervical Spine MRI 12/10/16 0000 Signed Impressions: Service Date/Time: Saturday, December 10, 2016 18:11 - CONCLUSION: 1. Tiny central protrusion at C3-4 and minimal broad-based protrusion at C4-5 without canal stenosis. 2. MR cervical spine is otherwise unremarkable. Hesham Lemus MD Brain MRI 12/10/16 0000 Signed Impressions: Service Date/Time: Saturday, December 10, 2016 18:11 - CONCLUSION: 1. Cerebral atrophy and chronic ischemic small vessel vasculopathy. 2. No ischemic changes. Hesham Lemus MD Cervical Spine CT 12/02/16 1140 Signed Impressions: Service Date/Time: Saturday, December 02, 2016 12:09 - CONCLUSION: No acute disease. Stepan Guadalupe MD Head CT 12/02/16 1132 Signed Impressions: Service Date/Time: Friday, December 02, 2016 12:09 - CONCLUSION: No acute disease. No evidence of acute infarct, hemorrhage, mass or edema. Stepan Guadalupe MD CT Angiography 12/02/16 1132 Signed Impressions: Service Date/Time: Friday, December 02, 2016 12:09 - CONCLUSION: 1. No evidence of acute pulmonary embolism. 2. Posterior bibasilar airspace disease. 3. No evidence of suspicious mass or lymphadenopathy. Stepan Guadalupe MD Objective Remarks GENERAL: Intubated, SKIN: Warm and dry HEAD: Atraumatic. Normocephalic. EYES: Pupils equal and round 3 mm, nonreactive. No scleral icterus. No injection or drainage. ENT: No nasal bleeding or discharge. Trach in place NECK: Trachea midline. No JVD. CARDIOVASCULAR: Regular rate and rhythm. RESPIRATORY: B/L equal air entry with few coarse BS GASTROINTESTINAL: Abdomen soft, non-tender, nondistended. MUSCULOSKELETAL: Boot to left foot for Charcot foot NEUROLOGICAL:Sedated. A/P Assessment and Plan Assessment: 46yM s/p cardiac arrest with severe encephalopathy. not improving on pathway. will need tracheostomy and LTAC for further improvements. NEURO: Encephalopathy ? Hypoxic injury related Seizure Agitated Delirium Off sedation ,Monitor neuro status. On Seroquel to 50mg q8h meperidine 25mg iv prn for shivering - Haldol 5mg iv q4h prn for breakthrough agitation. - Completed induced hypothermia,. MRI negative for anoxic brain injury -MRI brain 12/10- No ischemic changes - Neurology is following Dr. Garland. Repeat EEG 12/09: Slowing with no ictal activity. - Continue Keppra - EEG 12/02 -no seizure activity, very low amplitude background but appears normal per Dr. Christensen - EEG 12/04 -Intermittent episodes of burst suppression pattern with intermittent sharp wave activity mainly in the right frontal region, may indicate epileptogenicity, mod encephalopathy RESP: Chronic respiratory failure- s/p trach 12/13 MSSA pneumonia - Continue with vent support keep sat >92% - Ventilator bundle, Bronchodilators- On ACV RR 16, TV 600, PEEP:8, FIO2 50%, decrease FIO2 40% - Pulm toilet, trach care, - Daily SBT -CXR 12/15 - minimal improvements in b/l airspace disease L>R CV: Asystole, unclear etiology Fluid overload/pulmonary edema- acute, worsening, 17kg up from admission PAF- in NSR _Monitor HR and BP keep MAP>65mmHg,on, Cardizem 30mg QID, Propranolol 40mg po q6h -Heparin drip for Afib, MRI brain - no hemorrhage or ischemic changes - Etiology of cardiac arrest remains unclear at this time, serial cardiac enzymes showed only minor elevation - Very mild troponin elevation secondary to cardiac arrest. - 2-D echo normal EF, mild anterior MVP, CT pulmonary angiogram was negative for acute PE - Lasix 40mg iv q12h. GI: - IV Protonix for GI prophylaxis -Continue with tube feeds On Glucerna 1.5 @50ml/hr GI consulted for PEG tube placement : Acute kidney injury-resolved - Monitor renal function, I/O's, electrolytes replacement per protocol. ID: MSSA pneumonia Persistent fevers.. -Continue abx per ID- Clindamycin till 12/17. Monitor for signs of infections ( Fever, WBC) Will panculture today for fevers ( Blood, sputum, UA) Sputum cx 12/02, 12/11 staph Aures sensitive to Rocephin recheck sputum cx Cdiff negative 12/11 ENDO: Hyperglycemia Type 2 diabetes - SSI(High scale) increase Levemir 20 units BID for glycemic control PROPH: - Bilateral lower extremity SCDs. change heparin drip to SQ heparin 5000 Q12, Protonix Level 3 Pippa Jerez MD Dec 16, 2016 07:57
[2016-12-16] MEDS: CHLORHEXIDINE 0.12% (ORAL KIT) 15 ML CUP MT SCH ×2 (08:19→22:15)
[2016-12-16] MEDS: INSULIN DETEMIR 100 UNITS/ML VIAL SQ SCH ×2 (08:22→22:19)
[2016-12-16] MEDS: DILTIAZEM HCL 30 MG TAB PO SCH ×4 (08:24→22:17)
[2016-12-16] MEDS: HEPARIN SODIUM - SQ 10,000 UNITS/ML VIAL SQ SCH ×2 (08:24→22:17)
[2016-12-16] MEDS: levETIRAcetam 1000 MG INJ 100 ML IV SCH ×2 (08:24→22:12)
[2016-12-16] MEDS: BENEPROTEIN POWDER 1 PACK G-TUBE SCH ×3 (08:25→17:42)
[2016-12-16] MEDS: ARTIFICIAL TEARS OPTH SOLN 15 ML BTL EACH EYE SCH ×2 (08:25→22:15)
[2016-12-16] MEDS: SODIUM CHLORIDE 0.9% FLUSH 10 ML FLUSH IV FLUSH SCH ×2 (08:25→22:17)
[2016-12-16] MEDS: PANTOPRAZOLE SODIUM 40 MG VIAL IV SCH (08:25)
[2016-12-16] MEDS: ASPIRIN 325 MG TAB PO SCH (08:25)
[2016-12-16 09:10] LABS: APTT (PATIENT) 34.8 SEC (24.3-30.1)
--- NOTE | 2016-12-16 10:05 | HHI.GIFU ---
Subjective Remarks Lying in bed in no distress. Vented on trach, awake. not present at this time, but will be here later today. (Kira Almendarez) Objective Vitals I&O Vital Signs Date Time Temp Pulse Resp B/P Pulse Ox O2 Delivery O2 Flow Rate FiO2 12/16/16 09:41 92 40 12/16/16 09:00 75 18 124/65 94 12/16/16 08:00 71 12/16/16 08:00 100.3 75 12 112/56 94 12/16/16 08:00 50 12/16/16 07:01 74 0 117/63 96 12/16/16 07:00 74 3 97 12/16/16 06:00 74 12/16/16 06:00 74 5 97/53 92 12/16/16 05:13 95 50 12/16/16 05:00 79 9 115/60 93 12/16/16 04:00 78 12/16/16 04:00 100.7 78 1 114/55 92 12/16/16 04:00 50 12/16/16 02:00 82 12/16/16 01:31 93 50 12/16/16 00:00 100.8 81 4 108/57 95 12/16/16 00:00 81 12/16/16 00:00 50 12/15/16 23:40 94 50 12/15/16 22:00 79 12/15/16 20:00 100.8 84 6 118/56 91 12/15/16 20:00 84 12/15/16 20:00 50 12/15/16 19:33 92 50 12/15/16 18:00 82 12/15/16 16:00 82 12/15/16 16:00 101.0 82 15 92/54 92 12/15/16 16:00 50 12/15/16 15:39 98 50 12/15/16 15:00 80 5 94/50 94 12/15/16 14:00 88 12/15/16 14:00 80 8 98/50 92 12/15/16 13:00 85 6 102/59 92 12/15/16 12:00 100.4 83 9 94/55 98 12/15/16 12:00 50 12/15/16 12:00 85 12/15/16 11:35 99 50 12/15/16 11:01 80 8 91/54 91 12/15/16 11:00 80 21 95 12/15/16 10:00 79 17 98/58 97 12/15/16 10:00 79 I/O 12/15/16 12/15/16 12/15/16 12/16/16 12/16/16 12/16/16 07:00 15:00 23:00 07:00 15:00 23:00 Intake Total 591 ml 744 ml 706 ml 600 ml Output Total 1900 ml 525 ml 1150 ml 1000 ml Balance -1309 ml 219 ml -444 ml -400 ml IV Total 139 ml 236 ml 291 ml 169 ml Tube Feeding 332 ml 258 ml 295 ml 311 ml Other 120 ml 250 ml 120 ml 120 ml Output Urine Total 1900 ml 525 ml 1150 ml 1000 ml # Bowel Movements 1 2 1 1 Laboratory Laboratory Tests Test 12/15/16 12/15/16 12/16/16 12/16/16 13:17 19:49 03:36 08:25 Activated Partial 33.4 30.1 37.1 34.8 Thromboplast Time White Blood Count 13.8 Red Blood Count 2.91 Hemoglobin 8.5 Hematocrit 24.6 Mean Corpuscular Volume 84.7 Mean Corpuscular Hemoglobin 29.4 Mean Corpuscular Hemoglobin 34.7 Concent Red Cell Distribution Width 14.3 Platelet Count 581 Mean Platelet Volume 7.4 Neutrophils (%) (Auto) 78.1 Lymphocytes (%) (Auto) 11.8 Monocytes (%) (Auto) 8.6 Eosinophils (%) (Auto) 1.0 Basophils (%) (Auto) 0.5 Neutrophils # (Auto) 10.8 Lymphocytes # (Auto) 1.6 Monocytes # (Auto) 1.2 Eosinophils # (Auto) 0.1 Basophils # (Auto) 0.1 CBC Comment AUTO DIFF Differential Comment AUTO DIFF CONFIRMED Platelet Estimate HIGH Platelet Morphology Comment NORMAL Target Cells 1+ Sodium Level 137 Potassium Level 3.3 Chloride Level 90 Carbon Dioxide Level 39.4 Anion Gap 8 Blood Urea Nitrogen 34 Creatinine 1.04 Estimat Glomerular Filtration 76 Rate Random Glucose 321 Calcium Level 8.6 Date/Time Procedure Status Source Growth 12/16/16 08:31 Aerobic Blood Culture Received Blood Peripheral Pending 12/16/16 08:31 Anaerobic Blood Culture Received Blood Peripheral Pending 12/11/16 10:05 Aerobic Blood Culture - Preliminary Resulted Blood Peripheral NO GROWTH IN 4 DAYS 12/11/16 10:05 Anaerobic Blood Culture - Final Resulted Blood Peripheral QNS - SEE AEROBE REPORT Imaging Last Impressions Chest X-Ray 12/15/16 0000 Signed Impressions: Service Date/Time: Thursday, December 15, 2016 08:10 - CONCLUSION: Minimal improvement as described above. Miguel San MD FACR Abdomen X-Ray 12/13/16 0000 Signed Impressions: Service Date/Time: , December 13, 2016 13:01 - CONCLUSION: Dobbhoff tube has its tip in the distal stomach. Jose De Jesus Macdonald MD Cervical Spine MRI 12/10/16 0000 Signed Impressions: Service Date/Time: Saturday, December 10, 2016 18:11 - CONCLUSION: 1. Tiny central protrusion at C3-4 and minimal broad-based protrusion at C4-5 without canal stenosis. 2. MR cervical spine is otherwise unremarkable. Hesham Lemus MD Brain MRI 12/10/16 0000 Signed Impressions: Service Date/Time: Saturday, December 10, 2016 18:11 - CONCLUSION: 1. Cerebral atrophy and chronic ischemic small vessel vasculopathy. 2. No ischemic changes. Hesham Lemus MD Cervical Spine CT 12/02/16 1140 Signed Impressions: Service Date/Time: Friday, December 02, 2016 12:09 - CONCLUSION: No acute disease. Stepan Guadalupe MD Head CT 12/02/16 1132 Signed Impressions: Service Date/Time: Friday, December 02, 2016 12:09 - CONCLUSION: No acute disease. No evidence of acute infarct, hemorrhage, mass or edema. Stepan Guadalupe MD CT Angiography 12/02/16 1132 Signed Impressions: Service Date/Time: Friday, December 02, 2016 12:09 - CONCLUSION: 1. No evidence of acute pulmonary embolism. 2. Posterior bibasilar airspace disease. 3. No evidence of suspicious mass or lymphadenopathy. Stepan Guadalupe MD Physical Exam HEENT: Normocephalic; atraumatic; no jaundice. trach NECK: Trach CHEST: CTA CARDIAC: RRR, with no murmur gallop or rubs. ABDOMEN: Soft, nondistended, nontender; no hepatosplenomegaly; bowel sounds x 4 quadrants EXTREMITIES: Gen. edema. SKIN: Normal; no rash; no jaundice. 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 Patient suffered cardiac arrest. Currently receiving TF via NGT. is not at bedside at this time. She is making decision about whether she wants PEG to be placed. PLAN - Await 's decision - Possible EGD/PEG on Saturday if ok with - Supportive care - Further recommendations to follow based on results of above Patient seen by Dr. Saravia and myself and this note is written on his behalf. (Kira Almendarez) Physician Comments Patient seen and examined Agree with above Continue with current supportive care Monitor labs Await decision by his (Dane Saravia MD) Kira Almendarez Dec 16, 2016 10:05 Dane Saravia MD Dec 16, 2016 19:54
[2016-12-16 14:02] LABS: BLOOD, URINE NEG (NEG); GLUCOSE,URINE NEG (NEG); KETONE, URINE NEG (NEG); MUCUS URINE FEW /lpf (OCC); NITRITE,URINE NEG (NEG); URINE COLOR YELLOW (YELLW/STRAW)
[2016-12-16 14:03] LABS: COMMENT (UR) CATH-CULT NOT IND; CULTURE IF INDICATED CATH CULTURE NOT IND
--- NOTE | 2016-12-16 14:20 | HHI.PR ---
Review/Management Diagnosis/Plan: (1) Anoxic brain injury Plan: asystole repeat eeg- no sz activity 12/04 mri brain- no acute lesion, no sign of cortical anoxic injury recs neuro stable ? peg probable LTC d/w pt's mother at bedside prognosis guarded (2) Convulsions/seizures Plan: possible cortical hypoxic injury-related seizures; in addition appears to have shivering/tremors that are non-epileptic- no further events 12/13 eeg repeat- no sz; moderate encephalopathy (3) Asystole (4) DM polyneuropathy Subjective Subjective Comments No acute events reported mother at bedside, feels he is responding to family Active Medications Current Medications Medications (Trade) Dose Ordered Sig/Jacklyn Route Start Time Stop Time Status Last Admin (NS Flush) 2 ml UNSCH PRN IV FLUSH 12/02/16 12:15 12/15/16 21:24 (NS Flush) 2 ml BID IV FLUSH 12/02/16 21:00 12/16/16 08:25 (Peridex 0.12% Liq) 15 ml BID@08,20 MT 12/02/16 20:00 12/16/16 08:19 (Protonix Inj) 40 mg DAILY IV 12/03/16 09:00 12/16/16 08:25 Miscellaneous Information 1 Q361D XX 12/02/16 12:15 (Chlorhexidine 2% Cloth) Taper DAILY@04 TOP 12/03/16 04:00 11/29/17 03:59 12/16/16 02:57 (Chlorhexidine 2% Cloth) 3 pack UNSCH PRN TOP 12/02/16 12:15 Artificial Tears 1 applic 1 applic Q4H PRN EACH EYE 12/02/16 14:45 Miscellaneous Information 0 ml @ 0 mls/hr UNSCH IV 12/02/16 14:45 Potassium Chloride 100 ml @ 50 mls/hr Q2H PRN IV 12/02/16 14:45 (KCl 20 Meq Premix Inj) 100 ml @ 50 mls/hr Q2H PRN IV 12/02/16 14:45 Potassium Bicarb/ Potassium Chloride 50 meq 50 meq UNSCH PRN PO 12/02/16 14:45 Potassium Chloride 100 ml @ 25 mls/hr UNSCH PRN IV 12/02/16 14:45 Potassium Chloride 100 ml @ 50 mls/hr Q2H PRN IV 12/02/16 14:45 12/16/16 07:14 (Magnesium Sulfate Inj/NS Inj) 100 ml @ 50 mls/hr UNSCH PRN IV 12/02/16 14:45 Magnesium Oxide 800 mg 800 mg UNSCH PRN PO 12/02/16 14:45 (Magnesium Sulfate Inj/NS Inj) 100 ml @ 50 mls/hr UNSCH PRN IV 12/02/16 14:45 Potassium Phosphate 2000 mg 2,000 mg Q4H PRN PO 12/02/16 14:45 (Sodium Phosphate Inj/NS 250 ml Inj) 250 ml @ 42 mls/hr UNSCH PRN IV 12/02/16 14:45 12/10/16 16:20 Potassium Phosphate 2000 mg 2,000 mg UNSCH PRN PO/TUBE 12/02/16 14:45 (Potassium Phosphate Inj/NS 250 ml Inj) 260 ml @ 42 mls/hr UNSCH PRN IV 12/02/16 14:45 (Dilantin Inj) 100 mg Q8H IV 12/03/16 00:00 Hold 12/09/16 07:44 (Aspirin) 325 mg DAILY PO 12/02/16 18:30 12/16/16 08:25 Artificial Tears 2 drop 2 drop BID EACH EYE 12/03/16 21:00 12/16/16 08:25 (Keppra 1000 Mg Inj) 100 ml @ 400 mls/hr Q12HR IV 12/04/16 21:00 12/16/16 08:24 (Beneprotein Powder) 1 pack TID G-TUBE 12/04/16 13:00 12/16/16 12:13 (Tylenol 650 Mg/ 20 ml Liq) 650 mg Q4H PRN OG-TUBE 12/05/16 03:45 12/14/16 16:29 (D50w (Vial) Inj) 50 ml UNSCH PRN IV 12/09/16 08:00 (Glucagon Inj) 1 mg UNSCH PRN OTHER 12/09/16 08:00 (Cleocin) 300 mg Q6H PO 12/10/16 14:00 12/17/16 13:59 12/16/16 08:25 (Cardizem) 30 mg QID PO 12/11/16 09:00 12/16/16 12:12 (SEROquel) 50 mg Q8HR PO 12/13/16 22:00 12/16/16 05:19 (Inderal) 40 mg Q6H PO 12/13/16 20:00 12/16/16 08:24 (Demerol Inj) 25 mg Q3H PRN IV PUSH 12/13/16 19:30 (Haldol Inj) 5 mg Q4H PRN IV PUSH 12/13/16 19:30 12/15/16 03:19 (Lasix Inj) 40 mg Q12H IV PUSH 12/14/16 14:00 12/16/16 02:57 (NovoLIN R SUPPLEMENTAL SCALE) 1 Q4H SQ 12/16/16 10:00 12/16/16 10:00 (Levemir Inj) 20 units Q12HR SQ 12/16/16 09:00 12/16/16 08:22 (Heparin Inj) 5,000 units Q12HR SQ 12/16/16 09:00 12/16/16 08:24 Allergies Allergies Coded Allergies UNOBTAINABLE (Unverified12/02/16) Review of Systems All other ROS: ROS reviewed as documented in chart Exam I&O / VS 12/15/16 12/15/16 12/16/16 15:00 23:00 07:00 Intake Total 744 ml 706 ml 600 ml Output Total 525 ml 1150 ml 1000 ml Balance 219 ml -444 ml -400 ml IV Total 236 ml 291 ml 169 ml Tube Feeding 258 ml 295 ml 311 ml Other 250 ml 120 ml 120 ml Output Urine Total 525 ml 1150 ml 1000 ml # Bowel Movements 2 1 1 Vital Signs Date Time Temp Pulse Resp B/P Pulse Ox O2 Delivery O2 Flow Rate FiO2 12/16/16 11:06 93 50 12/16/16 10:04 50 12/16/16 10:02 96 50 12/16/16 10:00 71 12/16/16 09:41 92 40 12/16/16 09:00 75 18 124/65 94 12/16/16 08:00 71 12/16/16 08:00 100.3 75 12 112/56 94 12/16/16 08:00 50 12/16/16 07:01 74 0 117/63 96 12/16/16 07:00 74 3 97 12/16/16 06:00 74 12/16/16 06:00 74 5 97/53 92 12/16/16 05:13 95 50 12/16/16 05:00 79 9 115/60 93 12/16/16 04:00 78 12/16/16 04:00 100.7 78 1 114/55 92 12/16/16 04:00 50 12/16/16 02:00 82 12/16/16 01:31 93 50 12/16/16 00:00 100.8 81 4 108/57 95 12/16/16 00:00 81 12/16/16 00:00 50 12/15/16 23:40 94 50 12/15/16 22:00 79 12/15/16 20:00 100.8 84 6 118/56 91 12/15/16 20:00 84 12/15/16 20:00 50 12/15/16 19:33 92 50 12/15/16 18:00 82 12/15/16 16:00 82 12/15/16 16:00 101.0 82 15 92/54 92 12/15/16 16:00 50 12/15/16 15:39 98 50 12/15/16 15:00 80 5 94/50 94 Exam Comments alert, trach in place, no blink to threat, not following, non-verbal, turns head side to side, ou 2.5mm sluggish, minimally reactive, no withdrawal to tactile, extension on tactile, planterflexor, no clonus Objective Micro and Labs Laboratory Tests Test 12/15/16 12/16/16 12/16/16 12/16/16 19:49 03:36 08:25 12:30 Activated Partial 30.1 37.1 34.8 Thromboplast Time White Blood Count 13.8 Red Blood Count 2.91 Hemoglobin 8.5 Hematocrit 24.6 Mean Corpuscular Volume 84.7 Mean Corpuscular Hemoglobin 29.4 Mean Corpuscular Hemoglobin 34.7 Concent Red Cell Distribution Width 14.3 Platelet Count 581 Mean Platelet Volume 7.4 Neutrophils (%) (Auto) 78.1 Lymphocytes (%) (Auto) 11.8 Monocytes (%) (Auto) 8.6 Eosinophils (%) (Auto) 1.0 Basophils (%) (Auto) 0.5 Neutrophils # (Auto) 10.8 Lymphocytes # (Auto) 1.6 Monocytes # (Auto) 1.2 Eosinophils # (Auto) 0.1 Basophils # (Auto) 0.1 CBC Comment AUTO DIFF Differential Comment AUTO DIFF CONFIRMED Platelet Estimate HIGH Platelet Morphology Comment NORMAL Target Cells 1+ Sodium Level 137 Potassium Level 3.3 Chloride Level 90 Carbon Dioxide Level 39.4 Anion Gap 8 Blood Urea Nitrogen 34 Creatinine 1.04 Estimat Glomerular Filtration 76 Rate Random Glucose 321 Calcium Level 8.6 Urine Color YELLOW Urine Turbidity CLEAR Urine pH 7.0 Urine Specific [place] 1.025 Urine Protein 30 Urine Glucose (UA) NEG Urine Ketones NEG Urine Occult Blood NEG Urine Nitrite NEG Urine Bilirubin NEG Urine Urobilinogen 8.0 Urine Leukocyte Esterase NEG Urine RBC 3 Urine WBC 1 Urine Bacteria Urine Mucus FEW Microscopic Urinalysis Comment CATH-CULT NOT IND Date/Time Procedure Status Source Growth 12/16/16 08:31 Aerobic Blood Culture Received Blood Peripheral Pending 12/16/16 08:31 Anaerobic Blood Culture Received Blood Peripheral Pending Problem Qualifiers (1) Convulsions/seizures: Qualified Code: R56.9 - Convulsions, unspecified convulsion type (2) DM polyneuropathy: Qualified Code: E13.42 - Diabetic polyneuropathy associated with other specified diabetes mellitus Martinez Garland MD Dec 16, 2016 14:19
[2016-12-17] VITALS (12 sets, daily range): BP systolic 106–129; BP diastolic 58–64; PULSE 69–72; RESP 19–20; TEMP 99.9–100.2; O2SAT 93–100
[2016-12-17] MEDS: INSULIN NovoLIN REGULAR SUPPLEMENTAL SCALE SQ SCH ×4 (02:00→14:00)
[2016-12-17] MEDS: PROPRANOLOL HCL 40 MG TAB PO SCH ×3 (02:57→12:39)
[2016-12-17] MEDS: CLINDAMYCIN 150 MG CAP PO SCH ×2 (02:58→08:29)
[2016-12-17] MEDS: FUROSEMIDE 40 MG/4 ML VIAL IV PUSH SCH ×2 (02:58→12:39)
[2016-12-17] MEDS: CHLORHEXIDINE GLUCONATE 2 % 1 PACK (2 CLOTHS) TOP SCH (03:05)
[2016-12-17] MEDS: RESP: ALBUTEROL 2.5 MG/IPRATROPIUM 0.5 MG NEB (SCH) NEB ×3 (04:02→13:03)
[2016-12-17 04:39] LABS: BASOPHIL # 0.2 TH/MM3 (0-0.2); BASOPHIL % 1.2 % (0.0-2.0); EOSINOPHIL # 0.2 TH/MM3 (0-0.4); EOSINOPHIL % 1.5 % (0.0-4.0); HEMATOCRIT 26.6 % (39.0-51.0); LYMPH % 10.8 % (9.0-44.0); LYMPHOCYTE # 1.4 TH/MM3 (1.0-4.8); MEAN CELL VOLUME 84.9 FL (80.0-100.0); MEAN CORPUSCULAR HEMOGLOBIN 28.1 PG (27.0-34.0); MEAN CORPUSCULAR HGB CONC 33.1 % (32.0-36.0); MONO % 7.8 % (0.0-8.0); NEUT % 78.7 % (16.0-70.0); PLATELET COUNT 779 TH/MM3 (150-450); RED BLOOD COUNT 3.13 MIL/MM3 (4.50-5.90); RED CELL DISTRIBUTION WIDTH 14.7 % (11.6-17.2); WHITE BLOOD COUNT 12.7 TH/MM3 (4.0-11.0)
[2016-12-17 04:40] LABS: HEMO FLAGS AUTO DIFF
[2016-12-17 05:04] LABS: BICARBONATE 39.5 MEQ/L (21.0-32.0); POTASSIUM 3.5 MEQ/L (3.5-5.1)
[2016-12-17] MEDS: QUEtiapine FUMARATE 25 MG TAB PO SCH ×2 (05:57→12:39)
--- NOTE | 2016-12-17 07:27 | HHI.PR ---
Review/Management Diagnosis/Plan: (1) Anoxic brain injury Plan: asystole repeat eeg- no sz activity 12/04 mri brain- no acute lesion, no sign of cortical anoxic injury recs neuro stable- alittle more facial movement/expression this am ? peg probable LTC prognosis guarded (2) Convulsions/seizures Plan: resolved possible cortical hypoxic injury-related seizures; in addition appears to have shivering/tremors that are non-epileptic- no further events 12/13 eeg repeat- no sz; moderate encephalopathy on keppra monotherapy (3) Asystole (4) DM polyneuropathy Subjective Subjective Comments No acute events reported Active Medications Current Medications Medications (Trade) Dose Ordered Sig/Jacklyn Route Start Time Stop Time Status Last Admin (NS Flush) 2 ml UNSCH PRN IV FLUSH 12/02/16 12:15 12/15/16 21:24 (NS Flush) 2 ml BID IV FLUSH 12/02/16 21:00 12/16/16 22:17 (Peridex 0.12% Liq) 15 ml BID@08,20 MT 12/02/16 20:00 12/16/16 22:15 (Protonix Inj) 40 mg DAILY IV 12/03/16 09:00 12/16/16 08:25 Miscellaneous Information 1 Q361D XX 12/02/16 12:15 (Chlorhexidine 2% Cloth) Taper DAILY@04 TOP 12/03/16 04:00 11/29/17 03:59 12/16/16 02:57 (Chlorhexidine 2% Cloth) 3 pack UNSCH PRN TOP 12/02/16 12:15 Artificial Tears 1 applic 1 applic Q4H PRN EACH EYE 12/02/16 14:45 Miscellaneous Information 0 ml @ 0 mls/hr UNSCH IV 12/02/16 14:45 Potassium Chloride 100 ml @ 50 mls/hr Q2H PRN IV 12/02/16 14:45 (KCl 20 Meq Premix Inj) 100 ml @ 50 mls/hr Q2H PRN IV 12/02/16 14:45 Potassium Bicarb/ Potassium Chloride 50 meq 50 meq UNSCH PRN PO 12/02/16 14:45 Potassium Chloride 100 ml @ 25 mls/hr UNSCH PRN IV 12/02/16 14:45 Potassium Chloride 100 ml @ 50 mls/hr Q2H PRN IV 12/02/16 14:45 12/16/16 07:14 (Magnesium Sulfate Inj/NS Inj) 100 ml @ 50 mls/hr UNSCH PRN IV 12/02/16 14:45 Magnesium Oxide 800 mg 800 mg UNSCH PRN PO 12/02/16 14:45 (Magnesium Sulfate Inj/NS Inj) 100 ml @ 50 mls/hr UNSCH PRN IV 12/02/16 14:45 Potassium Phosphate 2000 mg 2,000 mg Q4H PRN PO 12/02/16 14:45 (Sodium Phosphate Inj/NS 250 ml Inj) 250 ml @ 42 mls/hr UNSCH PRN IV 12/02/16 14:45 12/10/16 16:20 Potassium Phosphate 2000 mg 2,000 mg UNSCH PRN PO/TUBE 12/02/16 14:45 (Potassium Phosphate Inj/NS 250 ml Inj) 260 ml @ 42 mls/hr UNSCH PRN IV 12/02/16 14:45 (Dilantin Inj) 100 mg Q8H IV 12/03/16 00:00 Hold 12/09/16 07:44 (Aspirin) 325 mg DAILY PO 12/02/16 18:30 12/16/16 08:25 Artificial Tears 2 drop 2 drop BID EACH EYE 12/03/16 21:00 12/16/16 22:15 (Keppra 1000 Mg Inj) 100 ml @ 400 mls/hr Q12HR IV 12/04/16 21:00 12/16/16 22:12 (Beneprotein Powder) 1 pack TID G-TUBE 12/04/16 13:00 12/16/16 17:42 (Tylenol 650 Mg/ 20 ml Liq) 650 mg Q4H PRN OG-TUBE 12/05/16 03:45 12/14/16 16:29 (D50w (Vial) Inj) 50 ml UNSCH PRN IV 12/09/16 08:00 (Glucagon Inj) 1 mg UNSCH PRN OTHER 12/09/16 08:00 (Cleocin) 300 mg Q6H PO 12/10/16 14:00 12/17/16 13:59 12/17/16 02:58 (Cardizem) 30 mg QID PO 12/11/16 09:00 12/16/16 22:17 (SEROquel) 50 mg Q8HR PO 12/13/16 22:00 12/17/16 05:57 (Inderal) 40 mg Q6H PO 12/13/16 20:00 12/17/16 02:57 (Demerol Inj) 25 mg Q3H PRN IV PUSH 12/13/16 19:30 (Haldol Inj) 5 mg Q4H PRN IV PUSH 12/13/16 19:30 12/15/16 03:19 (Lasix Inj) 40 mg Q12H IV PUSH 12/14/16 14:00 12/17/16 02:58 (NovoLIN R SUPPLEMENTAL SCALE) 1 Q4H SQ 12/16/16 10:00 12/17/16 05:58 (Levemir Inj) 20 units Q12HR SQ 12/16/16 09:00 12/16/16 22:19 (Heparin Inj) 5,000 units Q12HR SQ 12/16/16 09:00 12/16/16 22:17 Allergies Allergies Coded Allergies UNOBTAINABLE (Unverified12/02/16) Review of Systems All other ROS: ROS reviewed as documented in chart Exam I&O / VS 12/16/16 12/16/16 12/17/16 14:59 22:59 06:59 Intake Total 933 ml 900 ml Output Total 750 ml 3050 ml Balance 183 ml -2150 ml IV Total 402 ml 242 ml Tube Feeding 231 ml 458 ml Other 300 ml 200 ml Output Urine Total 750 ml 3050 ml # Bowel Movements 2 1 Vital Signs Date Time Temp Pulse Resp B/P Pulse Ox O2 Delivery O2 Flow Rate FiO2 12/17/16 06:49 40 12/17/16 06:00 72 12/17/16 04:02 100 50 12/17/16 04:00 70 12/17/16 04:00 50 12/17/16 04:00 100.2 70 20 121/64 98 12/17/16 02:00 72 12/17/16 01:38 95 50 12/17/16 00:00 69 12/17/16 00:00 99.9 69 19 106/58 94 12/17/16 00:00 50 12/16/16 22:31 95 50 12/16/16 22:00 72 12/16/16 20:00 99.1 69 16 124/60 96 12/16/16 20:00 50 12/16/16 20:00 69 12/16/16 19:22 99 50 12/16/16 18:00 69 12/16/16 17:50 50 12/16/16 17:47 99 50 12/16/16 16:01 68 18 117/58 93 12/16/16 16:00 99.3 68 32 95 12/16/16 16:00 68 12/16/16 16:00 50 12/16/16 15:58 95 50 12/16/16 15:00 69 14 121/61 93 12/16/16 14:00 69 0 109/58 94 12/16/16 14:00 73 12/16/16 13:00 69 4 110/62 95 12/16/16 12:00 100.2 70 0 110/55 93 12/16/16 12:00 71 12/16/16 12:00 50 12/16/16 11:06 93 50 12/16/16 11:00 70 5 117/59 89 12/16/16 10:04 50 12/16/16 10:02 96 50 12/16/16 10:00 71 12/16/16 10:00 70 25 114/64 94 12/16/16 09:41 92 40 12/16/16 09:00 75 18 124/65 94 12/16/16 08:00 71 12/16/16 08:00 100.3 75 12 112/56 94 12/16/16 08:00 50 Exam Comments alerts, trach in place, resists pupillary eye exam, not following, non-verbal, no withdrawal to tactile, extension on tactile, planterflexor, no clonus Objective Micro and Labs Laboratory Tests Test 12/16/16 12/16/16 12/17/16 08:25 12:30 03:50 Activated Partial 34.8 Thromboplast Time Urine Color YELLOW Urine Turbidity CLEAR Urine pH 7.0 Urine Specific [place] 1.025 Urine Protein 30 Urine Glucose (UA) NEG Urine Ketones NEG Urine Occult Blood NEG Urine Nitrite NEG Urine Bilirubin NEG Urine Urobilinogen 8.0 Urine Leukocyte Esterase NEG Urine RBC 3 Urine WBC 1 Urine Bacteria Urine Mucus FEW Microscopic Urinalysis Comment CATH-CULT NOT IND White Blood Count 12.7 Red Blood Count 3.13 Hemoglobin 8.8 Hematocrit 26.6 Mean Corpuscular Volume 84.9 Mean Corpuscular Hemoglobin 28.1 Mean Corpuscular Hemoglobin 33.1 Concent Red Cell Distribution Width 14.7 Platelet Count 779 Mean Platelet Volume 7.5 Neutrophils (%) (Auto) 78.7 Lymphocytes (%) (Auto) 10.8 Monocytes (%) (Auto) 7.8 Eosinophils (%) (Auto) 1.5 Basophils (%) (Auto) 1.2 Neutrophils # (Auto) 10.0 Lymphocytes # (Auto) 1.4 Monocytes # (Auto) 1.0 Eosinophils # (Auto) 0.2 Basophils # (Auto) 0.2 CBC Comment AUTO DIFF Sodium Level 137 Potassium Level 3.5 Chloride Level 91 Carbon Dioxide Level 39.5 Anion Gap 7 Blood Urea Nitrogen 32 Creatinine 0.94 Estimat Glomerular Filtration 86 Rate Random Glucose 240 Calcium Level 8.6 Date/Time Procedure Status Source Growth 12/16/16 16:30 Gram Stain Received Sputum Endotracheal Pending 12/16/16 16:30 Sputum Culture Received Sputum Endotracheal Pending 12/16/16 08:31 Aerobic Blood Culture Received Blood Peripheral Pending 12/16/16 08:31 Anaerobic Blood Culture Received Blood Peripheral Pending Problem Qualifiers (1) Convulsions/seizures: Qualified Code: R56.9 - Convulsions, unspecified convulsion type (2) DM polyneuropathy: Qualified Code: E13.42 - Diabetic polyneuropathy associated with other specified diabetes mellitus Martinez Garland MD Dec 17, 2016 07:27
--- NOTE | 2016-12-17 07:46 | HHI.CCPN ---
Subjective Remarks/Hospital Course Patient is a 46-year-old male with history of diabetes, neuropathy, Charcot foot to the left, hyperlipidemia, presents to emergency room after he had a witnessed cardiac arrest at home. Per patient's he complained of dizziness this morning. He went to the garage to get something and then walked back into the kitchen. Shortly afterwards the was heard a loud thud. She rushed to the kitchen and found the patient collapsed on the floor, with seizure -like activity of the upper extremities. EMS was called immediately and the got to the house within 5-10 minutes of the call, patient was in asystole upon arrival. ACLS protocol was initiated in the field. Patient was intubated using a combitube. Patient was given 2 rounds of epi and had ROSC. EMS reported that patient was also coughing up blood. Blood sugar at the scene was 63, for which he got dextrose. In the emergency department Combitube was removed, patient was intubated using a 8.0 ETT. EKG: No acute changes. Initial neuro exam was very poor per Dr. Hutchinson. No spontaneous movements noted, patient had a gag reflex. Also he was biting on the teeth otherwise no purposeful movements noted. To facilitate imaging studies patient received 10 mg of vecuronium as he was biting down the ET tube. CT of the head and CT pulmonary angiogram was negative for any acute findings. I evaluated the patient in the emergency department approximately 30 minutes after vecuronium was given. Patient still was neuromuscularly paralyzed. The history of probable witnessed seizures was conformed with the . I asked for a stat EEG. Once in the ICU Stat EEG was done which showed severe encephalopathy. Given the EEG findings and for neuro exam by the ER physician, I discussed with regarding induced hypothermia protocol for neuro protection. Patient was still within the window for induced hypothermia and was agreeable. I proceeded with placing the heat exchange catheter in the right groin. Towards completion of the procedure patient started having tonic clonic movements of the bilateral lower extremity. 4 mg IV push of Ativan was given emergently following which he stopped seizure -like activity. Patient will be loaded with Cerebyx, and continued on Dilantin. CT of the head was negative for any acute findings SUBJ 12/03/16: Achieved target temperature 8 PM yesterday. Currently sedated intubated and neuromuscularly paralyzed. EEG yesterday -no seizure activity, very low amplitude background but appears normal per Dr. Christensen 12/04: Patient is currently in rewarming phase. Nimbex was DCd at 0900 and while sedation was being weaned off, patient developed tonic-clonic activity probable seizures vs myoclonus. Receiving propofol, get stat EEG, stat MRI and neurology consult. Will give additional 1 g Cerebyx Bolus, also mammogram Keppra bolus and 1 g Every 12 hours will be started 12/04 20:12 Called to patient's bedside because family would like to discuss DNR and goals of care. Multiple family members were at bedside when I arrived to the room however patient's Elvia requested that they leave and that she and patient's mother, Debra, be present alone with me. Reviewed patient's living will which allows for withholding or removing life support, life prolonging treatment, artificially administered food and water in the event of terminal condition, end-stage condition, persistent vegetative state. states that patient would not want compressions, shock, or ACLS drugs in the event of cardiac arrest. She is also refusing tube feeding at this time because she says he told her he would never want that. I discussed that tube feeds could be administered as part of supportive care and that they could be withheld later if it appears his condition is terminal/end stage/ vegetative state. However, it is too early for physicians to make that determination at this time. Nonetheless she is adamant that tube feeds be withheld. I am changing code status to "ALTERNATIVE CODE -INTUBATION ONLY". 12/05: Currently off all sedation. MRI of the brain done yesterday was normal without evidence of anoxic injury. Patient showing neurological improvement. Opens eyes to verbal command appears to track. at bedside updated 12/06: Neurological Exam slowly improving. Opens eyes to command tracks. Purposefully moving upper extremities. Chest x-ray shows increasing bilateral infiltrates left more than right. On Rocephin for MSSA pneumonia 12/07 Patient remains intubated and on Precedex drip for sedation. T;102.2 12/08 No events overnight. Remains intubated and on Precedex drip. Did not tolerate CPAP trials yesterday. T:101.8 12/09 Patient remains intubated and on Precedex and Fentanyl drip for sedation. Still with persistent fevers with Tmax 103.7. Repeat EEG yesterday showed encephalopathy, no ictal activity. 12/10 Patient is sedated with Fentanyl and Precedex , intubated. T:99.8. Did not tolerate CPAP trials yesterday. In Afib with RVR 12/11 No events overnight. On Fentanyl and Precedex drip. T:100.0 at 6 am. MRI brain yesterday showed no ischemic changes. 12/12: continues to fail SBT for mental status and fatigue. no other changes. remains encephalopathic. discussed with plan for possible trach, and she is agreeable. 12/13: encephalopathy persists. Agitation is a large component of his encephalopathy. Endotracheal tube is contributing to this. Plan for tracheostomy today to help aggressively wean him. 12/14 Patient s/p trach yesterday. Tmax 100.9. Sedated with Fentanyl. On Heparin drip. 12/15 Patient is on ventilator via trach. T: 100.4. Off sedation. 12/16 No events overnight. On ACV PEEP:8 and FIO2 50%. Tmax 101 12/17 No events overnight. On ventilator via trach. On PRVC with PEEP:8 , FIO2 50 %, T: 100.2 Objective Vital Signs Date Time Temp Pulse Resp B/P Pulse Ox O2 Delivery O2 Flow Rate FiO2 12/17/16 07:23 93 40 12/17/16 06:00 72 12/17/16 04:00 100.2 20 121/64 Intake and Output 12/16/16 12/16/16 12/16/16 07:59 15:59 23:59 Intake Total 600 ml 933 ml Output Total 1000 ml 750 ml Balance -400 ml 183 ml Result Diagram: 12/17/16 0350 12/17/16 0350 Other Results Laboratory Tests Test 12/16/16 12/16/16 12/17/16 08:25 12:30 03:50 Activated Partial 34.8 SEC Thromboplast Time Urine Color YELLOW Urine Turbidity CLEAR Urine pH 7.0 Urine Specific [place] 1.025 Urine Protein 30 mg/dL Urine Glucose (UA) NEG mg/dL Urine Ketones NEG mg/dL Urine Occult Blood NEG Urine Nitrite NEG Urine Bilirubin NEG Urine Urobilinogen 8.0 MG/DL Urine Leukocyte Esterase NEG Urine RBC 3 /hpf Urine WBC 1 /hpf Urine Bacteria /hpf Urine Mucus FEW /lpf Microscopic Urinalysis Comment CATH-CULT NOT IND White Blood Count 12.7 TH/MM3 Red Blood Count 3.13 MIL/MM3 Hemoglobin 8.8 GM/DL Hematocrit 26.6 % Mean Corpuscular Volume 84.9 FL Mean Corpuscular Hemoglobin 28.1 PG Mean Corpuscular Hemoglobin 33.1 % Concent Red Cell Distribution Width 14.7 % Platelet Count 779 TH/MM3 Mean Platelet Volume 7.5 FL Neutrophils (%) (Auto) 78.7 % Lymphocytes (%) (Auto) 10.8 % Monocytes (%) (Auto) 7.8 % Eosinophils (%) (Auto) 1.5 % Basophils (%) (Auto) 1.2 % Neutrophils # (Auto) 10.0 TH/MM3 Lymphocytes # (Auto) 1.4 TH/MM3 Monocytes # (Auto) 1.0 TH/MM3 Eosinophils # (Auto) 0.2 TH/MM3 Basophils # (Auto) 0.2 TH/MM3 CBC Comment AUTO DIFF Sodium Level 137 MEQ/L Potassium Level 3.5 MEQ/L Chloride Level 91 MEQ/L Carbon Dioxide Level 39.5 MEQ/L Anion Gap 7 MEQ/L Blood Urea Nitrogen 32 MG/DL Creatinine 0.94 MG/DL Estimat Glomerular Filtration 86 ML/MIN Rate Random Glucose 240 MG/DL Calcium Level 8.6 MG/DL Imaging Last Impressions Chest X-Ray 12/15/16 0000 Signed Impressions: Service Date/Time: Thursday, December 15, 2016 08:10 - CONCLUSION: Minimal improvement as described above. Miguel San MD FACR Abdomen X-Ray 12/13/16 0000 Signed Impressions: Service Date/Time: November 13:01 - CONCLUSION: Dobbhoff tube has its tip in the distal stomach. Jose De Jesus Macdonald MD Cervical Spine MRI 12/10/16 0000 Signed Impressions: Service Date/Time: Saturday, December 10, 2016 18:11 - CONCLUSION: 1. Tiny central protrusion at C3-4 and minimal broad-based protrusion at C4-5 without canal stenosis. 2. MR cervical spine is otherwise unremarkable. Hesham Lemus MD Brain MRI 12/10/16 0000 Signed Impressions: Service Date/Time: Saturday, December 10, 2016 18:11 - CONCLUSION: 1. Cerebral atrophy and chronic ischemic small vessel vasculopathy. 2. No ischemic changes. Hesham Lemus MD Cervical Spine CT 12/02/16 1140 Signed Impressions: Service Date/Time: Friday, December 02, 2016 12:09 - CONCLUSION: No acute disease. Stepan Guadalupe MD Head CT 12/02/16 1132 Signed Impressions: Service Date/Time: Friday, December 02, 2016 12:09 - CONCLUSION: No acute disease. No evidence of acute infarct, hemorrhage, mass or edema. Stepan Guadalupe MD CT Angiography 12/02/16 1132 Signed Impressions: Service Date/Time: Friday, December 02, 2016 12:09 - CONCLUSION: 1. No evidence of acute pulmonary embolism. 2. Posterior bibasilar airspace disease. 3. No evidence of suspicious mass or lymphadenopathy. Stepan Guadalupe MD Objective Remarks GENERAL: Intubated, SKIN: Warm and dry HEAD: Atraumatic. Normocephalic. EYES: Pupils equal and round 3 mm, nonreactive. No scleral icterus. No injection or drainage. ENT: No nasal bleeding or discharge. Trach in place NECK: Trachea midline. No JVD. CARDIOVASCULAR: Regular rate and rhythm. RESPIRATORY: B/L equal air entry with few coarse BS GASTROINTESTINAL: Abdomen soft, non-tender, nondistended. MUSCULOSKELETAL: Boot to left foot for Charcot foot NEUROLOGICAL:Sedated. A/P Assessment and Plan Assessment: 46yM s/p cardiac arrest with severe encephalopathy. not improving on pathway. will need tracheostomy and LTAC for further improvements. NEURO: Encephalopathy ? Hypoxic injury related Seizure Agitated Delirium Off sedation ,Monitor neuro status. On Seroquel to 50mg q8h meperidine 25mg iv prn for shivering - Haldol 5mg iv q4h prn for breakthrough agitation. - Completed induced hypothermia,. MRI negative for anoxic brain injury -MRI brain 12/10- No ischemic changes - Neurology is following Dr. Garland. Repeat EEG 12/09: Slowing with no ictal activity. - Continue Keppra - EEG 12/02 -no seizure activity, very low amplitude background but appears normal per Dr. Christensen - EEG 12/04 -Intermittent episodes of burst suppression pattern with intermittent sharp wave activity mainly in the right frontal region, may indicate epileptogenicity, mod encephalopathy RESP: Chronic respiratory failure- s/p trach 12/13 MSSA pneumonia - Continue with vent support keep sat >92% - Ventilator bundle, Bronchodilators- On ACV RR 16, TV 600, PEEP:8, FIO2 50%, decrease FIO2 40% - Pulm toilet, trach care, - Daily SBT -CXR 12/15 - minimal improvements in b/l airspace disease L>R check CXR today CV: Asystole, unclear etiology Fluid overload/pulmonary edema- acute, worsening, 17kg up from admission PAF- in NSR -Monitor HR and BP keep MAP>65mmHg,on, Cardizem 30mg QID, Propranolol 40mg po q6h -Heparin drip for Afib, MRI brain - no hemorrhage or ischemic changes - Etiology of cardiac arrest remains unclear at this time, serial cardiac enzymes showed only minor elevation - Very mild troponin elevation secondary to cardiac arrest. - 2-D echo normal EF, mild anterior MVP, CT pulmonary angiogram was negative for acute PE - Lasix 40mg iv q12h. GI: - IV Protonix for GI prophylaxis -On tube feeds - Glucerna 1.5 @50ml/hr GI is following- for possible PEG tube placement today : Acute kidney injury-resolved - Monitor renal function, I/O's, electrolytes replacement per protocol. ID: MSSA pneumonia Persistent fevers.. -Continue abx per ID- Clindamycin till 12/17. Monitor for signs of infections ( Fever, WBC) followup on blood and sputum cx from 12/16 Sputum cx 12/02, 12/11 staph Aures sensitive to Rocephin recheck sputum cx Cdiff negative 12/11 ENDO: Hyperglycemia Type 2 diabetes - SSI(High scale)increase Levemir 24 units BID for glycemic control PROPH: - Bilateral lower extremity SCDs SQ heparin 5000 Q12, Protonix For [facility]- patient was cleared by ID and Neurology. Level 3 Pippa Jerez MD Dec 17, 2016 07:46
[2016-12-17] MEDS: CHLORHEXIDINE 0.12% (ORAL KIT) 15 ML CUP MT SCH (08:00)
[2016-12-17 08:06] LABS: BANDS 1 % (0-6); BASOPHILS 2 % (0-2); EOSINOPHILS 1 % (0-4); MYELOCYTES 3 % (0-0); NEUTROPHIL # MANUAL DIFF 10.9 TH/MM3 (1.8-7.7); POLYS (SEG NEUTROPHILS) 82 % (16-70); WBC DIFF SAMPLE 100
[2016-12-17 08:07] LABS: PLATELET ESTIMATE SMEAR NORMAL (NORMAL); PLATELET MORPHOLOGY NORMAL (NORMAL); SCAN/DIFF FINAL DIFF MANUAL; STOMATOCYTES 1+ (NORMAL)
[2016-12-17] MEDS: ASPIRIN 325 MG TAB PO SCH (08:29)
[2016-12-17] MEDS: SODIUM CHLORIDE 0.9% FLUSH 10 ML FLUSH IV FLUSH SCH (08:29)
[2016-12-17] MEDS: DILTIAZEM HCL 30 MG TAB PO SCH ×2 (08:29→12:39)
[2016-12-17] MEDS: PANTOPRAZOLE SODIUM 40 MG VIAL IV SCH (08:29)
[2016-12-17] MEDS: HEPARIN SODIUM - SQ 10,000 UNITS/ML VIAL SQ SCH (08:30)
[2016-12-17] MEDS: levETIRAcetam 1000 MG INJ 100 ML IV SCH (08:30)
[2016-12-17] MEDS: BENEPROTEIN POWDER 1 PACK G-TUBE SCH ×2 (08:30→13:00)
[2016-12-17] MEDS: ARTIFICIAL TEARS OPTH SOLN 15 ML BTL EACH EYE SCH (08:30)
--- NOTE | 2016-12-17 08:56 | RADRPT ---
EXAM DATE/TIME: 12/17/2016 08:11 [place] COMPARISON: CHEST SINGLE AP, December 15, 2016, 8:10. INDICATIONS : Respiratory distress. MEDICAL HISTORY : Diabetes mellitus type II. Hypercholesterolemia. SURGICAL HISTORY : Insulin pump ENCOUNTER: Subsequent ACUITY: 1 week PAIN SCORE: Non-responsive. LOCATION: Bilateral chest FINDINGS: Portable AP view of the chest demonstrates a normal-sized cardiac silhouette. Tracheostomy and feedin g tube are present. There is relatively diffuse left lung air space consolidation most severe at the left lung base. There is stable right upper lobe airspace consolidation. No pleural effusion or pneum othorax is visualized. Bones and soft tissues demonstrate no acute finding. CONCLUSION: Stable chest x-ray with diffuse left lung air space consolidation and mild right upper lobe airspace consolidation. Stephen Andersen MD on December 17, 2016 at 8:53 Board Certified Radiologist. This report was verified electronically.
[2016-12-17] MEDS ORDERED: INSULIN DETEMIR 100 UNITS/ML VIAL SQ SCH (09:00)
--- NOTE | 2016-12-17 15:55 | HHI.GIFU ---
Subjective Remarks Pt on cpap. Does not follow commands. Mother at bedside. Nurse and mother state that he is being transferred to [facility] this afternoon and that the plan is to now plan for egd with PEG at [facility]. Objective Vitals I&O Vital Signs Date Time Temp Pulse Resp B/P Pulse Ox O2 Delivery O2 Flow Rate FiO2 12/17/16 14:00 69 12/17/16 13:04 94 40 12/17/16 12:00 99.9 69 19 129/61 94 12/17/16 12:00 50 12/17/16 12:00 69 12/17/16 10:00 69 12/17/16 08:00 69 12/17/16 08:00 50 12/17/16 08:00 99.9 69 19 106/58 94 12/17/16 07:23 93 40 12/17/16 06:49 40 12/17/16 06:00 72 12/17/16 04:02 100 50 12/17/16 04:00 70 12/17/16 04:00 50 12/17/16 04:00 100.2 70 20 121/64 98 12/17/16 02:00 72 12/17/16 01:38 95 50 12/17/16 00:00 69 12/17/16 00:00 99.9 69 19 106/58 94 12/17/16 00:00 50 12/16/16 22:31 95 50 12/16/16 22:00 72 12/16/16 20:00 99.1 69 16 124/60 96 12/16/16 20:00 50 12/16/16 20:00 69 12/16/16 19:22 99 50 12/16/16 18:00 69 12/16/16 17:50 50 12/16/16 17:47 99 50 12/16/16 16:01 68 18 117/58 93 12/16/16 16:00 99.3 68 32 95 12/16/16 16:00 68 12/16/16 16:00 50 12/16/16 15:58 95 50 I/O 12/16/16 12/16/16 12/16/16 12/17/16 12/17/16 12/17/16 07:00 15:00 23:00 07:00 15:00 23:00 Intake Total 600 ml 933 ml 900 ml 680 ml Output Total 1000 ml 750 ml 3050 ml 2000 ml Balance -400 ml 183 ml -2150 ml -1320 ml IV Total 169 ml 402 ml 242 ml 100 ml Tube Feeding 311 ml 231 ml 458 ml 380 ml Other 120 ml 300 ml 200 ml 200 ml Output Urine Total 1000 ml 750 ml 3050 ml 2000 ml # Bowel Movements 1 2 1 2 Laboratory Laboratory Tests Test 12/17/16 03:50 White Blood Count 12.7 Red Blood Count 3.13 Hemoglobin 8.8 Hematocrit 26.6 Mean Corpuscular Volume 84.9 Mean Corpuscular Hemoglobin 28.1 Mean Corpuscular Hemoglobin 33.1 Concent Red Cell Distribution Width 14.7 Platelet Count 779 Mean Platelet Volume 7.5 Neutrophils (%) (Auto) 78.7 Lymphocytes (%) (Auto) 10.8 Monocytes (%) (Auto) 7.8 Eosinophils (%) (Auto) 1.5 Basophils (%) (Auto) 1.2 Neutrophils # (Auto) 10.0 Lymphocytes # (Auto) 1.4 Monocytes # (Auto) 1.0 Eosinophils # (Auto) 0.2 Basophils # (Auto) 0.2 CBC Comment AUTO DIFF Differential Total Cells 100 Counted Neutrophils % (Manual) 82 Band Neutrophils % 1 Lymphocytes % 6 Monocytes % 5 Eosinophils % 1 Basophils % 2 Neutrophils # (Manual) 10.9 Myelocytes 3 Differential Comment FINAL DIFF MANUAL Platelet Estimate NORMAL Platelet Morphology Comment NORMAL Stomatocytes 1+ Sodium Level 137 Potassium Level 3.5 Chloride Level 91 Carbon Dioxide Level 39.5 Anion Gap 7 Blood Urea Nitrogen 32 Creatinine 0.94 Estimat Glomerular Filtration 86 Rate Random Glucose 240 Calcium Level 8.6 Date/Time Procedure Status Source Growth 12/16/16 16:30 Gram Stain - Final Resulted Sputum Endotracheal 12/16/16 16:30 Sputum Culture - Preliminary Resulted Staphylococcus Aureus 12/16/16 08:31 Aerobic Blood Culture - Preliminary Resulted Blood Peripheral NO GROWTH IN 1 DAY 12/16/16 08:31 Anaerobic Blood Culture - Preliminary Resulted Blood Peripheral NO GROWTH IN 1 DAY 12/16/16 07:46 Gram Stain Received Sputum Endotracheal Pending 12/16/16 07:46 Sputum Culture Received Sputum Endotracheal Pending Imaging Last Impressions Chest X-Ray 12/17/16 0000 Signed Impressions: Service Date/Time: Saturday, December 17, 2016 08:11 - CONCLUSION: Stable chest x-ray with diffuse left lung air space consolidation and mild right upper lobe airspace consolidation. Stephen Andersen MD Abdomen X-Ray 12/13/16 0000 Signed Impressions: Service Date/Time: November 13:01 - CONCLUSION: Dobbhoff tube has its tip in the distal stomach. Jose De Jesus Macdonald MD Cervical Spine MRI 12/10/16 0000 Signed Impressions: Service Date/Time: Saturday, December 10, 2016 18:11 - CONCLUSION: 1. Tiny central protrusion at C3-4 and minimal broad-based protrusion at C4-5 without canal stenosis. 2. MR cervical spine is otherwise unremarkable. Hesham Lemus MD Brain MRI 12/10/16 0000 Signed Impressions: Service Date/Time: Saturday, December 10, 2016 18:11 - CONCLUSION: 1. Cerebral atrophy and chronic ischemic small vessel vasculopathy. 2. No ischemic changes. Hesham Lemus MD Cervical Spine CT 12/02/16 1140 Signed Impressions: Service Date/Time: Friday, December 02, 2016 12:09 - CONCLUSION: No acute disease. Stepan Guadalupe MD Head CT 12/02/16 1132 Signed Impressions: Service Date/Time: Friday, December 02, 2016 12:09 - CONCLUSION: No acute disease. No evidence of acute infarct, hemorrhage, mass or edema. Stepan Guadalupe MD CT Angiography 12/02/16 1132 Signed Impressions: Service Date/Time: Friday, December 02, 2016 12:09 - CONCLUSION: 1. No evidence of acute pulmonary embolism. 2. Posterior bibasilar airspace disease. 3. No evidence of suspicious mass or lymphadenopathy. Stepan Guadalupe MD Physical Exam HEENT: Normocephalic; atraumatic CHEST: Resp even/unlabored, Trach cpap. Diminished bases. CARDIAC: RRR ABDOMEN: Soft, obese, nondistended, nontender; no hepatosplenomegaly; bowel sounds x 4 quadrants EXTREMITIES: Gen. edema. HEEL SHAVER: Eyes open, does not follow commands Assessment and Plan Plan ASSESSMENT - Dysphagia/Malnutrition. GI consulted for PEG tube placement. wanted to think about this over weekend. Family and nurse tell me today that he has a bed at [facility] and will be transferred this afternoon and have PEG tube placed at that facility. Dobhoff in place. - Encephalopathy, Anoxic injury. Awake does not follow commands. Neurology following, repeat eeg with no sz activity MRI with no acute lesion, no sign of cortical anoxic injury - Respiratory failure, MSSA PNA. S/P tracheostomy. CPAP per [facility]. - Asystole, unclear etiology, Atrial fibrillation, now sinus rhythm. - Leukocytosis, WBC 12.7. - Anemia. 8.8/26.6. PLAN - GI was consulted for PEG tube placement. wanted to think about this over the weekend. Family and nurse tell me plan is now for patient to be transferred to [facility] this afternoon and have PEG tube placed at that facility. - GI will sign off, please reconsult as needed - Pt seen and examined by Dr. Esquivel and myself and this note is written on her behalf Latoya Muro Dec 17, 2016 15:55
== END 2016-12-17 16:20 | DRG 4 ==
LOC: NEPC 11:18 → NEDH 12:11 → HIME 13:40
PROVIDERS: ADMIT Internal Medicine; ATTEND Internal Medicine
PROC: 5A1955Z Respiratory Ventilation, Greater than 96 Consecutive Hours (ICD-10-PCS; 2016-12-02)
PROC: 6A4Z0ZZ Hypothermia, Single (ICD-10-PCS; 2016-12-02)
PROC: 0BH17EZ Insertion of Endotracheal Airway into Trachea, Via Natural or Artificial Opening (ICD-10-PCS; 2016-12-02)
PROC: 06HY33Z Insertion of Infusion Device into Lower Vein, Percutaneous Approach (ICD-10-PCS; 2016-12-02)
PROC: 0B113F4 Bypass Trachea to Cutaneous with Tracheostomy Device, Percutaneous Approach (ICD-10-PCS; principal; 2016-12-13)
PROC: 0BJ08ZZ Inspection of Tracheobronchial Tree, Via Natural or Artificial Opening Endoscopic (ICD-10-PCS; 2016-12-13)
DX: J96.01 Acute respiratory failure with hypoxia (principal); I46.9 Cardiac arrest, cause unspecified; J81.0 Acute pulmonary edema; J15.211 Pneumonia due to Methicillin susceptible Staphylococcus aureus; G93.40 Encephalopathy, unspecified; N17.9 Acute kidney failure, unspecified; R13.10 Dysphagia, unspecified; E11.42 Type 2 diabetes mellitus with diabetic polyneuropathy; E46 Unspecified protein-calorie malnutrition; I48.0 Paroxysmal atrial fibrillation; E87.70 Fluid overload, unspecified; R56.9 Unspecified convulsions; E11.610 Type 2 diabetes mellitus with diabetic neuropathic arthropathy; E11.649 Type 2 diabetes mellitus with hypoglycemia without coma; E78.5 Hyperlipidemia, unspecified; G31.9 Degenerative disease of nervous system, unspecified; R50.2 Drug induced fever; E11.65 Type 2 diabetes mellitus with hyperglycemia; L27.0 Generalized skin eruption due to drugs and medicaments taken internally; D64.9 Anemia, unspecified; T36.1X5A Adverse effect of cephalosporins and other beta-lactam antibiotics, initial encounter; Z79.4 Long term (current) use of insulin; Z80.1 Family history of malignant neoplasm of trachea, bronchus and lung; Z82.49 Family history of ischemic heart disease and other diseases of the circulatory system; Z83.3 Family history of diabetes mellitus
CPT/HCPCS: 31500; 31600; 31624; 36556; 36600; 51702; 70450; 70551; 71010; 71275; 72125; 72141; 74000; 76937; 80048; 80053; 80076; 80185; 80186; 80307; 81001; 82272; 82550; 82552; 82805; 82948; 83605; 83690; 83735; 83880; 84100; 84132; 84484; 85007; 85025; 85027; 85610; 85730; 86403; 86850; 86900; 86901; 87040; 87070; 87086; 87147; 87186; 87205; 87493; 87641; 93005; 93306; 94002; 94003; 94640; 94664; 95819; 96374; 96375; A7521; C9113; J0131; J0330; J0696; J1165; J1630; J1644; J1650; J1815; J1817; J1940; J1953; J2060; J2175; J2250; J3010; J3480; J7030; J7050; Q2009; Q9967

== ENCOUNTER 2017-03-28 12:08 | Emergency (ER) | payer BC, MEDICARE ==
[~2017-03-28] VITALS: Ht 177.8 cm; Wt 104.0 kg
[~2017-03-28 12:08] MED LIST: ASPI-183 PO; BUPR150CR PO; DILT31TA PO; FLUO20CA12 PO; FURO1TAB60 PO; LEVEMIR SQ; MAPA500T13 PO; NOVOLOGSS SQ; PHEN50CH PO; REST15CA PO; VENTAER INH; WHEEMIS3
[2017-03-28] MEDS ORDERED: SODIUM CHLORIDE 0.9% FLUSH 10 ML FLUSH IVF PRN ×2 (12:45→13:00)
[2017-03-28] MEDS ORDERED: DEXTROSE 50% IN WATER 50 ML VIAL(D50) IV PUSH ONE (12:45)
[2017-03-28] MEDS ORDERED: DEXTROSE 50% IN WATER 50 ML SYRINGE ONE (12:46)
[2017-03-28 12:48] VITALS: BP 190/80; PULSE 82; RESP 18; O2SAT 91
[2017-03-28] MEDS ORDERED: SODIUM CHLORIDE 0.9% FLUSH 5 ML FLUSH IV FLUSH PRN (13:00)
[2017-03-28 13:08] VITALS: O2SAT 98
[2017-03-28 13:37] LABS: AUTOMATED NEUTROPHIL # 3.5 TH/MM3 (1.8-7.7); BASOPHIL # 0.1 TH/MM3 (0-0.2); BASOPHIL % 0.8 % (0.0-2.0); EOSINOPHIL # 0.4 TH/MM3 (0-0.4); EOSINOPHIL % 5.8 % (0.0-4.0); HEMATOCRIT 38.5 % (39.0-51.0); HEMO FLAGS DIFF FINAL; LYMPH % 28.3 % (9.0-44.0); LYMPHOCYTE # 1.8 TH/MM3 (1.0-4.8); MEAN CELL VOLUME 87.3 FL (80.0-100.0); MEAN CORPUSCULAR HEMOGLOBIN 29.6 PG (27.0-34.0); MONO % 8.1 % (0.0-8.0); PLATELET COUNT 193 TH/MM3 (150-450); RED BLOOD COUNT 4.42 MIL/MM3 (4.50-5.90); RED CELL DISTRIBUTION WIDTH 13.3 % (11.6-17.2); WHITE BLOOD COUNT 6.2 TH/MM3 (4.0-11.0)
--- NOTE | 2017-03-28 13:38 | PD ---
HPI Chief Complaint: Seizure Time Seen by Provider: 12:59 Travel History International Travel<30 days: No Contact w/Intl Traveler<30days: No Traveled to known affect area: No History of Present Illness HPI Patient presents to ED via [facility] after witnessed seizure activity prior to arrival. Patient has a history of type 1 diabetes and was attending a training class for new insulin pump when he felt his blood glucose levels getting low. His instructor went to get him juice and the patient began to seize. He had a generalized tonic-clonic seizure X3 minutes with tongue biting. No incontinence. Post ictal period of 5 minutes. Seizure was witnessed by . No prior history of seizures. Patient still has AMS but says he "doesn't feel good ". He denies any pain or headache. History provided by . Blood sugar in ER was 40. Modifying Factors: None Associated Signs & Symptoms: Seizure episode, hypoglycemia Risk Factors: Diabetic, insulin pump PFSH Past Medical History Arthritis: No Asthma: No Autoimmune Disease: Yes Anxiety: Yes Depression: Yes Heart Rhythm Problems: Yes (A-fib, heart murmur) Cancer: No Cardiovascular Problems: Yes High Cholesterol: Yes Chemotherapy: No Chest Pain: Yes (from CPR) Congestive Heart Failure: Yes COPD: No Cerebrovascular Accident: No Diabetes: Yes (diabetes !) Endocrine: Yes GERD: No Genitourinary: No Hiatal Hernia: No Immune Disorder: Yes Kidney Stones: No Musculoskeletal: No Neurologic: Yes (Brain atrophy) Psychiatric: Yes Reproductive: No Respiratory: No Migraines: No Radiation Therapy: Yes Renal Failure: No Seizures: No Sickle Cell Disease: No Sleep Apnea: No Thyroid Disease: No Ulcer: No Past Surgical History Abdominal Surgery: Yes (PEG tube) AICD: No Arteriovenous Shunt: Yes Cardiac Surgery: No Ear Surgery: No Endocrine Surgery: No Eye Surgery: No Genitourinary Surgery: No Gynecologic Surgery: No Insulin Pump: Yes Joint Replacement: No Oral Surgery: No Pacemaker: No Thoracic Surgery: No Social History Alcohol Use: No (UNKNOWN) Tobacco Use: No Substance Use: No Allergies-Medications (Allergen,Severity, Reaction): Coded Allergies: No Known Allergies (Unverified , 01/04/17) Reported Meds & Prescriptions Reported Meds & Active Scripts Active Novolog Inj (Insulin Aspart) 100 Unit/Ml Inj 1 Unit SQ ACHS SLIDING SCALE PRN 30 Days Glucose: 200-249 2 units 250-299 4 units 300-349 6 units >349 8 units Levemir Inj (Insulin Detemir) 1,000 unit/ 10 ML Vial 32 Units SQ Q12HR 30 Days Do not mix with any other Insulin. Fluoxetine (Fluoxetine HCl) 20 Mg Capsule 40 Mg PO HS Wellbutrin SR 12 HR (Bupropion HCl) 150 Mg Tab 150 Mg PO HS Ventolin Hfa 18 GM Inh (Albuterol Sulfate) 90 Mcg/Act Aer 2 Puff INH Q4-6H PRN Restoril (Temazepam) 15 Mg Cap 15 Mg PO HS PRN Phenytoin Chew (Phenytoin) 50 Mg Chw 100 Mg PO Q8HR Lasix (Furosemide) 40 Mg Tab 40 Mg PO Q12HR Cardizem (Diltiazem HCl) 30 Mg Tab 30 Mg PO QID Aspirin 325 Mg Tab 325 Mg PO DAILY Wheelchair (Device) 1 Mis Mis Ea .ROUTE DIRECTED Reported Propranolol (Propranolol HCl) 40 Mg Tab 40 Mg PO Q6HR Seroquel (Quetiapine Fumarate) 100 Mg Tab 150 Mg PO Q12HR Lantus Inj (Insulin Glargine) 1,000 Unit/10 Ml Vial 30 Units SQ Q12HR Mapap Extra Strength (Acetaminophen) 500 Mg Tab 500 Mg PO Q6HR PRN Review of Systems Except as stated in HPI: all other systems reviewed are Neg Physical Exam Exam Limitations: Altered Mental Status, Poor Historian Narrative GENERAL: Well-nourished middle age white male patient, obese, currently an moderate distress, lethargic, disoriented. Diaphoretic SKIN: Warm and diaphoretic. HEAD: Atraumatic. Normocephalic. EYES: Pupils are small, equal and round. No scleral icterus. No injection or drainage. ENT: No nasal bleeding or discharge. Mucous membranes pink and moist. NECK: Trachea midline. No JVD. CARDIOVASCULAR: Regular rate and rhythm. Pulses are present and equal bilaterally. RESPIRATORY: No accessory muscle use. Clear to auscultation. Breath sounds equal bilaterally. GASTROINTESTINAL: Abdomen soft, non-tender, nondistended. Hepatic and splenic margins not palpable. MUSCULOSKELETAL: Extremities without clubbing, cyanosis, or edema. No obvious deformities. NEUROLOGICAL: Awake and lethargic and disoriented. No obvious cranial nerve deficits. Motor grossly within normal limits. Five out of 5 muscle strength in the arms and legs. Normal speech. PSYCHIATRIC: Appropriate mood and affect; insight and judgment poor. Data Data Last Documented VS Vital Signs Date Time Temp Pulse Resp B/P (MAP) Pulse Ox O2 Delivery O2 Flow Rate FiO2 03/28/17 13:55 76 16 181/90 (120) 100 Room Air Orders Orders Complete Blood Count With Diff (03/28/17 12:45) Drug Screen, Random Urine (03/28/17 12:45) Electrocardiogram (03/28/17 ) Blood Glucose (03/28/17 12:45) Ecg Monitoring (03/28/17 12:45) Iv Access Insert/Monitor (03/28/17 12:45) Oximetry (03/28/17 12:45) Comprehensive Metabolic Panel (03/28/17 12:45) Sodium Chloride 0.9% Flush (Ns Flush) (03/28/17 12:45) Dextrose 50% In Denita (Vial) Inj (D50w (Vi (03/28/17 12:45) Dextrose 50% In Denita (Syr) Inj (D50w (Syr (03/28/17 12:46) Phenytoin (Dilantin) (03/28/17 13:00) Sodium Chloride 0.9% Flush (Ns Flush) (03/28/17 13:00) Electrocardiogram (03/28/17 13:00) Troponin I (03/28/17 13:00) Chest, Single Ap (03/28/17 13:00) Ct Brain W/O Iv Contrast(Rout) (03/28/17 13:00) Sodium Chloride 0.9% Flush (Ns Flush) (03/28/17 13:00) Labs Laboratory Tests Test 03/28/17 13:00 White Blood Count 6.2 TH/MM3 Red Blood Count 4.42 MIL/MM3 Hemoglobin 13.1 GM/DL Hematocrit 38.5 % Mean Corpuscular Volume 87.3 FL Mean Corpuscular Hemoglobin 29.6 PG Mean Corpuscular Hemoglobin Concent 34.0 % Red Cell Distribution Width 13.3 % Platelet Count 193 TH/MM3 Mean Platelet Volume 8.1 FL Neutrophils (%) (Auto) 57.0 % Lymphocytes (%) (Auto) 28.3 % Monocytes (%) (Auto) 8.1 % Eosinophils (%) (Auto) 5.8 % Basophils (%) (Auto) 0.8 % Neutrophils # (Auto) 3.5 TH/MM3 Lymphocytes # (Auto) 1.8 TH/MM3 Monocytes # (Auto) 0.5 TH/MM3 Eosinophils # (Auto) 0.4 TH/MM3 Basophils # (Auto) 0.1 TH/MM3 CBC Comment DIFF FINAL Differential Comment Blood Urea Nitrogen 20 MG/DL Creatinine 1.02 MG/DL Random Glucose 124 MG/DL Total Protein 6.8 GM/DL Albumin 3.6 GM/DL Calcium Level 8.8 MG/DL Alkaline Phosphatase 116 U/L Aspartate Amino Transf (AST/SGOT) 25 U/L Alanine Aminotransferase (ALT/SGPT) 46 U/L Total Bilirubin 0.5 MG/DL Sodium Level 139 MEQ/L Potassium Level 4.3 MEQ/L Chloride Level 104 MEQ/L Carbon Dioxide Level 29.3 MEQ/L Anion Gap 6 MEQ/L Estimat Glomerular Filtration Rate 78 ML/MIN Troponin I LESS THAN 0.02 NG/ML Phenytoin (Dilantin) Level LESS THAN 0.4 MCG/ML MDM Medical Decision Making Medical Screen Exam Complete: Yes Emergency Medical Condition: Yes Medical Record Reviewed: Yes Interpretation(s) EKG shows NSR, no ST elevation or depression, and no arrhythmias. No significant T-wave inversions. Laboratory Tests Test 03/28/17 13:00 Red Blood Count 4.42 MIL/MM3 (4.50-5.90) Hematocrit 38.5 % (39.0-51.0) Monocytes (%) (Auto) 8.1 % (0.0-8.0) Eosinophils (%) (Auto) 5.8 % (0.0-4.0) Blood Urea Nitrogen 20 MG/DL (7-18) Random Glucose 124 MG/DL (74-106) Estimat Glomerular Filtration Rate 78 ML/MIN (>89) Troponin I LESS THAN 0.02 NG/ML Phenytoin (Dilantin) Level LESS THAN 0.4 MCG/ML Last [address] 03/28/17 1300 Signed Impressions: Service Date/Time: March 13:43 - CONCLUSION: Normal examination. Stephen Hunter MD Chest X-Ray 03/28/17 1300 Signed Impressions: Service Date/Time: March 13:44 - CONCLUSION: No acute cardiopulmonary abnormality is identified. Stephen Andersen MD Differential Diagnosis Syncopal episode versus seizures: Metabolic issues versus dysrhythmias versus dehydration versus acute intracranial processes Narrative Course Patient was given glucose and he slowly recovered mental status. On reevaluation at 2 PM, he is awake and oriented. CAT scan did not show any signs of acute intracranial processes. Patient had a hypoglycemic episode apparently. He does have an insulin pump and has hypoglycemic warning device. However, it is unclear whether the pump is functioning properly. EKG did not show any signs of dysrhythmias. I think that is less likely that this is a seizure although this cannot be completely ruled out. I think that the patient should get further workup and observation for this issue. I have recommended this to him and his . However, he is declining to stay at this point, states that he has an insulin pump, has a warning device for hypoglycemia, and does not want to be admitted. I have talked him about the fact that I cannot rule out new onset seizure and that further episodes of hypoglycemia which can be drained tears and life-threatening cannot be ruled out at this point. My recommendation is that he states for further evaluation. Patient states understanding, wants to leave AGAINST MEDICAL ADVICE at this point. He was fed dinner hopefully to decrease likelihood of further hypoglycemic episode, and was instructed to eat and drink properly today, glucose check hourly, and return for any worsening in symptoms. AMA: The risks of leaving against medical advice without further evaluation treatment were discussed with the patient. These risks include cardiac dysfunction, cardiac dysrhythmia, possible heart attack, possible stroke or . The patient indicated understanding of these risks and appeared to have the capacity to make this decision. Diagnosis Primary Impression: Hypoglycemia Additional Impressions: Syncope Convulsions/seizures Disposition: 07 AGAINST MEDICAL ADVICE Condition: Stable Griselda Gutierrez MD Mar 28, 2017 13:38
[2017-03-28 13:55] VITALS: BP 181/90; PULSE 76; RESP 16; O2SAT 100
--- NOTE | 2017-03-28 13:59 | RADRPT ---
EXAM DATE/TIME: 03/28/2017 13:43 [facility] COMPARISON: CT BRAIN W/O CONTRAST, December 02, 2016, 12:09. INDICATIONS : Possible seizure RADIATION DOSE: 35.22 CTDIvol (mGy) MEDICAL HISTORY : Cardiovascular disease. Hypertension. SURGICAL HISTORY : None. ENCOUNTER: Initial ACUITY: 1 day PAIN SCALE: 0/10 LOCATION: cranial TECHNIQUE: Multiple contiguous axial images were obtained of the head. Using automated exposure control and adj ustment of the mA and/or kV according to patient size, radiation dose was kept as low as reasonably a chievable to obtain optimal diagnostic quality images. DICOM format image data is available electro nically for review and comparison. FINDINGS: CEREBRUM: The ventricles are normal for age. No evidence of midline shift, mass lesion, hemorrhage or acute in farction. No extra-axial fluid collections are seen. POSTERIOR FOSSA: The cerebellum and brainstem are intact. The 4th ventricle is midline. The cerebellopontine angle i s unremarkable. EXTRACRANIAL: The visualized portion of the orbits is intact. SKULL: The calvaria is intact. No evidence of skull fracture. CONCLUSION: Normal examination. Stephen Hunter MD on March 28, 2017 at 13:49 Board Certified Radiologist. This report was verified electronically.
[2017-03-28 14:01] LABS: ALT (GPT) 46 U/L (12-78); ANION GAP 6 MEQ/L (5-15); AST (GOT) 25 U/L (15-37); BICARBONATE 29.3 MEQ/L (21.0-32.0); BLOOD UREA NITROGEN 20 MG/DL (7-18); CHLORIDE 104 MEQ/L (98-107); GLOMERULAR FILTRATION RATE 78 ML/MIN (>89); POTASSIUM 4.3 MEQ/L (3.5-5.1); SODIUM (NA) 139 MEQ/L (136-145)
[2017-03-28 14:02] LABS: ALKALINE PHOSPHATASE 116 U/L (45-117); TOTAL BILIRUBIN ADULT 0.5 MG/DL (0.2-1.0)
--- NOTE | 2017-03-28 14:04 | RADRPT ---
EXAM DATE/TIME: 03/28/2017 13:44 [facility] COMPARISON: CHEST PA & LAT, January 06, 2017, 15:50. CHEST SINGLE AP, December 17, 2016, 8:11. INDICATIONS : Syncope MEDICAL HISTORY : Diabetes mellitus type II. Hypercholesterolemia SURGICAL HISTORY : Insulin pump, Trach ENCOUNTER: Initial ACUITY: 1 day PAIN SCORE: 0/10 LOCATION: chest FINDINGS: Portable AP view of the chest demonstrates a normal-sized cardiac silhouette. No effusion, consolidat ion, or pneumothorax is visualized. The bones and soft tissues demonstrate no acute abnormality. CONCLUSION: No acute cardiopulmonary abnormality is identified. Stephen Andersen MD on March 28, 2017 at 14:02 Board Certified Radiologist. This report was verified electronically.
[2017-03-28 15:14] VITALS: BP 142/79
--- NOTE | 2017-03-29 18:24 | EKG ---
Date Performed: 03/28/2017 Time Performed: 13:02:57 PTAGE: 46 years EKG: Sinus rhythm INCOMPLETE RIGHT BUNDLE BRANCH BLOCK BORDERLINE ECG PREVIOUS TRACING : 12/10/2016 09.51 DOCTOR: Avis Mclaughlin Interpretating Date/Time 03/29/2017 18:17:26
== END 2017-03-28 15:18 | disposition left against medical advice (07) ==
LOC: NEPE 12:08
DX: E10.649 Type 1 diabetes mellitus with hypoglycemia without coma (principal); R55 Syncope and collapse; G40.409 Other generalized epilepsy and epileptic syndromes, not intractable, without status epilepticus; I11.0 Hypertensive heart disease with heart failure; I50.9 Heart failure, unspecified; I48.91 Unspecified atrial fibrillation; F41.9 Anxiety disorder, unspecified; F32.9 Major depressive disorder, single episode, unspecified; E78.00 Pure hypercholesterolemia, unspecified
CPT/HCPCS: 70450; 71010; 80053; 80185; 84484; 85025; 93005; 96374